=== PATIENT | male | born 1940 | race Caucasian/White ===

== ENCOUNTER 2017-01-27 02:04 | Emergency (ER) | payer MEDICARE, BC ==
[~2017-01-27] VITALS: Ht 177.8 cm; Wt 106.6 kg
[~2017-01-27 02:04] MED LIST: AMLO10TA4 PO; ASCO10002 PO; CLON0.2T PO; DOXA4TAB3 PO; GEMF600T3 PO; GLIM4TAB2 PO; METF10002 PO; METO50TA2 PO; OMEG1CAP6 PO; TRIA1TAB5 PO; VITA150T PO
[2017-01-27 02:18] VITALS: BP 162/97
[2017-01-27] MEDS ORDERED: ACETAMINOPHEN/CODEINE 300/30MG TABLET. PO ONE (02:30)
[2017-01-27] MEDS ORDERED: ACET-704 PO (02:36)
--- NOTE | 2017-01-27 02:39 | PHYS DOC ---
Past Medical History Past Medical History: Diabetes-Type II, Hypertension Additional Past Medical Histor: TACHYCARDIA Past Surgical History: Cholecystectomy, Other Additional Past Surgical Histo: RIGHT EYE, BACK Alcohol Use: None Drug Use: None Adult General Chief Complaint Chief Complaint: [facility] HPI Patient is a 76 year old male who presents with for bilateral anterior chest wall pain after trip and fall at home. He landed with his chest on the side of the tub. His pain is constant, worse with breathing, achy and intermittently sharp. He denies dyspnea, possible consciousness, back pain, neck pain, extremity pain, numbness, tingling, weakness. He denies cough, abdominal pain, nausea or vomiting. Review of Systems Review of Systems Constitutional: Denies fever or chills [] Eyes: Denies change in visual acuity, redness, or eye pain [] HENT: Denies nasal congestion or sore throat [] Respiratory: Denies cough or shortness of breath [] Cardiovascular: No additional information not addressed in HPI [] GI: Denies abdominal pain, nausea, vomiting, bloody stools or diarrhea [] : Denies dysuria or hematuria [] Musculoskeletal: Denies back pain or joint pain [] Integument: Denies rash or skin lesions [] Neurologic: Denies headache, focal weakness or sensory changes [] Endocrine: Denies polyuria or polydipsia [] Current Medications Current Medications Current Medications Medications (Trade) Dose Ordered Sig/Shantanu Start Time Stop Time Status Last Admin Dose Admin Acetaminophen/ Codeine Phosphate (Tylenol #3) 1 tab 1X ONCE 01/27/17 02:30 01/27/17 02:31 DC Allergies Allergies Allergies Coded Allergies Type Severity Reaction Last Updated Verified lisinopril Allergy Severe SWELLING OF TONGUE AND THROAT 05/08/16 Yes Physical Exam Physical Exam Constitutional: Well developed, well nourished, no acute distress, non-toxic appearance. [] HENT: Normocephalic, atraumatic, bilateral external ears normal, oropharynx moist, nose normal. No harrison sign, hemotympanum, or raccoon eyes [] Eyes: PERRLA, EOMI. [] Neck: Normal range of motion, no tenderness, supple. [] Cardiovascular:Heart rate regular rhythm [] Lungs & Thorax: Bilateral breath sounds clear to auscultation. Has chest wall tenderness bilaterally along the line, no visual or palpable abnormality [] Abdomen: Bowel sounds normal, soft, no tenderness. [] Skin: Warm, dry, no erythema, no rash. [] Back: No tenderness, no CVA tenderness. [] Extremities: No tenderness, ROM intact, no edema. [] Neurologic: Alert and oriented X 3, normal motor function, normal sensory function, no focal deficits noted. [] Psychologic: Affect normal, judgement normal, mood normal. [] Current Patient Data Vital Signs Vital Signs Date Time Temp Pulse Resp B/P Pulse Ox O2 Delivery O2 Flow Rate FiO2 01/27/17 02:18 97.7 68 20 165/104 99 Room Air 97.7 EKG EKG EKG as interpreted by me as sinus rhythm with first-degree AV block, rate 78, no ST-T changes, P-R 252, QTC 451, no ectopy Radiology/Procedures Radiology/Procedures Chest xray as interpreted by me with no acute cardiopulmonary disease process Course & Med Decision Making Course & Med Decision Making Pertinent Labs and Imaging studies reviewed. (See chart for details) He is ambulatory with steady gait with normal respiratory effort. Imaging and EKG is unremarkable. Discussed symptomatic care. Encouraged close follow-up with primary care. Return precautions given. He and understand and agree with plan. Dragon Disclaimer Dragon Disclaimer This electronic medical record was generated, in whole or in part, using a voice recognition dictation system. Departure Departure Impression: Primary Impression: Chest wall contusion Disposition: 01 HOME, SELF-CARE Condition: STABLE Referrals: SOTO CLIFFORD MD (PCP) Patient Instructions: Chest Contusion, [id number] Additional Instructions: Take Tylenol or ibuprofen as needed for moderate pain. Take Tylenol 3 as needed for severe pain. Do not drink, drive or operate heavy machinery after taking Tylenol 3 as it may make you sleepy. Follow-up with your primary care doctor within one week. Return for any concerns. Scripts Acetaminophen With Codeine (Tylenol With Codeine #3 Tablet)1 Each Tablet1 Tab PO PRN Q4HRS PRN PAIN #14 TAB Prov:Hipolito CURRY MD 01/27/17 Problem Qualifiers Primary Impression: Chest wall contusion Encounter type: initial encounter Laterality: unspecified laterality Qualified Code: S20.219A - Contusion of unspecified front wall of thorax, initial encounter Hipolito CURRY MD Jan 27, 2017 02:38
--- NOTE | 2017-01-27 07:13 | EKG ---
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
--- NOTE | 2017-01-27 07:14 | RAD ---
Chest, 2 views, 01/27/2017: History: Chest pain after trauma The left ventricle is mildly enlarged. There is calcific plaquing and tortuosity of the thoracic aorta. The pulmonary vascularity is normal. No pulmonary infiltrate is seen. There is mild pleural thickening laterally in the right mid chest. No underlying rib fracture is seen. This appearance is likely due to scarring. There is no evidence of pneumothorax or free pleural fluid. Moderate spurring is present in the spine. IMPRESSION: 1. Left ventricular enlargement and aortic atherosclerosis. 2. Mild pleural thickening laterally on the right, likely due to scarring.
== END 2017-01-27 03:04 | disposition home or self-care (01) ==
LOC: ER 02:04
DX: S20.219A Contusion of unspecified front wall of thorax, initial encounter (principal); E11.9 Type 2 diabetes mellitus without complications; I10 Essential (primary) hypertension; Z90.49 Acquired absence of other specified parts of digestive tract; Z98.890 Other specified postprocedural states; Z88.8 Allergy status to other drugs, medicaments and biological substances; W01.198A Fall on same level from slipping, tripping and stumbling with subsequent striking against other object, initial encounter; Y93.89 Activity, other specified; Y99.8 Other external cause status; Y92.89 Other specified places as the place of occurrence of the external cause
CPT/HCPCS: 71020; 93005; 99284-25

== ENCOUNTER 2020-10-19 02:16 | Inpatient (IN) | payer MEDICARE, BC ==
[~2020-10-19] VITALS: Ht 177.8 cm; Wt 102.6 kg
[~2020-10-19 02:16] MED LIST changes: +ACET-704 PO; +ASCO100019 PO; -ASCO10002 PO; +GEMF600T20 PO; -GEMF600T3 PO; -GLIM4TAB2 PO; +GLIM4TAB8 PO; -METF10002 PO; +METF10007 PO; -METO50TA2 PO; +METO50TA6 PO
--- NOTE | 2020-10-19 02:35 | PHYS DOC ---
Past Medical History Past Medical History: Diabetes-Type II, Hypertension Additional Past Medical Histor: TACHYCARDIA Past Surgical History: Cholecystectomy, Other Additional Past Surgical Histo: RIGHT EYE, BACK Smoking Status: Never Smoker Alcohol Use: None Drug Use: None General Adult EDM: Chief Complaint: SHORTNESS OF BREATH HPI: HPI: Patient is a 79-year-old male presenting via EMS for lightheadedness. Reports patient woke from sleep and was ambulating to bathroom when he started feeling lightheaded and having palpitations. Patient's lightheadedness got so severe that he felt like he was going to fall but was able to lower himself down to the ground, did not hit his head, no loss of consciousness and was able to call out for his who subsequently called EMS. On arrival to the patient's residence, patient was evaluated and found to be tachycardic and irregular rhythm with hypertensive reading and 88% on room air. Patient was subsequently placed on supplemental oxygen via nasal cannula and transferred to our facility for further evaluation. On arrival, patient reports ongoing palpitations without any feelings of lightheadedness or dizziness. Denies any chest pain, pressure or shortness of breath. Denies any changes in his baseline health. No recent COVID-19 contact, fever, falls, chest pain, ripping or tearing sensations in his chest, abdominal pain, changes in bladder or bowel function, no known blood loss. Has history of tachycardia in his EMR but unknown what came of this, is not sure if he is ever seen a cashier receptionist, denies any prior history of atrial fibrillation. accompanied patient in ER and provided additional history, states that, "his blood pressure is always high and he always has a fast heart rate". is unsure if patient has ever been diagnosed with atrial fibrillation Review of Systems: Review of Systems: Fourteen body systems of review of systems have been reviewed. See HPI for pertinent positives and negative responses, other castillo all other systems are negative, non-pertinent or non-contributory Heart Score: HEART Score for Chest Pain: HEART Score for Chest Pain Response (Comments) Value History Slighlty/Non-Suspicious 0 ECG Normal 0 Age > 65 2 Risk Factors >3 Risk Factors or Hx CAD 2 Troponin >3 x Normal Limit 2 Total 6 Risk Factors: Risk Factors: DM, Current or recent (<one month) smoker, HTN, HLP, family history of CAD, obesity. Risk Scores: Score 0 - 3: 2.5% MACE over next 6 weeks - Discharge Home Score 4 - 6: 20.3% MACE over next 6 weeks - Admit for Clinical Observation Score 7 - 10: 72.7% MACE over next 6 weeks - Early Invasive Strategies Allergies: Allergies: Allergies Coded Allergies Type Severity Reaction Last Updated Verified lisinopril Allergy Severe SWELLING OF TONGUE AND THROAT 05/08/16 Yes Physical Exam: PE: General: Appears well, non toxic, and comfortable Skin: Warm, dry. Normal for ethnicity. HEENT: Atraumatic. PERRLA. Moist mucous membranes. Neck: Trachea midline. Normal ROM. Respiratory: Normal WOB. CTAB w/o w/r/r. No tachypnea. Cardiovascular: Regular rate and rhythm. Normal peripheral perfusion. No edema. Abdomen: Soft. Non tender. No distension. Back: Normal ROM. Musculoskeletal: No swelling or deformity. Neuro: Alert and oriented x 4. MAEE. GCS 15. Normal FNF. Negative pronator drift. Normal heel to negro. Normal Medardo. CN II-XII intact. Normal strength and sensation. Normal speech. Psych: Normal affect and mood. Current Patient Data: Labs: Laboratory Tests Test 10/19/20 02:30 10/19/20 02:38 White Blood Count 11.4 x10^3/uL Red Blood Count 4.00 x10^6/uL Hemoglobin 12.1 g/dL Hematocrit 36.5 % Mean Corpuscular Volume 91 fL Mean Corpuscular Hemoglobin 30 pg Mean Corpuscular Hemoglobin Concent 33 g/dL Red Cell Distribution Width 14.0 % Platelet Count 276 x10^3/uL Neutrophils (%) (Auto) 69 % Lymphocytes (%) (Auto) 20 % Monocytes (%) (Auto) 9 % Eosinophils (%) (Auto) 2 % Basophils (%) (Auto) 0 % Neutrophils # (Auto) 7.9 x10^3/uL Lymphocytes # (Auto) 2.3 x10^3/uL Monocytes # (Auto) 1.0 x10^3/uL Eosinophils # (Auto) 0.2 x10^3/uL Basophils # (Auto) 0.0 x10^3/uL Prothrombin Time 13.5 SEC Prothromb Time International Ratio 1.1 Activated Partial Thromboplast Time 29 SEC Sodium Level 140 mmol/L Potassium Level 3.7 mmol/L Chloride Level 107 mmol/L Carbon Dioxide Level 22 mmol/L Anion Gap 11 Blood Urea Nitrogen 18 mg/dL Creatinine 2.2 mg/dL Estimated GFR (Cockcroft-Gault) 29.1 Glucose Level 118 mg/dL Calcium Level 8.8 mg/dL Troponin I Quantitative 0.154 ng/mL Glucose (Fingerstick) 111 mg/dL Current Medications Medications (Trade) Dose Ordered Sig/Shantanu Route PRN Reason Start Time Stop Time Status Last Admin Dose Admin Aspirin (Aspirin Chewable) 324 mg 1X ONCE PO 10/19/20 03:30 10/19/20 03:31 DC 10/19/20 03:56 Heparin Sodium (Porcine) (Heparin Sodium) 4,000 unit 1X ONCE IV 10/19/20 03:30 10/19/20 03:31 DC 10/19/20 03:58 Heparin Sodium/ Dextrose 250 ml @ 0 mls/hr CONT PRN IV PER PROTOCOL 10/19/20 03:15 10/19/20 04:00 Heparin Sodium (Porcine) (Heparin Sodium) 2,650 unit PRN Q6HRS PRN IV FOR UFH LEVEL LESS THAN 0.2 10/19/20 03:15 Metoprolol Tartrate (Lopressor Vial) 5 mg 1X ONCE IVP 10/19/20 03:30 10/19/20 03:31 DC 10/19/20 03:56 Info (Anti-Coagulation Monitoring By Pharmacy) 1 each PRN DAILY PRN MC SEE COMMENTS 10/19/20 03:30 Acetaminophen (Tylenol) 650 mg PRN Q4HRS PRN PO FEVER > 100.3'F 10/19/20 03:30 10/20/20 03:29 Nitroglycerin (Nitrostat) 0.4 mg PRN Q5MIN PRN SL CHEST PAIN 10/19/20 03:30 10/20/20 03:29 Vital Signs: Vital Signs Date Time Temp Pulse Resp B/P (MAP) Pulse Ox O2 Delivery O2 Flow Rate FiO2 10/19/20 03:56 112 159/102 10/19/20 02:16 98.0 112 28 158/97 (117) 96 Room Air 98.0 EKG: EKG: EKG ordered and interpreted by myself at 0230 hrs. as atrial fibrillation with ventricular rate of 115 otherwise unremarkable intervals, left axis deviation, no acute ischemic findings, no STEMI Prior EKG reviewed obtained 01/27/2017 showing sinus rhythm at 78 bpm, prolonged FL interval at 252 otherwise unremarkable intervals, left axis deviation, no acute ischemic findings, no STEMI Radiology/Procedures: Radiology/Procedures: EXAM: AP View of the chest DATE: 10/19/2020 2:35 AM INDICATION: Reason: presyncope / Spl. Instructions: / History: COMPARISON: 01/27/2017 FINDINGS: Cardiomegaly. Small right pleural effusion. Bilateral perihilar airspace opacities and right greater than left lung base airspace opacities. No pneumothorax. IMPRESSION: Cardiomegaly with bilateral parenchymal opacities and small right pleural effusion may be seen with pulmonary edema or multifocal consolidative process such as pneumonia. Imaging follow-up to resolution is recommended. Electronically signed by: Chente Boyce MD (10/19/2020 2:57 AM) STEPHANIA Course & Med Decision Making: Course & Med Decision Making Pertinent Labs and Imaging studies reviewed. (See chart for details) Patient found to be in new onset atrial fibrillation, given fact that patient and are poor historians about his health it is unknown if this is new onset or not. Patient rate controlled with 5 mg IV Lopressor Patient's troponin elevated without active chest pain but reported palpitations that resolved after IV Lopressor. Decision made to anticoagulate with heparin drip due to high CHADS-VASC score 4 Patient's chest x-ray interpreted by radiologist as infiltrate versus fluid overload, patient clinically looks fluid overloaded likely from cardiac insult versus chronic hypertension which could be because of patient's new onset atrial fibrillation and elevated troponin. IV 40 mg Lasix administered On-call hospitalist contacted and case discussed, they agreed need for hospitalization for continued inpatient medical management and cardiac consultation Updated patient and on proposed plan of care to admit to telemetry floor for continued management and cardiac consultation, they were amenable. All questions and concerns addressed prior to transport to [facility] for admission Critical Care Time This patient required critical care. Due to the fact that the patient required a significant amount of one on one physician - patient contact time, ordering and review of studies, arranging urgent treatment with development of a management plan, evaluation of patients response to treatment with frequent reassessments, and discussions with other providers this patient required 45 minutes of critical care time. Critical care time was indicated due to the inherent instability and/or potential for instability in this patient. The critical care time that is allocated to this patient is above and beyond any time spent on any other billable procedures performed on this patient. Sharon Disclaimer: Sharon Disclaimer: This electronic medical record was generated, in whole or in part, using a voice recognition dictation system. Departure Departure Impression: Primary Impression: New onset a-fib Additional Impressions: Elevated troponin Elevated creatine kinase HTN (hypertension) Anemia Disposition: 09 ADMITTED INPT THIS HOSP Admitting [facility] Condition: STABLE Referrals: SOTO CLIFFORD MD (PCP) RAMILA POWER DO Oct 19, 2020 02:35
[2020-10-19 02:48] LABS: BASO % 0 % (0-3); EOS # 0.2 x10^3/uL (0.0-0.7); EOS % 2 % (0-3); HEMATOCRIT 36.5 % (39.0-53.0); HEMOGLOBIN 12.1 g/dL (13.0-17.5); LYMPH # 2.3 x10^3/uL (1.0-4.8); LYMPH % 20 % (24-48); MEAN CORPUSCULAR HEMOGLOBIN 30 pg (25-35); MEAN CORPUSCULAR HGB CONC 33 g/dL (31-37); MEAN CORPUSCULAR VOLUME 91 fL (79-100); MONO % 9 % (0-9); NEUT # 7.9 x10^3/uL (1.8-7.7); NEUT % 69 % (31-73); PLATELET COUNT 276 x10^3/uL (140-400); WHITE BLOOD COUNT 11.4 x10^3/uL (4.0-11.0)
[2020-10-19 02:56] LABS: PROTHROMBIN TIME PATIENT 13.5 SEC (11.7-14.0)
--- NOTE | 2020-10-19 02:59 | RAD ---
EXAM: AP View of the chest DATE: 10/19/2020 2:35 AM INDICATION: Reason: presyncope / Spl. Instructions: / History: COMPARISON: 01/27/2017 FINDINGS: Cardiomegaly. Small right pleural effusion. Bilateral perihilar airspace opacities and right greater than left lung base airspace opacities. No pneumothorax. IMPRESSION: Cardiomegaly with bilateral parenchymal opacities and small right pleural effusion may be seen with p ulmonary edema or multifocal consolidative process such as pneumonia. Imaging follow-up to resolution is recommended. Electronically signed by: Chente Boyce MD (10/19/2020 2:57 AM) STEPHANIA
[2020-10-19 03:02] LABS: CALCIUM 8.8 mg/dL (8.5-10.1); CREATININE 2.2 mg/dL (0.7-1.3); GFR 29.1; POTASSIUM 3.7 mmol/L (3.5-5.1)
[2020-10-19] MEDS ORDERED: METOPROLOL IV PUSH 5 MG/5 ML VIAL. IVP ONE ×2 (03:30→16:00)
[2020-10-19] MEDS ORDERED: HEPARIN for IV BOLUS 10,000 UNIT/10 ML VIAL. IV ONE (03:30)
[2020-10-19] MEDS ORDERED: ASPIRIN CHEWABLE 81 MG TABLET. PO ONE (03:30)
[2020-10-19] MEDS ORDERED: NITROGLYCERIN SUBLINGUAL 0.4 MG BOTTLE OF 25. SL PRN ×2 (03:30→04:45)
[2020-10-19] MEDS ORDERED: ACETAMINOPHEN 325 MG TABLET. PO PRN (03:30)
[2020-10-19] MEDS: HEPARIN 25,000UTS/250ML PREMIX 250 ML IV PRN ×2 (04:00→22:24)
[2020-10-19] MEDS: ANTI-COAG MONITOR BY PHARMACY. MC PRN (04:58)
[2020-10-19] MEDS ORDERED: FUROSEMIDE 40 MG/4 ML VIAL. IVP ONE (05:00)
[2020-10-19] MEDS ORDERED: DEXTROSE 50% 25 GM / 50ML DISP.SYRIN. IV PRN (06:45)
[2020-10-19 08:35] VITALS: BP 141/97
--- NOTE | 2020-10-19 09:59 | NUR ---
Wound Care Wound Type/Assessment: Consult to eval and treat for wounds present to bilateral legs. Wounds to L calf and R posterior knee pictured and measured, intact scabs to toes noted. at bedside states that pt experiences falls fairly often, and usually ends up with a few abrasions. Pt is diabetic, but feet are overall healthy, soft skin, and superficial, stable scabs of different ages noted to toes. L calf wound bed pink and moist with 50% thick, loose slough, some of which came away during cleansing. R posterior knee wound red and crusty at edges, and slight redness and induration noted to mat wound. No other wounds noted on head to toe assessment. Treatment Recommendations/Plan: R posterior knee/L calf: Cleanse and pat dry. Apply medihoney gel, xeroform, and foam dressing. Change every 2 days Education provided: Educated to turn periodically to prevent new areas of skin breakdown. Offloading surface/device: pillows for positioning and comfort, able to self-turn Recommended Referrals/Tests: NA Discharge Recommendations for dressings: As above
--- NOTE | 2020-10-19 10:36 | HP ---
ADMIT DATE: 10/19/2020 CHIEF COMPLAINT: Shortness of breath. HISTORY OF PRESENT ILLNESS: The patient is a pleasant 79-year-old male, who presented to the ER with shortness of breath. He has had some associated lightheadedness. It has been going on for a couple of days. He also started having some palpitations yesterday when he went to the bathroom. When he got to the ER, we noticed that he is in AFib. He also has some heart failure. Apparently, his had COVID-19 within the recent past, so we were also concerned he could have been exposed to COVID. The patient has been admitted with consultation to Cardiology. PAST MEDICAL HISTORY: Diabetes, hypertension, tachycardia, cholecystectomy, right eye surgery, back surgery. ALLERGIES: LISINOPRIL. FAMILY HISTORY: Coronary artery disease. SOCIAL HISTORY: He does not drink, smoke or take drugs. He is retired. He is . His is here. MEDICATIONS: Reviewed, please refer to the MRAD. REVIEW OF SYSTEMS: GENERAL: No history of weight change, weakness or fevers. SKIN: No bruising, hair changes or rashes. EYES: No blurred, double or loss of vision. NOSE AND THROAT: No history of nosebleeds, hoarseness or sore throat. HEART: No history of palpitations, chest pain or shortness of breath on exertion. LUNGS: Denies cough, hemoptysis, wheezing or shortness of breath. GASTROINTESTINAL: Denies changes in appetite, nausea, vomiting, diarrhea or constipation. GENITOURINARY: No history of frequency, urgency, hesitancy or nocturia. NEUROLOGIC: Denies history of numbness, tingling, tremor or weakness. PSYCHIATRIC: No history of panic, anxiety or depression. ENDOCRINE: No history of heat or cold intolerance, polyuria or polydipsia. EXTREMITIES: Denies muscle weakness, joint pain, pain on walking or stiffness. PHYSICAL EXAMINATION: VITALS: Within normal limits and are stable. GENERAL: No apparent distress. Alert and oriented. HEENT: Normocephalic atraumatic, external auditory canals are patent. EYES: Extraocular muscles are intact, pupils are equally round and reactive to light and accommodation. MUSCULOSKELETAL: Well developed, well nourished, good range of motion. ENDOCRINE: No thyromegaly was palpated. LYMPHATICS: No cervical chain or axillary nodes were noted. HEMATOPOIETIC: No bruising. NECK: Supple, no JVD, no thyromegaly was noted. LUNGS: Clear to auscultation in all lung jeff without rhonchi or wheezing. HEART: He has a distant S1, S2 with irregular rate and rhythm at 80 beats per minute. ABDOMEN: Soft, nontender. Positive bowel sounds no organomegaly, normal bowel sounds. EXTREMITIES: Without any cyanosis, clubbing, or edema. Pedal pulses intact, Homans sign is negative. NEUROLOGIC: Normal speech, normal tone. A & O x 3, moves all extremities, no obvious focal deficits. PSYCHIATRIC: Normal affect, normal mood. Stable. SKIN: No ulcerations or rashes, good skin turgor, no jaundice. VASCULAR: Good capillary refill, neurovascular bundle appears to be intact. LABORATORY DATA: White count is 11.4, hemoglobin 12.1, platelets 276. Electrolytes are normal except for creatinine of 2.2. Troponin is slightly high at 0.15. BNP level is pending. COVID testing is actually negative. INR is 1. Chest x-ray shows cardiomegaly with some bilateral parenchymal opacities and a small right pleural effusion, which may be seen with pulmonary edema or a multifocal consolidative process, such as pneumonia. ASSESSMENT AND PLAN: Atrial fibrillation with resolving rapid ventricular response. Abnormal chest x-ray suspicious for pneumonia or heart failure, hypertension, elevated troponin. PLAN: The patient has been admitted. We will consult Cardiology, cardiac monitoring, serial enzymes, serial EKGs, echocardiogram, home meds, DVT prophylaxis. Full code. We will use p.r.n. negative chronotropic agents as needed, but currently he is under 100 beats per minute. ZAIN JENSEN DO DR: RUBEN/shahla JOB#: [id number] / [id number]
--- NOTE | 2020-10-19 10:56 | NUR ---
pt transferred to room 260 at approx 0950. pt was not on this floor when the pt had a ufh draw at 0800. this nurse did not make any adjustments to the heparin gtt as the pt was not on this unit at that time. Order put in to redraw stat ufh at approx 1100. Will continue to monitor.
[2020-10-19 11:00] VITALS: BP 136/94
--- NOTE | 2020-10-19 11:14 | NUR ---
SS following for discharge planning. SS reviewed pt chart and discussed with pt RN. Pt is from home with spouse and is currently on room air. COVID19 test pending. Heparin drip. Cardiology consulted. SS will continue to follow for discharge planning.
--- NOTE | 2020-10-19 12:07 | NUR ---
UFH ordered for wrong time this morning, should have been timed for 1000, but was not & was drawn at 0800. HALLE Nieto ordered a new UHF closer to actual time it should have been drawn.
[2020-10-19] MEDS: HEPARIN for IV BOLUS 10,000 UNIT/10 ML VIAL. IV PRN ×2 (13:40→19:53)
[2020-10-19 15:00] VITALS: BP 142/96
[2020-10-19] MEDS ORDERED: METOPROLOL IV PUSH 5 MG/5 ML VIAL. IVP PRN (15:45)
--- NOTE | 2020-10-19 16:09 | PDOC2 ---
GUZMAN FAIRCHILD [employer] 10/19/20 1609: CARDIAC CONSULT DATE OF CONSULT Date of Consult DATE: 10/19/20 TIME: 15:39 REASON FOR CONSULT Reason for Consult: Possible CHF/AFIB REFERRING PHYSICIAN Referring Physician: Cherrie SOURCE Source: Chart review, Patient HISTORY OF PRESENT ILLNESS HISTORY OF PRESENT ILLNESS This is a pleasant 79 yo male admitted for complains of shortness of breath and lightheadedness. Reports no chest pain. His SOA started about 3-4 days ago. Positive for incresing leg edema, PND and orthopnea. Also at times with palpitations and actually lightheaded yesterday, He did fall about 2 days ago but no because he was lightheaded but due to lost of balance. No prior hx of CAD, arrhythmia, no prior recent stress test and no hx of CVA, PUD or bleeding issues. He was also noted to be slightly hypoxic when EMS got to his home. No recent fever, productive cough or recent exposure to covid-19. No n/v/d. PAST MEDICAL HISTORY Cardiovascular: CHF, HTN, Hyperlipidemia Pulmonary: No pertinent hx CENTRAL NERVOUS SYSTEM: Other (No pertinent history) GI: No pertinent hx Heme/Onc: No pertinent hx Hepatobiliary: Cholelithiasis Psych: No pertinent hx Musculoskeletal: Osteoarthritis Rheumatologic: No pertinent hx Infectious disease: No pertinent hx ENT: No pertinent hx Renal/: No pertinent hx Endocrine: Diabetes (2) PAST SURGICAL HISTORY Past Surgical History: Cholecystectomy, Other (right eye surgery) FAMILY HISTORY Family History noncontributory SOCIAL HISTORY Smoke: No ALCOHOL: none Drugs: None Lives: with Family CURRENT MEDICATIONS CURRENT MEDICATIONS Current Medications Medications (Trade) Dose Ordered Sig/Shantanu Route PRN Reason Start Time Stop Time Status Last Admin Dose Admin Aspirin (Aspirin Chewable) 324 mg 1X ONCE PO 10/19/20 03:30 10/19/20 03:31 DC 10/19/20 03:56 Heparin Sodium (Porcine) (Heparin Sodium) 4,000 unit 1X ONCE IV 10/19/20 03:30 10/19/20 03:31 DC 10/19/20 03:58 Heparin Sodium/ Dextrose 250 ml @ 0 mls/hr CONT PRN IV PER PROTOCOL 10/19/20 03:15 10/19/20 04:00 Heparin Sodium (Porcine) (Heparin Sodium) 2,650 unit PRN Q6HRS PRN IV FOR UFH LEVEL LESS THAN 0.2 10/19/20 03:15 10/19/20 13:40 Metoprolol Tartrate (Lopressor Vial) 5 mg 1X ONCE IVP 10/19/20 03:30 10/19/20 03:31 DC 10/19/20 03:56 Info (Anti-Coagulation Monitoring By Pharmacy) 1 each PRN DAILY PRN MC SEE COMMENTS 10/19/20 03:30 10/19/20 04:58 Furosemide (Lasix) 40 mg 1X ONCE IVP 10/19/20 05:00 10/19/20 05:01 DC 10/19/20 06:18 ALLERGIES ALLERGIES: Coded Allergies: lisinopril (Verified Allergy, Severe, SWELLING OF TONGUE AND THROAT, 05/08/16) ROS Review of System 14 point ROS evaluated with pertinent positives noted per HPI PHYSICAL EXAM PHYSICAL EXAM Discussed with RN General: Alert, Oriented X3, Cooperative, No acute distress HEENT: Atraumatic, Mucous membr. moist/pink Lungs: Other (dimnished, CXR reviewed) Heart: Other (AFIB rate controlled) Abdomen: Soft, No tenderness Extremities: No cyanosis, Other (2+ bilateral LE pitting edema) Skin: No breakdown, No significant lesion Neuro: Normal speech, Sensation intact Psych/Mental Status: Mental status NL, Mood NL MUSCULOSKELETAL: Osteoarthritic changes both hands VITALS/I&O VITALS/I&O: Vital Signs Date Time Temp Pulse Resp B/P (MAP) Pulse Ox O2 Delivery O2 Flow Rate FiO2 10/19/20 15:00 97.3 117 20 142/96 (111) 96 Nasal Cannula 2.0 97.3 LABS Lab: Laboratory Tests Test 10/19/20 02:30 10/19/20 02:38 10/19/20 08:05 10/19/20 08:31 White Blood Count 11.4 x10^3/uL (4.0-11.0) H Red Blood Count 4.00 x10^6/uL (4.30-5.70) L Hemoglobin 12.1 g/dL (13.0-17.5) L Hematocrit 36.5 % (39.0-53.0) L Mean Corpuscular Volume 91 fL (79-100) Mean Corpuscular Hemoglobin 30 pg (25-35) Mean Corpuscular Hemoglobin Concent 33 g/dL (31-37) Red Cell Distribution Width 14.0 % (11.5-14.5) Platelet Count 276 x10^3/uL (140-400) Neutrophils (%) (Auto) 69 % (31-73) Lymphocytes (%) (Auto) 20 % (24-48) L Monocytes (%) (Auto) 9 % (0-9) Eosinophils (%) (Auto) 2 % (0-3) Basophils (%) (Auto) 0 % (0-3) Neutrophils # (Auto) 7.9 x10^3/uL (1.8-7.7) H Lymphocytes # (Auto) 2.3 x10^3/uL (1.0-4.8) Monocytes # (Auto) 1.0 x10^3/uL (0.0-1.1) Eosinophils # (Auto) 0.2 x10^3/uL (0.0-0.7) Basophils # (Auto) 0.0 x10^3/uL (0.0-0.2) Prothrombin Time 13.5 SEC (11.7-14.0) Prothrombin Time INR 1.1 (0.8-1.1) Activated Partial Thromboplast Time 29 SEC (24-38) Sodium Level 140 mmol/L (136-145) Potassium Level 3.7 mmol/L (3.5-5.1) Chloride Level 107 mmol/L (98-107) Carbon Dioxide Level 22 mmol/L (21-32) Anion Gap 11 (6-14) Blood Urea Nitrogen 18 mg/dL (8-26) Creatinine 2.2 mg/dL (0.7-1.3) H Estimated GFR (Cockcroft-Gault) 29.1 Glucose Level 118 mg/dL (70-99) H Calcium Level 8.8 mg/dL (8.5-10.1) Troponin I Quantitative 0.154 ng/mL (0.000-0.055) 0.135 ng/mL (0.000-0.055) Glucose (Fingerstick) 111 mg/dL (70-99) H 120 mg/dL (70-99) H Heparin Anti-Xa Act, Unfractionated 0.10 IU/mL (0.30-0.70) L SARS-CoV-2 Antigen (Rapid) Negative (NEGATIVE) Test 10/19/20 11:20 10/19/20 11:53 Heparin Anti-Xa Act, Unfractionated < 0.10 IU/mL (0.30-0.70) L Troponin I Quantitative 0.131 ng/mL (0.000-0.055) Glucose (Fingerstick) 161 mg/dL (70-99) H Laboratory Tests 10/19/20 02:30 Laboratory Tests 10/19/20 02:30 ASSESSMENT/PLAN ASSESSMENT/PLAN 1. PAFIB/flutter with RVR: new finding 2. Acute CHF with possible systolic/diastolic dysfunction 3. ELIZABETH vs CKD 4. Mild troponin elevation: 0.13, possibly demand mediated. no CP 5. HTN: labile episodes. multiple BP meds at home 6. HLP 7. DM2 8. Nontraumatic fall: due to lost of balance 9. PUI Recommendations 1. Restart metoprolol.PO. IV prn 2. IV lasix therapy. K replacement 3. ASA. Heparin drip for now. Will reeval tomorrow and will consider eliquis to start for stroke prevention 4. Continue home statin, will check lipids. Check TSH 5. Hold metformin and any ACEi for now. DC maxide. May restart norvasc if BP starts trending up otherwise optimize BB and diuretic treatment 6. If Covid PCR is neg then will obtain TTE CHELO NICHOLSON MD 10/19/20 1701: CARDIAC CONSULT ASSESSMENT/PLAN ASSESSMENT/PLAN Patient seen and examined. Agree with SCALEMAN's assessment and plan. AF with RVR, newly diagnosed, agree with BB for rate control Slight trop elevation prob demand ischemia We will obtain 2D echo if covid negative and consider ischemic evaluation as outpatient Continue heparin infusion per protocol Continue diuresis for acute on chr possibly diastolic HF Thank you for your consultation GUZMAN FAIRCHILD APRN Oct 19, 2020 16:09 CHELO NICHOLSON MD Oct 19, 2020 17:01
[2020-10-19 16:29] LABS: CHOLESTEROL/HDL RATIO 3.7
[2020-10-19] MEDS: FUROSEMIDE 40 MG/4 ML VIAL. IVP SCH (17:06)
[2020-10-19] MEDS: POTASSIUM CHLORIDE 20 MEQ TABLET.ER. PO SCH (17:07)
[2020-10-19 19:55] VITALS: BP 145/97
[2020-10-19] MEDS: METOPROLOL TART IMMED RELEASE 50 MG TABLET. PO SCH (20:44)
[2020-10-19 22:08] VITALS: BP 147/93
[2020-10-20 02:42] LABS: HEMATOCRIT 33.6 % (39.0-53.0); HEMOGLOBIN 11.2 g/dL (13.0-17.5); RED BLOOD COUNT 3.63 x10^6/uL (4.30-5.70); RED CELL DISTRIBUTION WIDTH 14.7 % (11.5-14.5); WHITE BLOOD COUNT 9.8 x10^3/uL (4.0-11.0)
[2020-10-20 02:51] VITALS: BP 146/98
[2020-10-20 02:58] LABS: CALCIUM 8.8 mg/dL (8.5-10.1); CREATININE 2.3 mg/dL (0.7-1.3); GFR 27.6; MAGNESIUM 2.1 mg/dL (1.8-2.4); POTASSIUM 3.7 mmol/L (3.5-5.1)
[2020-10-20 07:00] VITALS: BP 142/91
[2020-10-20] MEDS: POTASSIUM CHLORIDE 20 MEQ TABLET.ER. PO SCH (08:44)
[2020-10-20] MEDS: METOPROLOL TART IMMED RELEASE 50 MG TABLET. PO SCH ×2 (08:44→21:15)
[2020-10-20] MEDS: FUROSEMIDE 40 MG/4 ML VIAL. IVP SCH (08:45)
[2020-10-20 11:00] VITALS: BP 138/73
--- NOTE | 2020-10-20 11:59 | PDOC ---
[facility] PROGRESS NOTE Date of Service DOS: DATE: 10/20/20 TIME: 11:50 Chief Complaint Chief Complaint New onset acute A. fib RVR Acute combined diastolic systolic CHF PAFIB/flutter with RVR: new finding Acute on chronic kidney injury Mild troponinemia likely demand ischemia Hypertension Dyslipidemia Diabetes mellitus type 2 Continue current medical management Appreciate cardiology recommendations 1. Restart metoprolol.PO. IV prn 2. IV lasix therapy. K replacement Pending TSH 5. Hold metformin and any ACEi for now. DC maxide. May restart norvasc if BP starts trending up otherwise optimize BB and diuretic treatment Pending echocardiogram Continue heparin drip for DVT prophylaxis Cardiac diet Full code Discussed with RN and SW Disposition inpatient management as above Surrogate decision maker is Flakita Palomares History of Present Illness History of Present Illness 10/20/2020 No acute events overnight. Patient is saturating 97% on 2 L nasal cannula. Patient improves in his respiratory status and not dyspneic anymore. 2 L was diuresed total. Patient's chart, labs, images were reviewed and discussed with RN 79-year-old male, who presented to the ER with shortness of breath. He has had some associated lightheadedness. It has been going on for a couple of days. He also started having some palpitations yesterday when he went to the bathroom. When he got to the ER, we noticed that he is in AFib. He also has some heart failure. Apparently, his had COVID-19 within the recent past, so we were also concerned he could have been exposed to COVID. The patient has been admitted with consultation to Cardiology. Vitals/I&O Vitals/I&O: Vital Signs Date Time Temp Pulse Resp B/P (MAP) Pulse Ox O2 Delivery O2 Flow Rate FiO2 10/20/20 08:44 110 142/91 10/20/20 07:00 98.1 20 97 Nasal Cannula 2.0 98.1 I & O 10/19/20 10/19/20 10/20/20 15:00 23:00 07:00 Intake Total 600 ml 800 ml Output Total 400 ml 900 ml 800 ml Balance -400 ml -300 ml 0 ml Physical Exam General: Alert, Oriented X3, Cooperative, No acute distress Heart: Other (AFIB rate controlled) Lungs: Clear, Other Abdomen: Soft, No tenderness Extremities: No cyanosis, Other (2+ bilateral LE pitting edema) Skin: No breakdown, No significant lesion Labs Labs: Laboratory Tests Test 10/19/20 11:53 10/19/20 16:47 10/19/20 19:00 10/20/20 02:00 Glucose (Fingerstick) 161 mg/dL (70-99) 215 mg/dL (70-99) Heparin Anti-Xa Act, Unfractionated 0.19 IU/mL (0.30-0.70) 0.48 IU/mL (0.30-0.70) White Blood Count 9.8 x10^3/uL (4.0-11.0) Red Blood Count 3.63 x10^6/uL (4.30-5.70) Hemoglobin 11.2 g/dL (13.0-17.5) Hematocrit 33.6 % (39.0-53.0) Mean Corpuscular Volume 93 fL (79-100) Mean Corpuscular Hemoglobin 31 pg (25-35) Mean Corpuscular Hemoglobin Concent 33 g/dL (31-37) Red Cell Distribution Width 14.7 % (11.5-14.5) Platelet Count 241 x10^3/uL (140-400) Sodium Level 142 mmol/L (136-145) Potassium Level 3.7 mmol/L (3.5-5.1) Chloride Level 108 mmol/L (98-107) Carbon Dioxide Level 24 mmol/L (21-32) Anion Gap 10 (6-14) Blood Urea Nitrogen 20 mg/dL (8-26) Creatinine 2.3 mg/dL (0.7-1.3) Estimated GFR (Cockcroft-Gault) 27.6 Glucose Level 113 mg/dL (70-99) Calcium Level 8.8 mg/dL (8.5-10.1) Magnesium Level 2.1 mg/dL (1.8-2.4) Test 10/20/20 07:44 10/20/20 08:53 Glucose (Fingerstick) 108 mg/dL (70-99) Heparin Anti-Xa Act, Unfractionated 0.51 IU/mL (0.30-0.70) Assessment and Plan Assessmemt and Plan Problems Medical Problems: (1) Anemia Status: Acute (2) HTN (hypertension) Status: Acute Comment Review of Relevant I have reviewed the following items cortes (where applicable) has been applied. Medications: Current Medications Medications (Trade) Dose Ordered Sig/Shantanu Route PRN Reason Start Time Stop Time Status Last Admin Dose Admin Furosemide (Lasix) 40 mg DAILY IVP 10/19/20 15:45 10/20/20 08:45 Potassium Chloride (Klor-Con) 20 meq [id number] PO 10/19/20 15:45 10/20/20 08:44 Metoprolol Tartrate (Lopressor) 50 mg BID PO 10/19/20 21:00 10/20/20 08:44 Metoprolol Tartrate (Lopressor Vial) 5 mg 1X ONCE IVP 10/19/20 16:00 10/19/20 16:01 DC 10/19/20 17:07 Justifications for Admission Other Justification PATI SAUNDERS MD Oct 20, 2020 11:58
[2020-10-20] MEDS: INSULIN LISPRO 300 UNITS/3 ML VIAL. SQ SCH ×2 (12:00→16:30)
[2020-10-20] MEDS ORDERED: DEXTROSE 50% 25 GM / 50ML DISP.SYRIN. IV PRN (12:00)
[2020-10-20 15:01] VITALS: BP 137/98
--- NOTE | 2020-10-20 16:13 | PDOC ---
PROGRESS NOTES Date of Service: DATE: 10/20/20 TIME: 16:13 Subjective Subjective Dyspnea improving. Denied any CP Objective Objective Vital Signs Date Time Temp Pulse Resp B/P (MAP) Pulse Ox O2 Delivery O2 Flow Rate FiO2 10/20/20 15:01 97.4 85 20 137/98 (111) 94 Nasal Cannula 2.0 97.4 Intake and Output 10/20/20 07:00 Intake Total 1400 ml Output Total 2100 ml Balance -700 ml Intake Oral 1400 ml Output Urine Total 2100 ml # Voids 1 Physical Exam Abdomen: Soft, No tenderness Heart: Other (AFIB rate controlled) Extremities: No cyanosis, Other (2+ bilateral LE pitting edema) General: Alert, Oriented X3, Cooperative, No acute distress HEENT: Atraumatic, Mucous membr. moist/pink Lungs: Other (dimnished, CXR reviewed) Neuro: Normal speech, Sensation intact Psych/Mental Status: Mental status NL, Mood NL Skin: No breakdown, No significant lesion Assessment Assessment 1. PAFIB/flutter with RVR: newly diagnosed. Presently in SR but tele showed paroxysms of AF. Continue heparin gtt - we will change to eliquis tomorrow 2. Acute CHF with possible systolic/diastolic dysfunction, improving with diur esis. Plan 2D echo if covid negative 3. ELIZABETH vs CKD 4. Mild troponin elevation: 0.13, possibly demand mediated. no CP. We will consider ischemic evaluation as outpatient 5. HTN: labile episodes. 6. HLP 7. DM2: Per IM 8. Nontraumatic fall: due to lost of balance 9. PUI Plan Plan of Care Problems Medical Problems: (1) Anemia Status: Acute (2) HTN (hypertension) Status: Acute Comment Review of Relevant I have reviewed the following items cortes (where applicable) has been applied. Labs Laboratory Tests Test 10/19/20 16:47 10/19/20 19:00 10/20/20 02:00 10/20/20 07:44 Glucose (Fingerstick) 215 mg/dL (70-99) 108 mg/dL (70-99) Heparin Anti-Xa Act, Unfractionated 0.19 IU/mL (0.30-0.70) 0.48 IU/mL (0.30-0.70) White Blood Count 9.8 x10^3/uL (4.0-11.0) Red Blood Count 3.63 x10^6/uL (4.30-5.70) Hemoglobin 11.2 g/dL (13.0-17.5) Hematocrit 33.6 % (39.0-53.0) Mean Corpuscular Volume 93 fL (79-100) Mean Corpuscular Hemoglobin 31 pg (25-35) Mean Corpuscular Hemoglobin Concent 33 g/dL (31-37) Red Cell Distribution Width 14.7 % (11.5-14.5) Platelet Count 241 x10^3/uL (140-400) Sodium Level 142 mmol/L (136-145) Potassium Level 3.7 mmol/L (3.5-5.1) Chloride Level 108 mmol/L (98-107) Carbon Dioxide Level 24 mmol/L (21-32) Anion Gap 10 (6-14) Blood Urea Nitrogen 20 mg/dL (8-26) Creatinine 2.3 mg/dL (0.7-1.3) Estimated GFR (Cockcroft-Gault) 27.6 Glucose Level 113 mg/dL (70-99) Calcium Level 8.8 mg/dL (8.5-10.1) Magnesium Level 2.1 mg/dL (1.8-2.4) Test 10/20/20 08:53 10/20/20 11:50 Heparin Anti-Xa Act, Unfractionated 0.51 IU/mL (0.30-0.70) Glucose (Fingerstick) 198 mg/dL (70-99) Medications Current Medications Dextrose (Dextrose 50%-Water Syringe) 12.5 gm PRN Q15MIN PRN IV SEE COMMENTS; Start 10/20/20 at 12:00 Insulin Human Lispro (HumaLOG) 0-7 UNITS TIDWMEALS SQ ; Start 10/20/20 at 12:00 Metoprolol Tartrate (Lopressor) 50 mg BID PO Last administered on 10/20/20at 08:44; Start 10/19/20 at 21:00 Vitals/I & O Vital Sign - Last 24 Hours 10/19/20 10/19/20 10/19/20 10/19/20 17:07 19:23 19:55 20:44 Temp 99.4 99.4 Pulse 117 108 108 Resp 20 B/P (MAP) 142/96 145/97 (113) 145/97 Pulse Ox 98 O2 Delivery Nasal Cannula Nasal Cannula O2 Flow Rate 2.0 10/19/20 10/20/20 10/20/20 10/20/20 22:08 02:51 07:00 08:00 Temp 99.7 99.4 98.1 99.7 99.4 98.1 Pulse 91 110 110 Resp 22 22 20 B/P (MAP) 147/93 (111) 146/98 (114) 142/91 (108) Pulse Ox 96 97 97 O2 Delivery Nasal Cannula Nasal Cannula Nasal Cannula Nasal Cannula O2 Flow Rate 2.0 2.0 2.0 3.0 10/20/20 10/20/20 10/20/20 08:44 11:00 15:01 Temp 97.6 97.4 97.6 97.4 Pulse 110 91 85 Resp 20 20 B/P (MAP) 142/91 138/73 (94) 137/98 (111) Pulse Ox 97 94 O2 Delivery Nasal Cannula Nasal Cannula O2 Flow Rate 2.0 2.0 Intake and Output 10/19/20 10/19/20 10/20/20 15:00 23:00 07:00 Intake Total 600 ml 800 ml Output Total 400 ml 900 ml 800 ml Balance -400 ml -300 ml 0 ml CHELO NICHOLSON MD Oct 20, 2020 16:13
--- NOTE | 2020-10-20 18:33 | EKG ---
[facility] [address] [place] [address] Test Date: 2020-10-19 Test Time: 02:24:34 Pat Name: ALVARO CONSTANTINO Department: Room: Gender: M [employer]: : 1940 Requested By: RAMILA POWER Order Number: [id number] Reading MD: Measurements Intervals [place] Rate: 115 P: CA: QRS: -26 QRSD: 112 T: 84 QT: 324 QTc: 450 Interpretive Statements IRREGULAR RHYTHM, NO P-WAVE FOUND LEFTWARD AXIS NO SPECIFIC ECG ABNORMALITIES RI6.01 No previous ECG available for comparison
[2020-10-20 19:16] VITALS: BP 163/108
[2020-10-20 22:10] VITALS: BP 138/99
[2020-10-21 02:21] VITALS: BP 162/98
[2020-10-21] MEDS: HEPARIN 25,000UTS/250ML PREMIX 250 ML IV PRN (05:36)
[2020-10-21 07:00] VITALS: BP 144/100
[2020-10-21] MEDS: INSULIN LISPRO 300 UNITS/3 ML VIAL. SQ SCH ×3 (08:00→12:44)
[2020-10-21] MEDS: POTASSIUM CHLORIDE 20 MEQ TABLET.ER. PO SCH (08:00)
[2020-10-21] MEDS: METOPROLOL TART IMMED RELEASE 50 MG TABLET. PO SCH ×2 (08:52→21:43)
[2020-10-21] MEDS: FUROSEMIDE 40 MG/4 ML VIAL. IVP SCH (08:53)
[2020-10-21 08:56] LABS: CALCIUM 8.6 mg/dL (8.5-10.1); CREATININE 2.2 mg/dL (0.7-1.3); GFR 29.1; MAGNESIUM 2.1 mg/dL (1.8-2.4); POTASSIUM 3.8 mmol/L (3.5-5.1)
--- NOTE | 2020-10-21 09:16 | PDOC ---
[employer] PROGRESS NOTE Date of Service DOS: DATE: 10/21/20 TIME: 09:14 Chief Complaint Chief Complaint New onset acute A. fib RVR Acute combined diastolic systolic CHF PAFIB/flutter with RVR: new finding Acute on chronic kidney injury Mild troponinemia likely demand ischemia Hypertension Dyslipidemia Diabetes mellitus type 2 Continue current medical management Appreciate cardiology recommendations -Restart metoprolol.PO. IV prn -IV lasix therapy. K replacement -Hold metformin and any ACEi for now. DC maxide. May restart norvasc if BP starts trending up otherwise optimize BB and diuretic treatment Pending echocardiogram Continue heparin drip for DVT prophylaxis Cardiac diet Full code Discussed with RN and SW Disposition inpatient management as above Surrogate decision maker is Flakita Palomares History of Present Illness History of Present Illness 10/21/2020 No acute events overnight. Patient saturating 94% on 2 L nasal cannula. Heart rate is well controlled. Covid is negative. Pending echocardiogram at this time. Will restart Eliquis tomorrow. Patient's chart, labs, images were reviewed and discussed with RN 10/20/2020 No acute events overnight. Patient is saturating 97% on 2 L nasal cannula. Patient improves in his respiratory status and not dyspneic anymore. 2 L was diuresed total. Patient's chart, labs, images were reviewed and discussed with RN 79-year-old male, who presented to the ER with shortness of breath. He has had some associated lightheadedness. It has been going on for a couple of days. He also started having some palpitations yesterday when he went to the bathroom. When he got to the ER, we noticed that he is in AFib. He also has some heart failure. Apparently, his had COVID-19 within the recent past, so we were also concerned he could have been exposed to COVID. The patient has been admitted with consultation to Cardiology. Vitals/I&O Vitals/I&O: Vital Signs Date Time Temp Pulse Resp B/P (MAP) Pulse Ox O2 Delivery O2 Flow Rate FiO2 10/21/20 08:52 84 144/100 10/21/20 07:00 98.3 20 94 Nasal Cannula 2.5 98.3 I & O 10/20/20 10/20/20 10/21/20 14:59 22:59 06:59 Intake Total 50 ml Output Total 150 ml 250 ml 250 ml Balance -150 ml -250 ml -200 ml Physical Exam General: Alert, Oriented X3, Cooperative, No acute distress Heart: Other (AFIB rate controlled) Lungs: Clear, Other Abdomen: Soft, No tenderness Extremities: No cyanosis, Other (2+ bilateral LE pitting edema) Skin: No breakdown, No significant lesion Labs Labs: Laboratory Tests Test 10/20/20 11:50 10/20/20 16:29 10/20/20 19:57 10/21/20 05:00 Glucose (Fingerstick) 198 mg/dL (70-99) 210 mg/dL (70-99) 183 mg/dL (70-99) Heparin Anti-Xa Act, Unfractionated 0.41 IU/mL (0.30-0.70) Sodium Level 140 mmol/L (136-145) Potassium Level 3.8 mmol/L (3.5-5.1) Chloride Level 106 mmol/L (98-107) Carbon Dioxide Level 24 mmol/L (21-32) Anion Gap 10 (6-14) Blood Urea Nitrogen 23 mg/dL (8-26) Creatinine 2.2 mg/dL (0.7-1.3) Estimated GFR (Cockcroft-Gault) 29.1 Glucose Level 125 mg/dL (70-99) Calcium Level 8.6 mg/dL (8.5-10.1) Magnesium Level 2.1 mg/dL (1.8-2.4) Test 10/21/20 07:25 Glucose (Fingerstick) 134 mg/dL (70-99) Assessment and Plan Assessmemt and Plan Problems Medical Problems: (1) Anemia Status: Acute (2) HTN (hypertension) Status: Acute Comment Review of Relevant I have reviewed the following items cortes (where applicable) has been applied. Justifications for Admission Other Justification PATI SAUNDERS MD Oct 21, 2020 09:15
[2020-10-21 10:53] VITALS: BP 124/72
[2020-10-21] MEDS: ANTI-COAG MONITOR BY PHARMACY. MC PRN (13:10)
--- NOTE | 2020-10-21 14:20 | NUR ---
Dr. Mortensen paged through the call service at 13:[address] Mortensen was paged again at 14:15. Called back at 14:18. No new orders at this time. Stated monitor patient for increased somulance, compliants of pain, or any neuro changes. If any changes in neuro status patient can go for a stat head ct. Pt resting comfortable at this time. Denies pain. Bed alarm on. Call light in reach. at bedside. Will continue to monitor and follow plan of care.
--- NOTE | 2020-10-21 15:02 | PDOC ---
PROGRESS NOTES Date of Service: DATE: 10/21/20 TIME: 15:01 Subjective Subjective Feeling better. Dyspnea improved. Denied any chest pain or palpitations. Objective Objective Vital Signs Date Time Temp Pulse Resp B/P (MAP) Pulse Ox O2 Delivery O2 Flow Rate FiO2 10/21/20 10:53 97.6 80 20 124/72 (89) 96 Nasal Cannula 2.0 97.6 Intake and Output 10/21/20 07:00 Intake Total 50 ml Output Total 650 ml Balance -600 ml Intake Oral 50 ml Output Urine Total 650 ml # Voids 5 Physical Exam Abdomen: Soft, No tenderness Heart: Other (AFIB rate controlled) Extremities: No cyanosis, Other (2+ bilateral LE pitting edema) General: Alert, Oriented X3, Cooperative, No acute distress HEENT: Atraumatic, Mucous membr. moist/pink Lungs: Other (dimnished, CXR reviewed) Neuro: Normal speech, Sensation intact Psych/Mental Status: Mental status NL, Mood NL Skin: No breakdown, No significant lesion Assessment Assessment 1. PAFIB/flutter with RVR: newly diagnosed. Presently in SR but tele showed paroxysms of AF. Change heparin to Eliquis for stroke prophylaxis. 2. Acute CHF with possible systolic/diastolic dysfunction, improving with diuresis. Covid negative. Check 2D echo to assess LV systolic function. 3. ELIZABETH vs CKD 4. Mild troponin elevation: 0.13, possibly demand mediated. no CP. We will consider ischemic evaluation as outpatient 5. HTN: labile episodes. 6. HLP 7. DM2: Per IM 8. Nontraumatic fall: due to lost of balance 9. PUI Plan Plan of Care Problems Medical Problems: (1) Anemia Status: Acute (2) HTN (hypertension) Status: Acute Comment Review of Relevant I have reviewed the following items cortes (where applicable) has been applied. Labs Laboratory Tests Test 10/20/20 16:29 10/20/20 19:57 10/21/20 05:00 10/21/20 07:25 Glucose (Fingerstick) 210 mg/dL (70-99) 183 mg/dL (70-99) 134 mg/dL (70-99) Heparin Anti-Xa Act, Unfractionated 0.41 IU/mL (0.30-0.70) Sodium Level 140 mmol/L (136-145) Potassium Level 3.8 mmol/L (3.5-5.1) Chloride Level 106 mmol/L (98-107) Carbon Dioxide Level 24 mmol/L (21-32) Anion Gap 10 (6-14) Blood Urea Nitrogen 23 mg/dL (8-26) Creatinine 2.2 mg/dL (0.7-1.3) Estimated GFR (Cockcroft-Gault) 29.1 Glucose Level 125 mg/dL (70-99) Calcium Level 8.6 mg/dL (8.5-10.1) Magnesium Level 2.1 mg/dL (1.8-2.4) Test 10/21/20 11:24 Glucose (Fingerstick) 310 mg/dL (70-99) Vitals/I & O Vital Sign - Last 24 Hours 10/20/20 10/20/20 10/20/20 10/20/20 19:16 20:00 21:15 22:10 Temp 98.5 98.4 98.5 98.4 Pulse 92 100 106 Resp 22 B/P (MAP) 163/108 (126) 163/108 138/99 (112) Pulse Ox 95 93 O2 Delivery Nasal Cannula Nasal Cannula Nasal Cannula O2 Flow Rate 2.0 2.0 2.0 10/21/20 10/21/20 10/21/20 10/21/20 02:21 07:00 08:00 08:52 Temp 98.3 98.3 98.3 98.3 Pulse 95 84 84 Resp 22 20 B/P (MAP) 162/98 (119) 144/100 (115) 144/100 Pulse Ox 94 94 O2 Delivery Nasal Cannula Nasal Cannula Nasal Cannula O2 Flow Rate 2.0 2.5 3.0 10/21/20 10:53 Temp 97.6 97.6 Pulse 80 Resp 20 B/P (MAP) 124/72 (89) Pulse Ox 96 O2 Delivery Nasal Cannula O2 Flow Rate 2.0 Intake and Output 10/20/20 10/20/20 10/21/20 15:00 23:00 07:00 Intake Total 50 ml Output Total 150 ml 250 ml 250 ml Balance -150 ml -250 ml -200 ml CHELO NICHOLSON MD Oct 21, 2020 15:02
[2020-10-21 15:23] VITALS: BP 144/92
[2020-10-21 19:45] VITALS: BP 140/97
[2020-10-21] MEDS: APIXABAN 5 MG TABLET. PO SCH (21:43)
[2020-10-21 22:18] VITALS: BP 176/101
[2020-10-22 02:16] VITALS: BP 171/102
[2020-10-22 07:23] VITALS: BP 167/98
[2020-10-22] MEDS: INSULIN LISPRO 300 UNITS/3 ML VIAL. SQ SCH ×3 (08:00→16:38)
--- NOTE | 2020-10-22 08:07 | PDOC ---
[facility] PROGRESS NOTE Date of Service DOS: DATE: 10/22/20 TIME: 07:58 Chief Complaint Chief Complaint A/P: New onset acute A. fib RVR - Presently in SR but tele showed paroxysms of AF. Change heparin to Eliquis for stroke prophylaxis. Acute combined diastolic systolic CHF - improving with diuresis. Covid negative. Check 2D echo to assess LV systolic function. PAFIB/flutter with RVR: new finding Acute on chronic kidney injury Hypertension Dyslipidemia Diabetes mellitus type 2 ELIZABETH on CKD Mild troponin elevation: 0.13, possibly demand mediated. no CP. We will consider ischemic evaluation as outpatient Nontraumatic fall: due to lost of balance PUI Continue current medical management Appreciate cardiology recommendations -Restart metoprolol.PO. IV prn -IV lasix therapy. K replacement -Hold metformin and any ACEi for now. DC maxide. May restart norvasc if BP starts trending up otherwise optimize BB and diuretic treatment Pending echocardiogram Continue heparin drip for DVT prophylaxis Cardiac diet Full code Discussed with RN and SW Disposition inpatient management as above Surrogate decision maker is Flakita Palomares History of Present Illness History of Present Illness Mr Palomares is a 79 yo M w/ PMHx DM2, HTN, cardiomyopathy who presented to the ER with shortness of breath and lightheadedness. Notably in AFib in ED as well as acute heart failure. Apparently, his had COVID-19 within the recent past, was admitted for further treatment and r/o COVID. 10/20: No acute events overnight. Patient is saturating 97% on 2 L nasal cannula. Patient improves in his respiratory status and not dyspneic anymore. 2 L was diuresed total. Patient's chart, labs, images were reviewed and discussed with RN 10/21: No acute events overnight. Patient saturating 94% on 2 L nasal cannula. Heart rate is well controlled. Covid is negative. Pending echocardiogram at this time. Restarted Eliquis. Overnight with Nontraumatic fall: due to lost of balance. Did not strike his head, actually was hanging on his IV pole. He is feeling improved today. Rate controlled afib on telemetry. Vitals/I&O Vitals/I&O: Vital Signs Date Time Temp Pulse Resp B/P (MAP) Pulse Ox O2 Delivery O2 Flow Rate FiO2 10/22/20 07:23 98.7 86 20 167/98 (121) 97 Room Air 98.7 10/21/20 20:17 2.0 I & O 10/21/20 10/21/20 10/22/20 14:55 22:55 06:55 Intake Total 600 ml 300 ml Output Total 850 ml 225 ml 420 ml Balance -250 ml -225 ml -120 ml Physical Exam General: Alert, Oriented X3, Cooperative, No acute distress Heart: Other (AFIB rate controlled) Lungs: Clear, Other Abdomen: Soft, No tenderness Extremities: No cyanosis, Other (2+ bilateral LE pitting edema) Skin: No breakdown, No significant lesion Labs Labs: Laboratory Tests Test 10/21/20 11:24 10/21/20 16:32 10/21/20 20:57 10/22/20 06:55 Glucose (Fingerstick) 310 mg/dL (70-99) 237 mg/dL (70-99) 179 mg/dL (70-99) Heparin Anti-Xa Act, Unfractionated > 1.10 IU/mL (0.30-0.70) Test 10/22/20 07:29 Glucose (Fingerstick) 162 mg/dL (70-99) Assessment and Plan Assessmemt and Plan Problems Medical Problems: (1) Anemia Status: Acute (2) HTN (hypertension) Status: Acute Comment Review of Relevant I have reviewed the following items cortes (where applicable) has been applied. Medications: Current Medications Medications (Trade) Dose Ordered Sig/Shantanu Route PRN Reason Start Time Stop Time Status Last Admin Dose Admin Apixaban (Eliquis) 5 mg BID PO 10/21/20 21:00 10/21/20 21:43 Justifications for Admission Other Justification CASSIDY HANSON MD Oct 22, 2020 08:07
[2020-10-22] MEDS: APIXABAN 5 MG TABLET. PO SCH (08:22)
[2020-10-22] MEDS: METOPROLOL TART IMMED RELEASE 50 MG TABLET. PO SCH ×2 (08:22→21:43)
[2020-10-22] MEDS: POTASSIUM CHLORIDE 20 MEQ TABLET.ER. PO SCH (08:22)
[2020-10-22] MEDS: GLIMEPIRIDE 2 MG TABLET. PO SCH (08:22)
[2020-10-22] MEDS ORDERED: APIX5TAB PO ×2 (08:40→13:19)
[2020-10-22 10:37] VITALS: BP 146/95
--- NOTE | 2020-10-22 13:17 | SNU/HH DC ---
DISCHARGE WITH HOME HEALTH DISCHARGE INFORMATION: Discharge Date: Oct 23, 2020 Final Diagnosis: Problems Medical Problems: (1) Anemia Status: Acute (2) HTN (hypertension) Status: Acute Condition on Discharge: Stable CODE STATUS: Code Status: Full HOME HEALTH: Face to Face: I certify this patient is under my care and that I, or a nurse practitioner or physician's family services assistant working with me, had a face to face encounter that meets the physician face to face encounter requirements with this patient on 10/22/20. Medical Complications: CHF Usp For: Medication Management RN For Eval/Treatment: Yes Physical Therapy For: Evalulation/Treatment Occupational Therapy For: Evaluation/Treatment Pt Meets Homebound Status: Extreme weakness w/ amb. POST DISCHARGE ORDERS: Activity Instructions for Disc: No restrictions, Activity as tolerated Weight Bearing Status after Di: No restrictions DIET AFTER DISCHARGE: Cardiac Wound/Incision Care: No wound care needed CHECKS AFTER DISCHARGE: Checks after discharge: Check blood press - daily, Check blood sugar, ac/hs FOLLOW-UP: PCP to follow Home Health: Dr. Francheska Hensley [address] [place] [address] F: [phone] Follow up with: Dr. Jeremiah Tapia - Cardiology Warfarin Follow UP: INR weekly for 3 weeks starting 10/24/20, goal INR 2-3. Dr. Hensley to follow CERTIFICATION STATEMENT: Certification Statement: Certification Statement: Based on the above finding, I certify that this patient is confined to the home and needs intermittent nursing home care, physical therapy and/or speech therapy, or continues to need occupational therapy.~ This patient is under my care, and I have initiated the establishment of the plan of care.~ This patient will be followed by myself or a community physician who will periodically review the plan of care. Home Meds Active Scripts Warfarin Sodium (WARFARIN SODIUM) 6 Mg Tablet, 6 MG PO DAILY for Atrial fibrillation for 30 Days, #30 TAB 2 Refills Prov:CASSIDY HANSON MD 10/23/20 Acetaminophen With Codeine (TYLENOL WITH CODEINE #3 TABLET) 1 Each Tablet, 1 TAB PO PRN Q4HRS PRN for PAIN, #14 TAB Prov:Hipolito CURRY MD 01/27/17 Reported Medications Amlodipine Besylate (NORVASC) 10 Mg Tablet, 10 MG PO DAILY, TAB 05/09/16 Clonidine Hcl (CLONIDINE HCL) 0.2 Mg Tablet, 1 TAB PO BID, #60 TAB 5 Refills 05/08/16 Doxazosin Mesylate (DOXAZOSIN MESYLATE) 4 Mg Tablet, 1 TAB PO DAILY, #30 TAB 5 Refills 05/08/16 Glimepiride (GLIMEPIRIDE) 4 Mg Tablet, 1 TAB PO DAILY, #30 TAB 5 Refills 05/08/16 Metoprolol Tartrate (METOPROLOL TARTRATE) 50 Mg Tablet, 1 TAB PO BID, #60 TAB 5 Refills 05/08/16 Vitamin B Complex & Vit C No.4 (SUPER B COMPLEX) 150 Mg Tablet, 150 MG PO 05/08/16 Gemfibrozil (GEMFIBROZIL) 600 Mg Tablet, 1 TAB PO BID, #60 TAB 5 Refills 05/08/16 [place]-3 Fatty Acids/Fish Oil (FISH OIL 1,000 MG CAPSULE) 1 Each Capsule, 1 EACH PO 05/08/16 Ascorbic Acid (VITAMIN C) 1,000 Mg Tablet, 1000 MG PO DAILY 05/08/16 Discontinued Reported Medications Metformin Hcl (METFORMIN HCL) 1,000 Mg Tablet, 1 TAB PO BID, #60 TAB 5 Refills 05/08/16 Triamterene/Hydrochlorothiazid (TRIAMTERENE-HCTZ 75-50 MG TAB) 1 Each Tablet, 1 TAB PO DAILY, #30 TAB 5 Refills 05/08/16 Discontinued Scripts Apixaban (ELIQUIS) 5 Mg Tablet, 5 MG PO BID for Atrial fibrillation for 30 Days, #60 TAB 5 Refills Prov:CASSIDY HANSON MD 10/22/20 CASSIDY HANSON MD Oct 22, 2020 13:17
--- NOTE | 2020-10-22 13:57 | NUR ---
SS following up with discharge planning. SS reviewed pt chart and discussed with pt RN. Pt is currently on room air. COVID19 negative. ECHO today. Discharge orders received for home with home healthcare. SS discussed home healthcare with pt's spouse and pt's spouse reported that pt had [facility], ; fax [phone], at home. Pt's spouse requesting referral to [facility]. SS phoned and faxed discharge orders and referral as requested. Pt prescribed Eliquis. Pt's pharmacy reporting that pt has $440 out of pocket for Eliquis. Pt's spouse notified. Pt's spouse reported that they would not be able to afford the Eliquis. Dr. Khan notified and to discuss with Cardiology. SS will continue to follow for discharge planning.
[2020-10-22 14:47] VITALS: BP 131/79
[2020-10-22] MEDS: ANTI-COAG MONITOR BY PHARMACY. MC PRN (15:53)
--- NOTE | 2020-10-22 16:10 | PDOC ---
PROGRESS NOTES Date of Service: DATE: 10/22/20 TIME: 16:08 Subjective Subjective Feeling better. Dyspnea improved. Denied any chest pain. Objective Objective Vital Signs Date Time Temp Pulse Resp B/P (MAP) Pulse Ox O2 Delivery O2 Flow Rate FiO2 10/22/20 14:47 98.5 79 22 131/79 (96) 96 Room Air 98.5 10/21/20 20:17 2.0 Intake and Output 10/22/20 07:00 Intake Total 900 ml Output Total 1495 ml Balance -595 ml Intake Oral 900 ml Output Urine Total 1495 ml # Bowel Movements 1 Physical Exam Abdomen: Soft, No tenderness Heart: Other (AFIB rate controlled) Extremities: No cyanosis, Other (2+ bilateral LE pitting edema) General: Alert, Oriented X3, Cooperative, No acute distress HEENT: Atraumatic, Mucous membr. moist/pink Lungs: Other (dimnished, CXR reviewed) Neuro: Normal speech, Sensation intact Psych/Mental Status: Mental status NL, Mood NL Skin: No breakdown, No significant lesion Assessment Assessment 1. PAFIB/flutter with RVR: newly diagnosed. Presently in SR. Telemetry did not show any further episodes of atrial fibrillation. Continue Eliquis for stroke prophylaxis. 2. Acute CHF with possible systolic/diastolic dysfunction, improving with diuresis. Covid negative. Check 2D echo to assess LV systolic function. 3. ELIZABETH vs CKD 4. Mild troponin elevation: 0.13, possibly demand mediated. no CP. We will consider ischemic evaluation as outpatient 5. HTN: Better controlled 6. HLP 7. DM2: Per IM 8. Nontraumatic fall: due to lost of balance Plan Plan of Care Problems Medical Problems: (1) Anemia Status: Acute (2) HTN (hypertension) Status: Acute Comment Review of Relevant I have reviewed the following items cortes (where applicable) has been applied. Labs Laboratory Tests Test 10/21/20 16:32 10/21/20 20:57 10/22/20 06:55 10/22/20 07:29 Glucose (Fingerstick) 237 mg/dL (70-99) 179 mg/dL (70-99) 162 mg/dL (70-99) Heparin Anti-Xa Act, Unfractionated > 1.10 IU/mL (0.30-0.70) Test 10/22/20 11:36 Glucose (Fingerstick) 151 mg/dL (70-99) Medications Current Medications Amlodipine Besylate (Norvasc) 10 mg DAILY PO Last administered on 10/22/20at 08:57; Start 10/22/20 at 09:00 Apixaban (Eliquis) 5 mg BID PO Last administered on 10/22/20at 08:22; Start 10/21/20 at 21:00 Glimepiride (Amaryl) 4 mg DAILY PO Last administered on 10/22/20at 08:22; Start 10/22/20 at 09:00 Vitals/I & O Vital Sign - Last 24 Hours 10/21/20 10/21/20 10/21/20 10/21/20 19:45 20:17 21:43 22:18 Temp 98.1 98.1 98.1 98.1 Pulse 90 90 95 Resp B/P (MAP) 140/97 (111) 140/97 176/101 (126) Pulse Ox 98 98 O2 Delivery Room Air Nasal Cannula Room Air O2 Flow Rate 2.0 10/22/20 10/22/20 10/22/20 10/22/20 02:16 07:23 08:00 08:22 Temp 98.1 98.7 98.1 98.7 Pulse 83 86 86 Resp B/P (MAP) 171/102 (125) 167/98 (121) 167/98 Pulse Ox 99 97 O2 Delivery Room Air Room Air Room Air 10/22/20 10/22/20 10/22/20 08:57 10:37 14:47 Temp 98.2 98.5 98.2 98.5 Pulse 86 76 79 Resp B/P (MAP) 167/98 146/95 (112) 131/79 (96) Pulse Ox 97 96 O2 Delivery Room Air Room Air Intake and Output 10/21/20 10/21/20 10/22/20 15:00 23:00 07:00 Intake Total 600 ml 300 ml Output Total 850 ml 225 ml 420 ml Balance -250 ml -225 ml -120 ml CHELO NICHOLSON MD Oct 22, 2020 16:10
[2020-10-22 17:28] LABS: PROTHROMBIN TIME PATIENT 14.2 SEC (11.7-14.0)
[2020-10-22 18:43] VITALS: BP 148/92
[2020-10-22 23:43] VITALS: BP 145/92
[2020-10-23 03:51] VITALS: BP 149/95
[2020-10-23 07:00] VITALS: BP 167/97
--- NOTE | 2020-10-23 07:17 | PDOC ---
[facility] [facility] PROGRESS NOTE Date of Service DOS: DATE: 10/23/20 TIME: 07:15 Chief Complaint Chief Complaint A/P: New onset acute A. fib RVR - Presently in SR but tele showed paroxysms of AF. Change heparin to Eliquis for stroke prophylaxis. Acute combined diastolic systolic CHF - improving with diuresis. Covid negative. Check 2D echo to assess LV systolic function. PAFIB/flutter with RVR: new finding Acute on chronic kidney injury Hypertension Dyslipidemia Diabetes mellitus type 2 ELIZABETH on CKD Mild troponin elevation: 0.13, possibly demand mediated. no CP. We will consider ischemic evaluation as outpatient Nontraumatic fall: due to lost of balance PUI Continue current medical management Appreciate cardiology recommendations -Restart metoprolol.PO. IV prn -IV lasix therapy. K replacement -Hold metformin and any ACEi for now. DC maxide. May restart norvasc if BP starts trending up otherwise optimize BB and diuretic treatment Pending echocardiogram Continue heparin drip for DVT prophylaxis Cardiac diet Full code Discussed with RN and SW Disposition inpatient management as above Surrogate decision maker is Flakita Palomares History of Present Illness History of Present Illness Mr Palomares is a 79 yo M w/ PMHx DM2, HTN, cardiomyopathy who presented to the ER with shortness of breath and lightheadedness. Notably in AFib in ED as well as acute heart failure. Apparently, his had COVID-19 within the recent past, was admitted for further treatment and r/o COVID. 10/20: No acute events overnight. Patient is saturating 97% on 2 L nasal cannula. Patient improves in his respiratory status and not dyspneic anymore. 2 L was diuresed total. 10/21: No acute events. Patient saturating 94% on 2 L nasal cannula. Heart rate is well controlled. Covid is negative. Pending echocardiogram at this time. Restarted Eliquis. 10/22: Overnight with Nontraumatic fall: due to lost of balance. Did not strike his head. Eliquis not affordable, changed to warfarin. No overnight events. No further falls. INR 1, BMP within normal limits. No SOB or CP. Awaiting gait evaluation. D/w he has very poor memory Vitals/I&O Vitals/I&O: Vital Signs Date Time Temp Pulse Resp B/P (MAP) Pulse Ox O2 Delivery O2 Flow Rate FiO2 10/23/20 03:51 98.5 80 16 149/95 (113) 93 Room Air 98.5 10/22/20 20:00 2.0 I & O 10/22/20 10/22/20 10/23/20 15:00 23:00 07:00 Intake Total 720 ml 250 ml 500 ml Output Total 200 ml 150 ml 925 ml Balance 520 ml 100 ml -425 ml Physical Exam General: Alert, Oriented X3, Cooperative, No acute distress Heart: Other (AFIB rate controlled) Lungs: Clear, Other Abdomen: Soft, No tenderness Extremities: No cyanosis, Other (2+ bilateral LE pitting edema) Skin: No breakdown, No significant lesion Labs Labs: Laboratory Tests Test 10/22/20 07:29 10/22/20 11:36 10/22/20 16:32 10/22/20 17:10 Glucose (Fingerstick) 162 mg/dL (70-99) 151 mg/dL (70-99) 204 mg/dL (70-99) Prothrombin Time 14.2 SEC (11.7-14.0) Prothromb Time International Ratio 1.1 (0.8-1.1) Test 10/22/20 20:28 Glucose (Fingerstick) 248 mg/dL (70-99) Assessment and Plan Assessmemt and Plan Problems Medical Problems: (1) Anemia Status: Acute (2) HTN (hypertension) Status: Acute Comment Review of Relevant I have reviewed the following items cortes (where applicable) has been applied. Medications: Current Medications Medications (Trade) Dose Ordered Sig/Shantanu Route PRN Reason Start Time Stop Time Status Last Admin Dose Admin Glimepiride (Amaryl) 4 mg DAILY PO 10/22/20 09:00 10/22/20 08:22 Amlodipine Besylate (Norvasc) 10 mg DAILY PO 10/22/20 09:00 10/22/20 08:57 Justifications for Admission Other Justification CASSIDY HANSON MD Oct 23, 2020 07:17
[2020-10-23 07:44] LABS: CALCIUM 8.9 mg/dL (8.5-10.1); CREATININE 2.1 mg/dL (0.7-1.3); GFR 30.7; MAGNESIUM 2.3 mg/dL (1.8-2.4)
[2020-10-23 07:49] LABS: PROTHROMBIN TIME PATIENT 13.5 SEC (11.7-14.0)
[2020-10-23] MEDS: INSULIN LISPRO 300 UNITS/3 ML VIAL. SQ SCH ×2 (08:00→12:00)
[2020-10-23] MEDS: GLIMEPIRIDE 2 MG TABLET. PO SCH (08:55)
[2020-10-23] MEDS: METOPROLOL TART IMMED RELEASE 50 MG TABLET. PO SCH (08:56)
--- NOTE | 2020-10-23 08:56 | NUR ---
Pharmacy Warfarin Dosing Note S:Pharmacy consulted to assist with anticoagulation therapy started with target INR: 2 -3 O:ALVARO CONSTANTINO is a 79 year old M with Atrial Fibrillation LABS: Last INR: 1.1 Last HGB: 11.2 Last HCT: 33.6 Last PLT: 241 Drug Interaction Changes: None A:INR of 1.1 is below desired range. Target range for this patient is: 2 -3 P: Warfarin dose: 6 mg Today at 1600 Bridge Therapy: None Next INR due 10/24/20 Pharmacy anticoagulation service will continue to follow. VIANEY SERRATO RPH, 10/23/20 0857
[2020-10-23] MEDS: POTASSIUM CHLORIDE 20 MEQ TABLET.ER. PO SCH (08:57)
--- NOTE | 2020-10-23 10:48 | PDOC ---
CAROLINE YBARRA [employer] 10/23/20 1048: CARDIO Progress Notes Date and Time Date of Service 10/23/20 Time of Evaluation 1045 Subjective Subjective: No Chest Pain, No Palpitations, Other (SOA improved ) Vitals Vitals Vital Signs Date Time Temp Pulse Resp B/P (MAP) Pulse Ox O2 Delivery O2 Flow Rate FiO2 10/23/20 08:57 97 167/97 10/23/20 08:00 Room Air 10/23/20 07:00 98.0 16 92 98.0 10/22/20 20:00 2.0 Weight Weight [ ] Input and Output Intake and Output Intake and Output 10/23/20 07:00 Intake Total 1470 ml Output Total 1275 ml Balance 195 ml Intake Oral 1470 ml Output Urine Total 1275 ml # Voids 2 # Bowel Movements 2 Laboratory Labs Laboratory Tests Test 10/22/20 11:36 10/22/20 16:32 10/22/20 17:10 10/22/20 20:28 Glucose (Fingerstick) 151 mg/dL (70-99) 204 mg/dL (70-99) 248 mg/dL (70-99) Prothrombin Time 14.2 SEC (11.7-14.0) Prothromb Time International Ratio 1.1 (0.8-1.1) Test 10/23/20 07:00 10/23/20 07:41 Prothrombin Time 13.5 SEC (11.7-14.0) Prothromb Time International Ratio 1.1 (0.8-1.1) Sodium Level 136 mmol/L (136-145) Potassium Level 4.0 mmol/L (3.5-5.1) Chloride Level 103 mmol/L (98-107) Carbon Dioxide Level 24 mmol/L (21-32) Anion Gap 9 (6-14) Blood Urea Nitrogen 21 mg/dL (8-26) Creatinine 2.1 mg/dL (0.7-1.3) Estimated GFR (Cockcroft-Gault) 30.7 Glucose Level 141 mg/dL (70-99) Calcium Level 8.9 mg/dL (8.5-10.1) Magnesium Level 2.3 mg/dL (1.8-2.4) Glucose (Fingerstick) 127 mg/dL (70-99) Physical Exam Chest: Symmetric LUNGS: Other (diminished bases) Heart: RRR Abdomen: Soft N/T Extremities: Other (trace bilateral LE edema ) Neurology: alert, oriented, follow commands Assessment Assessment 1. PAFIB/flutter with RVR: newly diagnosed. Presently in SR. Telemetry did not show any further episodes of atrial fibrillation. Was on Eliquis for stroke prophylaxis, but converted to warfarin due to cost. 2. Acute CHF with systolic/diastolic dysfunction, improving with diuresis. Covid negative. Echo with LVEF 45%. Continue metoprolol. Allergy to ACEi 3. ELIZABETH vs CKD 4. Mild troponin elevation: 0.13, possibly demand mediated. no CP. We will consider ischemic evaluation as outpatient. Follow up with Dr. Tapia as scheduled. 5. HTN: Better controlled 6. HLP 7. DM2: Per IM 8. Nontraumatic fall: due to lost of balance Justicifation of Admission Dx: Justifications for Admission: Justification of Admission Dx: Yes Comments: AFIB with RVR Acute on chronic systolic, diastolic CHF CHELO TAPIA MD 10/23/202025: CARDIO Progress Notes Assessment Assessment Patient seen and examined. Agree with SERVER's assessment and plan. PAF maintaining SR Continue warfarin for stroke prophylaxis Ac on chr combined systolic and diastolic HF better compensated 2D echo showed EF 45% Slight trop elevation prob demand ischemia Plan outpatient ischemic evaluation CAROLINE YBARRA APRN Oct 23, 2020 10:48 CHELO TAPIA MD Oct 23, 2020 20:26
[2020-10-23 11:00] VITALS: BP 150/91
--- NOTE | 2020-10-23 12:01 | CARD ---
MR#: [id number] Date of Study: 10/22/2020 Ordering Physician: CASSIDY HANSON, Referring Physician: CASSIDY HANSON, Tech: Alejandra Jasso APPROVED REPORT EXAM: Two-dimensional and M-mode echocardiogram with Doppler and color Doppler. Other Information Quality : AverageHR: 88bpm INDICATION Atrial Fibrillation Congestive Heart Failure 2D DIMENSIONS RVDd3.7 (2.9-3.5cm)Left Atrium(2D)4.0 (1.6-4.0cm) IVSd1.0 (0.7-1.1cm)Aortic Root(2D)3.7 (2.0-3.7cm) LVDd5.6 (3.9-5.9cm)LVOT Diameter2.2 (1.8-2.4cm) PWd1.2 (0.7-1.1cm)LVDs4.4 (2.5-4.0cm) FS (%) 20.9 %SV63.7 ml LVEF(%)42.0 (>50%) Aortic Valve AoV Peak Brian.92.1cm/sAoV VTI17.4cm AO Peak GR.3.4mmHgLVOT Peak Brian.91.8cm/s LVOT VTI 19.11cmAO Mean GR.2mmHg JOSEPH (VMAX)2.04qs8EJA (VTI)4.20cm2 Mitral Valve MV E Zjvsoxns27.8cm/sMV DECEL LFOP127wr MV A Wrrtwbzm14.2cm/sMV E Mean Gr.1mmHg MV NVL05ddP/A Ratio1.1 MVA (PHT)3.45cm2 TDI E/Lateral E'12.2E/Medial E'10.0 Pulmonary Valve PV Peak Hxlxzcnh37.7cm/sPV Peak Grad.2mmHg Tricuspid Valve TR P. Zjtrjxsc882zu/sTR Peak Gr.27mmHg Pulmonary Vein S1 Amytgowv12.9cm/sD2 Nxolatok05.6cm/s PVa [id number] LEFT VENTRICLE The left ventricle is normal size. There is borderline to mild concentric left ventricular hypertroph y. The left ventricular systolic function is mildly impaired. The Ejection Fraction is 45%. There is slight global hypokinesis of the left ventricle. RIGHT VENTRICLE The right ventricle is normal size. There is normal right ventricular wall thickness. The right ventr icular systolic function is normal. ATRIA The left atrium size is normal. The right atrium is borderline dilated. The interatrial septum is int act with no evidence for an atrial septal defect or patent foramen ovale as noted on 2-D or Doppler i maging. AORTIC VALVE The aortic valve is normal in structure and function. Doppler and Color Flow revealed trace aortic re gurgitation. There is no significant aortic valvular stenosis. Calculated aortic valve area is 3.42 c m2 with maximum pressure gradient of 5 mmHg and mean pressure gradient of 3 mmHg. MITRAL VALVE The mitral valve is normal in structure and function. There is no evidence of mitral valve prolapse. There is no mitral valve stenosis. Doppler and Color-flow revealed trace to mild mitral regurgitation . TRICUSPID VALVE The tricuspid valve is normal in structure and function. Doppler and Color Flow revealed trace tricus pid regurgitation with an estimated PAP of 47 mmHg. There is no tricuspid valve stenosis. PULMONIC VALVE The pulmonic valve is not well visualized. Doppler and Color Flow revealed no pulmonic valvular regur gitation. GREAT VESSELS The aortic root is borderline dilated The ascending aorta is Mildly dilated. The IVC is dilated and c ollapses <50% with inspiration. PERICARDIAL EFFUSION There is no evidence of significant pericardial effusion. Critical Notification Critical Value: No <Conclusion> The left ventricular systolic function is mildly impaired. The Ejection Fraction is 45%. Trace to mild mitral regurgitation. Trace tricuspid regurgitation with an estimated PAP of 47 mmHg. There is no evidence of significant pericardial effusion. Signed by : Jeremiah Tapia, Electronically Approved : 10/23/2020 12:01:11
--- NOTE | 2020-10-23 12:46 | PDOC3 ---
Discharge Summary Visit Information Date of Admission: Oct 19, 2020 Date of Discharge: Oct 23, 2020 Admitting Diagnosis: Afib with RVR Final Diagnosis Problems Medical Problems: (1) Anemia Status: Acute (2) HTN (hypertension) Status: Acute Brief Hospital Course Allergies Allergies Coded Allergies Type Severity Reaction Last Updated Verified lisinopril Allergy Severe SWELLING OF TONGUE AND THROAT 05/08/16 Yes Vital Signs Vital Signs Date Time Temp Pulse Resp B/P (MAP) Pulse Ox O2 Delivery O2 Flow Rate FiO2 10/23/20 11:00 97.8 77 18 150/91 (110) 96 Room Air 97.8 10/22/20 20:00 2.0 Lab Results Laboratory Tests Test 10/21/20 16:32 10/21/20 20:57 10/22/20 06:55 10/22/20 07:29 Glucose (Fingerstick) 237 mg/dL (70-99) 179 mg/dL (70-99) 162 mg/dL (70-99) Heparin Anti-Xa Act, Unfractionated > 1.10 IU/mL (0.30-0.70) Test 10/22/20 11:36 10/22/20 16:32 10/22/20 17:10 10/22/20 20:28 Glucose (Fingerstick) 151 mg/dL (70-99) 204 mg/dL (70-99) 248 mg/dL (70-99) Prothrombin Time 14.2 SEC (11.7-14.0) Prothromb Time International Ratio 1.1 (0.8-1.1) Test 10/23/20 07:00 10/23/20 07:41 10/23/20 11:52 Prothrombin Time 13.5 SEC (11.7-14.0) Prothromb Time International Ratio 1.1 (0.8-1.1) Sodium Level 136 mmol/L (136-145) Potassium Level 4.0 mmol/L (3.5-5.1) Chloride Level 103 mmol/L (98-107) Carbon Dioxide Level 24 mmol/L (21-32) Anion Gap 9 (6-14) Blood Urea Nitrogen 21 mg/dL (8-26) Creatinine 2.1 mg/dL (0.7-1.3) Estimated GFR (Cockcroft-Gault) 30.7 Glucose Level 141 mg/dL (70-99) Calcium Level 8.9 mg/dL (8.5-10.1) Magnesium Level 2.3 mg/dL (1.8-2.4) Glucose (Fingerstick) 127 mg/dL (70-99) 173 mg/dL (70-99) Laboratory Tests Test 10/22/20 16:32 10/22/20 17:10 10/22/20 20:28 10/23/20 07:00 Glucose (Fingerstick) 204 mg/dL (70-99) 248 mg/dL (70-99) Prothrombin Time 14.2 SEC (11.7-14.0) 13.5 SEC (11.7-14.0) Prothromb Time International Ratio 1.1 (0.8-1.1) 1.1 (0.8-1.1) Sodium Level 136 mmol/L (136-145) Potassium Level 4.0 mmol/L (3.5-5.1) Chloride Level 103 mmol/L (98-107) Carbon Dioxide Level 24 mmol/L (21-32) Anion Gap 9 (6-14) Blood Urea Nitrogen 21 mg/dL (8-26) Creatinine 2.1 mg/dL (0.7-1.3) Estimated GFR (Cockcroft-Gault) 30.7 Glucose Level 141 mg/dL (70-99) Calcium Level 8.9 mg/dL (8.5-10.1) Magnesium Level 2.3 mg/dL (1.8-2.4) Test 10/23/20 07:41 10/23/20 11:52 Glucose (Fingerstick) 127 mg/dL (70-99) 173 mg/dL (70-99) Brief Hospital Course Mr Palomares is a 79 yo M w/ PMHx DM2, HTN, cardiomyopathy who presented to the ER with shortness of breath and lightheadedness. Notably in AFib in ED as well as acute heart failure. Apparently, his had COVID-19 within the recent past, was admitted for further treatment and r/o COVID. 10/20: No acute events overnight. Patient is saturating 97% on 2 L nasal cannula. Patient improves in his respiratory status and not dyspneic anymore. 2 L was diuresed total. 10/21: No acute events. Patient saturating 94% on 2 L nasal cannula. Heart rate is well controlled. Covid is negative. Pending echocardiogram at this time. Restarted Eliquis. 10/22: Overnight with Nontraumatic fall: due to lost of balance. Did not strike his head. Eliquis not affordable, changed to warfarin. No overnight events. No further falls. INR 1, BMP within normal limits. No SOB or CP. Awaiting gait evaluation. D/w he has very poor memory. PT and OT recommended SNF, however he is often not amenable to this and would prefer to return to home health through [facility] and have INR monitoring there. He is in there fall protection program. Counseled on increased risk of bleeding if he were to fall he and his voiced understanding. Consults: Cardiology ECHO: The left ventricular systolic function is mildly impaired. The Ejection Fraction is 45%. Trace to mild mitral regurgitation. Trace tricuspid regurgitation with an estimated PAP of 47 mmHg. There is no evidence of significant pericardial effusion. Problem list: New onset acute A. fib RVR - Presently in SR but tele showed paroxysms of AF. Changed heparin to Eliquis for stroke prophylaxis, but now on warfarin for cost. Acute combined diastolic systolic CHF - improving with diuresis. Covid negative. Check 2D echo to assess LV systolic function. PAFIB/flutter with RVR: new finding Acute on chronic kidney injury Hypertension Dyslipidemia Diabetes mellitus type 2 ELIZABETH on CKD Mild troponin elevation: 0.13, possibly demand mediated. no CP. We will consider ischemic evaluation as outpatient Nontraumatic fall: due to lost of balance Disposition inpatient management as above Surrogate decision maker is Flakita Palomares Greater than 30 minutes spent on d/c home with home health. Discharge Information Condition at Discharge: Improved Follow Up: Weeks (1) Disposition/Orders: D/C to Home w/ HH Scheduled Amlodipine Besylate (Norvasc) 10 Mg Tablet, 10 MG PO DAILY, (Reported) Entered as Reported by: Anjali Valle on 05/09/16 1210 Last Action: Continued on 10/22/20 0840 by CASSIDY HANSON MD Ascorbic Acid (Vitamin C) 1,000 Mg Tablet, 1,000 MG PO DAILY, (Reported) Entered as Reported by: COURTNEY HOSKINS on 05/08/16 1231 Clonidine Hcl (Clonidine Hcl) 0.2 Mg Tablet, 1 TAB PO BID, #60 Ref 5 (Reported) Entered as Reported by: COURTNEY HOSKINS on 05/08/16 1231 Doxazosin Mesylate (Doxazosin Mesylate) 4 Mg Tablet, 1 TAB PO DAILY, #30 Ref 5 (Reported) Entered as Reported by: COURTNEY HOSKINS on 05/08/16 1231 Gemfibrozil (Gemfibrozil) 600 Mg Tablet, 1 TAB PO BID, #60 Ref 5 (Reported) Entered as Reported by: COURTNEY HOSKINS on 05/08/16 1231 Glimepiride (Glimepiride) 4 Mg Tablet, 1 TAB PO DAILY, #30 Ref 5 (Reported) Entered as Reported by: COURTNEY HOSKINS on 05/08/16 1231 Last Action: Converted on 10/22/20 0808 by CASSIDY HANSON MD Metoprolol Tartrate (Metoprolol Tartrate) 50 Mg Tablet, 1 TAB PO BID, #60 Ref 5 (Reported) Entered as Reported by: COURTNEY HOSKINS on 05/08/16 1231 Warfarin Sodium (Warfarin Sodium) 6 Mg Tablet, 6 MG PO DAILY for Atrial f ibrillation for 30 Days, #30 Ref 2 Prescribed by: CASSIDY HANSON MD on 10/23/20 1303 Scheduled PRN Acetaminophen With Codeine (Tylenol With Codeine #3 Tablet) 1 Each Tablet, 1 TAB PO PRN Q4HRS PRN for PAIN, #14 Prescribed by: LONNIE CURRY MD on 01/27/17 0236 Miscellaneous Medications [place]-3 Fatty Acids/Fish Oil (Fish Oil 1,000 Mg Capsule) 1 Each Capsule, 1 EACH PO, (Reported) Entered as Reported by: COURTNEY HOSKINS on 05/08/16 1231 Vitamin B Complex & Vit C No.4 (Super B Complex) 150 Mg Tablet, 150 MG PO, (Reported) Entered as Reported by: COURTNEY HOSKINS on 05/08/16 1231 Discontinued Medications Apixaban (Eliquis) 5 Mg Tablet, 5 MG PO BID for Atrial fibrillation for 30 Days, #60 Ref 5 Discontinued Reason: Prescription changed Prescribed by: CASSIDY HANSON MD on 10/22/20 0840 Metformin Hcl (Metformin Hcl) 1,000 Mg Tablet, 1 TAB PO BID, #60 Ref 5 (Reported) Entered as Reported by: COURTNEY HOSKINS on 05/08/16 1231 Triamterene/Hydrochlorothiazid (Triamterene-Hctz 75-50 Mg Tab) 1 Each Tablet, 1 TAB PO DAILY, #30 Ref 5 (Reported) Entered as Reported by: COURTNEY HOSKINS on 05/08/16 1231 Last Action: Discontinued on 10/19/20 1555 by GUZMAN FAIRCHILD Justicifation of Admission Dx: Justifications for Admission: Justification of Admission Dx: Yes CASSIDY HANSON MD Oct 23, 2020 12:46
[2020-10-23] MEDS ORDERED: WARF6TAB47 PO (13:03)
--- NOTE | 2020-10-23 15:22 | SNU/HH DC ---
DISCHARGE ORDERS DISCHARGE INFORMATION: DISCHARGE DATE: Oct 23, 2020 FINAL DIAGNOSIS Problems Medical Problems: (1) Anemia Status: Acute (2) HTN (hypertension) Status: Acute CONDITION ON DISCHARGE: Stable CODE STATUS: Code Status: Full ALF: SNF STAY <30 DAYS: Yes POST DISCHARGE ORDERS: ACTIVITY ORDERS: No restrictions, Activity as tolerated WEIGHT BEARING STATUS: No restrictions DIET AFTER DISCHARGE: Cardiac WOUND/INCISION CARE: No wound care needed CHECKS AFTER DISCHARGE: CHECKS AFTER DISCHARGE: Check blood press - daily, Check blood sugar, ac/hs FOLLOW-UP: PHYSICIAN FOLLOW-UP: Dr. Jeremiah Tapia - Cardiology ANTICOAGULATION F/U NEEDED: INR weekly for 3 weeks starting 10/24/20, goal INR 2-3. Dr. Hensley to follow TREATMENT/EQUIPMENT ORDERS: Physical Therapy For: Evalulation/Treatment Occupational Therapy For: Evaluation/Treatment DISCHARGE MEDICATIONS: Home Meds Active Scripts Warfarin Sodium (WARFARIN SODIUM) 6 Mg Tablet, 6 MG PO DAILY for Atrial fibrillation for 30 Days, #30 TAB 2 Refills Prov:CASSIDY HANSON MD 10/23/20 Acetaminophen With Codeine (TYLENOL WITH CODEINE #3 TABLET) 1 Each Tablet, 1 TAB PO PRN Q4HRS PRN for PAIN, #14 TAB Prov:Hipolito CURRY MD 01/27/17 Reported Medications Amlodipine Besylate (NORVASC) 10 Mg Tablet, 10 MG PO DAILY, TAB 05/09/16 Clonidine Hcl (CLONIDINE HCL) 0.2 Mg Tablet, 1 TAB PO BID, #60 TAB 5 Refills 05/08/16 Doxazosin Mesylate (DOXAZOSIN MESYLATE) 4 Mg Tablet, 1 TAB PO DAILY, #30 TAB 5 Refills 05/08/16 Glimepiride (GLIMEPIRIDE) 4 Mg Tablet, 1 TAB PO DAILY, #30 TAB 5 Refills 05/08/16 Metoprolol Tartrate (METOPROLOL TARTRATE) 50 Mg Tablet, 1 TAB PO BID, #60 TAB 5 Refills 05/08/16 Vitamin B Complex & Vit C No.4 (SUPER B COMPLEX) 150 Mg Tablet, 150 MG PO 05/08/16 Gemfibrozil (GEMFIBROZIL) 600 Mg Tablet, 1 TAB PO BID, #60 TAB 5 Refills 05/08/16 [place]-3 Fatty Acids/Fish Oil (FISH OIL 1,000 MG CAPSULE) 1 Each Capsule, 1 EACH PO 05/08/16 Ascorbic Acid (VITAMIN C) 1,000 Mg Tablet, 1000 MG PO DAILY 05/08/16 Discontinued Reported Medications Metformin Hcl (METFORMIN HCL) 1,000 Mg Tablet, 1 TAB PO BID, #60 TAB 5 Refills 05/08/16 Triamterene/Hydrochlorothiazid (TRIAMTERENE-HCTZ 75-50 MG TAB) 1 Each Tablet, 1 TAB PO DAILY, #30 TAB 5 Refills 05/08/16 Discontinued Scripts Apixaban (ELIQUIS) 5 Mg Tablet, 5 MG PO BID for Atrial fibrillation for 30 Days, #60 TAB 5 Refills Prov:CASSIDY HANSON MD 10/22/20 CASSIDY HANSON MD Oct 23, 2020 15:22
[2020-10-23 15:57] VITALS: BP 148/88
[2020-10-23] MEDS: WARFARIN 3 MG TABLET. PO ONE ×2 (16:00→16:42)
[2020-10-23] MEDS ORDERED: ACET1TAB33 PO (16:50)
--- NOTE | 2020-10-23 17:30 | NUR ---
Discharge Note: ALVARO CONSTANTINO 2 [facility] Discharge instructions and discharge home medications reviewed with Other facility and a copy given. All questions have been answered and understanding verbalized. The following instructions and handouts were given: discharge instructions, follow up, RX, coumadin info, afib info. last & next dosages of meds typed/written on discharge paperwork. Discontinued lines and drains: Peripheral IV intact. Patient discharged to Rehab Facility with transportation via Wheelchair at 1730.
[2020-10-23] MEDS ORDERED: ATORVASTATIN CALCIUM 10 MG TABLET. PO SCH (21:00)
[2020-11-19] MEDS ORDERED: TRIA1CAP3 PO (17:20)
[2020-11-19] MEDS ORDERED: FURO40TA4 PO (17:20)
[2020-11-19] MEDS ORDERED: MIRT7.5T8 PO (17:20)
[2020-11-19] MEDS ORDERED: WARF4TAB64 PO (17:20)
[2020-12-17] MEDS ORDERED: AMIO200T6 PO (10:52)
[2020-12-17] MEDS ORDERED: AMOX1TAB24 PO (10:52)
== END 2020-10-23 17:30 | DRG 291 ==
LOC: ER 02:16 → 2 NORTH 03:25 → 2 SOUTH 09:50
PROVIDERS: ADMIT Family Medicine; ATTEND Family Medicine
DX: I13.0 Hypertensive heart and chronic kidney disease with heart failure and stage 1 through stage 4 chronic kidney disease, or unspecified chronic kidney disease (principal); I50.43 Acute on chronic combined systolic (congestive) and diastolic (congestive) heart failure; N17.9 Acute kidney failure, unspecified; I24.8 Other forms of acute ischemic heart disease; I48.92 Unspecified atrial flutter; I48.0 Paroxysmal atrial fibrillation; I42.9 Cardiomyopathy, unspecified; E11.22 Type 2 diabetes mellitus with diabetic chronic kidney disease; M19.90 Unspecified osteoarthritis, unspecified site; K80.20 Calculus of gallbladder without cholecystitis without obstruction; E78.5 Hyperlipidemia, unspecified; D64.9 Anemia, unspecified; R77.8 Other specified abnormalities of plasma proteins; R91.8 Other nonspecific abnormal finding of lung field; N18.9 Chronic kidney disease, unspecified; Z20.822 Contact with and (suspected) exposure to COVID-19; Z82.49 Family history of ischemic heart disease and other diseases of the circulatory system; Z90.49 Acquired absence of other specified parts of digestive tract; Z88.8 Allergy status to other drugs, medicaments and biological substances
CPT/HCPCS: 36415; 71045; 80048; 80061; 82962; 83735; 84443; 84484; 85025; 85027; 85520; 85610; 85730; 87426; 93005; 93306; 96375; J1644; J1815; J1940; J3490; U0003; 99291-25; G0378

== ENCOUNTER 2021-01-13 05:29 | Emergency (ER) | payer MEDICARE, BC ==
[~2021-01-13] VITALS: Ht 180.3 cm; Wt 92.0 kg
[~2021-01-13 05:29] MED LIST changes: +ACET1TAB33 PO; +AMIO200T6 PO; +AMOX1TAB24 PO; +APIX5TAB PO; +FURO40TA4 PO; +MIRT7.5T8 PO; +TRIA1CAP3 PO; +WARF4TAB64 PO; +WARF6TAB47 PO
--- NOTE | 2021-01-13 05:53 | RAD ---
XR CHEST 1V Clinical History: Reason: dyspnea / Spl. Instructions: / History: Technique: AP view of the chest was obtained at 01/13/2021 5:36 AM. Comparison: December 14, 2020. Findings: The heart is moderately enlarged. The pulmonary vessels are slightly cephalized. There is mild perihi lar patchy opacities. The pleural margins are clear. Impression: Cardiomegaly and bilateral infiltrates likely secondary to mild CHF. Electronically signed by: Misael Toscano III, MD (01/13/2021 5:51 AM) [facility]
[2021-01-13 06:13] LABS: BASO # 0.1 x10^3/uL (0.0-0.2); BASO % 1 % (0-3); EOS # 0.2 x10^3/uL (0.0-0.7); EOS % 2 % (0-3); HEMATOCRIT 29.4 % (39.0-53.0); LYMPH % 25 % (24-48); MEAN CORPUSCULAR HEMOGLOBIN 29 pg (25-35); MEAN CORPUSCULAR HGB CONC 34 g/dL (31-37); MEAN CORPUSCULAR VOLUME 85 fL (79-100); MONO # 0.9 x10^3/uL (0.0-1.1); MONO % 12 % (0-9); NEUT # 4.8 x10^3/uL (1.8-7.7); NEUT % 60 % (31-73); PLATELET COUNT 265 x10^3/uL (140-400); RED BLOOD COUNT 3.44 x10^6/uL (4.30-5.70); RED CELL DISTRIBUTION WIDTH 14.9 % (11.5-14.5)
[2021-01-13 06:23] LABS: CALCIUM 8.5 mg/dL (8.5-10.1); CREATININE 3.8 mg/dL (0.7-1.3); GFR 15.4; POTASSIUM 3.1 mmol/L (3.5-5.1)
[2021-01-13 06:29] LABS: ALBUMIN/GLOBULIN RATIO 0.8 (1.0-1.7); MAGNESIUM 2.5 mg/dL (1.8-2.4); TOTAL BILIRUBIN 0.2 mg/dL (0.2-1.0); TOTAL PROTEIN 6.7 g/dL (6.4-8.2)
[2021-01-13] MEDS ORDERED: FUROSEMIDE 40 MG/4 ML VIAL. IVP ONE (07:15)
--- NOTE | 2021-01-13 07:22 | ED.ADGEN ---
Past Medical History Past Medical History: A-Fib, Diabetes-Type II, Hypertension Additional Past Medical Histor: TACHYCARDIA, ENLARGED HEART Past Surgical History: Cholecystectomy, Other Additional Past Surgical Histo: RIGHT EYE, BACK Smoking Status: Never Smoker Alcohol Use: None Drug Use: None General Adult EDM: Chief Complaint: SHORTNESS OF BREATH HPI: HPI: Patient is a 80 year old male coming in for shortness of breath and inability to sleep last night. Patient states he felt he could breathe. Was sleeping in his recliner. Patient history of CHF and difficulty lying flat to sleep. Was hospitalized last month for CHF. Denies any other symptoms. Denies any chest pain or pressure. 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 Has had baseline renal insufficiency and lower extremity edema. Denies any cough or sick contacts. Review of Systems: Review of Systems: All other systems within normal limits except for as noted in the HPI Current Medications: Current Medications Medications (Trade) Dose Ordered Sig/Shantanu Start Time Stop Time Status Last Admin Dose Admin Furosemide (Lasix) 40 mg 1X ONCE 01/13/21 07:15 01/13/21 07:17 DC Allergies: Allergies: Allergies Coded Allergies Type Severity Reaction Last Updated Verified lisinopril Allergy Severe SWELLING OF TONGUE AND THROAT 05/08/16 Yes Physical Exam: PE: Constitutional: Well developed, well nourished, no acute distress, non-toxic appearance. [] HENT: Normocephalic, atraumatic, bilateral external ears normal, nose normal. [] Eyes: PERRLA, conjunctiva normal, no discharge. [] Neck: No rigidity, supple, no stridor. [] Cardiovascular: Regular rate and rhythm, brisk cap refill [] Lungs & Thorax: Non labored symmetric respirations, no tachypnea or respiratory distress [] Abdomen: Soft, nondistended. Skin: Warm, dry, no erythema, no rash. [] Back: Unremarkable Extremities: No deformities, range of motion grossly intact, 1+ pitting lower extremity edema [] Neurologic: Alert and oriented X 3, no focal deficits noted. [] Psychologic: Affect normal, judgement normal, mood normal. [] Current Patient Data: Labs: Laboratory Tests Test 01/13/21 06:00 White Blood Count 8.0 x10^3/uL (4.0-11.0) Red Blood Count 3.44 x10^6/uL (4.30-5.70) L Hemoglobin 10.0 g/dL (13.0-17.5) L Hematocrit 29.4 % (39.0-53.0) L Mean Corpuscular Volume 85 fL (79-100) Mean Corpuscular Hemoglobin 29 pg (25-35) Mean Corpuscular Hemoglobin Concent 34 g/dL (31-37) Red Cell Distribution Width 14.9 % (11.5-14.5) H Platelet Count 265 x10^3/uL (140-400) Neutrophils (%) (Auto) 60 % (31-73) Lymphocytes (%) (Auto) 25 % (24-48) Monocytes (%) (Auto) 12 % (0-9) H Eosinophils (%) (Auto) 2 % (0-3) Basophils (%) (Auto) 1 % (0-3) Neutrophils # (Auto) 4.8 x10^3/uL (1.8-7.7) Lymphocytes # (Auto) 2.0 x10^3/uL (1.0-4.8) Monocytes # (Auto) 0.9 x10^3/uL (0.0-1.1) Eosinophils # (Auto) 0.2 x10^3/uL (0.0-0.7) Basophils # (Auto) 0.1 x10^3/uL (0.0-0.2) D-Dimer ([place]) 0.89 ug/mlFEU (0.00-0.50) H Sodium Level 141 mmol/L (136-145) Potassium Level 3.1 mmol/L (3.5-5.1) L Chloride Level 104 mmol/L (98-107) Carbon Dioxide Level 29 mmol/L (21-32) Anion Gap 8 (6-14) Blood Urea Nitrogen 61 mg/dL (8-26) H Creatinine 3.8 mg/dL (0.7-1.3) H Estimated GFR (Cockcroft-Gault) 15.4 BUN/Creatinine Ratio 16 (6-20) Glucose Level 54 mg/dL (70-99) L Lactic Acid Level 0.6 mmol/L (0.4-2.0) Calcium Level 8.5 mg/dL (8.5-10.1) Magnesium Level 2.5 mg/dL (1.8-2.4) H Total Bilirubin 0.2 mg/dL (0.2-1.0) Aspartate Amino Transferase (AST) 16 U/L (15-37) Alanine Aminotransferase (ALT) 18 U/L (16-63) Alkaline Phosphatase 91 U/L (46-116) Creatine Kinase 98 U/L (39-308) Creatine Kinase MB (Mass) 1.2 ng/mL (0.0-3.6) Creatine Kinase MB Relative Index 1.2 % (0-4) Troponin I Quantitative 0.098 ng/mL (0.000-0.055) AL-Jxg-Y-Type Natriuretic Peptide 3444 pg/mL (0-449) H Total Protein 6.7 g/dL (6.4-8.2) Albumin 3.0 g/dL (3.4-5.0) L Albumin/Globulin Ratio 0.8 (1.0-1.7) L Laboratory Tests 01/13/21 06:00 Laboratory Tests 01/13/21 06:00 Vital Signs: Vital Signs Date Time Temp Pulse Resp B/P (MAP) Pulse Ox O2 Delivery O2 Flow Rate FiO2 01/13/21 05:40 98.7 80 28 138/71 (93) 96 Nasal Cannula 98.7 EKG: EKG: Sinus rhythm, heart rate 80 bpm, left axis deviation, left bundle branch block, no ST elevation or depression. [] Heart Score: C/O Chest Pain: No Risk Factors: Risk Factors: DM, Current or recent (<one month) smoker, HTN, HLP, family histo ry of CAD, obesity. Risk Scores: Score 0 - 3: 2.5% MACE over next 6 weeks - Discharge Home Score 4 - 6: 20.3% MACE over next 6 weeks - Admit for Clinical Observation Score 7 - 10: 72.7% MACE over next 6 weeks - Early Invasive Strategies Radiology/Procedures: Radiology/Procedures: XR CHEST 1V Clinical History: Reason: dyspnea / Spl. Instructions: / History: Technique: AP view of the chest was obtained at 01/13/2021 5:36 AM. Comparison: December 14, 2020. Findings: The heart is moderately enlarged. The pulmonary vessels are slightly cephalized. There is mild perihilar patchy opacities. The pleural margins are clear. Impression: Cardiomegaly and bilateral infiltrates likely secondary to mild CHF. [] Course & Med Decision Making: Course & Med Decision Making Pertinent Labs and Imaging studies reviewed. (See chart for details) Labs at baseline work-up consistent with mild CHF. Patient requesting to go home states he feels fine now. Patient maintaining oxygen saturation upper 90s on room air. [] Dragon Disclaimer: Dragon Disclaimer: This electronic medical record was generated, in whole or in part, using a voice recognition dictation system. Departure Departure Impression: Primary Impression: Dyspnea Disposition: 01 DC HOME SELF CARE/HOMELESS Condition: STABLE Referrals: SOTO CLIFFORD MD (PCP) Patient Instructions: Heart Failure Additional Instructions: Call your prestressed concrete laborer your primary care provider make sure your medications are being refilled. Return to emergency room if symptoms worsen. RUTHIE WALL MD Jan 13, 2021 07:22
[2021-01-13 07:59] VITALS: BP 133/69
--- NOTE | 2021-01-14 07:27 | EKG ---
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
== END 2021-01-13 08:13 | disposition home or self-care (01) ==
LOC: ER 05:29
DX: R06.00 Dyspnea, unspecified (principal); R06.02 Shortness of breath; R60.0 Localized edema; I48.20 Chronic atrial fibrillation, unspecified; E11.9 Type 2 diabetes mellitus without complications; I11.0 Hypertensive heart disease with heart failure; I50.9 Heart failure, unspecified; Z90.49 Acquired absence of other specified parts of digestive tract; Z98.890 Other specified postprocedural states; Z88.6 Allergy status to analgesic agent
CPT/HCPCS: 36415; 71045; 80053; 82553; 83605; 83735; 83880; 84484; 85025; 85379; 93005; 96374; 99285; J1940

== ENCOUNTER 2021-01-16 01:16 | Inpatient (IN) | payer MEDICARE, BC ==
[~2021-01-16] VITALS: Ht 177.8 cm; Wt 104.5 kg
--- NOTE | 2021-01-16 01:46 | EKG ---
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
--- NOTE | 2021-01-16 01:56 | PHYS DOC ---
Past Medical History Past Medical History: A-Fib, Diabetes-Type II, Hypertension, Other Additional Past Medical Histor: TACHYCARDIA, ENLARGED HEART Past Surgical History: Cholecystectomy, Other Additional Past Surgical Histo: RIGHT EYE, BACK Smoking Status: Never Smoker Alcohol Use: None Drug Use: None General Adult EDM: Chief Complaint: CHEST PAIN HPI: HPI: Patient is a 80-year-old male who presents with chest pain that has now radiated to his back. He reports his symptoms began approximately 3 hours ago with chest pain. Chest pain is substernal and often radiates to his back. Reports the pain is excruciating, unable to comment if it feels like ripping or tearing. On interview patient is a poor historian, and reports that he is unsure if he had any instances of diaphoresis, syncope, what he was doing when his symptoms began, shortness of breath, or increased lower extremity edema. Only admits he has been more short of breath with physical exertion and had more difficulty than usual laying flat. Patient does report that his symptoms feel similar to the last time he was admitted. Chart review displays that he was recently admitted for respiratory failure to secondary role secondary to acute on chronic heart failure with right pleural effusion. Chart review shows that he has quite an extensive problem list on top of congestive heart failure including acute hypertension hyperlipidemia type 2 diabetes ELIZABETH cardiomyopathy with reduced ejection fraction at 45% is on anticoagulants cardiorenal syndrome. Of note, patient was seen at our facility 72 hours ago for complaints of shortness of breath and dyspnea on exertion. Was subsequently discharged home with recommendations to take his scheduled diuretic medications which he reportedly had not filled up until that visit. He has not been checking his weight daily but states he thinks he has "gained a few pounds" Review of Systems: Review of Systems: Fourteen body systems of review of systems have been reviewed. See HPI for pertinent positives and negative responses, other castillo all other systems are negative, non-pertinent or non-contributory Heart Score: C/O Chest Pain: Yes HEART Score for Chest Pain: HEART Score for Chest Pain Response (Comments) Value History Highly Suspicious 2 ECG Nonspecific Repolarizatio 1 Age > 65 2 Risk Factors >3 Risk Factors or Hx CAD 2 Troponin >3 x Normal Limit 2 Total 9 Risk Factors: Risk Factors: DM, Current or recent (<one month) smoker, HTN, HLP, family history of CAD, obesity. Risk Scores: Score 0 - 3: 2.5% MACE over next 6 weeks - Discharge Home Score 4 - 6: 20.3% MACE over next 6 weeks - Admit for Clinical Observation Score 7 - 10: 72.7% MACE over next 6 weeks - Early Invasive Strategies Current Medications: Current Medications Medications (Trade) Dose Ordered Sig/Shantanu Start Time Stop Time Status Last Admin Dose Admin Aspirin (Aspirin Chewable) 162 mg 1X ONCE 01/16/21 02:00 01/16/21 02:01 Allergies: Allergies: Allergies Coded Allergies Type Severity Reaction Last Updated Verified lisinopril Allergy Severe SWELLING OF TONGUE AND THROAT 05/08/16 Yes Physical Exam: PE: Constitutional: Well developed, well nourished, obese, appears uncomfortable HENT: Normocephalic, atraumatic, bilateral external ears normal, oropharynx dry, no oral exudates, nose normal. Eyes: PERRLA, EOMI, conjunctiva normal, no discharge. Neck: Normal range of motion, no tenderness, supple, no stridor. Cardiovascular: Heart rate regular, sinus rhythm, radial pulses are equal at 2 out of 4 bilaterally. 2+ pitting edema bilaterally. Has worsened dyspnea when put in supine position Lungs & Thorax: Increased work of breathing without any overt respiratory distress, accessory muscle usage noted in intercostal rib muscles. Bibasilar rales present right worse than left Abdomen: Bowel sounds normal, soft, no tenderness, no masses, no pulsatile masses. Nonsurgical abdomen, no peritoneal signs Skin: Warm, dry, no erythema, no rash. Flat affect, depressed mood Back: No tenderness, no CVA tenderness. Extremities: No tenderness, no cyanosis, no clubbing, ROM intact Neurologic: Alert and oriented X 3, grossly normal motor & sensory function, no focal deficits noted. Psychologic: Flat affect, depressed mood Current Patient Data: Labs: Laboratory Tests Test 01/16/21 03:32 White Blood Count 11.7 x10^3/uL Red Blood Count 3.65 x10^6/uL Hemoglobin 10.2 g/dL Hematocrit 31.4 % Mean Corpuscular Volume 86 fL Mean Corpuscular Hemoglobin 28 pg Mean Corpuscular Hemoglobin Concent 32 g/dL Red Cell Distribution Width 14.8 % Platelet Count 266 x10^3/uL Neutrophils (%) (Auto) 78 % Lymphocytes (%) (Auto) 9 % Monocytes (%) (Auto) 12 % Eosinophils (%) (Auto) 1 % Basophils (%) (Auto) 0 % Neutrophils # (Auto) 9.1 x10^3/uL Lymphocytes # (Auto) 1.0 x10^3/uL Monocytes # (Auto) 1.4 x10^3/uL Eosinophils # (Auto) 0.1 x10^3/uL Basophils # (Auto) 0.0 x10^3/uL Sodium Level 142 mmol/L Potassium Level 3.2 mmol/L Chloride Level 101 mmol/L Carbon Dioxide Level 30 mmol/L Anion Gap 11 Blood Urea Nitrogen 61 mg/dL Creatinine 3.7 mg/dL Estimated GFR (Cockcroft-Gault) 15.9 BUN/Creatinine Ratio 16 Glucose Level 91 mg/dL Calcium Level 8.9 mg/dL Total Bilirubin 0.3 mg/dL Aspartate Amino Transf (AST/SGOT) 15 U/L Alanine Aminotransferase (ALT/SGPT) 15 U/L Alkaline Phosphatase 94 U/L Troponin I Quantitative 0.108 ng/mL FZ-Suj-P-Type Natriuretic Peptide 3603 pg/mL Total Protein 7.5 g/dL Albumin 3.0 g/dL Albumin/Globulin Ratio 0.7 Lipase 143 U/L Current Medications Medications (Trade) Dose Ordered Sig/Shantanu Route PRN Reason Start Time Stop Time Status Last Admin Dose Admin Aspirin (Aspirin Chewable) 162 mg 1X ONCE PO 01/16/21 02:00 01/16/21 02:01 DC Fentanyl Citrate (Fentanyl 2ml Vial) 50 mcg 1X ONCE IVP 01/16/21 02:30 01/16/21 02:31 DC 01/16/21 02:30 Furosemide (Lasix) 80 mg 1X ONCE IVP 01/16/21 03:45 01/16/21 04:03 DC 01/16/21 03:45 Furosemide (Lasix) 100 mg STK-MED ONCE .ROUTE 01/16/21 03:53 01/16/21 03:53 DC Vital Signs: Vital Signs Date Time Temp Pulse Resp B/P (MAP) Pulse Ox O2 Delivery O2 Flow Rate FiO2 01/16/21 01:25 98.1 89 24 125/79 (94) 95 Room Air 98.1 EKG: EKG: EKG ordered and interpreted by myself 01 3 hours as sinus rhythm at 78 bpm, prolonged AZ at 290, prolonged QRS at 130, prolonged QTC at 4, left axis deviation, left bundle branch block present, neg Sgarbossa, no STEMI EKG ordered and interpreted by myself at 0554 hrs. as sinus rhythm at 69 bpm, along AZ at 252 and prolonged QTC at 484 otherwise unremarkable intervals, left axis deviation, left bundle branch block present, neg Sgarbossa, no STEMI Radiology/Procedures: Radiology/Procedures: XR CHEST 1V Clinical History: Reason: CHEST PAIN / Spl. Instructions: / History: Technique: AP view of the chest was obtained at 01/16/2021 1:36 AM. Comparison: January 13, 2021. Findings: The heart is borderline enlarged. The pulmonary vessels appear slightly cephalized and there is patchy opacity in the lung bases and blunting of varicose phrenic angle. Impression: 1. Borderline cardiac megaly. 2. Mild right pleural effusion and bilateral infiltrates likely secondary to CHF. Electronically signed by: Misael Toscano III, MD (01/16/2021 2:15 AM) [facility] ////////////////// CT of the chest without contrast: Clinical History: Reason: chest pain that radiates to mid back;ER DR ONLY WANTS CHEST/ABD / Spl. Instructions: / History: . Axial helical images of the chest were obtained without contrast. COMPARISON: November 1620 FINDINGS: There is a large right effusion and mild left effusion with adjacent infiltrates. The ascending aorta is mildly dilated measuring 4.2 cm in diameter however this was seen previously. There is no mediastinal or hilar lymphadenopathy. There is multiple renal cysts bilaterally. Impression: Bilateral pleural effusions large on the right and mild on the left with adjacent infiltrates. No change. End impression PQRS Compliance Statement: One or more of the following individualized dose reduction techniques were uti lized for this examination: 1. Automated exposure control 2. Adjustment of the mA and/or kV according to patient size 3. Use of iterative reconstruction technique Electronically signed by: Misael Toscano III, MD (01/16/2021 2:46 AM) [facility] Course & Med Decision Making: Course & Med Decision Making Hemodynamically stable patient with HPI and physical examination concerning for acute exacerbation of CHF. He is overtly fluid overloaded. There is concern of medication noncompliance. He lives at home with and son but they do not provide care, he does not feel safe going back home given condition Comprehensive diagnostic ER work-up obtained and concerning for likely acute exacerbation of CHF. 80 mg IV Lasix administered. X1 nitro given in route and subsequent x2 nitro was administered while in ER with improvement in symptoms. Nonetheless, patient not fit for discharge I contacted hospitalist and case was discussed, patient accepted for admission to [facility]. I have updated patient on proposed plan of care that included hospital admission for continued medical management and patient was amenable. All questions and concerns addressed prior to your departure Critical Care Time This patient required critical care. Due to the fact that the patient required a significant amount of one on one physician - patient contact time, ordering and review of studies, arranging urgent treatment with development of a management plan, evaluation of patients response to treatment with frequent reassessments, and discussions with other providers this patient required 40 minutes of critical care time. Critical care time was indicated due to the inherent instability and/or potential for instability in this patient. The critical care time that is allocated to this patient is above and beyond any time spent on any other billable procedures performed on this patient. Sharon Disclaimer: Sharon Disclaimer: This electronic medical record was generated, in whole or in part, using a voice recognition dictation system. Departure Departure Impression: Primary Impression: Acute exacerbation of CHF (congestive heart failure) Additional Impression: CHF (congestive heart failure) Disposition: ADMITTED INPATIENT Admitting Physician: ERIKA (DR GONZALEZ) Condition: STABLE Referrals: SOTO CLIFFORD MD (PCP) RAMILA POWER DO Jan 16, 2021 01:56
[2021-01-16] MEDS ORDERED: ASPIRIN CHEWABLE 81 MG TABLET. PO ONE (02:00)
--- NOTE | 2021-01-16 02:17 | RAD ---
XR CHEST 1V Clinical History: Reason: CHEST PAIN / Spl. Instructions: / History: Technique: AP view of the chest was obtained at 01/16/2021 1:36 AM. Comparison: January 13, 2021. Findings: The heart is borderline enlarged. The pulmonary vessels appear slightly cephalized and there is patch y opacity in the lung bases and blunting of varicose phrenic angle. Impression: 1. Borderline cardiac megaly. 2. Mild right pleural effusion and bilateral infiltrates likely secondary to CHF. Electronically signed by: Misael Toscano III, MD (01/16/2021 2:15 AM) [facility]
[2021-01-16] MEDS ORDERED: fentaNYL PF VIAL 100 MCG/2 ML VIAL IVP ONE ×2 (02:30→05:45)
--- NOTE | 2021-01-16 02:49 | RAD ---
CT of the chest without contrast: Clinical History: Reason: chest pain that radiates to mid back;ER DR ONLY WANTS CHEST/ABD / Spl. Ins tructions: / History: . Axial helical images of the chest were obtained without contrast. COMPARISON: November 1620 FINDINGS: There is a large right effusion and mild left effusion with adjacent infiltrates. The ascending aorta is mildly dilated measuring 4.2 cm in diameter however this was seen previously. There is no mediastinal or hilar lymphadenopathy. There is multiple renal cysts bilaterally. Impression: Bilateral pleural effusions large on the right and mild on the left with adjacent infiltrates. No loreto nge. End impression PQRS Compliance Statement: One or more of the following individualized dose reduction techniques were utilized for this examinat ion: 1. Automated exposure control 2. Adjustment of the mA and/or kV according to patient size 3. Use of iterative reconstruction technique Electronically signed by: Misael Toscano III, MD (01/16/2021 2:46 AM) [facility]
[2021-01-16 03:44] LABS: BASO % 0 % (0-3); EOS # 0.1 x10^3/uL (0.0-0.7); EOS % 1 % (0-3); HEMATOCRIT 31.4 % (39.0-53.0); HEMOGLOBIN 10.2 g/dL (13.0-17.5); LYMPH % 9 % (24-48); MEAN CORPUSCULAR HEMOGLOBIN 28 pg (25-35); MEAN CORPUSCULAR HGB CONC 32 g/dL (31-37); MEAN CORPUSCULAR VOLUME 86 fL (79-100); MONO # 1.4 x10^3/uL (0.0-1.1); MONO % 12 % (0-9); NEUT # 9.1 x10^3/uL (1.8-7.7); NEUT % 78 % (31-73); PLATELET COUNT 266 x10^3/uL (140-400); RED BLOOD COUNT 3.65 x10^6/uL (4.30-5.70); RED CELL DISTRIBUTION WIDTH 14.8 % (11.5-14.5); WHITE BLOOD COUNT 11.7 x10^3/uL (4.0-11.0)
[2021-01-16] MEDS ORDERED: FUROSEMIDE 40 MG/4 ML VIAL. IVP ONE (03:45)
[2021-01-16 03:53] LABS: CALCIUM 8.9 mg/dL (8.5-10.1); CREATININE 3.7 mg/dL (0.7-1.3); GFR 15.9; POTASSIUM 3.2 mmol/L (3.5-5.1)
[2021-01-16] MEDS ORDERED: FUROSEMIDE 100 MG/10 ML VIAL. ONE (03:53)
[2021-01-16 03:59] LABS: ALBUMIN/GLOBULIN RATIO 0.7 (1.0-1.7); TOTAL BILIRUBIN 0.3 mg/dL (0.2-1.0); TOTAL PROTEIN 7.5 g/dL (6.4-8.2)
[2021-01-16] MEDS ORDERED: NITROGLYCERIN SUBLINGUAL 0.4 MG BOTTLE OF 25. SL PRN (04:45)
[2021-01-16] MEDS ORDERED: POTASSIUM CHLORIDE 20 MEQ TABLET.ER. PO ONE (05:00)
--- NOTE | 2021-01-16 06:02 | EKG ---
[facility] [address] [place] [address] Test Date: 2021-01-16 Test Time: 05:51:04 Pat Name: ALVARO CONSTANTINO Department: Room: Gender: M [employer]illed [employer]: : 1940 Requested By: RAMILA POWER Order Number: [id number] Reading MD: Measurements Intervals [place] Rate: 69 P: 90 SC: 252 QRS: -34 QRSD: 126 T: 2 QT: 450 QTc: 484 Interpretive Statements SINUS RHYTHM PROLONGED SC INTERVAL ABNORMAL LEFT AXIS DEVIATION LEFT BUNDLE BRANCH BLOCK ABNORMAL ECG RI6.02 No previous ECG available for comparison
[2021-01-16] MEDS: fentaNYL PF VIAL 100 MCG/2 ML VIAL IV PRN ×2 (07:49→08:15)
[2021-01-16 08:45] VITALS: BP 113/73
--- NOTE | 2021-01-16 09:33 | PDOC1 ---
History and Physical Date of Admission Date of Admission DATE: 01/16/21 TIME: 09:10 Identification/Chief Complaint Chief Complaint Shortness of breath Source Source: Chart review, Patient History of Present Illness History of Present Illness Patient 80-year-old male with past medical history CHF, CKD, who presents to the ER with complaints of chest pain. Symptoms began approximately 3 hours prior to arrival to ED. Reports substernal chest pain, 7/10, with associated shortness of breath. Shortness of breath is aggravated by physical exertion and laying flat. Last admission showed BNP 3603, troponins elevated but stable 0.106, with repeat 0.093. CT chest on admission showed bilateral pleural effusions, right greater than left with adjacent infiltrates. Will admit patient for further medical management. Past Medical History Cardiovascular: CHF, HTN, Hyperlipidemia Pulmonary: No pertinent hx, Bronchitis CENTRAL NERVOUS SYSTEM: Other GI: No pertinent hx Heme/Onc: No pertinent hx Hepatobiliary: Cholelithiasis Psych: No pertinent hx Rheumatologic: No pertinent hx Infectious disease: No pertinent hx Renal/: Chronic renal failure Endocrine: Diabetes Past Surgical History Past Surgical History: Cholecystectomy, Other Family History Family History: No Significant, High Cholestrol, Hypertension Social History Smoke: No ALCOHOL: none Drugs: None Current Problem List Problem List Problems Medical Problems: (1) Acute exacerbation of CHF (congestive heart failure) Status: Acute Current Medications Current Medications Current Medications Aspirin (Aspirin Chewable) 162 mg 1X ONCE PO ; Start 01/16/21 at 02:00; Stop 01/16/21 at 02:01; Status DC Fentanyl Citrate (Fentanyl 2ml Vial) 50 mcg 1X ONCE IVP Last administered on 01/16/21at 02:30; Start 01/16/21 at 02:30; Stop 01/16/21 at 02:31; Status DC Furosemide (Lasix) 80 mg 1X ONCE IVP Last administered on 01/16/21at 03:45; Start 01/16/21 at 03:45; Stop 01/16/21 at 04:03; Status DC Furosemide (Lasix) 100 mg STK-MED ONCE .ROUTE ; Start 01/16/21 at 03:53; Stop 01/16/21 at 03:53; Status DC Nitroglycerin (Nitrostat) 0.4 mg PRN Q5MIN PRN SL CHEST PAIN; Start 01/16/21 at 04:45; Stop 01/17/21 at 04:44 Potassium Chloride (Klor-Con) 40 meq 1X ONCE PO Last administered on 01/16/21at 05:00; Start 01/16/21 at 05:00; Stop 01/16/21 at 05:01; Status DC Fentanyl Citrate (Fentanyl 2ml Vial) 50 mcg 1X ONCE IVP Last administered on 01/16/21at 05:45; Start 01/16/21 at 05:45; Stop 01/16/21 at 05:47; Status DC Fentanyl Citrate (Fentanyl 2ml Vial) 25 mcg PRN Q15MIN PRN IV PAIN GREATER THAN 3/10 Last administered on 01/16/21at 08:15; Start 01/16/21 at 07:45; Stop 01/17/21 at 07:44 Active Scripts Active Amox Tr-K Clv 250-125 Mg Tab (Amoxicillin/Potassium Clav) 1 Each Tablet 1 Tab PO BID 5 Days Amiodarone Hcl 200 Mg Tablet 200 Mg PO DAILY 30 Days Acetaminophen-Cod #3 Tablet (Acetaminophen/Codeine Phosphate) 1 Each Tablet 1 Tab PO PRN Q6HRS PRN 6 Days Reported Warfarin Sodium 4 Mg Tablet 4 Mg PO DAILY Mirtazapine 7.5 Mg Tablet 1 Tab PO QHS 30 Days Furosemide 40 Mg Tablet 1 Tab PO DAILY Norvasc (Amlodipine Besylate) 10 Mg Tablet 10 Mg PO DAILY last dose given: date 10/23/20 time 0857 next dose due: 10/24/20 time 0900 Doxazosin Mesylate 4 Mg Tablet 1 Tab PO DAILY not given while patient was here next dose due: 10/24/20 time 0900 Metoprolol Tartrate 50 Mg Tablet 1 Tab PO BID last dose given: 10/23/20 time 0856 next dose due: 10/24/20 timr 0900 Super B Complex (Vitamin B Complex & Vit C No.4) 150 Mg Tablet 150 Mg PO DAILY not given while patient was here next dose due: 10/24/20 time 0900 Gemfibrozil 600 Mg Tablet 1 Tab PO BID not given while patient was here next dose due: 10/23/20 time 2100 Vitamin C (Ascorbic Acid) 1,000 Mg Tablet 1,000 Mg PO DAILY not given while here next dose due: 10/24/20 time 0900 Allergies Allergies: Coded Allergies: lisinopril (Verified Allergy, Severe, SWELLING OF TONGUE AND THROAT, 05/08/16) ROS Review of System GENERAL: No history of weight change, weakness or fevers. SKIN: No bruising, hair changes or rashes. EYES: No blurred, double or loss of vision. NOSE AND THROAT: No history of nosebleeds, hoarseness or sore throat. HEART: Chest pain. Denies palpitations LUNGS: Shortness of breath. Denies cough, hemoptysis, wheezing. GASTROINTESTINAL: Denies nausea, vomiting, abdominal pain. GENITOURINARY: Denies dysuria, frequency, urgency, hematuria. NEUROLOGIC: Denies history of numbness, tingling, tremor or weakness. PSYCHIATRIC: Denies anxiety, denies depression. ENDOCRINE: No history of heat or cold intolerance, polyuria or polydipsia. EXTREMITIES: Denies muscle weakness, joint pain, pain on walking or stiffness. Physical Exam Physical Exam General: Alert, Oriented X3, Cooperative, No acute distress HEENT: PERRLA, EOMI Lungs: Faint crackles, distant breath sounds. Normal air movement Heart: RRR, no murmurs Cardiovascular: S1, S2 Abdomen: Normal bowel sounds, Soft, No tenderness Extremities: 2+ pitting edema bilaterally. No clubbing, No cyanosis Skin: No rashes, No significant lesion Neuro: Normal speech, Normal tone, Sensation intact Psych/Mental Status: Mental status NL, Mood NL Vitals Vitals Vital Signs Date Time Temp Pulse Resp B/P (MAP) Pulse Ox O2 Delivery O2 Flow Rate FiO2 01/16/21 08:15 20 96 Nasal Cannula 2.0 01/16/21 07:52 97.8 66 114/72 (86) 97.8 Labs Labs Laboratory Tests Test 01/16/21 03:32 01/16/21 08:15 White Blood Count 11.7 x10^3/uL (4.0-11.0) Red Blood Count 3.65 x10^6/uL (4.30-5.70) Hemoglobin 10.2 g/dL (13.0-17.5) Hematocrit 31.4 % (39.0-53.0) Mean Corpuscular Volume 86 fL (79-100) Mean Corpuscular Hemoglobin 28 pg (25-35) Mean Corpuscular Hemoglobin Concent 32 g/dL (31-37) Red Cell Distribution Width 14.8 % (11.5-14.5) Platelet Count 266 x10^3/uL (140-400) Neutrophils (%) (Auto) 78 % (31-73) Lymphocytes (%) (Auto) 9 % (24-48) Monocytes (%) (Auto) 12 % (0-9) Eosinophils (%) (Auto) 1 % (0-3) Basophils (%) (Auto) 0 % (0-3) Neutrophils # (Auto) 9.1 x10^3/uL (1.8-7.7) Lymphocytes # (Auto) 1.0 x10^3/uL (1.0-4.8) Monocytes # (Auto) 1.4 x10^3/uL (0.0-1.1) Eosinophils # (Auto) 0.1 x10^3/uL (0.0-0.7) Basophils # (Auto) 0.0 x10^3/uL (0.0-0.2) Sodium Level 142 mmol/L (136-145) Potassium Level 3.2 mmol/L (3.5-5.1) Chloride Level 101 mmol/L (98-107) Carbon Dioxide Level 30 mmol/L (21-32) Anion Gap 11 (6-14) Blood Urea Nitrogen 61 mg/dL (8-26) Creatinine 3.7 mg/dL (0.7-1.3) Estimated GFR (Cockcroft-Gault) 15.9 BUN/Creatinine Ratio 16 (6-20) Glucose Level 91 mg/dL (70-99) Calcium Level 8.9 mg/dL (8.5-10.1) Total Bilirubin 0.3 mg/dL (0.2-1.0) Aspartate Amino Transf (AST/SGOT) 15 U/L (15-37) Alanine Aminotransferase (ALT/SGPT) 15 U/L (16-63) Alkaline Phosphatase 94 U/L (46-116) Troponin I Quantitative 0.108 ng/mL (0.000-0.055) 0.093 ng/mL (0.000-0.055) GD-Qbj-L-Type Natriuretic Peptide 3603 pg/mL (0-449) Total Protein 7.5 g/dL (6.4-8.2) Albumin 3.0 g/dL (3.4-5.0) Albumin/Globulin Ratio 0.7 (1.0-1.7) Lipase 143 U/L (73-393) Laboratory Tests Test 01/16/21 03:32 01/16/21 08:15 White Blood Count 11.7 x10^3/uL (4.0-11.0) Red Blood Count 3.65 x10^6/uL (4.30-5.70) Hemoglobin 10.2 g/dL (13.0-17.5) Hematocrit 31.4 % (39.0-53.0) Mean Corpuscular Volume 86 fL (79-100) Mean Corpuscular Hemoglobin 28 pg (25-35) Mean Corpuscular Hemoglobin Concent 32 g/dL (31-37) Red Cell Distribution Width 14.8 % (11.5-14.5) Platelet Count 266 x10^3/uL (140-400) Neutrophils (%) (Auto) 78 % (31-73) Lymphocytes (%) (Auto) 9 % (24-48) Monocytes (%) (Auto) 12 % (0-9) Eosinophils (%) (Auto) 1 % (0-3) Basophils (%) (Auto) 0 % (0-3) Neutrophils # (Auto) 9.1 x10^3/uL (1.8-7.7) Lymphocytes # (Auto) 1.0 x10^3/uL (1.0-4.8) Monocytes # (Auto) 1.4 x10^3/uL (0.0-1.1) Eosinophils # (Auto) 0.1 x10^3/uL (0.0-0.7) Basophils # (Auto) 0.0 x10^3/uL (0.0-0.2) Sodium Level 142 mmol/L (136-145) Potassium Level 3.2 mmol/L (3.5-5.1) Chloride Level 101 mmol/L (98-107) Carbon Dioxide Level 30 mmol/L (21-32) Anion Gap 11 (6-14) Blood Urea Nitrogen 61 mg/dL (8-26) Creatinine 3.7 mg/dL (0.7-1.3) Estimated GFR (Cockcroft-Gault) 15.9 BUN/Creatinine Ratio 16 (6-20) Glucose Level 91 mg/dL (70-99) Calcium Level 8.9 mg/dL (8.5-10.1) Total Bilirubin 0.3 mg/dL (0.2-1.0) Aspartate Amino Transf (AST/SGOT) 15 U/L (15-37) Alanine Aminotransferase (ALT/SGPT) 15 U/L (16-63) Alkaline Phosphatase 94 U/L (46-116) Troponin I Quantitative 0.108 ng/mL (0.000-0.055) 0.093 ng/mL (0.000-0.055) ZO-Yvu-P-Type Natriuretic Peptide 3603 pg/mL (0-449) Total Protein 7.5 g/dL (6.4-8.2) Albumin 3.0 g/dL (3.4-5.0) Albumin/Globulin Ratio 0.7 (1.0-1.7) Lipase 143 U/L (73-393) Images Images CT CHEST ABDOMEN WO CONTRAST CT of the chest without contrast: Clinical History: Reason: chest pain that radiates to mid back;ER DR ONLY WANTS CHEST/ABD / Spl. Instructions: / History: . Axial helical images of the chest were obtained without contrast. COMPARISON: November 1620 FINDINGS: There is a large right effusion and mild left effusion with adjacent infiltrates. The ascending aorta is mildly dilated measuring 4.2 cm in diameter however this was seen previously. There is no mediastinal or hilar lymphadenopathy. There is multiple renal cysts bilaterally. Impression: Bilateral pleural effusions large on the right and mild on the left with a djacent infiltrates. No change. VTE Prophylaxis Ordered VTE Prophylaxis Devices: No VTE Pharmacological Prophylaxi: Yes Assessment/Plan Assessment/Plan Acute respiratory failure with hypoxia Acute CHF exacerbation Elevated troponins Hypokalemia ELIZABETH due to cardiorenal syndrome Subtherapeutic INR Moderate malnutrition Physical deconditioning Plan: Consult placed to cardiology; will continue diuresis with monitoring of kidney function Will consult nephrology for recommendations regarding acute on chronic kidney failure Reportedly on warfarin for A. fib due to cost; will continue warfarin per pharmacy. Significant questions about his medication compliance Resume home medications; Avoid nephrotoxins PT/OT FEN - Cardiac diet PPX - Warfarin FULL CODE Dispo - inpatient for above; patient names his as surrogate decision-maker. Justifications for Admission Other Justification LORI LERMA MD Jan 16, 2021 09:33
[2021-01-16 09:43] LABS: PROTHROMBIN TIME PATIENT 26.1 SEC (11.7-14.0)
[2021-01-16] MEDS ORDERED: ACETAMINOPHEN 325 MG TABLET. PO PRN (09:45)
[2021-01-16] MEDS ORDERED: CALCIUM CARBONATE 500 MG TAB.CHEW PO PRN (09:45)
[2021-01-16] MEDS ORDERED: MAG HYDROX/ALUMINUM HYD/SIMETH 30 ML ORAL.SUSP PO PRN (09:45)
[2021-01-16] MEDS ORDERED: MORPHINE SULFATE 2 MG/ML VIAL. IV PRN (09:45)
[2021-01-16] MEDS ORDERED: ONDANSETRON PF 4 MG/2 ML VIAL. IVP PRN (09:45)
[2021-01-16] MEDS ORDERED: BISACODYL 10 MG SUPP.RECT. PR PRN (09:45)
[2021-01-16] MEDS ORDERED: MAGNESIUM HYDROXIDE 2,400 MG/30 ML ORAL.SUSP. PO PRN (09:45)
[2021-01-16] MEDS ORDERED: METO-239 PO (10:25)
[2021-01-16 11:00] VITALS: BP 111/72
[2021-01-16] MEDS: DOXAZOSIN MESYLATE 4 MG TABLET. PO SCH (11:00)
[2021-01-16] MEDS: GLIMEPIRIDE 2 MG TABLET. PO SCH (11:00)
[2021-01-16] MEDS: metOLazone 2.5 MG TABLET PO SCH (11:00)
[2021-01-16] MEDS: amLODIPine BESYLATE 10 MG TABLET PO SCH (11:00)
[2021-01-16] MEDS: AMIODARONE HCL 200 MG TABLET. PO SCH (11:00)
[2021-01-16] MEDS: METOPROLOL TART IMMED RELEASE 50 MG TABLET. PO SCH ×2 (11:00→20:51)
[2021-01-16] MEDS: MULTIVITAMIN with MINERAL TABLET. PO SCH (11:00)
--- NOTE | 2021-01-16 11:14 | PDOC2 ---
CONSULT Date of Consult Date of Consult DATE: 01/16/21 TIME: 11:04 Reason for Consult Reason for Consult: [facility]IZ[facility]ETH AND CHF Referring Physician Referring Physician: MARIA GUADALUPE Identification/Chief Complaint Chief Complaint SOB Source Source: Chart review History of Present Illness Reason for Visit: THIS IS A 79 YR OLD I HAVE SEEN IN THE PAST FOR CKD.HAS HAD CKD STAGE 4 FOR A NUMBER OF YEARS. ADMITTED WITH SOB, PND AND ORTHOPNEA. HAS HAD OP EVALUATION BY OUR UTILITY LOCATOR KAYLIE DOYLE LAST WEEK. DUE TO SOB HIS DIURETICS WERE INCREASED BUT HE DID NOT HAVE ANY IMPROVEMENTS AND NOW ADMITTED WITH CHF. 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 HAS ALSO COMPLAINS OF BACK AND CHEST PAIN THIS AM. ALSO ANTICOAGULATED FOR P AFIB. RECENT IMAGING OF HIS KIDNEYS SHOWED CMRD, BPH AND BILATERAL BENIGN RENAL CYST. HE ALSO COMPLAINS OF LE EDEMA. CR OF 3.7 WITH GFR OF 15. THIS IS HIS 4TH ADMISSION THIS YEAR FOR SIMILAR PROBLEMS. NO OTHER HX. Past Medical History Cardiovascular: CHF, HTN, Hyperlipidemia Pulmonary: No pertinent hx, Bronchitis CENTRAL NERVOUS SYSTEM: Other GI: No pertinent hx Heme/Onc: No pertinent hx Hepatobiliary: Cholelithiasis Psych: No pertinent hx Rheumatologic: No pertinent hx Infectious disease: No pertinent hx Renal/: Chronic renal insuff Endocrine: Diabetes Past Surgical History Past Surgical History: Cholecystectomy, Other Family History Family History: No Significant, High Cholestrol, Hypertension Social History No ALCOHOL: none Drugs: None Lives: with Family Current Problem List Problem List Problems Medical Problems: (1) Acute exacerbation of CHF (congestive heart failure) Status: Acute Current Medications Current Medications Current Medications Aspirin (Aspirin Chewable) 162 mg 1X ONCE PO ; Start 01/16/21 at 02:00; Stop 01/16/21 at 02:01; Status DC Fentanyl Citrate (Fentanyl 2ml Vial) 50 mcg 1X ONCE IVP Last administered on 01/16/21at 02:30; Start 01/16/21 at 02:30; Stop 01/16/21 at 02:31; Status DC Furosemide (Lasix) 80 mg 1X ONCE IVP Last administered on 01/16/21at 03:45; Start 01/16/21 at 03:45; Stop 01/16/21 at 04:03; Status DC Furosemide (Lasix) 100 mg STK-MED ONCE .ROUTE ; Start 01/16/21 at 03:53; Stop 01/16/21 at 03:53; Status DC Nitroglycerin (Nitrostat) 0.4 mg PRN Q5MIN PRN SL CHEST PAIN; Start 01/16/21 at 04:45; Stop 01/17/21 at 04:44 Potassium Chloride (Klor-Con) 40 meq 1X ONCE PO Last administered on 01/16/21at 05:00; Start 01/16/21 at 05:00; Stop 01/16/21 at 05:01; Status DC Fentanyl Citrate (Fentanyl 2ml Vial) 50 mcg 1X ONCE IVP Last administered on 01/16/21at 05:45; Start 01/16/21 at 05:45; Stop 01/16/21 at 05:47; Status DC Fentanyl Citrate (Fentanyl 2ml Vial) 25 mcg PRN Q15MIN PRN IV PAIN GREATER THAN 3/10 Last administered on 01/16/21at 08:15; Start 01/16/21 at 07:45; Stop 01/17/21 at 07:44 Warfarin Sodium (Coumadin Per Pharmacy) 1 each PRN DAILY PRN MC SEE COMMENTS; Start 01/16/21 at 09:30 Acetaminophen/ Codeine Phosphate (Tylenol #3) 1 tab PRN Q6HRS PRN PO PAIN; Start 01/16/21 at 09:30 Amiodarone HCl (Cordarone) 200 mg DAILY PO ; Start 01/16/21 at 11:00 Amlodipine Besylate (Norvasc) 10 mg DAILY PO ; Start 01/16/21 at 11:00 Doxazosin Mesylate (Cardura) 4 mg DAILY PO ; Start 01/16/21 at 11:00 Metoprolol Tartrate (Lopressor) 50 mg BID PO ; Start 01/16/21 at 11:00 Warfarin Sodium (Coumadin) 4 mg DAILY16 PO ; Start 01/16/21 at 16:00 Ondansetron HCl (Zofran) 4 mg PRN Q6HRS PRN IVP NAUSEA/VOMITING; Start 01/16/21 at 09:45 Al Hydroxide/Mg Hydroxide (Mylanta Plus Xs) 30 ml PRN Q3HRS PRN PO HEARTBURN / GAS; Start 01/16/21 at 09:45 Calcium Carbonate/ Glycine (Tums) 500 mg PRN Q3HRS PRN PO UPSET STOMACH; Start 01/16/21 at 09:45 Morphine Sulfate (Morphine Sulfate) 2 mg PRN Q1HR PRN IV PAIN; Start 01/16/21 at 09:45 Acetaminophen (Tylenol) 650 mg PRN Q6HRS PRN PO Headaches, Temp > 101.5F; Start 01/16/21 at 09:45 Magnesium Hydroxide (Milk Of Magnesia) 2,400 mg PRN Q12HR PRN PO CONSTIPATION; Start 01/16/21 at 09:45 Bisacodyl (Dulcolax Supp) 10 mg PRN DAILY PRN CO CONSTIPATION; Start 01/16/21 at 09:45 Metolazone (Zaroxolyn) 5 mg DAILY PO ; Start 01/16/21 at 11:00 Bumetanide (Bumex) 2.5 mg DAILY05 IV ; Start 01/17/21 at 05:00 Glimepiride (Amaryl) 4 mg DAILY PO ; Start 01/16/21 at 11:00 Multivitamins (Thera M Plus) 1 tab DAILY PO ; Start 01/16/21 at 11:00 Active Scripts Active Amiodarone Hcl 200 Mg Tablet 200 Mg PO DAILY 30 Days Acetaminophen-Cod #3 Tablet (Acetaminophen/Codeine Phosphate) 1 Each Tablet 1 Tab PO PRN Q6HRS PRN 6 Days Reported Metoprolol Succinate ( Xl ) (Metoprolol Succinate) 25 Mg Tab.er.24h 25 Mg PO DAILY Warfarin Sodium 4 Mg Tablet 6 Mg PO DAILY Mirtazapine 7.5 Mg Tablet 1 Tab PO QHS 30 Days Norvasc (Amlodipine Besylate) 10 Mg Tablet 10 Mg PO DAILY last dose given: date 10/23/20 time 0857 next dose due: 10/24/20 time 0900 Doxazosin Mesylate 4 Mg Tablet 1 Tab PO DAILY not given while patient was here next dose due: date 10/24/20 time 0900 Super B Complex (Vitamin B Complex & Vit C No.4) 150 Mg Tablet 150 Mg PO DAILY not given while patient was here next dose due: 10/24/20 time 0900 Vitamin C (Ascorbic Acid) 1,000 Mg Tablet 1,000 Mg PO DAILY not given while here next dose due: date 10/24/20 time 0900 Allergies Allergies: Coded Allergies: lisinopril (Verified Allergy, Severe, SWELLING OF TONGUE AND THROAT, 05/08/16) ROS General: YES: Fatigue, Malaise, Appetite PSYCHOLOGICAL ROS: YES: Anxiety, Depression Eyes: Yes Decreased vision HEENT: YES: Fely ALLERGY AND IMMUNOLOGY: YES: Seasonal Allergies Respiratory: YES: Cough, Orthopnea, Shortness of breath, SOB with excertion Cardiovascular: yes Chest Pain, yes Orthopnea Gastrointestinal: Yes Constipation Genitourinary: YES Other (NOCTURIA) Musculoskeletal: Yes Muscular Weakness Neurological: Yes Weakness Skin: Yes Dry Skin Physical Exam General: Alert, Oriented X3, Cooperative, No acute distress HEENT: Atraumatic Lungs: Other (BASILAR RALES) Heart: Regular rate, Other (IRREGULAR) Abdomen: Normal bowel sounds Extremities: No clubbing, Other (2+ EDEMA) Neuro: Other Psych/Mental Status: Mental status NL, Mood NL MUSCULOSKELETAL: No joint tenderness, No deformity Vitals VITALS Vital Signs Date Time Temp Pulse Resp B/P (MAP) Pulse Ox O2 Delivery O2 Flow Rate FiO2 01/16/21 08:45 97.0 71 24 113/73 (86) 96 Nasal Cannula 2.0 97.0 Labs Labs Laboratory Tests Test 01/16/21 03:32 01/16/21 08:15 White Blood Count 11.7 x10^3/uL (4.0-11.0) Red Blood Count 3.65 x10^6/uL (4.30-5.70) Hemoglobin 10.2 g/dL (13.0-17.5) Hematocrit 31.4 % (39.0-53.0) Mean Corpuscular Volume 86 fL (79-100) Mean Corpuscular Hemoglobin 28 pg (25-35) Mean Corpuscular Hemoglobin Concent 32 g/dL (31-37) Red Cell Distribution Width 14.8 % (11.5-14.5) Platelet Count 266 x10^3/uL (140-400) Neutrophils (%) (Auto) 78 % (31-73) Lymphocytes (%) (Auto) 9 % (24-48) Monocytes (%) (Auto) 12 % (0-9) Eosinophils (%) (Auto) 1 % (0-3) Basophils (%) (Auto) 0 % (0-3) Neutrophils # (Auto) 9.1 x10^3/uL (1.8-7.7) Lymphocytes # (Auto) 1.0 x10^3/uL (1.0-4.8) Monocytes # (Auto) 1.4 x10^3/uL (0.0-1.1) Eosinophils # (Auto) 0.1 x10^3/uL (0.0-0.7) Basophils # (Auto) 0.0 x10^3/uL (0.0-0.2) Prothrombin Time 26.1 SEC (11.7-14.0) Prothromb Time International Ratio 2.4 (0.8-1.1) Sodium Level 142 mmol/L (136-145) Potassium Level 3.2 mmol/L (3.5-5.1) Chloride Level 101 mmol/L (98-107) Carbon Dioxide Level 30 mmol/L (21-32) Anion Gap 11 (6-14) Blood Urea Nitrogen 61 mg/dL (8-26) Creatinine 3.7 mg/dL (0.7-1.3) Estimated GFR (Cockcroft-Gault) 15.9 BUN/Creatinine Ratio 16 (6-20) Glucose Level 91 mg/dL (70-99) Calcium Level 8.9 mg/dL (8.5-10.1) Total Bilirubin 0.3 mg/dL (0.2-1.0) Aspartate Amino Transf (AST/SGOT) 15 U/L (15-37) Alanine Aminotransferase (ALT/SGPT) 15 U/L (16-63) Alkaline Phosphatase 94 U/L (46-116) Troponin I Quantitative 0.108 ng/mL (0.000-0.055) 0.093 ng/mL (0.000-0.055) JB-Lxd-O-Type Natriuretic Peptide 3603 pg/mL (0-449) Total Protein 7.5 g/dL (6.4-8.2) Albumin 3.0 g/dL (3.4-5.0) Albumin/Globulin Ratio 0.7 (1.0-1.7) Lipase 143 U/L (73-393) C-Reactive Protein, Quantitative 25.1 mg/L (0-3.3) Procalcitonin < 0.10 ng/mL (0.00-0.10) Laboratory Tests Test 01/16/21 03:32 01/16/21 08:15 White Blood Count 11.7 x10^3/uL (4.0-11.0) Red Blood Count 3.65 x10^6/uL (4.30-5.70) Hemoglobin 10.2 g/dL (13.0-17.5) Hematocrit 31.4 % (39.0-53.0) Mean Corpuscular Volume 86 fL (79-100) Mean Corpuscular Hemoglobin 28 pg (25-35) Mean Corpuscular Hemoglobin Concent 32 g/dL (31-37) Red Cell Distribution Width 14.8 % (11.5-14.5) Platelet Count 266 x10^3/uL (140-400) Neutrophils (%) (Auto) 78 % (31-73) Lymphocytes (%) (Auto) 9 % (24-48) Monocytes (%) (Auto) 12 % (0-9) Eosinophils (%) (Auto) 1 % (0-3) Basophils (%) (Auto) 0 % (0-3) Neutrophils # (Auto) 9.1 x10^3/uL (1.8-7.7) Lymphocytes # (Auto) 1.0 x10^3/uL (1.0-4.8) Monocytes # (Auto) 1.4 x10^3/uL (0.0-1.1) Eosinophils # (Auto) 0.1 x10^3/uL (0.0-0.7) Basophils # (Auto) 0.0 x10^3/uL (0.0-0.2) Prothrombin Time 26.1 SEC (11.7-14.0) Prothromb Time International Ratio 2.4 (0.8-1.1) Sodium Level 142 mmol/L (136-145) Potassium Level 3.2 mmol/L (3.5-5.1) Chloride Level 101 mmol/L (98-107) Carbon Dioxide Level 30 mmol/L (21-32) Anion Gap 11 (6-14) Blood Urea Nitrogen 61 mg/dL (8-26) Creatinine 3.7 mg/dL (0.7-1.3) Estimated GFR (Cockcroft-Gault) 15.9 BUN/Creatinine Ratio 16 (6-20) Glucose Level 91 mg/dL (70-99) Calcium Level 8.9 mg/dL (8.5-10.1) Total Bilirubin 0.3 mg/dL (0.2-1.0) Aspartate Amino Transf (AST/SGOT) 15 U/L (15-37) Alanine Aminotransferase (ALT/SGPT) 15 U/L (16-63) Alkaline Phosphatase 94 U/L (46-116) Troponin I Quantitative 0.108 ng/mL (0.000-0.055) 0.093 ng/mL (0.000-0.055) QQ-Tqu-W-Type Natriuretic Peptide 3603 pg/mL (0-449) Total Protein 7.5 g/dL (6.4-8.2) Albumin 3.0 g/dL (3.4-5.0) Albumin/Globulin Ratio 0.7 (1.0-1.7) Lipase 143 U/L (73-393) C-Reactive Protein, Quantitative 25.1 mg/L (0-3.3) Procalcitonin < 0.10 ng/mL (0.00-0.10) Images Images CT of the chest without contrast: Clinical History: Reason: chest pain that radiates to mid back;ER DR ONLY WANTS CHEST/ABD / Spl. Instructions: / History: . Axial helical images of the chest were obtained without contrast. COMPARISON: November 1620 FINDINGS: There is a large right effusion and mild left effusion with adjacent infiltrates. The ascending aorta is mildly dilated measuring 4.2 cm in diameter however this was seen previously. There is no mediastinal or hilar lymphadenopathy. There is multiple renal cysts bilaterally. Impression: Bilateral pleural effusions large on the right and mild on the left with adjacent infiltrates. No change. End impression PQRS Compliance Statement: One or more of the following individualized dose reduction techniques were utilized for this examination: 1. Automated exposure control 2. Adjustment of the mA and/or kV according to patient size 3. Use of iterative reconstruction technique Electronically signed by: Misael Toscano III, MD (01/16/2021 2:46 AM) [facility] Assessment/Plan Assessment/Plan IMP NEW ONSET ESRD ANEMIA ACUTE ON CHRONIC DIASTOLIC AND SYSTOLIC CHF CM WITH EF OF 45% P AFIB - ANTICOAGULATED HYPOKALEMIA DECONDITIONING PLAN REPLACE K WILL PLAN TO START DIALYSIS UNABLE TO MAINTAIN FLUID BALANCE-4TH ADMIT THIS YEAR WILL HAVE IR PLACE TEMP LINE WILL NEED TO HAVE INR DOWN PRIOR TO TUNNELED LINE STOP COUMADIN WHEN OK TO CARDIOLOGY CARDIOLOGY EVAL AND TX HAVE ASKED SW TO SET UP OP HD AT [facility] HEP STUDIES WILL BE ORDERED START RENAL MVI ENC FLUID RESTRICTIONS CHECK PO4, IRON STORES KADI NEEDED D/W AND PT THEY ARE AGREEABLE TO PLAN MEGAN SCHMIDT MD Jan 16, 2021 11:13
--- NOTE | 2021-01-16 11:46 | NUR ---
PT'S HR ON EXHIBIT BUILDER READ LOW 33. PT COMPLAINING OF TROUBLE CATCHING HIS BREATH. RAPID RESPONSE CALLED. CAROLINE, CHARGE NURSE, SOCORRO DOSHI, STUDENT NURSE, AND THIS RN AT BEDSIDE. PT A&O X 4. PT COMPLAINING OF LT SHOULDER AND BACK PAIN 05/14.
--- NOTE | 2021-01-16 11:59 | PDOC2 ---
CAROLINE YBARRA TOPOGRAPHICAL SURVEYOR 01/16/21 1158: CARDIAC CONSULT DATE OF CONSULT Date of Consult DATE: 01/16/21 TIME: 11:49 REASON FOR CONSULT Reason for Consult: CHF REFERRING PHYSICIAN Referring Physician: Dr. Harry SOURCE Source: Chart review, Patient HISTORY OF PRESENT ILLNESS HISTORY OF PRESENT ILLNESS This is a 80 yo male who presented secondary to chest pain and shortness of breath. Patient reports pain began a couple hours prior to arrival. Located in his left chest and into his left arms. Is worse with deep breathing and left chest is tender upon palpation. No dizziness, diaphoresis, palpitations, or na usea/vomiting. Recently admitted for acute respiratory failure secondary to combination of CHF, CKD, and pleural effusion. HD has been discussed in past for fluid management. PAST MEDICAL HISTORY Past Medical History Cardiovascular: CHF, HTN, Hyperlipidemia, PAFIB, presumed NICM Pulmonary: pneumonia CENTRAL NERVOUS SYSTEM: No pertinent history GI: No pertinent hx Heme/Onc: No pertinent hx Hepatobiliary: Cholelithiasis Psych: No pertinent hx Musculoskeletal: Osteoarthritis Rheumatologic: No pertinent hx Infectious disease: No pertinent hx Renal/: No pertinent hx Endocrine: Diabetes PAST SURGICAL HISTORY Past Surgical History Cholecystectomy, Other (recent thoracentesis) FAMILY HISTORY Family History: Hypertension SOCIAL HISTORY Social History Smoke: No ALCOHOL: none Drugs: None CURRENT MEDICATIONS CURRENT MEDICATIONS Current Medications Medications (Trade) Dose Ordered Sig/Shantanu Route PRN Reason Start Time Stop Time Status Last Admin Dose Admin Fentanyl Citrate (Fentanyl 2ml Vial) 50 mcg 1X ONCE IVP 01/16/21 02:30 01/16/21 02:31 DC 01/16/21 02:30 Furosemide (Lasix) 80 mg 1X ONCE IVP 01/16/21 03:45 01/16/21 04:03 DC 01/16/21 03:45 Potassium Chloride (Klor-Con) 40 meq 1X ONCE PO 01/16/21 05:00 01/16/21 05:01 DC 01/16/21 05:00 Fentanyl Citrate (Fentanyl 2ml Vial) 50 mcg 1X ONCE IVP 01/16/21 05:45 01/16/21 05:47 DC 01/16/21 05:45 Fentanyl Citrate (Fentanyl 2ml Vial) 25 mcg PRN Q15MIN PRN IV PAIN GREATER THAN 3/10 01/16/21 07:45 01/17/21 07:44 01/16/21 08:15 ALLERGIES ALLERGIES: Coded Allergies: lisinopril (Verified Allergy, Severe, SWELLING OF TONGUE AND THROAT, 05/08/16) ROS Review of System 14 point ROS conducted with pertinent positives noted above in hPI PHYSICAL EXAM PHYSICAL EXAM General: Alert, Oriented X3, Cooperative, No acute distress HEENT: Atraumatic, Mucous membr. moist/pink, Other (JVD) Lungs: Other (diminished, upper rhonchi) Heart: Regular rate (SR with first degree AV block), Normal S1, Normal S2, Other (distant heart sounds) Abdomen: Soft, No tenderness Extremities: No cyanosis, Other (2+ bilateral LE pitting edema) Skin: No breakdown, No significant lesion Neuro: Normal speech, Sensation intact Psych/Mental Status: Mental status NL, Mood NL MUSCULOSKELETAL: Osteoarthritic changes both hands VITALS/I&O VITALS/I&O: Vital Signs Date Time Temp Pulse Resp B/P (MAP) Pulse Ox O2 Delivery O2 Flow Rate FiO2 01/16/21 08:45 97.0 71 24 113/73 (86) 96 Nasal Cannula 2.0 97.0 LABS Lab: Laboratory Tests Test 01/16/21 03:32 01/16/21 08:15 White Blood Count 11.7 x10^3/uL (4.0-11.0) H Red Blood Count 3.65 x10^6/uL (4.30-5.70) L Hemoglobin 10.2 g/dL (13.0-17.5) L Hematocrit 31.4 % (39.0-53.0) L Mean Corpuscular Volume 86 fL (79-100) Mean Corpuscular Hemoglobin 28 pg (25-35) Mean Corpuscular Hemoglobin Concent 32 g/dL (31-37) Red Cell Distribution Width 14.8 % (11.5-14.5) H Platelet Count 266 x10^3/uL (140-400) Neutrophils (%) (Auto) 78 % (31-73) H Lymphocytes (%) (Auto) 9 % (24-48) L Monocytes (%) (Auto) 12 % (0-9) H Eosinophils (%) (Auto) 1 % (0-3) Basophils (%) (Auto) 0 % (0-3) Neutrophils # (Auto) 9.1 x10^3/uL (1.8-7.7) H Lymphocytes # (Auto) 1.0 x10^3/uL (1.0-4.8) Monocytes # (Auto) 1.4 x10^3/uL (0.0-1.1) H Eosinophils # (Auto) 0.1 x10^3/uL (0.0-0.7) Basophils # (Auto) 0.0 x10^3/uL (0.0-0.2) Prothrombin Time 26.1 SEC (11.7-14.0) H Prothrombin Time INR 2.4 (0.8-1.1) H Sodium Level 142 mmol/L (136-145) Potassium Level 3.2 mmol/L (3.5-5.1) L Chloride Level 101 mmol/L (98-107) Carbon Dioxide Level 30 mmol/L (21-32) Anion Gap 11 (6-14) Blood Urea Nitrogen 61 mg/dL (8-26) H Creatinine 3.7 mg/dL (0.7-1.3) H Estimated GFR (Cockcroft-Gault) 15.9 BUN/Creatinine Ratio 16 (6-20) Glucose Level 91 mg/dL (70-99) Calcium Level 8.9 mg/dL (8.5-10.1) Total Bilirubin 0.3 mg/dL (0.2-1.0) Aspartate Amino Transferase (AST) 15 U/L (15-37) Alanine Aminotransferase (ALT) 15 U/L (16-63) L Alkaline Phosphatase 94 U/L (46-116) Troponin I Quantitative 0.108 ng/mL (0.000-0.055) 0.093 ng/mL (0.000-0.055) SB-Ocf-D-Type Natriuretic Peptide 3603 pg/mL (0-449) H Total Protein 7.5 g/dL (6.4-8.2) Albumin 3.0 g/dL (3.4-5.0) L Albumin/Globulin Ratio 0.7 (1.0-1.7) L Lipase 143 U/L (73-393) C-Reactive Protein, Quantitative 25.1 mg/L (0-3.3) H Procalcitonin < 0.10 ng/mL (0.00-0.10) Laboratory Tests 01/16/21 03:32 Laboratory Tests 01/16/21 03:32 ECHOCARDIOGRAM ECHOCARDIOGRAM <Conclusion> The left ventricular systolic function is mildly impaired. The Ejection Fraction is 45%. Trace to mild mitral regurgitation. Trace tricuspid regurgitation with an estimated PAP of 47 mmHg. There is no evidence of significant pericardial effusion. DATE: 10/22/20 [id number] HEART CATH HEART CATH R[facility] Conclusion 1. Normal biventricular filling pressures 2. No evidence of pulmonary pretension 3. Normal cardiac output Recommendations 1. Fluid challenge to determine if renal function will improve. Supportive care otherwise. No further diuresis. DATE: 12/14/20 [id number] ASSESSMENT/PLAN ASSESSMENT/PLAN 1. Chest pain, atypical. AMI ruled out 2. Acute on chronic diastolic/systolic CHF 3. Mild troponin elevation; peak 0.1. Most probably type II, demand ischemia 4. PAFIB; presently SR/SB with first degree AV block. Coumadin therapy: INR at 2.4. On Amiodarone for rhythm maintenance 5. Hypertension; controlled 6. Hyperlipidemia; LDL 79 7. Diabetes, II 8. CKD, now ESRD. to start HD 9. Cardiomyopathy: recent EF at 45% 10. Hypokalemia; replaced 11. Chronic LBBB Recommendations Continue metoprolol, Amiodarone for rhythm/rate control Will decrease metoprolol to 25mg and monitor for bradycardia IV diuresis as able Additional Fluid offloading via HD once initiated Probable outpatient ischemic evaluation Supportive care CHELO NICHOLSON MD 01/17/21 0835: CARDIAC CONSULT ASSESSMENT/PLAN ASSESSMENT/PLAN Patient seen and examined 01/16/2021. Agree with CLINICAL RESEARCH ADMINISTRATOR's assessment and plan. Continue fluid removal with hemodialysis once initiated, for acute on chronic combined systolic and diastolic heart failure. Nephrology following. Chest pain with atypical features. Slight troponin elevation probably demand ischemia. Recent 2D echo showed LVEF 45%. Plan outpatient ischemic evaluation. PAF maintaining sinus rhythm. Continue amiodarone for rhythm maintenance and warfarin for stroke prophylaxis. Thank you for your consultation CAROLINE YBARRA APRN Jan 16, 2021 11:58 CHELO NICHOLSON MD Jan 17, 2021 08:35
--- NOTE | 2021-01-16 13:30 | NUR ---
SS following for discharge planning. SS reviewed pt chart and discussed with pt RN. Pt is from home with spouse and is currently requiring oxygen at two liters nasal canula. COVID[address] Botello, pt will need outpatient dialysis set up at [facility]. Pt having temporary tunneled cath placed today and will then have first dialysis. Serology labs ordered. Chest x-ray completed. SS will continue to follow for discharge planning.
[2021-01-16] MEDS ORDERED: LIDOCAINE WITH 8.4% SOD BICARB 3 ML DISP.SYRIN. ONE (13:58)
[2021-01-16] MEDS ORDERED: LIDOCAINE WITH 8.4% SOD BICARB 3 ML DISP.SYRIN. INJ ONE (14:15)
[2021-01-16 14:45] VITALS: BP 128/70
[2021-01-16] MEDS ORDERED: diphenhydrAMINE 50 MG/ML VIAL IV PRN ×2 (15:45)
[2021-01-16] MEDS ORDERED: IV NORMAL SALINE 1000ML BAG 1,000 ML IV PRN ×2 (15:45)
[2021-01-16] MEDS ORDERED: DIALYSIS PATIENT. MC PRN (15:45)
--- NOTE | 2021-01-16 16:54 | RAD ---
Procedure: Temporary hemodialysis catheter placement under fluoroscopy Clinical Indication: Renal failure Fluoro Time: 2 minutes Dose area product: 1Gycm2 Contrast: None Sterility: All elements of maximal sterile barrier technique including the use of a cap, mask, sterile gown, sterile gloves, large sterile sheet, appropriate hand hygiene, and 2% chlorhexidine for cutaneous antisepsis (or acceptable alternative antiseptic per current guidelines) were followed for this procedure. Consent: The procedure was explained in its entirety to the patient or the patients designated financial representative by a member of the treatment team, including a discussion of the risks, benefits and commonly accepted alternatives to the procedure, as well as the expected consequences of no therapy whatsoever. Discussion of the risks included, but was not limited to, those that are most frequent and those that are rare but possibly severe or life-threatening, as well as the possibility of unforeseen complications. Technique and Findings: Following informed consent, the patient was prepped and draped in the usual sterile fashion. Ultrasound interrogation of the right neck revealed patency and compressibility of the right internal jugular vein. A 21-gauge micropuncture needle was used to gain access to this vein after 1% Lidocaine was used to achieve local anesthesia. A hardcopy ultrasound image was recorded. The needle was exchanged over a wire for serial dilators followed by a 20 cm temporary hemodialysis catheter which was deployed under fluoroscopic guidance such that the distal tip resided in the mid right atrium. The catheter flow rates were assessed manually and found to be excellent. The catheter was then flushed, packed with Heparin, capped, and sutured to the skin. Complications: No immediate Impression: 1. Ultrasound and fluoroscopic guided placement of a right internal jugular temporary hemodialysis catheter
[2021-01-16 19:16] VITALS: BP 144/69
--- NOTE | 2021-01-16 20:50 | NUR ---
1100 medications not administered as patient was in dialysis today at that time.
[2021-01-16] MEDS: WARFARIN 4 MG TABLET. PO SCH (20:51)
[2021-01-16 23:24] VITALS: BP 100/67
[2021-01-17 01:24] VITALS: BP 94/58
[2021-01-17] MEDS: ACETAMINOPHEN/CODEINE 300/30MG TABLET. PO PRN (01:46)
[2021-01-17 02:31] VITALS: BP 100/58
[2021-01-17 05:30] LABS: BASO % 0 % (0-3); EOS % 0 % (0-3); HEMATOCRIT 29.2 % (39.0-53.0); HEMOGLOBIN 9.6 g/dL (13.0-17.5); LYMPH # 1.4 x10^3/uL (1.0-4.8); LYMPH % 12 % (24-48); MEAN CORPUSCULAR HEMOGLOBIN 29 pg (25-35); MEAN CORPUSCULAR HGB CONC 33 g/dL (31-37); MEAN CORPUSCULAR VOLUME 87 fL (79-100); MONO # 1.7 x10^3/uL (0.0-1.1); MONO % 14 % (0-9); NEUT % 74 % (31-73); PLATELET COUNT 226 x10^3/uL (140-400); RED BLOOD COUNT 3.35 x10^6/uL (4.30-5.70); RED CELL DISTRIBUTION WIDTH 15.1 % (11.5-14.5); WHITE BLOOD COUNT 12.2 x10^3/uL (4.0-11.0)
[2021-01-17] MEDS: BUMETANIDE 2.5 MG/10 ML VIAL. IV SCH (05:37)
[2021-01-17 06:25] LABS: MAGNESIUM 2.3 mg/dL (1.8-2.4); PHOSPHORUS 4.3 mg/dL (2.6-4.7)
[2021-01-17 06:50] LABS: CALCIUM 8.4 mg/dL (8.5-10.1); CREATININE 3.1 mg/dL (0.7-1.3); GFR 19.5; POTASSIUM 4.2 mmol/L (3.5-5.1)
[2021-01-17] MEDS ORDERED: ALBUMIN HUMAN 25% 200 ML IV PRN (07:45)
[2021-01-17] MEDS ORDERED: DIALYSIS PATIENT. MC PRN ×2 (07:45)
[2021-01-17] MEDS ORDERED: IV NORMAL SALINE 1000ML BAG 1,000 ML IV PRN ×2 (07:45)
[2021-01-17] MEDS ORDERED: 0.9 % SODIUM CHLORIDE 10 ML DISP.SYRIN. IV PRN ×2 (07:45)
[2021-01-17] MEDS: METOPROLOL SUCC 24HR ER 25 MG TAB.ER.24H. PO SCH ×3 (09:00→20:44)
[2021-01-17] MEDS: DOXAZOSIN MESYLATE 4 MG TABLET. PO SCH ×2 (09:00→12:56)
[2021-01-17] MEDS: metOLazone 2.5 MG TABLET PO SCH ×2 (09:00→12:56)
[2021-01-17] MEDS: GLIMEPIRIDE 2 MG TABLET. PO SCH (09:00)
[2021-01-17] MEDS: amLODIPine BESYLATE 10 MG TABLET PO SCH ×2 (09:00→12:57)
--- NOTE | 2021-01-17 09:49 | PDOC ---
PROGRESS NOTES Date of Service: DATE: 01/17/21 TIME: 09:49 Chief Complaint Chief Complaint There is a large right effusion and mild left effusion with adjacent infiltrates. The ascending aorta is mildly dilated measuring 4.2 cm in diameter however this was seen previously. There is no mediastinal or hilar lymphadenopathy. There is multiple renal cysts bilaterally. Impression: Bilateral pleural effusions large on the right and mild on the left with adjacent infiltrates. No change. VTE Prophylaxis Ordered VTE Prophylaxis Devices: No VTE Pharmacological Prophylaxi: Yes Assessment/Plan Assessment/Plan Acute respiratory failure with hypoxia Acute CHF exacerbation Elevated troponins, MILD , TRENDING Hypokalemia ELIZABETH due to cardiorenal syndrome Subtherapeutic INR Moderate malnutrition RECENT Ejection Fraction is 45%. Physical deconditioning Bilateral pleural effusions large on the right and mild on the left with adjacent infiltrates. No change. Right sided ultrasound-guided thoracentesis 12-14-20 Plan:======== cvc bed Consult placed to cardiology; will continue diuresis with monitoring of kidney function Will consult nephrology for recommendations regarding acute on chronic kidney failure, DIALYSIS 4-14 X 1 Reportedly on warfarin for A. fib due to cost; will continue warfarin per pharmacy. Significant questions about his medication compliance Resume home medications; Avoid nephrotoxins PT/OT FEN - Cardiac diet PPX - Warfarin FULL CODE Dispo - inpatient for above; patient names his as surrogate decision-maker. PULM CONSULT Ultrasound and fluoroscopic guided placement of a right internal jugular temporary hemodialysis catheter HD AGAIN TODAY 4-15 cr 3.1 -15 Justifications for Admission Justifications for Admission Other Justification History of Present Illness History of Present Illness Identification/Chief Complaint Chief Complaint Shortness of breath Source Source: Chart review, Patient History of Present Illness History of Present Illness Patient 80-year-old male with past medical history CHF, CKD, who presents to the ER with complaints of chest pain. Symptoms began approximately 3 hours prior to arrival to ED. Reports substernal chest pain, 7/10, with associated shortness of breath. Shortness of breath is aggravated by physical exertion and laying flat. Last admission showed BNP 3603, troponins elevated but stable 0.106, with repeat 0.093. CT chest on admission showed bilateral pleural effusions, right greater than left with adjacent infiltrates. Will admit patient for further medical management. Past Medical History Cardiovascular: CHF, HTN, Hyperlipidemia Pulmonary: No pertinent hx, Bronchitis CENTRAL NERVOUS SYSTEM: Other GI: No pertinent hx Heme/Onc: No pertinent hx Hepatobiliary: Cholelithiasis Psych: No pertinent hx Rheumatologic: No pertinent hx Infectious disease: No pertinent hx Renal/: Chronic renal failure Endocrine: Diabetes Past Surgical History Past Surgical History: Cholecystectomy, Other Family History Family History: No Significant, High Cholestrol, Hypertension Social History Smoke: No ALCOHOL: none Drugs: None Current Problem List Problem List Problems Medical Problems: (1) Acute exacerbation of CHF (congestive heart failure) Status: Acute Current Medications Current Medications Current Medications Aspirin (Aspirin Chewable) 162 mg 1X ONCE PO ; Start 01/16/21 at 02:00; Stop 01/16/21 at 02:01; Status DC Fentanyl Citrate (Fentanyl 2ml Vial) 50 mcg 1X ONCE IVP Last administered on 01/16/21at 02:30; Start 01/16/21 at 02:30; Stop 01/16/21 at 02:31; Status DC Furosemide (Lasix) 80 mg 1X ONCE IVP Last administered on 01/16/21at 03:45; Start 01/16/21 at 03:45; Stop 01/16/21 at 04:03; Status DC Furosemide (Lasix) 100 mg STK-MED ONCE .ROUTE ; Start 01/16/21 at 03:53; Stop 01/16/21 at 03:53; Status DC Nitroglycerin (Nitrostat) 0.4 mg PRN Q5MIN PRN SL CHEST PAIN; Start 01/16/21 at 04:45; Stop 01/17/21 at 04:44 Potassium Chloride (Klor-Con) 40 meq 1X ONCE PO Last administered on 01/16/21at 05:00; Start 01/16/21 at 05:00; Stop 01/16/21 at 05:01; Status DC Fentanyl Citrate (Fentanyl 2ml Vial) 50 mcg 1X ONCE IVP Last administered on 01/16/21at 05:45; Start 01/16/21 at 05:45; Stop 01/16/21 at 05:47; Status DC Fentanyl Citrate (Fentanyl 2ml Vial) 25 mcg PRN Q15MIN PRN IV PAIN GREATER THAN 3/10 Last administered on 01/16/21at 08:15; Start 01/16/21 at 07:45; Stop 01/17/21 at 07:44 Active Scripts Active Amox Tr-K Clv 250-125 Mg Tab (Amoxicillin/Potassium Clav) 1 Each Tablet 1 Tab PO BID 5 Days Amiodarone Hcl 200 Mg Tablet 200 Mg PO DAILY 30 Days Acetaminophen-Cod #3 Tablet (Acetaminophen/Codeine Phosphate) 1 Each Tablet 1 Tab PO PRN Q6HRS PRN 6 Days Reported Warfarin Sodium 4 Mg Tablet 4 Mg PO DAILY Mirtazapine 7.5 Mg Tablet 1 Tab PO QHS 30 Days Furosemide 40 Mg Tablet 1 Tab PO DAILY Norvasc (Amlodipine Besylate) 10 Mg Tablet 10 Mg PO DAILY last dose given: date 10/23/20 time 0857 next dose due: 10/24/20 time 0900 Doxazosin Mesylate 4 Mg Tablet 1 Tab PO DAILY not given while patient was here next dose due: 10/24/20 time 0900 Metoprolol Tartrate 50 Mg Tablet 1 Tab PO BID last dose given: 10/23/20 time 0856 next dose due: 10/24/20 timr 0900 Super B Complex (Vitamin B Complex & Vit C No.4) 150 Mg Tablet 150 Mg PO DAILY not given while patient was here next dose due: date 10/24/20 time 0900 Gemfibrozil 600 Mg Tablet 1 Tab PO BID not given while patient was here next dose due: date 10/23/20 time 2100 Vitamin C (Ascorbic Acid) 1,000 Mg Tablet 1,000 Mg PO DAILY not given while here next dose due: date 10/24/20 time 0900 Allergies Allergies: Coded Allergies: lisinopril (Verified Allergy, Severe, SWELLING OF TONGUE AND THROAT, 05/08/16) ROS Review of System GENERAL: No history of weight change, weakness or fevers. SKIN: No bruising, hair changes or rashes. EYES: No blurred, double or loss of vision. NOSE AND THROAT: No history of nosebleeds, hoarseness or sore throat. HEART: Chest pain. Denies palpitations LUNGS: Shortness of breath. Denies cough, hemoptysis, wheezing. GASTROINTESTINAL: Denies nausea, vomiting, abdominal pain. GENITOURINARY: Denies dysuria, frequency, urgency, hematuria. NEUROLOGIC: Denies history of numbness, tingling, tremor or weakness. PSYCHIATRIC: Denies anxiety, denies depression. ENDOCRINE: No history of heat or cold intolerance, polyuria or polydipsia. EXTREMITIES: Denies muscle weakness, joint pain, pain on walking or stiffness. 4-15 dialysis again today cr 3.1 D/W RN troponins elevated but stable 0.106, with repeat 0.093. CT chest on admission showed bilateral pleural effusions, right greater than left with adjacent infiltrates The Ejection Fraction is 45%. RECENT ECHO Vitals Vitals Vital Signs Date Time Temp Pulse Resp B/P (MAP) Pulse Ox O2 Delivery O2 Flow Rate FiO2 01/17/21 02:46 20 97 Nasal Cannula 2.5 01/17/21 02:31 98.6 62 100/58 (72) 98.6 Physical Exam Physical Exam Physical Exam Physical Exam General: Alert, Oriented X3, Cooperative, No acute distress HEENT: PERRLA, EOMI Lungs: Faint crackles, distant breath sounds. Normal air movement Heart: RRR, no murmurs Cardiovascular: S1, S2 Abdomen: Normal bowel sounds, Soft, No tenderness Extremities: 2+ pitting edema bilaterally. No clubbing, No cyanosis Skin: No rashes, No significant lesion Neuro: Normal speech, Normal tone, Sensation intact Psych/Mental Status: Mental status NL, Mood NL General: Alert, Oriented X3, Cooperative, No acute distress Heart: Regular rate, Other Lungs: Clear Abdomen: Normal bowel sounds Extremities: No clubbing, No cyanosis, Other Labs LABS APPROVED REPORT EXAM: Two-dimensional and M-mode echocardiogram with Doppler and color Doppler. Other Information Quality : Average HR: 88bpm INDICATION Atrial Fibrillation Congestive Heart Failure 2D DIMENSIONS RVDd 3.7 (2.9-3.5cm) Left Atrium(2D) 4.0 (1.6-4.0cm) IVSd 1.0 (0.7-1.1cm) Aortic Root(2D) 3.7 (2.0-3.7cm) LVDd 5.6 (3.9-5.9cm) LVOT Diameter 2.2 (1.8-2.4cm) PWd 1.2 (0.7-1.1cm) LVDs 4.4 (2.5-4.0cm) FS (%) 20.9 % SV 63.7 ml LVEF(%) 42.0 (>50%) Aortic Valve AoV Peak Brian. 92.1cm/s AoV VTI 17.4cm AO Peak GR. 3.4mmHg LVOT Peak Brian. 91.8cm/s LVOT VTI 19.11cm AO Mean GR. 2mmHg JOSEPH (VMAX) 2.75cm2 JOSEPH (VTI) 4.20cm2 Mitral Valve MV E Velocity 65.8cm/s MV DECEL TIME 220ms MV A Velocity 59.2cm/s MV E Mean Gr. 1mmHg MV PHT 64ms E/A Ratio 1.1 MVA (PHT) 3.45cm2 TDI E/Lateral E' 12.2 E/Medial E' 10.0 Pulmonary Valve PV Peak Velocity 71.7cm/s PV Peak Grad. 2mmHg Tricuspid Valve TR P. Velocity 259cm/s TR Peak Gr. 27mmHg Pulmonary Vein S1 Velocity 48.9cm/s D2 Velocity 51.6cm/s PVa duration 120msec LEFT VENTRICLE The left ventricle is normal size. There is borderline to mild concentric left ventricular hypertrophy. The left ventricular systolic function is mildly impaired. The Ejection Fraction is 45%. There is slight global hypokinesis of the left ventricle. RIGHT VENTRICLE The right ventricle is normal size. There is normal right ventricular wall thickness. The right ventricular systolic function is normal. ATRIA The left atrium size is normal. The right atrium is borderline dilated. The interatrial septum is intact with no evidence for an atrial septal defect or patent foramen ovale as noted on 2-D or Doppler imaging. AORTIC VALVE The aortic valve is normal in structure and function. Doppler and Color Flow revealed trace aortic regurgitation. There is no significant aortic valvular stenosis. Calculated aortic valve area is 3.42 cm2 with maximum pressure gradient of 5 mmHg and mean pressure gradient of 3 mmHg. MITRAL VALVE The mitral valve is normal in structure and function. There is no evidence of mitral valve prolapse. There is no mitral valve stenosis. Doppler and Color-flow revealed trace to mild mitral regurgitation. TRICUSPID VALVE The tricuspid valve is normal in structure and function. Doppler and Color Flow revealed trace tricuspid regurgitation with an estimated PAP of 47 mmHg. There is no tricuspid valve stenosis. PULMONIC VALVE The pulmonic valve is not well visualized. Doppler and Color Flow revealed no pulmonic valvular regurgitation. GREAT VESSELS The aortic root is borderline dilated The ascending aorta is Mildly dilated. The IVC is dilated and collapses <50% with inspiration. PERICARDIAL EFFUSION There is no evidence of significant pericardial effusion. Critical Notification Critical Value: No <Conclusion> The left ventricular systolic function is mildly impaired. The Ejection Fraction is 45%. Trace to mild mitral regurgitation. Trace tricuspid regurgitation with an estimated PAP of 47 mmHg. There is no evidence of significant pericardial effusion. Signed by : Chelo Tapia, Electronically Approved : 10/23/2020 12:01:11 DICTATED and SIGNED BY: CHELO TAPIA MD DATE: 10/22/20 [id number] Procedure: Temporary hemodialysis catheter placement under fluoroscopy Clinical Indication: Renal failure Fluoro Time: 2 minutes Dose area product: 1Gycm2 Contrast: None Sterility: All elements of maximal sterile barrier technique including the use of a cap, mask, sterile gown, sterile gloves, large sterile sheet, appropriate hand hygiene, and 2% chlorhexidine for cutaneous antisepsis (or acceptable alternative antiseptic per current guidelines) were followed for this procedure. Consent: The procedure was explained in its entirety to the patient or the patients designated policy services representative by a member of the treatment team, including a discussion of the risks, benefits and commonly accepted alternatives to the procedure, as well as the expected consequences of no therapy whatsoever. Discussion of the risks included, but was not limited to, those that are most frequent and those that are rare but possibly severe or life-threatening, as well as the possibility of unforeseen complications. Technique and Findings: Following informed consent, the patient was prepped and draped in the usual sterile fashion. Ultrasound interrogation of the right neck revealed patency and compressibility of the right internal jugular vein. A 21-gauge micropuncture needle was used to gain access to this vein after 1% Lidocaine was used to achieve local anesthesia. A hardcopy ultrasound image was recorded. The needle was exchanged over a wire for serial dilators followed by a 20 cm temporary hemodialysis catheter which was deployed under fluoroscopic guidance such that the distal tip resided in the mid right atrium. The catheter flow rates were assessed manually and found to be excellent. The catheter was then flushed, packed with Heparin, capped, and sutured to the skin. Complications: No immediate Impression: 1. Ultrasound and fluoroscopic guided placement of a right internal jugular temporary hemodialysis catheter DICTATED and SIGNED BY: LORENZO JOHN MD DATE: 01/16/21 [id number] PATIENT: ALVARO CONSTANTINO DACCOUNT: [id number] : 1940 LOCATION: [facility] AGE: 79 SEX: M EXAM STATUS: ADM IN ORD. PHYSICIAN: ADAM NINA MD REASON: EFFUSION RIGHT SIDE PROCEDURE: [id number] THORACENT/ASPIR W/ IMG Ultrasound-guided right-sided thoracentesis 12/14/2020 3:06 PM Indication: EFFUSION RIGHT SIDE Procedure: Informed consent was obtained. A timeout procedure was performed. Sonographic evaluation of the right chest was performed demonstrating moderate pleural effusion. The right posterior chest was prepped and draped in sterile fashion. 1% lidocaine without epinephrine was administered for local anesthesia. Real-time ultrasonographic guidance was used in passing a 5 Chinese TimeCasteh catheter into the right pleural space. 1.2 L of serosanguineous pleural fluid was removed. Samples of fluid were sent to the lab for further evaluation per ordering physician request. The catheter was removed and pressure held to achieve hemostasis. A sterile dressing was applied. No immediate complications were identified. The patient tolerated the procedure well. Impression: Right sided ultrasound-guided thoracentesis DICTATED and SIGNED BY: LORENZO JOHN MD DATE: 12/14/20 [id number] XR CHEST 1V Clinical History: Reason: CHEST PAIN / Spl. Instructions: / History: Technique: AP view of the chest was obtained at 01/16/2021 1:36 AM. Comparison: January 13, 2021. Findings: The heart is borderline enlarged. The pulmonary vessels appear slightly cephalized and there is patchy opacity in the lung bases and blunting of varicose phrenic angle. Impression: 1. Borderline cardiac megaly. 2. Mild right pleural effusion and bilateral infiltrates likely secondary to CHF. Electronically signed by: Artur Benedict III, MD (01/16/2021 2:15 AM) [facility] DICTATED and SIGNED BY: ARTUR BENEDICT III, MD DATE: 01/16/[id number] of the chest without contrast: Clinical History: Reason: chest pain that radiates to mid back;ER DR ONLY WANTS CHEST/ABD / Spl. Instructions: / History: . Axial helical images of the chest were obtained without contrast. COMPARISON: November 1620 FINDINGS: There is a large right effusion and mild left effusion with adjacent infiltrates. The ascending aorta is mildly dilated measuring 4.2 cm in diameter however this was seen previously. There is no mediastinal or hilar lymphadenopathy. There is multiple renal cysts bilaterally. Impression: Bilateral pleural effusions large on the right and mild on the left with adjacent infiltrates. No change. End impression PQRS Compliance Statement: One or more of the following individualized dose reduction techniques were utilized for this examination: 1. Automated exposure control 2. Adjustment of the mA and/or kV according to patient size 3. Use of iterative reconstruction technique Electronically signed by: Artur Benedict III, MD (01/16/2021 2:46 AM) [facility] DICTATED and SIGNED BY: ARTUR BENEDICT III, MD DATE: 01/16/21 [id number] Laboratory Tests Test 01/16/21 11:35 01/16/21 12:00 01/16/21 19:00 01/17/21 04:30 SARS-CoV-2 RNA (RONNIE) Negative (Negative) SARS-CoV-2 Antigen (Rapid) Negative (NEGATIVE) Troponin I Quantitative 0.084 ng/mL (0.000-0.055) 0.081 ng/mL (0.000-0.055) White Blood Count 12.2 x10^3/uL (4.0-11.0) Red Blood Count 3.35 x10^6/uL (4.30-5.70) Hemoglobin 9.6 g/dL (13.0-17.5) Hematocrit 29.2 % (39.0-53.0) Mean Corpuscular Volume 87 fL (79-100) Mean Corpuscular Hemoglobin 29 pg (25-35) Mean Corpuscular Hemoglobin Concent 33 g/dL (31-37) Red Cell Distribution Width 15.1 % (11.5-14.5) Platelet Count 226 x10^3/uL (140-400) Neutrophils (%) (Auto) 74 % (31-73) Lymphocytes (%) (Auto) 12 % (24-48) Monocytes (%) (Auto) 14 % (0-9) Eosinophils (%) (Auto) 0 % (0-3) Basophils (%) (Auto) 0 % (0-3) Neutrophils # (Auto) 9.0 x10^3/uL (1.8-7.7) Lymphocytes # (Auto) 1.4 x10^3/uL (1.0-4.8) Monocytes # (Auto) 1.7 x10^3/uL (0.0-1.1) Eosinophils # (Auto) 0.0 x10^3/uL (0.0-0.7) Basophils # (Auto) 0.0 x10^3/uL (0.0-0.2) Sodium Level 140 mmol/L (136-145) Potassium Level 4.2 mmol/L (3.5-5.1) Chloride Level 102 mmol/L (98-107) Carbon Dioxide Level 30 mmol/L (21-32) Anion Gap 8 (6-14) Blood Urea Nitrogen 40 mg/dL (8-26) Creatinine 3.1 mg/dL (0.7-1.3) Estimated GFR (Cockcroft-Gault) 19.5 Glucose Level 97 mg/dL (70-99) Calcium Level 8.4 mg/dL (8.5-10.1) Phosphorus Level 4.3 mg/dL (2.6-4.7) Magnesium Level 2.3 mg/dL (1.8-2.4) Iron Level 11 ug/dL (65-175) Total Iron Binding Capacity 252 ug/dL (250-450) Iron Saturation 4 % (15-34) Assessment and Plan Assessmemt and Plan Problems Medical Problems: (1) Acute exacerbation of CHF (congestive heart failure) Status: Acute Comment Review of Relevant I have reviewed the following items cortes (where applicable) has been applied. Labs Laboratory Tests Test 01/16/21 03:32 01/16/21 08:15 01/16/21 11:35 01/16/21 12:00 White Blood Count 11.7 x10^3/uL (4.0-11.0) Red Blood Count 3.65 x10^6/uL (4.30-5.70) Hemoglobin 10.2 g/dL (13.0-17.5) Hematocrit 31.4 % (39.0-53.0) Mean Corpuscular Volume 86 fL (79-100) Mean Corpuscular Hemoglobin 28 pg (25-35) Mean Corpuscular Hemoglobin Concent 32 g/dL (31-37) Red Cell Distribution Width 14.8 % (11.5-14.5) Platelet Count 266 x10^3/uL (140-400) Neutrophils (%) (Auto) 78 % (31-73) Lymphocytes (%) (Auto) 9 % (24-48) Monocytes (%) (Auto) 12 % (0-9) Eosinophils (%) (Auto) 1 % (0-3) Basophils (%) (Auto) 0 % (0-3) Neutrophils # (Auto) 9.1 x10^3/uL (1.8-7.7) Lymphocytes # (Auto) 1.0 x10^3/uL (1.0-4.8) Monocytes # (Auto) 1.4 x10^3/uL (0.0-1.1) Eosinophils # (Auto) 0.1 x10^3/uL (0.0-0.7) Basophils # (Auto) 0.0 x10^3/uL (0.0-0.2) Prothrombin Time 26.1 SEC (11.7-14.0) Prothromb Time International Ratio 2.4 (0.8-1.1) Sodium Level 142 mmol/L (136-145) Potassium Level 3.2 mmol/L (3.5-5.1) Chloride Level 101 mmol/L (98-107) Carbon Dioxide Level 30 mmol/L (21-32) Anion Gap 11 (6-14) Blood Urea Nitrogen 61 mg/dL (8-26) Creatinine 3.7 mg/dL (0.7-1.3) Estimated GFR (Cockcroft-Gault) 15.9 BUN/Creatinine Ratio 16 (6-20) Glucose Level 91 mg/dL (70-99) Calcium Level 8.9 mg/dL (8.5-10.1) Total Bilirubin 0.3 mg/dL (0.2-1.0) Aspartate Amino Transf (AST/SGOT) 15 U/L (15-37) Alanine Aminotransferase (ALT/SGPT) 15 U/L (16-63) Alkaline Phosphatase 94 U/L (46-116) Troponin I Quantitative 0.108 ng/mL (0.000-0.055) 0.093 ng/mL (0.000-0.055) 0.084 ng/mL (0.000-0.055) HO-Lpt-E-Type Natriuretic Peptide 3603 pg/mL (0-449) Total Protein 7.5 g/dL (6.4-8.2) Albumin 3.0 g/dL (3.4-5.0) Albumin/Globulin Ratio 0.7 (1.0-1.7) Lipase 143 U/L (73-393) Hepatitis B Surface Antigen Nonreactive (Nonreactive) Hepatitis B Core Total Antibody Nonreactive (Nonreactive) C-Reactive Protein, Quantitative 25.1 mg/L (0-3.3) Procalcitonin < 0.10 ng/mL (0.00-0.10) SARS-CoV-2 RNA (RONNIE) Negative (Negative) SARS-CoV-2 Antigen (Rapid) Negative (NEGATIVE) Test 01/16/21 19:00 01/17/21 04:30 Troponin I Quantitative 0.081 ng/mL (0.000-0.055) White Blood Count 12.2 x10^3/uL (4.0-11.0) Red Blood Count 3.35 x10^6/uL (4.30-5.70) Hemoglobin 9.6 g/dL (13.0-17.5) Hematocrit 29.2 % (39.0-53.0) Mean Corpuscular Volume 87 fL (79-100) Mean Corpuscular Hemoglobin 29 pg (25-35) Mean Corpuscular Hemoglobin Concent 33 g/dL (31-37) Red Cell Distribution Width 15.1 % (11.5-14.5) Platelet Count 226 x10^3/uL (140-400) Neutrophils (%) (Auto) 74 % (31-73) Lymphocytes (%) (Auto) 12 % (24-48) Monocytes (%) (Auto) 14 % (0-9) Eosinophils (%) (Auto) 0 % (0-3) Basophils (%) (Auto) 0 % (0-3) Neutrophils # (Auto) 9.0 x10^3/uL (1.8-7.7) Lymphocytes # (Auto) 1.4 x10^3/uL (1.0-4.8) Monocytes # (Auto) 1.7 x10^3/uL (0.0-1.1) Eosinophils # (Auto) 0.0 x10^3/uL (0.0-0.7) Basophils # (Auto) 0.0 x10^3/uL (0.0-0.2) Sodium Level 140 mmol/L (136-145) Potassium Level 4.2 mmol/L (3.5-5.1) Chloride Level 102 mmol/L (98-107) Carbon Dioxide Level 30 mmol/L (21-32) Anion Gap 8 (6-14) Blood Urea Nitrogen 40 mg/dL (8-26) Creatinine 3.1 mg/dL (0.7-1.3) Estimated GFR (Cockcroft-Gault) 19.5 Glucose Level 97 mg/dL (70-99) Calcium Level 8.4 mg/dL (8.5-10.1) Phosphorus Level 4.3 mg/dL (2.6-4.7) Magnesium Level 2.3 mg/dL (1.8-2.4) Iron Level 11 ug/dL (65-175) Total Iron Binding Capacity 252 ug/dL (250-450) Iron Saturation 4 % (15-34) Laboratory Tests Test 01/16/21 11:35 01/16/21 12:00 01/16/21 19:00 01/17/21 04:30 SARS-CoV-2 RNA (RONNIE) Negative (Negative) SARS-CoV-2 Antigen (Rapid) Negative (NEGATIVE) Troponin I Quantitative 0.084 ng/mL (0.000-0.055) 0.081 ng/mL (0.000-0.055) White Blood Count 12.2 x10^3/uL (4.0-11.0) Red Blood Count 3.35 x10^6/uL (4.30-5.70) Hemoglobin 9.6 g/dL (13.0-17.5) Hematocrit 29.2 % (39.0-53.0) Mean Corpuscular Volume 87 fL (79-100) Mean Corpuscular Hemoglobin 29 pg (25-35) Mean Corpuscular Hemoglobin Concent 33 g/dL (31-37) Red Cell Distribution Width 15.1 % (11.5-14.5) Platelet Count 226 x10^3/uL (140-400) Neutrophils (%) (Auto) 74 % (31-73) Lymphocytes (%) (Auto) 12 % (24-48) Monocytes (%) (Auto) 14 % (0-9) Eosinophils (%) (Auto) 0 % (0-3) Basophils (%) (Auto) 0 % (0-3) Neutrophils # (Auto) 9.0 x10^3/uL (1.8-7.7) Lymphocytes # (Auto) 1.4 x10^3/uL (1.0-4.8) Monocytes # (Auto) 1.7 x10^3/uL (0.0-1.1) Eosinophils # (Auto) 0.0 x10^3/uL (0.0-0.7) Basophils # (Auto) 0.0 x10^3/uL (0.0-0.2) Sodium Level 140 mmol/L (136-145) Potassium Level 4.2 mmol/L (3.5-5.1) Chloride Level 102 mmol/L (98-107) Carbon Dioxide Level 30 mmol/L (21-32) Anion Gap 8 (6-14) Blood Urea Nitrogen 40 mg/dL (8-26) Creatinine 3.1 mg/dL (0.7-1.3) Estimated GFR (Cockcroft-Gault) 19.5 Glucose Level 97 mg/dL (70-99) Calcium Level 8.4 mg/dL (8.5-10.1) Phosphorus Level 4.3 mg/dL (2.6-4.7) Magnesium Level 2.3 mg/dL (1.8-2.4) Iron Level 11 ug/dL (65-175) Total Iron Binding Capacity 252 ug/dL (250-450) Iron Saturation 4 % (15-34) Medications Current Medications Aspirin (Aspirin Chewable) 162 mg 1X ONCE PO ; Start 01/16/21 at 02:00; Stop 01/16/21 at 02:01; Status DC Fentanyl Citrate (Fentanyl 2ml Vial) 50 mcg 1X ONCE IVP Last administered on 01/16/21at 02:30; Start 01/16/21 at 02:30; Stop 01/16/21 at 02:31; Status DC Furosemide (Lasix) 80 mg 1X ONCE IVP Last administered on 01/16/21at 03:45; Start 01/16/21 at 03:45; Stop 01/16/21 at 04:03; Status DC Furosemide (Lasix) 100 mg STK-MED ONCE .ROUTE ; Start 01/16/21 at 03:53; Stop 01/16/21 at 03:53; Status DC Nitroglycerin (Nitrostat) 0.4 mg PRN Q5MIN PRN SL CHEST PAIN; Start 01/16/21 at 04:45; Stop 01/17/21 at 04:44; Status DC Potassium Chloride (Klor-Con) 40 meq 1X ONCE PO Last administered on 01/16/21at 05:00; Start 01/16/21 at 05:00; Stop 01/16/21 at 05:01; Status DC Fentanyl Citrate (Fentanyl 2ml Vial) 50 mcg 1X ONCE IVP Last administered on 01/16/21at 05:45; Start 01/16/21 at 05:45; Stop 01/16/21 at 05:47; Status DC Fentanyl Citrate (Fentanyl 2ml Vial) 25 mcg PRN Q15MIN PRN IV PAIN GREATER THAN 3/10 Last administered on 01/16/21at 08:15; Start 01/16/21 at 07:45; Stop 01/17/21 at 07:44; Status DC Warfarin Sodium (Coumadin Per Pharmacy) 1 each PRN DAILY PRN MC SEE COMMENTS; Start 01/16/21 at 09:30 Acetaminophen/ Codeine Phosphate (Tylenol #3) 1 tab PRN Q6HRS PRN PO PAIN Last administered on 01/17/21at 01:46; Start 01/16/21 at 09:30 Amiodarone HCl (Cordarone) 200 mg DAILY PO ; Start 01/16/21 at 11:00 Amlodipine Besylate (Norvasc) 10 mg DAILY PO ; Start 01/16/21 at 11:00 Doxazosin Mesylate (Cardura) 4 mg DAILY PO ; Start 01/16/21 at 11:00 Metoprolol Tartrate (Lopressor) 50 mg BID PO Last administered on 01/16/21at 20:51; Start 01/16/21 at 11:00; Stop 01/16/21 at 22:15; Status DC Warfarin Sodium (Coumadin) 4 mg DAILY16 PO Last administered on 01/16/21at 20:51; Start 01/16/21 at 16:00 Ondansetron HCl (Zofran) 4 mg PRN Q6HRS PRN IVP NAUSEA/VOMITING Last administered on 01/17/21at 01:46; Start 01/16/21 at 09:45 Al Hydroxide/Mg Hydroxide (Mylanta Plus Xs) 30 ml PRN Q3HRS PRN PO HEARTBURN / GAS; Start 01/16/21 at 09:45 Calcium Carbonate/ Glycine (Tums) 500 mg PRN Q3HRS PRN PO UPSET STOMACH; Start 01/16/21 at 09:45 Morphine Sulfate (Morphine Sulfate) 2 mg PRN Q1HR PRN IV PAIN; Start 01/16/21 at 09:45 Acetaminophen (Tylenol) 650 mg PRN Q6HRS PRN PO Headaches, Temp > 101.5F Last administered on 01/17/21at 00:00; Start 01/16/21 at 09:45 Magnesium Hydroxide (Milk Of Magnesia) 2,400 mg PRN Q12HR PRN PO CONSTIPATION; Start 01/16/21 at 09:45 Bisacodyl (Dulcolax Supp) 10 mg PRN DAILY PRN MI CONSTIPATION; Start 01/16/21 at 09:45 Metolazone (Zaroxolyn) 5 mg DAILY PO ; Start 01/16/21 at 11:00 Bumetanide (Bumex) 2.5 mg DAILY05 IV Last administered on 01/17/21at 05:37; Start 01/17/21 at 05:00 Glimepiride (Amaryl) 4 mg DAILY PO ; Start 01/16/21 at 11:00 Multivitamins (Thera M Plus) 1 tab DAILY PO ; Start 01/16/21 at 11:00 Vitamin B Complex/ Vitamin C (Charla-Jose R) 1 tab DAILY PO ; Start 01/17/21 at 09:00 Lidocaine HCl (Buffered Lidocaine 1%) 3 ml STK-MED ONCE .ROUTE ; Start 01/16/21 at 13:58; Stop 01/16/21 at 13:59; Status DC Lidocaine HCl (Buffered Lidocaine 1%) 4 ml 1X ONCE INJ Last administered on 01/16/21at 14:23; Start 01/16/21 at 14:15; Stop 01/16/21 at 14:16; Status DC Sodium Chloride 1,000 ml @ 1,000 mls/hr Q1H PRN IV hypotension; Start 01/16/21 at 15:45; Stop 01/16/21 at 21:44; Status DC Diphenhydramine HCl (Benadryl) 25 mg 1X PRN PRN IV ITCHING; Start 01/16/21 at 15:45; Stop 01/17/21 at 15:44 Diphenhydramine HCl (Benadryl) 25 mg 1X PRN PRN IV ITCHING; Start 01/16/21 at 15:45; Stop 01/17/21 at 15:44 Sodium Chloride 1,000 ml @ 400 mls/hr Q2H30M PRN IV PATENCY; Start 01/16/21 at 15:45; Stop 01/17/21 at 03:44; Status DC Info (PHARMACY MONITORING -- do not chart) 1 each PRN DAILY PRN MC SEE COMMENTS; Start 01/16/21 at 15:45 Metoprolol Succinate (Toprol Xl) 25 mg BID PO ; Start 01/17/21 at 09:00 Sodium Chloride 1,000 ml @ 1,000 mls/hr Q1H PRN IV hypotension; Start 01/17/21 at 07:45; Stop 01/17/21 at 13:44 Albumin Human 200 ml @ 200 mls/hr 1X PRN PRN IV Hypotension; Start 01/17/21 at 07:45; Stop 01/17/21 at 13:44 Sodium Chloride (Normal Saline Flush) 10 ml 1X PRN PRN IV AP catheter pack; Start 01/17/21 at 07:45; Stop 01/18/21 at 07:44 Sodium Chloride (Normal Saline Flush) 10 ml 1X PRN PRN IV BACTERIOLOGIST SOIL catheter pack; Start 01/17/21 at 07:45; Stop 01/18/21 at 07:44 Sodium Chloride 1,000 ml @ 400 mls/hr Q2H30M PRN IV PATENCY; Start 01/17/21 at 07:45; Stop 01/17/21 at 19:44 Info (PHARMACY MONITORING -- do not chart) 1 each PRN DAILY PRN MC SEE COMMENTS; Start 01/17/21 at 07:45; Status UNV Info (PHARMACY MONITORING -- do not chart) 1 each PRN DAILY PRN MC SEE COMMENTS; Start 01/17/21 at 07:45 Active Scripts Active Amiodarone Hcl 200 Mg Tablet 200 Mg PO DAILY 30 Days Acetaminophen-Cod #3 Tablet (Acetaminophen/Codeine Phosphate) 1 Each Tablet 1 Tab PO PRN Q6HRS PRN 6 Days Reported Metoprolol Succinate ( Xl ) (Metoprolol Succinate) 25 Mg Tab.er.24h 25 Mg PO DAILY Warfarin Sodium 4 Mg Tablet 6 Mg PO DAILY Mirtazapine 7.5 Mg Tablet 1 Tab PO QHS 30 Days Norvasc (Amlodipine Besylate) 10 Mg Tablet 10 Mg PO DAILY last dose given: 10/23/20 time 0857 next dose due: 10/24/20 time 0900 Doxazosin Mesylate 4 Mg Tablet 1 Tab PO DAILY not given while patient was here next dose due: date 10/24/20 time 0900 Super B Complex (Vitamin B Complex & Vit C No.4) 150 Mg Tablet 150 Mg PO DAILY not given while patient was here next dose due: 10/24/20 time 0900 Vitamin C (Ascorbic Acid) 1,000 Mg Tablet 1,000 Mg PO DAILY not given while here next dose due: 10/24/20 time 0900 Vitals/I & O Vital Sign - Last 24 Hours 01/16/21 01/16/21 01/16/21 01/16/21 11:00 11:00 11:00 11:00 Pulse 86 86 86 86 B/P (MAP) 144/69 144/69 144/69 144/69 01/16/21 01/16/21 01/16/21 01/16/21 11:00 14:45 19:16 20:00 Temp 98.4 99.7 98.4 99.7 Pulse 71 73 86 Resp 24 18 B/P (MAP) 111/72 (85) 128/70 (89) 144/69 (94) Pulse Ox 95 95 96 O2 Delivery Nasal Cannula Room Air Nasal Cannula Nasal Cannula O2 Flow Rate 2.0 2.5 2.5 01/16/21 01/16/21 01/17/21 01/17/21 20:51 23:24 01:24 01:46 Temp 100.3 98.6 100.3 98.6 Pulse 86 70 57 Resp 18 24 24 B/P (MAP) 144/69 100/67 (78) 94/58 (70) Pulse Ox 94 97 97 O2 Delivery Nasal Cannula Nasal Cannula Nasal Cannula O2 Flow Rate 2.5 2.5 2.5 01/17/21 01/17/21 02:31 02:46 Temp 98.6 98.6 Pulse 62 Resp 20 20 B/P (MAP) 100/58 (72) Pulse Ox 97 97 O2 Delivery Nasal Cannula Nasal Cannula O2 Flow Rate 2.5 2.5 Intake and Output 01/16/21 01/16/21 01/17/21 14:59 22:59 06:59 Intake Total 0 ml 0 ml 330 ml Output Total 150 ml 0 ml Balance -150 ml 0 ml 330 ml Justicifation of Admission Dx: Justifications for Admission: Justification of Admission Dx: Yes ALLISON DAVISON MD Jan 17, 2021 09:49
[2021-01-17 11:00] VITALS: BP 121/59
--- NOTE | 2021-01-17 11:29 | PDOC ---
Renal-Progress Notes Subjective Notes Notes FEELING VERY TIRED History of Present Illness Hx of present illness STABLE Vitals Vitals Vital Signs Date Time Temp Pulse Resp B/P (MAP) Pulse Ox O2 Delivery O2 Flow Rate FiO2 01/17/21 08:00 Nasal Cannula 2.5 01/17/21 02:46 20 97 01/17/21 02:31 98.6 62 100/58 (72) 98.6 Weight Weight [ ] I.O. Intake and Output Intake and Output 01/17/21 07:00 Intake Total 330 ml Output Total 150 ml Balance 180 ml Intake Oral 330 ml Output Urine Total 150 ml # Bowel Movements 1 Labs Labs Laboratory Tests Test 01/16/21 11:35 01/16/21 12:00 01/16/21 19:00 01/17/21 04:30 SARS-CoV-2 RNA (RONNIE) Negative (Negative) SARS-CoV-2 Antigen (Rapid) Negative (NEGATIVE) Troponin I Quantitative 0.084 ng/mL (0.000-0.055) 0.081 ng/mL (0.000-0.055) White Blood Count 12.2 x10^3/uL (4.0-11.0) Red Blood Count 3.35 x10^6/uL (4.30-5.70) Hemoglobin 9.6 g/dL (13.0-17.5) Hematocrit 29.2 % (39.0-53.0) Mean Corpuscular Volume 87 fL (79-100) Mean Corpuscular Hemoglobin 29 pg (25-35) Mean Corpuscular Hemoglobin Concent 33 g/dL (31-37) Red Cell Distribution Width 15.1 % (11.5-14.5) Platelet Count 226 x10^3/uL (140-400) Neutrophils (%) (Auto) 74 % (31-73) Lymphocytes (%) (Auto) 12 % (24-48) Monocytes (%) (Auto) 14 % (0-9) Eosinophils (%) (Auto) 0 % (0-3) Basophils (%) (Auto) 0 % (0-3) Neutrophils # (Auto) 9.0 x10^3/uL (1.8-7.7) Lymphocytes # (Auto) 1.4 x10^3/uL (1.0-4.8) Monocytes # (Auto) 1.7 x10^3/uL (0.0-1.1) Eosinophils # (Auto) 0.0 x10^3/uL (0.0-0.7) Basophils # (Auto) 0.0 x10^3/uL (0.0-0.2) Sodium Level 140 mmol/L (136-145) Potassium Level 4.2 mmol/L (3.5-5.1) Chloride Level 102 mmol/L (98-107) Carbon Dioxide Level 30 mmol/L (21-32) Anion Gap 8 (6-14) Blood Urea Nitrogen 40 mg/dL (8-26) Creatinine 3.1 mg/dL (0.7-1.3) Estimated GFR (Cockcroft-Gault) 19.5 Glucose Level 97 mg/dL (70-99) Calcium Level 8.4 mg/dL (8.5-10.1) Phosphorus Level 4.3 mg/dL (2.6-4.7) Magnesium Level 2.3 mg/dL (1.8-2.4) Iron Level 11 ug/dL (65-175) Total Iron Binding Capacity 252 ug/dL (250-450) Iron Saturation 4 % (15-34) Review of Systems Constitutional: yes: weakness, alert, oriented Ears/Nose/Throat: Yes: no symptom reported Eyes: Yes: no symptom reported Pulmonary: Yes dyspnea Cardiovascular: Yes no symptom reported Gastrointestional: Yes: no symptom reported Genitourinary: Yes: no symptom reported Musculoskeletal: Yes: no symptom reported Skin: Yes no symptom reported Psychiatric/Neurological: Yes: no symptom reported Endocrine: Yes: no symptom reported Physical Exam General Appearance: no apparent distress Skin: warm Respiratory: decreased breath sounds Heart: S1S2 Abdomen: soft, bowel sounds present Genitourinary: bladder flat Extremities: pulses present Neurology: alert, oriented Assessment Assessment IMP NEW ONSET ESRD ANEMIA IRON DEFICIENCY ACUTE ON CHRONIC DIASTOLIC AND SYSTOLIC CHF CM WITH EF OF 45% P AFIB - ANTICOAGULATED HYPOKALEMIA-CORRECTED DECONDITIONING S/P TEMPORARY HD CATHETER PLAN TUNNELED HD CATHETER ONCE INR OK NURSE STAFF TO NOTIFY CARDIOLOGY AND IR HD AGAIN TODAY UF ABOUT 2.0 LITERS TOLERATED IV VENOFER SW TO SET UP OP HD MEGAN SCHMIDT MD Jan 17, 2021 11:29
[2021-01-17] MEDS ORDERED: IRON SUCROSE COMPLEX 500 MG in IV NORMAL SALINE 250ML 250 ML IV ONE ×2 (11:30→14:00)
[2021-01-17] MEDS ORDERED: DEXTROSE 50% 25 GM / 50ML DISP.SYRIN. IV PRN ×2 (12:45)
[2021-01-17] MEDS: MULTIVITAMIN with MINERAL TABLET. PO SCH (12:55)
[2021-01-17] MEDS: FOLIC/VIT B COMP W-C (RENAL) TABLET. PO SCH (12:56)
[2021-01-17] MEDS: AMIODARONE HCL 200 MG TABLET. PO SCH (12:57)
[2021-01-17] MEDS: WARFARIN 4 MG TABLET. PO SCH (13:53)
--- NOTE | 2021-01-17 13:59 | PDOC ---
CAROLINE YBARRA [employer] PATTERNMAKER 01/17/21 1359: CARDIO Progress Notes Date and Time Date of Service 01/17/21 Time of Evaluation 1400 Subjective Subjective: No Chest Pain, No shortness of breath Vitals Vitals Vital Signs Date Time Temp Pulse Resp B/P (MAP) Pulse Ox O2 Delivery O2 Flow Rate FiO2 01/17/21 12:57 90 121/59 01/17/21 11:00 98.5 20 96 Nasal Cannula 2.5 98.5 Weight Weight [ ] Input and Output Intake and Output Intake and Output 01/17/21 07:00 Intake Total 330 ml Output Total 150 ml Balance 180 ml Intake Oral 330 ml Output Urine Total 150 ml # Bowel Movements 1 Laboratory Labs Laboratory Tests Test 01/16/21 19:00 01/17/21 04:30 01/17/21 12:11 01/17/21 12:30 Troponin I Quantitative 0.081 ng/mL (0.000-0.055) White Blood Count 12.2 x10^3/uL (4.0-11.0) Red Blood Count 3.35 x10^6/uL (4.30-5.70) Hemoglobin 9.6 g/dL (13.0-17.5) Hematocrit 29.2 % (39.0-53.0) Mean Corpuscular Volume 87 fL (79-100) Mean Corpuscular Hemoglobin 29 pg (25-35) Mean Corpuscular Hemoglobin Concent 33 g/dL (31-37) Red Cell Distribution Width 15.1 % (11.5-14.5) Platelet Count 226 x10^3/uL (140-400) Neutrophils (%) (Auto) 74 % (31-73) Lymphocytes (%) (Auto) 12 % (24-48) Monocytes (%) (Auto) 14 % (0-9) Eosinophils (%) (Auto) 0 % (0-3) Basophils (%) (Auto) 0 % (0-3) Neutrophils # (Auto) 9.0 x10^3/uL (1.8-7.7) Lymphocytes # (Auto) 1.4 x10^3/uL (1.0-4.8) Monocytes # (Auto) 1.7 x10^3/uL (0.0-1.1) Eosinophils # (Auto) 0.0 x10^3/uL (0.0-0.7) Basophils # (Auto) 0.0 x10^3/uL (0.0-0.2) Sodium Level 140 mmol/L (136-145) Potassium Level 4.2 mmol/L (3.5-5.1) Chloride Level 102 mmol/L (98-107) Carbon Dioxide Level 30 mmol/L (21-32) Anion Gap 8 (6-14) Blood Urea Nitrogen 40 mg/dL (8-26) Creatinine 3.1 mg/dL (0.7-1.3) Estimated GFR (Cockcroft-Gault) 19.5 Glucose Level 97 mg/dL (70-99) Calcium Level 8.4 mg/dL (8.5-10.1) Phosphorus Level 4.3 mg/dL (2.6-4.7) Magnesium Level 2.3 mg/dL (1.8-2.4) Iron Level 11 ug/dL (65-175) Total Iron Binding Capacity 252 ug/dL (250-450) Iron Saturation 4 % (15-34) Glucose (Fingerstick) 53 mg/dL (70-99) 72 mg/dL (70-99) Review of Systems Constitutional: yes: weakness, alert, oriented Ears/Nose/Throat: Yes: no symptom reported Eyes: Yes: no symptom reported Pulmonary: Yes dyspnea Cardiovascular: Yes no symptom reported Gastrointestional: Yes: no symptom reported Genitourinary: Yes: no symptom reported Musculoskeletal: Yes: no symptom reported Skin: Yes no symptom reported Psychiatric/Neurological: Yes: no symptom reported Endocrine: Yes: no symptom reported Physical Exam HEENT: Neck Supple W Full Motion Chest: Symmetric LUNGS: Other (diminished bases ) Heart: RRR Abdomen: Soft N/T Extremities: Other (trace bilateral LE edema ) Neurology: alert, oriented, follow commands Assessment Assessment 1. Chest pain, atypical features 2. Acute on chronic diastolic/systolic CHF 3. Mild troponin elevation; peak 0.1. Most probably type II, demand ischemia 4. PAFIB; presently SR/SB. Coumadin therapy for stroke prevention. On Amiodarone for rhythm maintenance 5. Hypertension; controlled 6. Hyperlipidemia; LDL 79 7. Diabetes, II 8. CKD, now ESRD. HD initiated 9. Cardiomyopathy: recent EF at 45% 10. Hypokalemia; replaced 11. Chronic LBBB Recommendations Continue Amiodarone for rhythm/rate control Hold metoprolol with bradycardia Fluid offloading via HD Okay to hold warfarin for tunneled HD catheter placement Plan outpatient ischemic evaluation Supportive care Justicifation of Admission Dx: Justifications for Admission: Justification of Admission Dx: Yes CHELO NICHOLSON MD 01/17/21 1950: CARDIO Progress Notes Assessment Assessment Patient seen and examined. Agree with TOWER HELPER's assessment and plan. Continue fluid removal with hemodialysis for acute on chronic combined systolic and diastolic heart failure. Nephrology following. Chest pain with atypical features. Slight troponin elevation probably demand ischemia. Recent 2D echo showed LVEF 45%. Plan outpatient ischemic evaluation. PAF maintaining sinus rhythm. Continue amiodarone for rhythm maintenance and warfarin for stroke prophylaxis. CAROLINE YBARRA APRN Jan 17, 2021 13:59 CHELO NICHOLSON MD Jan 17, 2021 19:50
--- NOTE | 2021-01-17 14:18 | NUR ---
SS following up with discharge planning. SS reviewed pt chart and discussed with pt RN. Pt is currently requiring oxygen at 2.5 liters nasal canula. COVID19 negative. Nephrology and Cardiology following. PT/OT ordered. Pt had [facility], ; fax [phone], at home. SS phoned and faxed referral for outpatient dialysis set up at [facility] to [facility], ; fax [phone]. SS will continue to follow for discharge planning.
--- NOTE | 2021-01-17 14:23 | PDOC ---
PULMONARY PROGRESS NOTES DATE: 01/17/21 TIME: 14:22 Vitals Vital Signs Date Time Temp Pulse Resp B/P (MAP) Pulse Ox O2 Delivery O2 Flow Rate FiO2 01/17/21 12:57 90 121/59 01/17/21 11:00 98.5 20 96 Nasal Cannula 2.5 98.5 General: Alert, No acute distress Lungs: Clear Cardiovascular: S1 Abdomen: Soft Extremities: Other Labs Laboratory Tests Test 01/16/21 03:32 01/16/21 08:15 01/16/21 11:35 01/16/21 12:00 White Blood Count 11.7 x10^3/uL (4.0-11.0) Red Blood Count 3.65 x10^6/uL (4.30-5.70) Hemoglobin 10.2 g/dL (13.0-17.5) Hematocrit 31.4 % (39.0-53.0) Mean Corpuscular Volume 86 fL (79-100) Mean Corpuscular Hemoglobin 28 pg (25-35) Mean Corpuscular Hemoglobin Concent 32 g/dL (31-37) Red Cell Distribution Width 14.8 % (11.5-14.5) Platelet Count 266 x10^3/uL (140-400) Neutrophils (%) (Auto) 78 % (31-73) Lymphocytes (%) (Auto) 9 % (24-48) Monocytes (%) (Auto) 12 % (0-9) Eosinophils (%) (Auto) 1 % (0-3) Basophils (%) (Auto) 0 % (0-3) Neutrophils # (Auto) 9.1 x10^3/uL (1.8-7.7) Lymphocytes # (Auto) 1.0 x10^3/uL (1.0-4.8) Monocytes # (Auto) 1.4 x10^3/uL (0.0-1.1) Eosinophils # (Auto) 0.1 x10^3/uL (0.0-0.7) Basophils # (Auto) 0.0 x10^3/uL (0.0-0.2) Prothrombin Time 26.1 SEC (11.7-14.0) Prothromb Time International Ratio 2.4 (0.8-1.1) Sodium Level 142 mmol/L (136-145) Potassium Level 3.2 mmol/L (3.5-5.1) Chloride Level 101 mmol/L (98-107) Carbon Dioxide Level 30 mmol/L (21-32) Anion Gap 11 (6-14) Blood Urea Nitrogen 61 mg/dL (8-26) Creatinine 3.7 mg/dL (0.7-1.3) Estimated GFR (Cockcroft-Gault) 15.9 BUN/Creatinine Ratio 16 (6-20) Glucose Level 91 mg/dL (70-99) Calcium Level 8.9 mg/dL (8.5-10.1) Total Bilirubin 0.3 mg/dL (0.2-1.0) Aspartate Amino Transf (AST/SGOT) 15 U/L (15-37) Alanine Aminotransferase (ALT/SGPT) 15 U/L (16-63) Alkaline Phosphatase 94 U/L (46-116) Troponin I Quantitative 0.108 ng/mL (0.000-0.055) 0.093 ng/mL (0.000-0.055) 0.084 ng/mL (0.000-0.055) CG-Vdp-G-Type Natriuretic Peptide 3603 pg/mL (0-449) Total Protein 7.5 g/dL (6.4-8.2) Albumin 3.0 g/dL (3.4-5.0) Albumin/Globulin Ratio 0.7 (1.0-1.7) Lipase 143 U/L (73-393) Hepatitis B Surface Antigen Nonreactive (Nonreactive) Hepatitis B Core Total Antibody Nonreactive (Nonreactive) C-Reactive Protein, Quantitative 25.1 mg/L (0-3.3) Procalcitonin < 0.10 ng/mL (0.00-0.10) SARS-CoV-2 RNA (RONNIE) Negative (Negative) SARS-CoV-2 Antigen (Rapid) Negative (NEGATIVE) Test 01/16/21 19:00 01/17/21 04:30 01/17/21 12:11 01/17/21 12:30 Troponin I Quantitative 0.081 ng/mL (0.000-0.055) White Blood Count 12.2 x10^3/uL (4.0-11.0) Red Blood Count 3.35 x10^6/uL (4.30-5.70) Hemoglobin 9.6 g/dL (13.0-17.5) Hematocrit 29.2 % (39.0-53.0) Mean Corpuscular Volume 87 fL (79-100) Mean Corpuscular Hemoglobin 29 pg (25-35) Mean Corpuscular Hemoglobin Concent 33 g/dL (31-37) Red Cell Distribution Width 15.1 % (11.5-14.5) Platelet Count 226 x10^3/uL (140-400) Neutrophils (%) (Auto) 74 % (31-73) Lymphocytes (%) (Auto) 12 % (24-48) Monocytes (%) (Auto) 14 % (0-9) Eosinophils (%) (Auto) 0 % (0-3) Basophils (%) (Auto) 0 % (0-3) Neutrophils # (Auto) 9.0 x10^3/uL (1.8-7.7) Lymphocytes # (Auto) 1.4 x10^3/uL (1.0-4.8) Monocytes # (Auto) 1.7 x10^3/uL (0.0-1.1) Eosinophils # (Auto) 0.0 x10^3/uL (0.0-0.7) Basophils # (Auto) 0.0 x10^3/uL (0.0-0.2) Sodium Level 140 mmol/L (136-145) Potassium Level 4.2 mmol/L (3.5-5.1) Chloride Level 102 mmol/L (98-107) Carbon Dioxide Level 30 mmol/L (21-32) Anion Gap 8 (6-14) Blood Urea Nitrogen 40 mg/dL (8-26) Creatinine 3.1 mg/dL (0.7-1.3) Estimated GFR (Cockcroft-Gault) 19.5 Glucose Level 97 mg/dL (70-99) Calcium Level 8.4 mg/dL (8.5-10.1) Phosphorus Level 4.3 mg/dL (2.6-4.7) Magnesium Level 2.3 mg/dL (1.8-2.4) Iron Level 11 ug/dL (65-175) Total Iron Binding Capacity 252 ug/dL (250-450) Iron Saturation 4 % (15-34) Glucose (Fingerstick) 53 mg/dL (70-99) 72 mg/dL (70-99) Laboratory Tests Test 01/16/21 19:00 01/17/21 04:30 01/17/21 12:11 01/17/21 12:30 Troponin I Quantitative 0.081 ng/mL (0.000-0.055) White Blood Count 12.2 x10^3/uL (4.0-11.0) Red Blood Count 3.35 x10^6/uL (4.30-5.70) Hemoglobin 9.6 g/dL (13.0-17.5) Hematocrit 29.2 % (39.0-53.0) Mean Corpuscular Volume 87 fL (79-100) Mean Corpuscular Hemoglobin 29 pg (25-35) Mean Corpuscular Hemoglobin Concent 33 g/dL (31-37) Red Cell Distribution Width 15.1 % (11.5-14.5) Platelet Count 226 x10^3/uL (140-400) Neutrophils (%) (Auto) 74 % (31-73) Lymphocytes (%) (Auto) 12 % (24-48) Monocytes (%) (Auto) 14 % (0-9) Eosinophils (%) (Auto) 0 % (0-3) Basophils (%) (Auto) 0 % (0-3) Neutrophils # (Auto) 9.0 x10^3/uL (1.8-7.7) Lymphocytes # (Auto) 1.4 x10^3/uL (1.0-4.8) Monocytes # (Auto) 1.7 x10^3/uL (0.0-1.1) Eosinophils # (Auto) 0.0 x10^3/uL (0.0-0.7) Basophils # (Auto) 0.0 x10^3/uL (0.0-0.2) Sodium Level 140 mmol/L (136-145) Potassium Level 4.2 mmol/L (3.5-5.1) Chloride Level 102 mmol/L (98-107) Carbon Dioxide Level 30 mmol/L (21-32) Anion Gap 8 (6-14) Blood Urea Nitrogen 40 mg/dL (8-26) Creatinine 3.1 mg/dL (0.7-1.3) Estimated GFR (Cockcroft-Gault) 19.5 Glucose Level 97 mg/dL (70-99) Calcium Level 8.4 mg/dL (8.5-10.1) Phosphorus Level 4.3 mg/dL (2.6-4.7) Magnesium Level 2.3 mg/dL (1.8-2.4) Iron Level 11 ug/dL (65-175) Total Iron Binding Capacity 252 ug/dL (250-450) Iron Saturation 4 % (15-34) Glucose (Fingerstick) 53 mg/dL (70-99) 72 mg/dL (70-99) Medications Active Scripts Medications Dose Route/Sig Max Daily Dose Days Date Category Dose Instructions Metoprolol Succinate ( Xl ) (Metoprolol Succinate) 25 Mg Tab.er.24h 25 Mg PO DAILY 01/16/21 Reported Amiodarone Hcl 200 Mg Tablet 200 Mg PO DAILY 30 12/17/20 Rx Warfarin Sodium 4 Mg Tablet 6 Mg PO DAILY 11/19/20 Reported Mirtazapine 7.5 Mg Tablet 1 Tab PO QHS 30 11/19/20 Reported Acetaminophen-Cod #3 Tablet (Acetaminophen/Codeine Phosphate) 1 Each Tablet 1 Tab PO PRN Q6HRS PRN 6 10/23/20 Rx Norvasc (Amlodipine Besylate) 10 Mg Tablet 10 Mg PO DAILY 05/09/16 Reported last dose given: date 10/23/20 time 0857 next dose due: date 10/24/20 time 0900 Doxazosin Mesylate 4 Mg Tablet 1 Tab PO DAILY 05/08/16 Reported not given while patient was here next dose due: date 10/24/20 time 0900 Super B Complex (Vitamin B Complex & Vit C No.4) 150 Mg Tablet 150 Mg PO DAILY 05/08/16 Reported not given while patient was here next dose due: date 10/24/20 time 0900 Vitamin C (Ascorbic Acid) 1,000 Mg Tablet 1,000 Mg PO DAILY 05/08/16 Reported not given while here next dose due: date 10/24/20 time 0900 Impression . Full consult dictated Recurrent pleural effusion secondary to end-stage renal disease and CHF No need for thoracentesis at this time Patient to start hemodialysis ADAM NINA MD Jan 17, 2021 14:23
[2021-01-17 15:00] VITALS: BP 109/58
[2021-01-17] MEDS: INSULIN LISPRO 300 UNITS/3 ML VIAL. SQ SCH (17:00)
[2021-01-17 19:59] VITALS: BP 125/71
[2021-01-17] MEDS ORDERED: DARBEPOETIN ALFA 60 MCG/0.3 ML DISP.SYRIN. SQ SCH (21:00)
--- NOTE | 2021-01-17 21:35 | CONS ---
DATE OF CONSULTATION: 01/17/2021 ATTENDING PHYSICIAN: Dr. Harry. REASON FOR CONSULTATION: The patient is seen in pulmonary consultation at the request of Dr. Jackson for bilateral pleural effusions, right greater than left with adjacent compressive atelectasis, possible infiltrate. HISTORY OF PRESENT ILLNESS: The patient is well known to us from previous hospitalization. He is a 80-year-old with multiple medical problems including chronic kidney disease. I was asked to see him in consultation as a consequence of his abnormal CT chest. The patient presented to the Emergency Room with some chest pain radiating to his back. He was also slightly more short of breath. He underwent above diagnostic studies. I was asked to see him in consultation as consequence of the pleural effusion. He was last here back in 12/17. At that time, he underwent thoracentesis. Pleural fluid analysis was compatible with a transudative process. The patient was discharge home and he now presents with the above complaints. He is scheduled to undergo dialysis. He now has a dialysis catheter in place. Dr. Botello has seen the patient and Ludwig catheter was placed. He is to start dialysis today. The patient is currently not on oxygen. He denies fever, chills or night sweats. PAST MEDICAL HISTORY: Remarkable for chronic kidney disease, recurrent pleural effusion, hypertension, hyperlipidemia, bronchitis, congestive heart failure and cholelithiasis. PAST SURGICAL HISTORY: Status post cholecystectomy. FAMILY HISTORY: Significant for hyperlipidemia, hypertension. 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 No history of tobacco use. REVIEW OF SYSTEMS: As indicated above, otherwise 10-point system was reviewed and negative. ALLERGIES: LISINOPRIL. PHYSICAL EXAMINATION: GENERAL: The patient was in no significant respiratory distress. He is on room air. He had previously been on 2.5 liters of oxygen supplementation. HEENT: Eyes, the sclerae were nonicteric. NECK: Jugular venous distention was not elevated. No lymphadenopathy. CHEST: Full expansion. LUNGS: Diminished breath sounds in the bases, otherwise no wheezes. CARDIOVASCULAR: Respiratory rate and rhythm with S1 S2. No S3. ABDOMEN: Obese. EXTREMITIES: No clubbing, cyanosis or edema. LABORATORY DATA: SARS-CoV-2 was negative. Hepatitis B surface antigen is negative. Electrolytes were noted. BUN was 40, creatinine 3.1. INR was 2.4. White count was normal. Chest x-ray and CT reviewed as indicated above. IMPRESSION: 1. Abnormal CT revealing bilateral effusions related to his underlying renal failure, suspect effusions are transudative in nature. 2. Progressive dyspnea, multifactorial secondary to [id number] systolic heart failure, increase in effusion. 3. Chronic kidney disease, currently on hemodialysis. 4. Cardiomyopathy, ejection fraction 45%. 5. Pleural fluid cytology analysis was negative for malignant cells dated 12/18/2020. PLAN: 1. The patient is currently not in any significant respiratory distress. Recommend continue hemodialysis, at which time I think that the pleural effusions will dissipate. 2. Continue home medications. 3. No need for antibiotics. 4. Deep venous thrombosis prophylaxis. 5. A 6-minute walk prior to discharge. I do appreciate the privilege in sharing in the patient's care. ADAM NINA MD DR: ALANNA/shahla JOB#: [id number] / [id number]
[2021-01-17 23:13] VITALS: BP 106/74
[2021-01-18 03:02] VITALS: BP 132/69
[2021-01-18] MEDS: BUMETANIDE 2.5 MG/10 ML VIAL. IV SCH (05:34)
[2021-01-18 07:00] VITALS: BP 149/75
[2021-01-18 07:52] LABS: BASO # 0.1 x10^3/uL (0.0-0.2); BASO % 1 % (0-3); EOS # 0.1 x10^3/uL (0.0-0.7); EOS % 1 % (0-3); HEMATOCRIT 30.1 % (39.0-53.0); HEMOGLOBIN 9.6 g/dL (13.0-17.5); LYMPH # 1.9 x10^3/uL (1.0-4.8); LYMPH % 16 % (24-48); MEAN CORPUSCULAR HEMOGLOBIN 28 pg (25-35); MEAN CORPUSCULAR HGB CONC 32 g/dL (31-37); MEAN CORPUSCULAR VOLUME 88 fL (79-100); MONO # 1.6 x10^3/uL (0.0-1.1); MONO % 14 % (0-9); NEUT # 7.9 x10^3/uL (1.8-7.7); NEUT % 68 % (31-73); PLATELET COUNT 237 x10^3/uL (140-400); RED BLOOD COUNT 3.43 x10^6/uL (4.30-5.70); WHITE BLOOD COUNT 11.6 x10^3/uL (4.0-11.0)
[2021-01-18] MEDS: INSULIN LISPRO 300 UNITS/3 ML VIAL. SQ SCH ×3 (08:00→17:00)
--- NOTE | 2021-01-18 08:00 | NUR ---
PT'S GLUCOSE 66. PT A&OX4. PT WAS GIVEN JUICE P.O. 240ML X 4.
[2021-01-18 08:22] LABS: CALCIUM 8.5 mg/dL (8.5-10.1); CREATININE 3.1 mg/dL (0.7-1.3); GFR 19.5
[2021-01-18] MEDS: DOXAZOSIN MESYLATE 4 MG TABLET. PO SCH (08:33)
[2021-01-18] MEDS: FOLIC/VIT B COMP W-C (RENAL) TABLET. PO SCH (08:33)
[2021-01-18] MEDS: metOLazone 2.5 MG TABLET PO SCH (08:33)
[2021-01-18] MEDS: MULTIVITAMIN with MINERAL TABLET. PO SCH (08:33)
[2021-01-18] MEDS: METOPROLOL SUCC 24HR ER 25 MG TAB.ER.24H. PO SCH ×2 (08:34→21:07)
[2021-01-18] MEDS: GLIMEPIRIDE 2 MG TABLET. PO SCH (08:34)
[2021-01-18] MEDS: AMIODARONE HCL 200 MG TABLET. PO SCH (08:34)
[2021-01-18] MEDS: amLODIPine BESYLATE 10 MG TABLET PO SCH (08:35)
--- NOTE | 2021-01-18 10:01 | NUR ---
RECHECKED PT'S GLUCOSE = 149.
--- NOTE | 2021-01-18 10:06 | PDOC ---
PROGRESS NOTES Date of Service: DATE: 01/18/21 TIME: 10:05 Chief Complaint Chief Complaint There is a large right effusion and mild left effusion with adjacent infiltrates. The ascending aorta is mildly dilated measuring 4.2 cm in diameter however this was seen previously. There is no mediastinal or hilar lymphadenopathy. There is multiple renal cysts bilaterally. Impression: Bilateral pleural effusions large on the right and mild on the left with adjacent infiltrates. No change. VTE Prophylaxis Ordered VTE Prophylaxis Devices: No VTE Pharmacological Prophylaxi: Yes Assessment/Plan Assessment/Plan Acute respiratory failure with hypoxia Acute CHF exacerbation Elevated troponins, MILD , TRENDING Hypokalemia ELIZABETH due to cardiorenal syndrome Subtherapeutic INR Moderate malnutrition RECENT Ejection Fraction is 45%. Physical deconditioning Bilateral pleural effusions large on the right and mild on the left with adjacent infiltrates. No change. Right sided ultrasound-guided thoracentesis 12-14-20 / suspect effusions are transudative in nature. Plan:======== cvc bed Consult placed to cardiology; will continue diuresis with monitoring of kidney function Will consult nephrology for recommendations regarding acute on chronic kidney failure, DIALYSIS - X 1 Reportedly on warfarin for A. fib due to cost; will continue warfarin per pharmacy. Significant questions about his medication compliance Resume home medications; Avoid nephrotoxins PT/OT FEN - Cardiac diet PPX - Warfarin FULL CODE Dispo - inpatient for above; patient names his as surrogate decision-maker. PULM CONSULT Ultrasound and fluoroscopic guided placement of a right internal jugular temporary hemodialysis catheter HD AGAIN TODAY 15 cr 3.1 [id number] await chair time CR 3.1 d/w RN Justifications for Admission Justifications for Admission Other Justification History of Present Illness History of Present Illness Identification/Chief Complaint Chief Complaint Shortness of breath Source Source: Chart review, Patient History of Present Illness History of Present Illness Patient 80-year-old male with past medical history CHF, CKD, who presents to the ER with complaints of chest pain. Symptoms began approximately 3 hours prior to arrival to ED. Reports substernal chest pain, 7/10, with associated shortness of breath. Shortness of breath is aggravated by physical exertion and laying flat. Last admission showed BNP 3603, troponins elevated but stable 0.106, with repeat 0.093. CT chest on admission showed bilateral pleural effusions, right greater than left with adjacent infiltrates. Will admit patient for further medical management. Past Medical History Cardiovascular: CHF, HTN, Hyperlipidemia Pulmonary: No pertinent hx, Bronchitis CENTRAL NERVOUS SYSTEM: Other GI: No pertinent hx Heme/Onc: No pertinent hx Hepatobiliary: Cholelithiasis Psych: No pertinent hx Rheumatologic: No pertinent hx Infectious disease: No pertinent hx Renal/: Chronic renal failure Endocrine: Diabetes Past Surgical History Past Surgical History: Cholecystectomy, Other Family History Family History: No Significant, High Cholestrol, Hypertension Social History Smoke: No ALCOHOL: none Drugs: None Current Problem List Problem List Problems Medical Problems: (1) Acute exacerbation of CHF (congestive heart failure) Status: Acute Current Medications Current Medications Current Medications Aspirin (Aspirin Chewable) 162 mg 1X ONCE PO ; Start 01/16/21 at 02:00; Stop 01/16/21 at 02:01; Status DC Fentanyl Citrate (Fentanyl 2ml Vial) 50 mcg 1X ONCE IVP Last administered on 01/16/21at 02:30; Start 01/16/21 at 02:30; Stop 01/16/21 at 02:31; Status DC Furosemide (Lasix) 80 mg 1X ONCE IVP Last administered on 01/16/21at 03:45; Start 01/16/21 at 03:45; Stop 01/16/21 at 04:03; Status DC Furosemide (Lasix) 100 mg STK-MED ONCE .ROUTE ; Start 01/16/21 at 03:53; Stop 01/16/21 at 03:53; Status DC Nitroglycerin (Nitrostat) 0.4 mg PRN Q5MIN PRN SL CHEST PAIN; Start 01/16/21 at 04:45; Stop 01/17/21 at 04:44 Potassium Chloride (Klor-Con) 40 meq 1X ONCE PO Last administered on 01/16/21at 05:00; Start 01/16/21 at 05:00; Stop 01/16/21 at 05:01; Status DC Fentanyl Citrate (Fentanyl 2ml Vial) 50 mcg 1X ONCE IVP Last administered on 01/16/21at 05:45; Start 01/16/21 at 05:45; Stop 01/16/21 at 05:47; Status DC Fentanyl Citrate (Fentanyl 2ml Vial) 25 mcg PRN Q15MIN PRN IV PAIN GREATER THAN 3/10 Last administered on 01/16/21at 08:15; Start 01/16/21 at 07:45; Stop 01/17/21 at 07:44 Active Scripts Active Amox Tr-K Clv 250-125 Mg Tab (Amoxicillin/Potassium Clav) 1 Each Tablet 1 Tab PO BID 5 Days Amiodarone Hcl 200 Mg Tablet 200 Mg PO DAILY 30 Days Acetaminophen-Cod #3 Tablet (Acetaminophen/Codeine Phosphate) 1 Each Tablet 1 Tab PO PRN Q6HRS PRN 6 Days Reported Warfarin Sodium 4 Mg Tablet 4 Mg PO DAILY Mirtazapine 7.5 Mg Tablet 1 Tab PO QHS 30 Days Furosemide 40 Mg Tablet 1 Tab PO DAILY Norvasc (Amlodipine Besylate) 10 Mg Tablet 10 Mg PO DAILY last dose given: date 10/23/20 time 0857 next dose due: 10/24/20 time 0900 Doxazosin Mesylate 4 Mg Tablet 1 Tab PO DAILY not given while patient was here next dose due: date 10/24/20 time 0900 Metoprolol Tartrate 50 Mg Tablet 1 Tab PO BID last dose given: 10/23/20 time 0856 next dose due: date 10/24/20 timr 0900 Super B Complex (Vitamin B Complex & Vit C No.4) 150 Mg Tablet 150 Mg PO DAILY not given while patient was here next dose due: date 10/24/20 time 0900 Gemfibrozil 600 Mg Tablet 1 Tab PO BID not given while patient was here next dose due: date 10/23/20 time 2100 Vitamin C (Ascorbic Acid) 1,000 Mg Tablet 1,000 Mg PO DAILY not given while here next dose due: 10/24/20 time 0900 Allergies Allergies: Coded Allergies: lisinopril (Verified Allergy, Severe, SWELLING OF TONGUE AND THROAT, 05/08/16) ROS Review of System GENERAL: No history of weight change, weakness or fevers. SKIN: No bruising, hair changes or rashes. EYES: No blurred, double or loss of vision. NOSE AND THROAT: No history of nosebleeds, hoarseness or sore throat. HEART: Chest pain. Denies palpitations LUNGS: Shortness of breath. Denies cough, hemoptysis, wheezing. GASTROINTESTINAL: Denies nausea, vomiting, abdominal pain. GENITOURINARY: Denies dysuria, frequency, urgency, hematuria. NEUROLOGIC: Denies history of numbness, tingling, tremor or weakness. PSYCHIATRIC: Denies anxiety, denies depression. ENDOCRINE: No history of heat or cold intolerance, polyuria or polydipsia. EXTREMITIES: Denies muscle weakness, joint pain, pain on walking or stiffness. 4-15 dialysis again today cr 3.1 D/W RN troponins elevated but stable 0.106, with repeat 0.093. CT chest on admission showed bilateral pleural effusions, right greater than left with adjacent infiltrates The Ejection Fraction is 45%. RECENT ECHO Vitals Vitals Vital Signs Date Time Temp Pulse Resp B/P (MAP) Pulse Ox O2 Delivery O2 Flow Rate FiO2 01/18/21 08:35 87 149/75 01/18/21 08:00 Nasal Cannula 3.0 01/18/21 07:00 99.7 18 93 99.7 Physical Exam Physical Exam Physical Exam Physical Exam General: Alert, Oriented X3, Cooperative, No acute distress HEENT: PERRLA, EOMI Lungs: Faint crackles, distant breath sounds. Normal air movement Heart: RRR, no murmurs Cardiovascular: S1, S2 Abdomen: Normal bowel sounds, Soft, No tenderness Extremities: 2+ pitting edema bilaterally. No clubbing, No cyanosis Skin: No rashes, No significant lesion Neuro: Normal speech, Normal tone, Sensation intact Psych/Mental Status: Mental status NL, Mood NL General: Alert, Oriented X3, Cooperative, No acute distress Heart: Regular rate, Other Lungs: Clear Abdomen: Normal bowel sounds Extremities: No clubbing, No cyanosis, Other Skin: No significant lesion Labs LABS CT of the chest without contrast: Clinical History: Reason: chest pain that radiates to mid back;ER DR ONLY WANTS CHEST/ABD / Spl. Instructions: / History: . Axial helical images of the chest were obtained without contrast. COMPARISON: November 1620 FINDINGS: There is a large right effusion and mild left effusion with adjacent infiltrates. The ascending aorta is mildly dilated measuring 4.2 cm in diameter however this was seen previously. There is no mediastinal or hilar lymphadenopathy. There is multiple renal cysts bilaterally. Impression: Bilateral pleural effusions large on the right and mild on the left with adjacent infiltrates. No change. End impression PQRS Compliance Statement: One or more of the following individualized dose reduction techniques were utilized for this examination: 1. Automated exposure control 2. Adjustment of the mA and/or kV according to patient size 3. Use of iterative reconstruction technique Electronically signed by: Artur Toscano III, MD (01/16/2021 2:46 AM) [facility] DICTATED and SIGNED BY: ARTUR TOSCANO III, MD DATE: 01/16/21 [id number] Laboratory Tests Test 01/17/21 12:11 01/17/21 12:30 01/17/21 17:27 01/18/21 06:10 Glucose (Fingerstick) 53 mg/dL (70-99) 72 mg/dL (70-99) 152 mg/dL (70-99) White Blood Count 11.6 x10^3/uL (4.0-11.0) Red Blood Count 3.43 x10^6/uL (4.30-5.70) Hemoglobin 9.6 g/dL (13.0-17.5) Hematocrit 30.1 % (39.0-53.0) Mean Corpuscular Volume 88 fL (79-100) Mean Corpuscular Hemoglobin 28 pg (25-35) Mean Corpuscular Hemoglobin Concent 32 g/dL (31-37) Red Cell Distribution Width 15.0 % (11.5-14.5) Platelet Count 237 x10^3/uL (140-400) Neutrophils (%) (Auto) 68 % (31-73) Lymphocytes (%) (Auto) 16 % (24-48) Monocytes (%) (Auto) 14 % (0-9) Eosinophils (%) (Auto) 1 % (0-3) Basophils (%) (Auto) 1 % (0-3) Neutrophils # (Auto) 7.9 x10^3/uL (1.8-7.7) Lymphocytes # (Auto) 1.9 x10^3/uL (1.0-4.8) Monocytes # (Auto) 1.6 x10^3/uL (0.0-1.1) Eosinophils # (Auto) 0.1 x10^3/uL (0.0-0.7) Basophils # (Auto) 0.1 x10^3/uL (0.0-0.2) Prothrombin Time 24.0 SEC (11.7-14.0) Prothromb Time International Ratio 2.2 (0.8-1.1) Sodium Level 139 mmol/L (136-145) Potassium Level 4.0 mmol/L (3.5-5.1) Chloride Level 100 mmol/L (98-107) Carbon Dioxide Level 30 mmol/L (21-32) Anion Gap 9 (6-14) Blood Urea Nitrogen 39 mg/dL (8-26) Creatinine 3.1 mg/dL (0.7-1.3) Estimated GFR (Cockcroft-Gault) 19.5 Glucose Level 70 mg/dL (70-99) Calcium Level 8.5 mg/dL (8.5-10.1) Test 01/18/21 07:27 01/18/21 09:57 Glucose (Fingerstick) 66 mg/dL (70-99) 148 mg/dL (70-99) Assessment and Plan Assessmemt and Plan Problems Medical Problems: (1) Acute exacerbation of CHF (congestive heart failure) Status: Acute Comment Review of Relevant I have reviewed the following items cortes (where applicable) has been applied. Labs Laboratory Tests Test 01/16/21 11:35 01/16/21 12:00 01/16/21 19:00 01/17/21 04:30 SARS-CoV-2 RNA (RONNIE) Negative (Negative) SARS-CoV-2 Antigen (Rapid) Negative (NEGATIVE) Troponin I Quantitative 0.084 ng/mL (0.000-0.055) 0.081 ng/mL (0.000-0.055) White Blood Count 12.2 x10^3/uL (4.0-11.0) Red Blood Count 3.35 x10^6/uL (4.30-5.70) Hemoglobin 9.6 g/dL (13.0-17.5) Hematocrit 29.2 % (39.0-53.0) Mean Corpuscular Volume 87 fL (79-100) Mean Corpuscular Hemoglobin 29 pg (25-35) Mean Corpuscular Hemoglobin Concent 33 g/dL (31-37) Red Cell Distribution Width 15.1 % (11.5-14.5) Platelet Count 226 x10^3/uL (140-400) Neutrophils (%) (Auto) 74 % (31-73) Lymphocytes (%) (Auto) 12 % (24-48) Monocytes (%) (Auto) 14 % (0-9) Eosinophils (%) (Auto) 0 % (0-3) Basophils (%) (Auto) 0 % (0-3) Neutrophils # (Auto) 9.0 x10^3/uL (1.8-7.7) Lymphocytes # (Auto) 1.4 x10^3/uL (1.0-4.8) Monocytes # (Auto) 1.7 x10^3/uL (0.0-1.1) Eosinophils # (Auto) 0.0 x10^3/uL (0.0-0.7) Basophils # (Auto) 0.0 x10^3/uL (0.0-0.2) Sodium Level 140 mmol/L (136-145) Potassium Level 4.2 mmol/L (3.5-5.1) Chloride Level 102 mmol/L (98-107) Carbon Dioxide Level 30 mmol/L (21-32) Anion Gap 8 (6-14) Blood Urea Nitrogen 40 mg/dL (8-26) Creatinine 3.1 mg/dL (0.7-1.3) Estimated GFR (Cockcroft-Gault) 19.5 Glucose Level 97 mg/dL (70-99) Calcium Level 8.4 mg/dL (8.5-10.1) Phosphorus Level 4.3 mg/dL (2.6-4.7) Magnesium Level 2.3 mg/dL (1.8-2.4) Iron Level 11 ug/dL (65-175) Total Iron Binding Capacity 252 ug/dL (250-450) Iron Saturation 4 % (15-34) Test 01/17/21 12:11 01/17/21 12:30 01/17/21 17:27 01/18/21 06:10 Glucose (Fingerstick) 53 mg/dL (70-99) 72 mg/dL (70-99) 152 mg/dL (70-99) White Blood Count 11.6 x10^3/uL (4.0-11.0) Red Blood Count 3.43 x10^6/uL (4.30-5.70) Hemoglobin 9.6 g/dL (13.0-17.5) Hematocrit 30.1 % (39.0-53.0) Mean Corpuscular Volume 88 fL (79-100) Mean Corpuscular Hemoglobin 28 pg (25-35) Mean Corpuscular Hemoglobin Concent 32 g/dL (31-37) Red Cell Distribution Width 15.0 % (11.5-14.5) Platelet Count 237 x10^3/uL (140-400) Neutrophils (%) (Auto) 68 % (31-73) Lymphocytes (%) (Auto) 16 % (24-48) Monocytes (%) (Auto) 14 % (0-9) Eosinophils (%) (Auto) 1 % (0-3) Basophils (%) (Auto) 1 % (0-3) Neutrophils # (Auto) 7.9 x10^3/uL (1.8-7.7) Lymphocytes # (Auto) 1.9 x10^3/uL (1.0-4.8) Monocytes # (Auto) 1.6 x10^3/uL (0.0-1.1) Eosinophils # (Auto) 0.1 x10^3/uL (0.0-0.7) Basophils # (Auto) 0.1 x10^3/uL (0.0-0.2) Prothrombin Time 24.0 SEC (11.7-14.0) Prothromb Time International Ratio 2.2 (0.8-1.1) Sodium Level 139 mmol/L (136-145) Potassium Level 4.0 mmol/L (3.5-5.1) Chloride Level 100 mmol/L (98-107) Carbon Dioxide Level 30 mmol/L (21-32) Anion Gap 9 (6-14) Blood Urea Nitrogen 39 mg/dL (8-26) Creatinine 3.1 mg/dL (0.7-1.3) Estimated GFR (Cockcroft-Gault) 19.5 Glucose Level 70 mg/dL (70-99) Calcium Level 8.5 mg/dL (8.5-10.1) Test 01/18/21 07:27 01/18/21 09:57 Glucose (Fingerstick) 66 mg/dL (70-99) 148 mg/dL (70-99) Laboratory Tests Test 01/17/21 12:11 01/17/21 12:30 01/17/21 17:27 01/18/21 06:10 Glucose (Fingerstick) 53 mg/dL (70-99) 72 mg/dL (70-99) 152 mg/dL (70-99) White Blood Count 11.6 x10^3/uL (4.0-11.0) Red Blood Count 3.43 x10^6/uL (4.30-5.70) Hemoglobin 9.6 g/dL (13.0-17.5) Hematocrit 30.1 % (39.0-53.0) Mean Corpuscular Volume 88 fL (79-100) Mean Corpuscular Hemoglobin 28 pg (25-35) Mean Corpuscular Hemoglobin Concent 32 g/dL (31-37) Red Cell Distribution Width 15.0 % (11.5-14.5) Platelet Count 237 x10^3/uL (140-400) Neutrophils (%) (Auto) 68 % (31-73) Lymphocytes (%) (Auto) 16 % (24-48) Monocytes (%) (Auto) 14 % (0-9) Eosinophils (%) (Auto) 1 % (0-3) Basophils (%) (Auto) 1 % (0-3) Neutrophils # (Auto) 7.9 x10^3/uL (1.8-7.7) Lymphocytes # (Auto) 1.9 x10^3/uL (1.0-4.8) Monocytes # (Auto) 1.6 x10^3/uL (0.0-1.1) Eosinophils # (Auto) 0.1 x10^3/uL (0.0-0.7) Basophils # (Auto) 0.1 x10^3/uL (0.0-0.2) Prothrombin Time 24.0 SEC (11.7-14.0) Prothromb Time International Ratio 2.2 (0.8-1.1) Sodium Level 139 mmol/L (136-145) Potassium Level 4.0 mmol/L (3.5-5.1) Chloride Level 100 mmol/L (98-107) Carbon Dioxide Level 30 mmol/L (21-32) Anion Gap 9 (6-14) Blood Urea Nitrogen 39 mg/dL (8-26) Creatinine 3.1 mg/dL (0.7-1.3) Estimated GFR (Cockcroft-Gault) 19.5 Glucose Level 70 mg/dL (70-99) Calcium Level 8.5 mg/dL (8.5-10.1) Test 01/18/21 07:27 01/18/21 09:57 Glucose (Fingerstick) 66 mg/dL (70-99) 148 mg/dL (70-99) Medications Current Medications Aspirin (Aspirin Chewable) 162 mg 1X ONCE PO ; Start 01/16/21 at 02:00; Stop 01/16/21 at 02:01; Status DC Fentanyl Citrate (Fentanyl 2ml Vial) 50 mcg 1X ONCE IVP Last administered on 01/16/21at 02:30; Start 01/16/21 at 02:30; Stop 01/16/21 at 02:31; Status DC Furosemide (Lasix) 80 mg 1X ONCE IVP Last administered on 01/16/21at 03:45; Start 01/16/21 at 03:45; Stop 01/16/21 at 04:03; Status DC Furosemide (Lasix) 100 mg STK-MED ONCE .ROUTE ; Start 01/16/21 at 03:53; Stop 01/16/21 at 03:53; Status DC Nitroglycerin (Nitrostat) 0.4 mg PRN Q5MIN PRN SL CHEST PAIN; Start 01/16/21 at 04:45; Stop 01/17/21 at 04:44; Status DC Potassium Chloride (Klor-Con) 40 meq 1X ONCE PO Last administered on 01/16/21at 05:00; Start 01/16/21 at 05:00; Stop 01/16/21 at 05:01; Status DC Fentanyl Citrate (Fentanyl 2ml Vial) 50 mcg 1X ONCE IVP Last administered on 01/16/21at 05:45; Start 01/16/21 at 05:45; Stop 01/16/21 at 05:47; Status DC Fentanyl Citrate (Fentanyl 2ml Vial) 25 mcg PRN Q15MIN PRN IV PAIN GREATER THAN 3/10 Last administered on 01/16/21at 08:15; Start 01/16/21 at 07:45; Stop 01/17/21 at 07:44; Status DC Warfarin Sodium (Coumadin Per Pharmacy) 1 each PRN DAILY PRN MC SEE COMMENTS Last administered on 01/17/21at 15:27; Start 01/16/21 at 09:30 Acetaminophen/ Codeine Phosphate (Tylenol #3) 1 tab PRN Q6HRS PRN PO PAIN Last administered on 01/17/21at 01:46; Start 01/16/21 at 09:30 Amiodarone HCl (Cordarone) 200 mg DAILY PO Last administered on 01/18/21at 08:34; Start 01/16/21 at 11:00 Amlodipine Besylate (Norvasc) 10 mg DAILY PO Last administered on 01/18/21at 08:35; Start 01/16/21 at 11:00 Doxazosin Mesylate (Cardura) 4 mg DAILY PO Last administered on 01/18/21at 08:33; Start 01/16/21 at 11:00 Metoprolol Tartrate (Lopressor) 50 mg BID PO Last administered on 01/16/21at 20:51; Start 01/16/21 at 11:00; Stop 01/16/21 at 22:15; Status DC Warfarin Sodium (Coumadin) 4 mg DAILY16 PO Last administered on 01/16/21at 20:51; Start 01/16/21 at 16:00; Stop 01/17/21 at 15:30; Status DC Ondansetron HCl (Zofran) 4 mg PRN Q6HRS PRN IVP NAUSEA/VOMITING Last administered on 01/17/21at 01:46; Start 01/16/21 at 09:45 Al Hydroxide/Mg Hydroxide (Mylanta Plus Xs) 30 ml PRN Q3HRS PRN PO HEARTBURN / GAS; Start 01/16/21 at 09:45 Calcium Carbonate/ Glycine (Tums) 500 mg PRN Q3HRS PRN PO UPSET STOMACH; Start 01/16/21 at 09:45 Morphine Sulfate (Morphine Sulfate) 2 mg PRN Q1HR PRN IV PAIN; Start 01/16/21 at 09:45 Acetaminophen (Tylenol) 650 mg PRN Q6HRS PRN PO Headaches, Temp > 101.5F Last administered on 01/17/21at 00:00; Start 01/16/21 at 09:45 Magnesium Hydroxide (Milk Of Magnesia) 2,400 mg PRN Q12HR PRN PO CONSTIPATION; Start 01/16/21 at 09:45 Bisacodyl (Dulcolax Supp) 10 mg PRN DAILY PRN [place] CONSTIPATION; Start 01/16/21 at 09:45 Metolazone (Zaroxolyn) 5 mg DAILY PO Last administered on 01/18/21at 08:33; Start 01/16/21 at 11:00 Bumetanide (Bumex) 2.5 mg DAILY05 IV Last administered on 01/18/21at 05:34; S tart 01/17/21 at 05:00 Glimepiride (Amaryl) 4 mg DAILY PO Last administered on 01/18/21at 08:34; Start 01/16/21 at 11:00 Multivitamins (Thera M Plus) 1 tab DAILY PO Last administered on 01/18/21at 08:33; Start 01/16/21 at 11:00 Vitamin B Complex/ Vitamin C (Charla-Jose R) 1 tab DAILY PO Last administered on 01/18/21at 08:33; Start 01/17/21 at 09:00 Lidocaine HCl (Buffered Lidocaine 1%) 3 ml STK-MED ONCE .ROUTE ; Start 01/16/21 at 13:58; Stop 01/16/21 at 13:59; Status DC Lidocaine HCl (Buffered Lidocaine 1%) 4 ml 1X ONCE INJ Last administered on 01/16/21at 14:23; Start 01/16/21 at 14:15; Stop 01/16/21 at 14:16; Status DC Sodium Chloride 1,000 ml @ 1,000 mls/hr Q1H PRN IV hypotension; Start 01/16/21 at 15:45; Stop 01/16/21 at 21:44; Status DC Diphenhydramine HCl (Benadryl) 25 mg 1X PRN PRN IV ITCHING; Start 01/16/21 at 15:45; Stop 01/17/21 at 15:44; Status DC Diphenhydramine HCl (Benadryl) 25 mg 1X PRN PRN IV ITCHING; Start 01/16/21 at 15:45; Stop 01/17/21 at 15:44; Status DC Sodium Chloride 1,000 ml @ 400 mls/hr Q2H30M PRN IV PATENCY; Start 01/16/21 at 15:45; Stop 01/17/21 at 03:44; Status DC Info (PHARMACY MONITORING -- do not chart) 1 each PRN DAILY PRN MC SEE COMMENTS; Start 01/16/21 at 15:45; Status Cancel Metoprolol Succinate (Toprol Xl) 25 mg BID PO Last administered on 01/18/21at 08:34; Start 01/17/21 at 09:00 Sodium Chloride 1,000 ml @ 1,000 mls/hr Q1H PRN IV hypotension; Start 01/17/21 at 07:45; Stop 01/17/21 at 13:44; Status DC Albumin Human 200 ml @ 200 mls/hr 1X PRN PRN IV Hypotension; Start 01/17/21 at 07:45; Stop 01/17/21 at 13:44; Status DC Sodium Chloride (Normal Saline Flush) 10 ml 1X PRN PRN IV AP catheter pack; Start 01/17/21 at 07:45; Stop 01/18/21 at 07:44; Status DC Sodium Chloride (Normal Saline Flush) 10 ml 1X PRN PRN IV ENDOSCOPIC TECHNICIAN catheter pack; Start 01/17/21 at 07:45; Stop 01/18/21 at 07:44; Status DC Sodium Chloride 1,000 ml @ 400 mls/hr Q2H30M PRN IV PATENCY; Start 01/17/21 at 07:45; Stop 01/17/21 at 19:44; Status DC Info (PHARMACY MONITORING -- do not chart) 1 each PRN DAILY PRN MC SEE COMMENTS; Start 01/17/21 at 07:45; Status UNV Info (PHARMACY MONITORING -- do not chart) 1 each PRN DAILY PRN MC SEE COMMENTS; Start 01/17/21 at 07:45 Iron Sucrose 500 mg/Sodium Chloride 275 ml @ 78.571 mls/ hr 1X ONCE IV ; Start 01/17/21 at 11:30; Stop 01/17/21 at 14:59; Status Cancel Darbepoetin Ortega (ARANESP for DIALYSIS PTS) 60 mcg Th SQ Last administered on 01/17/21at 20:44; Start 01/17/21 at 21:00 Iron Sucrose 500 mg/Sodium Chloride 275 ml @ 78.571 mls/ hr 1X ONCE IV Last administered on 01/17/21at 13:53; Start 01/17/21 at 14:00; Stop 01/17/21 at 17:29; Status DC Insulin Human Lispro (HumaLOG) 0-5 UNITS TIDWMEALS SQ ; Start 01/17/21 at 17:00 Dextrose (Dextrose 50%-Water Syringe) 12.5 gm PRN Q15MIN PRN IV SEE COMMENTS; Start 01/17/21 at 12:45; Status UNV Dextrose (Dextrose 50%-Water Syringe) 12.5 gm PRN Q15MIN PRN IV SEE COMMENTS; Start 01/17/21 at 12:45 Active Scripts Active Amiodarone Hcl 200 Mg Tablet 200 Mg PO DAILY 30 Days Acetaminophen-Cod #3 Tablet (Acetaminophen/Codeine Phosphate) 1 Each Tablet 1 Tab PO PRN Q6HRS PRN 6 Days Reported Metoprolol Succinate ( Xl ) (Metoprolol Succinate) 25 Mg Tab.er.24h 25 Mg PO DAILY Warfarin Sodium 4 Mg Tablet 6 Mg PO DAILY Mirtazapine 7.5 Mg Tablet 1 Tab PO QHS 30 Days Norvasc (Amlodipine Besylate) 10 Mg Tablet 10 Mg PO DAILY last dose given: date 10/23/20 time 0857 next dose due: date 10/24/20 time 0900 Doxazosin Mesylate 4 Mg Tablet 1 Tab PO DAILY not given while patient was here next dose due: date 10/24/20 time 0900 Super B Complex (Vitamin B Complex & Vit C No.4) 150 Mg Tablet 150 Mg PO DAILY not given while patient was here next dose due: date 10/24/20 time 0900 Vitamin C (Ascorbic Acid) 1,000 Mg Tablet 1,000 Mg PO DAILY not given while here next dose due: date 10/24/20 time 0900 Vitals/I & O Vital Sign - Last 24 Hours 01/17/21 01/17/21 01/17/21 01/17/21 11:00 12:57 15:00 19:46 Temp 98.5 98.9 98.5 98.9 Pulse 84 90 71 Resp 20 24 B/P (MAP) 121/59 (79) 121/59 109/58 (75) Pulse Ox 96 98 O2 Delivery Nasal Cannula Nasal Cannula Nasal Cannula O2 Flow Rate 2.5 2.0 2.5 01/17/21 01/17/21 01/17/21 01/18/21 19:59 20:44 23:13 03:02 Temp 98.6 97.9 98.0 98.6 97.9 98.0 Pulse 85 85 82 86 Resp 21 18 18 B/P (MAP) 125/71 (89) 125/71 106/74 (85) 132/69 (90) Pulse Ox 95 93 93 O2 Delivery Nasal Cannula Nasal Cannula Nasal Cannula O2 Flow Rate 2.0 2.0 2.0 01/18/21 01/18/21 01/18/21 01/18/21 07:00 08:00 08:33 08:34 Temp 99.7 99.7 Pulse 87 87 87 Resp 18 B/P (MAP) 149/75 (99) 149/75 149/75 Pulse Ox 93 O2 Delivery Nasal Cannula Nasal Cannula O2 Flow Rate 2.0 3.0 01/18/21 01/18/21 08:34 08:35 Pulse 87 87 B/P (MAP) 149/75 149/75 Intake and Output 01/17/21 01/17/21 01/18/21 15:00 23:00 07:00 Intake Total 400 ml 100 ml 300 ml Output Total 100 ml 200 ml Balance 400 ml 0 ml 100 ml Justicifation of Admission Dx: Justifications for Admission: Justification of Admission Dx: Yes ALLISON DAVISON MD Jan 18, 2021 10:05
[2021-01-18 10:29] VITALS: BP 122/67
--- NOTE | 2021-01-18 10:35 | PDOC ---
PULMONARY PROGRESS NOTES DATE: 01/18/21 TIME: 10:31 Subjective Pt. is on 3 liters NC reports some SOA with ambulation Pt. is up to chair no other concerns Vitals Vital Signs Date Time Temp Pulse Resp B/P (MAP) Pulse Ox O2 Delivery O2 Flow Rate FiO2 01/18/21 10:29 98.2 82 16 122/67 (85) 94 Nasal Cannula 3.0 98.2 ROS: No Nausea, No Chest Pain, No Abdominal Pain, No Increase Cough General: Alert, Oriented X4, No acute distress Lungs: Clear Cardiovascular: S1 Abdomen: Soft Neuro Exam: Alert, Oriented Extremities: Other Skin: Warm, Dry Labs Laboratory Tests Test 01/16/21 11:35 01/16/21 12:00 01/16/21 19:00 01/17/21 04:30 SARS-CoV-2 RNA (RONNIE) Negative (Negative) SARS-CoV-2 Antigen (Rapid) Negative (NEGATIVE) Troponin I Quantitative 0.084 ng/mL (0.000-0.055) 0.081 ng/mL (0.000-0.055) White Blood Count 12.2 x10^3/uL (4.0-11.0) Red Blood Count 3.35 x10^6/uL (4.30-5.70) Hemoglobin 9.6 g/dL (13.0-17.5) Hematocrit 29.2 % (39.0-53.0) Mean Corpuscular Volume 87 fL (79-100) Mean Corpuscular Hemoglobin 29 pg (25-35) Mean Corpuscular Hemoglobin Concent 33 g/dL (31-37) Red Cell Distribution Width 15.1 % (11.5-14.5) Platelet Count 226 x10^3/uL (140-400) Neutrophils (%) (Auto) 74 % (31-73) Lymphocytes (%) (Auto) 12 % (24-48) Monocytes (%) (Auto) 14 % (0-9) Eosinophils (%) (Auto) 0 % (0-3) Basophils (%) (Auto) 0 % (0-3) Neutrophils # (Auto) 9.0 x10^3/uL (1.8-7.7) Lymphocytes # (Auto) 1.4 x10^3/uL (1.0-4.8) Monocytes # (Auto) 1.7 x10^3/uL (0.0-1.1) Eosinophils # (Auto) 0.0 x10^3/uL (0.0-0.7) Basophils # (Auto) 0.0 x10^3/uL (0.0-0.2) Sodium Level 140 mmol/L (136-145) Potassium Level 4.2 mmol/L (3.5-5.1) Chloride Level 102 mmol/L (98-107) Carbon Dioxide Level 30 mmol/L (21-32) Anion Gap 8 (6-14) Blood Urea Nitrogen 40 mg/dL (8-26) Creatinine 3.1 mg/dL (0.7-1.3) Estimated GFR (Cockcroft-Gault) 19.5 Glucose Level 97 mg/dL (70-99) Calcium Level 8.4 mg/dL (8.5-10.1) Phosphorus Level 4.3 mg/dL (2.6-4.7) Magnesium Level 2.3 mg/dL (1.8-2.4) Iron Level 11 ug/dL (65-175) Total Iron Binding Capacity 252 ug/dL (250-450) Iron Saturation 4 % (15-34) Test 01/17/21 12:11 01/17/21 12:30 01/17/21 17:27 01/18/21 06:10 Glucose (Fingerstick) 53 mg/dL (70-99) 72 mg/dL (70-99) 152 mg/dL (70-99) White Blood Count 11.6 x10^3/uL (4.0-11.0) Red Blood Count 3.43 x10^6/uL (4.30-5.70) Hemoglobin 9.6 g/dL (13.0-17.5) Hematocrit 30.1 % (39.0-53.0) Mean Corpuscular Volume 88 fL (79-100) Mean Corpuscular Hemoglobin 28 pg (25-35) Mean Corpuscular Hemoglobin Concent 32 g/dL (31-37) Red Cell Distribution Width 15.0 % (11.5-14.5) Platelet Count 237 x10^3/uL (140-400) Neutrophils (%) (Auto) 68 % (31-73) Lymphocytes (%) (Auto) 16 % (24-48) Monocytes (%) (Auto) 14 % (0-9) Eosinophils (%) (Auto) 1 % (0-3) Basophils (%) (Auto) 1 % (0-3) Neutrophils # (Auto) 7.9 x10^3/uL (1.8-7.7) Lymphocytes # (Auto) 1.9 x10^3/uL (1.0-4.8) Monocytes # (Auto) 1.6 x10^3/uL (0.0-1.1) Eosinophils # (Auto) 0.1 x10^3/uL (0.0-0.7) Basophils # (Auto) 0.1 x10^3/uL (0.0-0.2) Prothrombin Time 24.0 SEC (11.7-14.0) Prothromb Time International Ratio 2.2 (0.8-1.1) Sodium Level 139 mmol/L (136-145) Potassium Level 4.0 mmol/L (3.5-5.1) Chloride Level 100 mmol/L (98-107) Carbon Dioxide Level 30 mmol/L (21-32) Anion Gap 9 (6-14) Blood Urea Nitrogen 39 mg/dL (8-26) Creatinine 3.1 mg/dL (0.7-1.3) Estimated GFR (Cockcroft-Gault) 19.5 Glucose Level 70 mg/dL (70-99) Calcium Level 8.5 mg/dL (8.5-10.1) Test 01/18/21 07:27 01/18/21 09:57 Glucose (Fingerstick) 66 mg/dL (70-99) 148 mg/dL (70-99) Laboratory Tests Test 01/17/21 12:11 01/17/21 12:30 01/17/21 17:27 01/18/21 06:10 Glucose (Fingerstick) 53 mg/dL (70-99) 72 mg/dL (70-99) 152 mg/dL (70-99) White Blood Count 11.6 x10^3/uL (4.0-11.0) Red Blood Count 3.43 x10^6/uL (4.30-5.70) Hemoglobin 9.6 g/dL (13.0-17.5) Hematocrit 30.1 % (39.0-53.0) Mean Corpuscular Volume 88 fL (79-100) Mean Corpuscular Hemoglobin 28 pg (25-35) Mean Corpuscular Hemoglobin Concent 32 g/dL (31-37) Red Cell Distribution Width 15.0 % (11.5-14.5) Platelet Count 237 x10^3/uL (140-400) Neutrophils (%) (Auto) 68 % (31-73) Lymphocytes (%) (Auto) 16 % (24-48) Monocytes (%) (Auto) 14 % (0-9) Eosinophils (%) (Auto) 1 % (0-3) Basophils (%) (Auto) 1 % (0-3) Neutrophils # (Auto) 7.9 x10^3/uL (1.8-7.7) Lymphocytes # (Auto) 1.9 x10^3/uL (1.0-4.8) Monocytes # (Auto) 1.6 x10^3/uL (0.0-1.1) Eosinophils # (Auto) 0.1 x10^3/uL (0.0-0.7) Basophils # (Auto) 0.1 x10^3/uL (0.0-0.2) Prothrombin Time 24.0 SEC (11.7-14.0) Prothromb Time International Ratio 2.2 (0.8-1.1) Sodium Level 139 mmol/L (136-145) Potassium Level 4.0 mmol/L (3.5-5.1) Chloride Level 100 mmol/L (98-107) Carbon Dioxide Level 30 mmol/L (21-32) Anion Gap 9 (6-14) Blood Urea Nitrogen 39 mg/dL (8-26) Creatinine 3.1 mg/dL (0.7-1.3) Estimated GFR (Cockcroft-Gault) 19.5 Glucose Level 70 mg/dL (70-99) Calcium Level 8.5 mg/dL (8.5-10.1) Test 01/18/21 07:27 01/18/21 09:57 Glucose (Fingerstick) 66 mg/dL (70-99) 148 mg/dL (70-99) Medications Active Scripts Medications Dose Route/Sig Max Daily Dose Days Date Category Dose Instructions Metoprolol Succinate ( Xl ) (Metoprolol Succinate) 25 Mg Tab.er.24h 25 Mg PO DAILY 01/16/21 Reported Amiodarone Hcl 200 Mg Tablet 200 Mg PO DAILY 30 12/17/20 Rx Warfarin Sodium 4 Mg Tablet 6 Mg PO DAILY 11/19/20 Reported Mirtazapine 7.5 Mg Tablet 1 Tab PO QHS 30 11/19/20 Reported Acetaminophen-Cod #3 Tablet (Acetaminophen/Codeine Phosphate) 1 Each Tablet 1 Tab PO PRN Q6HRS PRN 6 10/23/20 Rx Norvasc (Amlodipine Besylate) 10 Mg Tablet 10 Mg PO DAILY 05/09/16 Reported last dose given: date 10/23/20 time 0857 next dose due: date 10/24/20 time 0900 Doxazosin Mesylate 4 Mg Tablet 1 Tab PO DAILY 05/08/16 Reported not given while patient was here next dose due: date 10/24/20 time 0900 Super B Complex (Vitamin B Complex & Vit C No.4) 150 Mg Tablet 150 Mg PO DAILY 05/08/16 Reported not given while patient was here next dose due: date 10/24/20 time 0900 Vitamin C (Ascorbic Acid) 1,000 Mg Tablet 1,000 Mg PO DAILY 05/08/16 Reported not given while here next dose due: date 10/24/20 time 0900 Impression . IMPRESSION: 1. Abnormal CT revealing bilateral effusions related to his underlying renal failure, suspect effusions are transudative in nature. 2. Progressive dyspnea, multifactorial secondary to [id number] systolic heart failure, increase in effusion. 3. Chronic kidney disease, currently on hemodialysis. 4. Cardiomyopathy, ejection fraction 45%. 5. Pleural fluid cytology analysis was negative for malignant cells dated 12/18/2020. CT CHEST Impression: Bilateral pleural effusions large on the right and mild on the left with adjacent infiltrates. No change. Plan . Updated 01/18 continue supplemental oxygen to keep sats above 92%, on 3 liters NC Pt is more symptomatic now. will benefit from thoracentesis on right side. Hold Coumadin for 48 hours for procedure IR consult for right side thoracentesis on thursday Follow Cardiology recs -- EF 45% 10/25 6 min walk prior to DC PT/OT DVT/GI PPX SHEBA BAR MD Jan 18, 2021 10:35
--- NOTE | 2021-01-18 11:43 | PDOC ---
Renal-Progress Notes Subjective Notes Notes NO NEW COMPLAINTS History of Present Illness Hx of present illness STABLE Vitals Vitals Vital Signs Date Time Temp Pulse Resp B/P (MAP) Pulse Ox O2 Delivery O2 Flow Rate FiO2 01/18/21 10:29 98.2 82 16 122/67 (85) 94 Nasal Cannula 3.0 98.2 Weight Weight [ ] I.O. Intake and Output Intake and Output 01/18/21 07:00 Intake Total 800 ml Output Total 300 ml Balance 500 ml Intake Oral 800 ml Output Urine Total 300 ml Labs Labs Laboratory Tests Test 01/17/21 12:11 01/17/21 12:30 01/17/21 17:27 01/18/21 06:10 Glucose (Fingerstick) 53 mg/dL (70-99) 72 mg/dL (70-99) 152 mg/dL (70-99) White Blood Count 11.6 x10^3/uL (4.0-11.0) Red Blood Count 3.43 x10^6/uL (4.30-5.70) Hemoglobin 9.6 g/dL (13.0-17.5) Hematocrit 30.1 % (39.0-53.0) Mean Corpuscular Volume 88 fL (79-100) Mean Corpuscular Hemoglobin 28 pg (25-35) Mean Corpuscular Hemoglobin Concent 32 g/dL (31-37) Red Cell Distribution Width 15.0 % (11.5-14.5) Platelet Count 237 x10^3/uL (140-400) Neutrophils (%) (Auto) 68 % (31-73) Lymphocytes (%) (Auto) 16 % (24-48) Monocytes (%) (Auto) 14 % (0-9) Eosinophils (%) (Auto) 1 % (0-3) Basophils (%) (Auto) 1 % (0-3) Neutrophils # (Auto) 7.9 x10^3/uL (1.8-7.7) Lymphocytes # (Auto) 1.9 x10^3/uL (1.0-4.8) Monocytes # (Auto) 1.6 x10^3/uL (0.0-1.1) Eosinophils # (Auto) 0.1 x10^3/uL (0.0-0.7) Basophils # (Auto) 0.1 x10^3/uL (0.0-0.2) Prothrombin Time 24.0 SEC (11.7-14.0) Prothromb Time International Ratio 2.2 (0.8-1.1) Sodium Level 139 mmol/L (136-145) Potassium Level 4.0 mmol/L (3.5-5.1) Chloride Level 100 mmol/L (98-107) Carbon Dioxide Level 30 mmol/L (21-32) Anion Gap 9 (6-14) Blood Urea Nitrogen 39 mg/dL (8-26) Creatinine 3.1 mg/dL (0.7-1.3) Estimated GFR (Cockcroft-Gault) 19.5 Glucose Level 70 mg/dL (70-99) Calcium Level 8.5 mg/dL (8.5-10.1) Test 01/18/21 07:27 01/18/21 09:57 01/18/21 11:12 Glucose (Fingerstick) 66 mg/dL (70-99) 148 mg/dL (70-99) 131 mg/dL (70-99) Review of Systems Constitutional: yes: weakness, alert, oriented Ears/Nose/Throat: Yes: no symptom reported Eyes: Yes: no symptom reported Pulmonary: Yes dyspnea Cardiovascular: Yes no symptom reported Gastrointestional: Yes: no symptom reported Genitourinary: Yes: no symptom reported Musculoskeletal: Yes: no symptom reported Skin: Yes no symptom reported Psychiatric/Neurological: Yes: no symptom reported Endocrine: Yes: no symptom reported Physical Exam General Appearance: no apparent distress Skin: warm Respiratory: decreased breath sounds Heart: S1S2 Abdomen: soft, bowel sounds present Genitourinary: bladder flat Extremities: pulses present Neurology: alert, oriented, follow commands Assessment Assessment IMP NEW ONSET ESRD ANEMIA IRON DEFICIENCY ACUTE ON CHRONIC DIASTOLIC AND SYSTOLIC CHF CM WITH EF OF 45% P AFIB - ANTICOAGULATED HYPOKALEMIA-CORRECTED DECONDITIONING S/P TEMPORARY HD CATHETER PLEURAL EFFUSION PLAN HD AGAIN TODAY UF ABOUT 3.0 LITERS TOLERATED SW TO SET UP OP HD TUNNELED HD CATHETER ONCE INR ACCEPTABLE THORACENTESIS PENDING MEGAN SCHMIDT MD Jan 18, 2021 11:43
[2021-01-18] MEDS ORDERED: DIALYSIS PATIENT. MC PRN ×2 (11:45)
[2021-01-18] MEDS ORDERED: ALBUMIN HUMAN 25% 200 ML IV PRN (11:45)
[2021-01-18] MEDS ORDERED: diphenhydrAMINE 50 MG/ML VIAL IV PRN (11:45)
[2021-01-18] MEDS ORDERED: IV NORMAL SALINE 1000ML BAG 1,000 ML IV PRN ×2 (11:45)
--- NOTE | 2021-01-18 11:47 | NUR ---
SS following up with discharge planning. SS reviewed pt chart and discussed with pt RN. Pt is currently requiring oxygen at three liters nasal canula. COVID19 negative. PT/OT ordered. Pt had [facility], ; fax [phone], at home. Referral for outpatient dialysis at [facility] was sent to [facility], ; fax [phone]. SS currently awaiting chair time. Dr. Botello requesting placement at [facility]. Pt having Thoracentesis on Thursday. Probable need for six minute walk prior to discharge. SS will continue to follow for discharge planning.
--- NOTE | 2021-01-18 14:18 | PDOC ---
CAROLINE YBARRA SENIOR WIND ENERGY CONSULTANT 01/18/21 1418: CARDIO Progress Notes Date and Time Date of Service 01/18/21 Time of Evaluation 1300 Subjective Subjective: No Chest Pain, No shortness of breath, No Palpitations Vitals Vitals Vital Signs Date Time Temp Pulse Resp B/P (MAP) Pulse Ox O2 Delivery O2 Flow Rate FiO2 01/18/21 10:29 98.2 82 16 122/67 (85) 94 Nasal Cannula 3.0 98.2 Weight Weight [ ] Input and Output Intake and Output Intake and Output 01/18/21 07:00 Intake Total 800 ml Output Total 300 ml Balance 500 ml Intake Oral 800 ml Output Urine Total 300 ml Laboratory Labs Laboratory Tests Test 01/17/21 17:27 01/18/21 06:10 01/18/21 07:27 01/18/21 09:57 Glucose (Fingerstick) 152 mg/dL (70-99) 66 mg/dL (70-99) 148 mg/dL (70-99) White Blood Count 11.6 x10^3/uL (4.0-11.0) Red Blood Count 3.43 x10^6/uL (4.30-5.70) Hemoglobin 9.6 g/dL (13.0-17.5) Hematocrit 30.1 % (39.0-53.0) Mean Corpuscular Volume 88 fL (79-100) Mean Corpuscular Hemoglobin 28 pg (25-35) Mean Corpuscular Hemoglobin Concent 32 g/dL (31-37) Red Cell Distribution Width 15.0 % (11.5-14.5) Platelet Count 237 x10^3/uL (140-400) Neutrophils (%) (Auto) 68 % (31-73) Lymphocytes (%) (Auto) 16 % (24-48) Monocytes (%) (Auto) 14 % (0-9) Eosinophils (%) (Auto) 1 % (0-3) Basophils (%) (Auto) 1 % (0-3) Neutrophils # (Auto) 7.9 x10^3/uL (1.8-7.7) Lymphocytes # (Auto) 1.9 x10^3/uL (1.0-4.8) Monocytes # (Auto) 1.6 x10^3/uL (0.0-1.1) Eosinophils # (Auto) 0.1 x10^3/uL (0.0-0.7) Basophils # (Auto) 0.1 x10^3/uL (0.0-0.2) Prothrombin Time 24.0 SEC (11.7-14.0) Prothromb Time International Ratio 2.2 (0.8-1.1) Sodium Level 139 mmol/L (136-145) Potassium Level 4.0 mmol/L (3.5-5.1) Chloride Level 100 mmol/L (98-107) Carbon Dioxide Level 30 mmol/L (21-32) Anion Gap 9 (6-14) Blood Urea Nitrogen 39 mg/dL (8-26) Creatinine 3.1 mg/dL (0.7-1.3) Estimated GFR (Cockcroft-Gault) 19.5 Glucose Level 70 mg/dL (70-99) Calcium Level 8.5 mg/dL (8.5-10.1) Test 01/18/21 11:12 Glucose (Fingerstick) 131 mg/dL (70-99) Review of Systems Constitutional: yes: weakness, alert, oriented Ears/Nose/Throat: Yes: no symptom reported Eyes: Yes: no symptom reported Pulmonary: Yes dyspnea Cardiovascular: Yes no symptom reported Gastrointestional: Yes: no symptom reported Genitourinary: Yes: no symptom reported Musculoskeletal: Yes: no symptom reported Skin: Yes no symptom reported Psychiatric/Neurological: Yes: no symptom reported Endocrine: Yes: no symptom reported Physical Exam HEENT: Neck Supple W Full Motion Chest: Symmetric LUNGS: Other (diminished bases ) Heart: RRR (SR) Abdomen: Soft N/T Extremities: Other (trace bilateral LE edema ) Neurology: alert, oriented, follow commands Assessment Assessment 1. Chest pain, atypical features 2. Acute on chronic diastolic/systolic CHF; appears compensated 3. Mild troponin elevation; peak 0.1. Most probably type II, demand ischemia 4. PAFIB; presently maintaining. On Amiodarone for rhythm maintenance. Recent Ziopatch; awaiting results (in transit should be available in next couple of days) 5. Hypertension; controlled 6. Hyperlipidemia; LDL 79 7. Diabetes, II 8. CKD, now ESRD. HD initiated 9. Cardiomyopathy: recent EF at 45% 10. Hypokalemia; replaced 11. Chronic LBBB Recommendations Continue Amiodarone for rhythm/rate control Metoprolol for rate control Fluid offloading via HD Resume warfarin following tunneled HD catheter placement Outpatient ischemic evaluation as arranged Follow up in our office with Dr. Tapia as scheduled. Supportive care Justicifation of Admission Dx: Justifications for Admission: Justification of Admission Dx: Yes CHELO TAPIA MD 01/18/21 1712: CARDIO Progress Notes Assessment Assessment Patient seen and examined. Agree with FLAME CUTTING MACHINE OPERATOR's assessment and plan. Chest pain with atypical features. Slight troponin elevation probably demand ischemia. Plan outpatient ischemic evaluation. Acute on chronic combined systolic and diastolic heart failure better compensated. PAF maintaining sinus rhythm. Continue fluid removal with hemodialysis per nephrology team. Follow-up as scheduled. CAROLINE YBARRA APRN Jan 18, 2021 14:18 CHLEO TAPIA MD Jan 18, 2021 17:12
[2021-01-18] MEDS: ACETAMINOPHEN/CODEINE 300/30MG TABLET. PO PRN ×2 (15:12→15:15)
[2021-01-18 17:53] VITALS: BP 139/70
--- NOTE | 2021-01-18 18:31 | NUR ---
Dialysis Chair Time: Thursday, Thursday, Thursday at [facility]. be there on Thursday at 1515
[2021-01-18 19:00] VITALS: BP 132/61
[2021-01-18 23:14] VITALS: BP 129/62
[2021-01-19 03:18] VITALS: BP 121/66
[2021-01-19] MEDS: BUMETANIDE 2.5 MG/10 ML VIAL. IV SCH (05:10)
[2021-01-19 07:00] VITALS: BP 117/66
--- NOTE | 2021-01-19 07:40 | PDOC ---
PULMONARY PROGRESS NOTES DATE: 01/19/21 TIME: 07:39 Subjective Pt. is on 02 sob better has occ cough not on home 02 Vitals Vital Signs Date Time Temp Pulse Resp B/P (MAP) Pulse Ox O2 Delivery O2 Flow Rate FiO2 01/19/21 03:18 97.8 69 23 121/66 (84) 97 Nasal Cannula 3.0 97.8 ROS: No Nausea, No Chest Pain, No Abdominal Pain, No Increase Cough General: Alert, Oriented X4, No acute distress Lungs: Clear Cardiovascular: S1 Abdomen: Soft Neuro Exam: Alert, Oriented Extremities: Other Skin: Warm, Dry Labs Laboratory Tests Test 01/17/21 12:11 01/17/21 12:30 01/17/21 17:27 01/18/21 06:10 Glucose (Fingerstick) 53 mg/dL (70-99) 72 mg/dL (70-99) 152 mg/dL (70-99) White Blood Count 11.6 x10^3/uL (4.0-11.0) Red Blood Count 3.43 x10^6/uL (4.30-5.70) Hemoglobin 9.6 g/dL (13.0-17.5) Hematocrit 30.1 % (39.0-53.0) Mean Corpuscular Volume 88 fL (79-100) Mean Corpuscular Hemoglobin 28 pg (25-35) Mean Corpuscular Hemoglobin Concent 32 g/dL (31-37) Red Cell Distribution Width 15.0 % (11.5-14.5) Platelet Count 237 x10^3/uL (140-400) Neutrophils (%) (Auto) 68 % (31-73) Lymphocytes (%) (Auto) 16 % (24-48) Monocytes (%) (Auto) 14 % (0-9) Eosinophils (%) (Auto) 1 % (0-3) Basophils (%) (Auto) 1 % (0-3) Neutrophils # (Auto) 7.9 x10^3/uL (1.8-7.7) Lymphocytes # (Auto) 1.9 x10^3/uL (1.0-4.8) Monocytes # (Auto) 1.6 x10^3/uL (0.0-1.1) Eosinophils # (Auto) 0.1 x10^3/uL (0.0-0.7) Basophils # (Auto) 0.1 x10^3/uL (0.0-0.2) Prothrombin Time 24.0 SEC (11.7-14.0) Prothromb Time International Ratio 2.2 (0.8-1.1) Sodium Level 139 mmol/L (136-145) Potassium Level 4.0 mmol/L (3.5-5.1) Chloride Level 100 mmol/L (98-107) Carbon Dioxide Level 30 mmol/L (21-32) Anion Gap 9 (6-14) Blood Urea Nitrogen 39 mg/dL (8-26) Creatinine 3.1 mg/dL (0.7-1.3) Estimated GFR (Cockcroft-Gault) 19.5 Glucose Level 70 mg/dL (70-99) Calcium Level 8.5 mg/dL (8.5-10.1) Test 01/18/21 07:27 01/18/21 09:57 01/18/21 11:12 01/18/21 17:27 Glucose (Fingerstick) 66 mg/dL (70-99) 148 mg/dL (70-99) 131 mg/dL (70-99) 81 mg/dL (70-99) Test 01/18/21 20:16 Glucose (Fingerstick) 140 mg/dL (70-99) Laboratory Tests Test 01/18/21 09:57 01/18/21 11:12 01/18/21 17:27 01/18/21 20:16 Glucose (Fingerstick) 148 mg/dL (70-99) 131 mg/dL (70-99) 81 mg/dL (70-99) 140 mg/dL (70-99) Medications Active Scripts Medications Dose Route/Sig Max Daily Dose Days Date Category Dose Instructions Metoprolol Succinate ( Xl ) (Metoprolol Succinate) 25 Mg Tab.er.24h 25 Mg PO DAILY 01/16/21 Reported Amiodarone Hcl 200 Mg Tablet 200 Mg PO DAILY 30 12/17/20 Rx Warfarin Sodium 4 Mg Tablet 6 Mg PO DAILY 11/19/20 Reported Mirtazapine 7.5 Mg Tablet 1 Tab PO QHS 30 11/19/20 Reported Acetaminophen-Cod #3 Tablet (Acetaminophen/Codeine Phosphate) 1 Each Tablet 1 Tab PO PRN Q6HRS PRN 6 10/23/20 Rx Norvasc (Amlodipine Besylate) 10 Mg Tablet 10 Mg PO DAILY 05/09/16 Reported last dose given: date 10/23/20 time 0857 next dose due: 10/24/20 time 09 Doxazosin Mesylate 4 Mg Tablet 1 Tab PO DAILY 05/08/16 Reported not given while patient was here next dose due: date 10/24/20 time 0900 Super B Complex (Vitamin B Complex & Vit C No.4) 150 Mg Tablet 150 Mg PO DAILY 05/08/16 Reported not given while patient was here next dose due: date 10/24/20 time 0900 Vitamin C (Ascorbic Acid) 1,000 Mg Tablet 1,000 Mg PO DAILY 05/08/16 Reported not given while here next dose due: date 10/24/20 time 0900 Impression . IMPRESSION: 1. Abnormal CT revealing bilateral effusions related to his underlying renal failure, suspect effusions are transudative in nature. 2. Progressive dyspnea, multifactorial secondary to [id number] systolic heart failure, increase in effusion. 3. Chronic kidney disease, currently on hemodialysis. 4. Cardiomyopathy, ejection fraction 45%. 5. Pleural fluid cytology analysis was negative for malignant cells dated 12/18/2020. CT CHEST Impression: Bilateral pleural effusions large on the right and mild on the left with adjacent infiltrates. No change. Plan . Updated 01/19 02 titration to keep sat 90% thoracentesis on right side on thursday by IR Coumadin on hold for procedure Follow Cardiology recs -- EF 45% 10/25 6 min walk prior to DC PT/OT DVT/GI PPX RANDAL LIZAMA MD Jan 19, 2021 07:40
[2021-01-19 07:56] LABS: BASO # 0.1 x10^3/uL (0.0-0.2); BASO % 1 % (0-3); EOS # 0.2 x10^3/uL (0.0-0.7); EOS % 2 % (0-3); HEMOGLOBIN 10.4 g/dL (13.0-17.5); LYMPH # 1.9 x10^3/uL (1.0-4.8); LYMPH % 18 % (24-48); MEAN CORPUSCULAR HEMOGLOBIN 29 pg (25-35); MEAN CORPUSCULAR HGB CONC 32 g/dL (31-37); MEAN CORPUSCULAR VOLUME 88 fL (79-100); MONO # 1.3 x10^3/uL (0.0-1.1); MONO % 12 % (0-9); NEUT # 7.4 x10^3/uL (1.8-7.7); NEUT % 68 % (31-73); PLATELET COUNT 262 x10^3/uL (140-400); RED BLOOD COUNT 3.63 x10^6/uL (4.30-5.70); RED CELL DISTRIBUTION WIDTH 15.6 % (11.5-14.5); WHITE BLOOD COUNT 10.9 x10^3/uL (4.0-11.0)
[2021-01-19] MEDS: INSULIN LISPRO 300 UNITS/3 ML VIAL. SQ SCH ×3 (08:00→17:00)
[2021-01-19] MEDS: GLIMEPIRIDE 2 MG TABLET. PO SCH (08:09)
[2021-01-19 08:12] LABS: PROTHROMBIN TIME PATIENT 18.4 SEC (11.7-14.0)
[2021-01-19 08:25] LABS: CALCIUM 8.9 mg/dL (8.5-10.1); CREATININE 3.1 mg/dL (0.7-1.3); GFR 19.5; POTASSIUM 4.2 mmol/L (3.5-5.1)
[2021-01-19] MEDS: METOPROLOL SUCC 24HR ER 25 MG TAB.ER.24H. PO SCH ×2 (09:00→21:52)
[2021-01-19] MEDS: MULTIVITAMIN with MINERAL TABLET. PO SCH (09:00)
[2021-01-19] MEDS: FOLIC/VIT B COMP W-C (RENAL) TABLET. PO SCH (09:00)
[2021-01-19] MEDS: DOXAZOSIN MESYLATE 4 MG TABLET. PO SCH (09:00)
[2021-01-19] MEDS: AMIODARONE HCL 200 MG TABLET. PO SCH (09:00)
[2021-01-19] MEDS: metOLazone 2.5 MG TABLET PO SCH (09:00)
[2021-01-19] MEDS: amLODIPine BESYLATE 10 MG TABLET PO SCH (09:00)
--- NOTE | 2021-01-19 09:08 | PDOC ---
PROGRESS NOTES Date of Service: DATE: 01/19/21 TIME: 09:08 Chief Complaint Chief Complaint There is a large right effusion and mild left effusion with adjacent infiltrates. The ascending aorta is mildly dilated measuring 4.2 cm in diameter however this was seen previously. There is no mediastinal or hilar lymphadenopathy. There is multiple renal cysts bilaterally. Impression: Bilateral pleural effusions large on the right and mild on the left with adjacent infiltrates. No change. VTE Prophylaxis Ordered VTE Prophylaxis Devices: No VTE Pharmacological Prophylaxi: Yes Assessment/Plan Assessment/Plan Acute respiratory failure with hypoxia Acute CHF exacerbation Cardiomyopathy, fluid overload, pleural effusions Elevated troponins, MILD , TRENDING Hypokalemia ELIZABETH due to cardiorenal syndrome Subtherapeutic INR Moderate malnutrition RECENT Ejection Fraction is 45%. Physical deconditioning Bilateral pleural effusions large on the right and mild on the left with adjacent infiltrates. No change. Right sided ultrasound-guided thoracentesis 12-14-20 / suspect effusions are transudative in nature. Plan:======== cvc bed Consult placed to cardiology; will continue diuresis with monitoring of kidney function Will consult nephrology for recommendations regarding acute on chronic kidney failure, DIALYSIS - X 1 Reportedly on warfarin for A. fib due to cost; will continue warfarin per pharmacy. Significant questions about his medication compliance Resume home medications; Avoid nephrotoxins PT/OT FEN - Cardiac diet PPX - Warfarin FULL CODE Dispo - inpatient for above; patient names his as surrogate decision-maker. PULM CONSULT Ultrasound and fluoroscopic guided placement of a right internal jugular temporary hemodialysis catheter HD AGAIN TODAY 01-17 cr 3.1 [id number] await chair time CR 3.1 d/w RN -16 await chair time CR 3.1 d/w RN Justifications for Admission Justifications for Admission Other Justification History of Present Illness History of Present Illness Identification/Chief Complaint Chief Complaint Shortness of breath Source Source: Chart review, Patient History of Present Illness History of Present Illness Patient 80-year-old male with past medical history CHF, CKD, who presents to the ER with complaints of chest pain. Symptoms began approximately 3 hours prior to arrival to ED. Reports substernal chest pain, 7/10, with associated shortness of breath. Shortness of breath is aggravated by physical exertion and laying flat. Last admission showed BNP 3603, troponins elevated but stable 0.106, with repeat 0.093. CT chest on admission showed bilateral pleural effusions, right greater than left with adjacent infiltrates. Will admit patient for further medical management. Past Medical History Cardiovascular: CHF, HTN, Hyperlipidemia Pulmonary: No pertinent hx, Bronchitis CENTRAL NERVOUS SYSTEM: Other GI: No pertinent hx Heme/Onc: No pertinent hx Hepatobiliary: Cholelithiasis Psych: No pertinent hx Rheumatologic: No pertinent hx Infectious disease: No pertinent hx Renal/: Chronic renal failure Endocrine: Diabetes Past Surgical History Past Surgical History: Cholecystectomy, Other Family History Family History: No Significant, High Cholestrol, Hypertension Social History Smoke: No ALCOHOL: none Drugs: None Current Problem List Problem List Problems Medical Problems: (1) Acute exacerbation of CHF (congestive heart failure) Status: Acute Current Medications Current Medications Current Medications Aspirin (Aspirin Chewable) 162 mg 1X ONCE PO ; Start 01/16/21 at 02:00; Stop 01/16/21 at 02:01; Status DC Fentanyl Citrate (Fentanyl 2ml Vial) 50 mcg 1X ONCE IVP Last administered on 01/16/21at 02:30; Start 01/16/21 at 02:30; Stop 01/16/21 at 02:31; Status DC Furosemide (Lasix) 80 mg 1X ONCE IVP Last administered on 01/16/21at 03:45; Start 01/16/21 at 03:45; Stop 01/16/21 at 04:03; Status DC Furosemide (Lasix) 100 mg STK-MED ONCE .ROUTE ; Start 01/16/21 at 03:53; Stop 01/16/21 at 03:53; Status DC Nitroglycerin (Nitrostat) 0.4 mg PRN Q5MIN PRN SL CHEST PAIN; Start 01/16/21 at 04:45; Stop 01/17/21 at 04:44 Potassium Chloride (Klor-Con) 40 meq 1X ONCE PO Last administered on 01/16/21at 05:00; Start 01/16/21 at 05:00; Stop 01/16/21 at 05:01; Status DC Fentanyl Citrate (Fentanyl 2ml Vial) 50 mcg 1X ONCE IVP Last administered on 01/16/21at 05:45; Start 01/16/21 at 05:45; Stop 01/16/21 at 05:47; Status DC Fentanyl Citrate (Fentanyl 2ml Vial) 25 mcg PRN Q15MIN PRN IV PAIN GREATER THAN 3/10 Last administered on 01/16/21at 08:15; Start 01/16/21 at 07:45; Stop 01/17/21 at 07:44 Active Scripts Active Amox Tr-K Clv 250-125 Mg Tab (Amoxicillin/Potassium Clav) 1 Each Tablet 1 Tab PO BID 5 Days Amiodarone Hcl 200 Mg Tablet 200 Mg PO DAILY 30 Days Acetaminophen-Cod #3 Tablet (Acetaminophen/Codeine Phosphate) 1 Each Tablet 1 Tab PO PRN Q6HRS PRN 6 Days Reported Warfarin Sodium 4 Mg Tablet 4 Mg PO DAILY Mirtazapine 7.5 Mg Tablet 1 Tab PO QHS 30 Days Furosemide 40 Mg Tablet 1 Tab PO DAILY Norvasc (Amlodipine Besylate) 10 Mg Tablet 10 Mg PO DAILY last dose given: date 10/23/20 time 0857 next dose due: date 10/24/20 time 0900 Doxazosin Mesylate 4 Mg Tablet 1 Tab PO DAILY not given while patient was here next dose due: date 10/24/20 time 0900 Metoprolol Tartrate 50 Mg Tablet 1 Tab PO BID last dose given: 10/23/20 time 0856 next dose due: date 10/24/20 timr 0900 Super B Complex (Vitamin B Complex & Vit C No.4) 150 Mg Tablet 150 Mg PO DAILY not given while patient was here next dose due: date 10/24/20 time 0900 Gemfibrozil 600 Mg Tablet 1 Tab PO BID not given while patient was here next dose due: date 10/23/20 time 2100 Vitamin C (Ascorbic Acid) 1,000 Mg Tablet 1,000 Mg PO DAILY not given while here next dose due: 10/24/20 time 0900 Allergies Allergies: Coded Allergies: lisinopril (Verified Allergy, Severe, SWELLING OF TONGUE AND THROAT, 05/08/16) ROS Review of System GENERAL: No history of weight change, weakness or fevers. SKIN: No bruising, hair changes or rashes. EYES: No blurred, double or loss of vision. NOSE AND THROAT: No history of nosebleeds, hoarseness or sore throat. HEART: Chest pain. Denies palpitations LUNGS: Shortness of breath. Denies cough, hemoptysis, wheezing. GASTROINTESTINAL: Denies nausea, vomiting, abdominal pain. GENITOURINARY: Denies dysuria, frequency, urgency, hematuria. NEUROLOGIC: Denies history of numbness, tingling, tremor or weakness. PSYCHIATRIC: Denies anxiety, denies depression. ENDOCRINE: No history of heat or cold intolerance, polyuria or polydipsia. EXTREMITIES: Denies muscle weakness, joint pain, pain on walking or stiffness. 4-15 dialysis again today cr 3.1 D/W RN troponins elevated but stable 0.106, with repeat 0.093. CT chest on admission showed bilateral pleural effusions, right greater than left with adjacent infiltrates The Ejection Fraction is 45%. RECENT ECHO Vitals Vitals Vital Signs Date Time Temp Pulse Resp B/P (MAP) Pulse Ox O2 Delivery O2 Flow Rate FiO2 01/19/21 08:00 Nasal Cannula 2.5 01/19/21 07:00 98.5 64 22 117/66 (83) 95 98.5 Physical Exam Physical Exam Physical Exam Physical Exam General: Alert, Oriented X3, Cooperative, No acute distress HEENT: PERRLA, EOMI Lungs: Faint crackles, distant breath sounds. Normal air movement Heart: RRR, no murmurs Cardiovascular: S1, S2 Abdomen: Normal bowel sounds, Soft, No tenderness Extremities: 2+ pitting edema bilaterally. No clubbing, No cyanosis Skin: No rashes, No significant lesion Neuro: Normal speech, Normal tone, Sensation intact Psych/Mental Status: Mental status NL, Mood NL General: Alert, Oriented X3, Cooperative, No acute distress Heart: Regular rate, Other Lungs: Clear Abdomen: Normal bowel sounds Extremities: No clubbing, No cyanosis, Other Skin: No significant lesion Labs LABS Laboratory Tests Test 01/18/21 09:57 01/18/21 11:12 01/18/21 17:27 01/18/21 20:16 Glucose (Fingerstick) 148 mg/dL (70-99) 131 mg/dL (70-99) 81 mg/dL (70-99) 140 mg/dL (70-99) Test 01/19/21 07:15 01/19/21 07:30 01/19/21 08:02 White Blood Count 10.9 x10^3/uL (4.0-11.0) Red Blood Count 3.63 x10^6/uL (4.30-5.70) Hemoglobin 10.4 g/dL (13.0-17.5) Hematocrit 32.0 % (39.0-53.0) Mean Corpuscular Volume 88 fL (79-100) Mean Corpuscular Hemoglobin 29 pg (25-35) Mean Corpuscular Hemoglobin Concent 32 g/dL (31-37) Red Cell Distribution Width 15.6 % (11.5-14.5) Platelet Count 262 x10^3/uL (140-400) Neutrophils (%) (Auto) 68 % (31-73) Lymphocytes (%) (Auto) 18 % (24-48) Monocytes (%) (Auto) 12 % (0-9) Eosinophils (%) (Auto) 2 % (0-3) Basophils (%) (Auto) 1 % (0-3) Neutrophils # (Auto) 7.4 x10^3/uL (1.8-7.7) Lymphocytes # (Auto) 1.9 x10^3/uL (1.0-4.8) Monocytes # (Auto) 1.3 x10^3/uL (0.0-1.1) Eosinophils # (Auto) 0.2 x10^3/uL (0.0-0.7) Basophils # (Auto) 0.1 x10^3/uL (0.0-0.2) Prothrombin Time 18.4 SEC (11.7-14.0) Prothromb Time International Ratio 1.6 (0.8-1.1) Sodium Level 139 mmol/L (136-145) Potassium Level 4.2 mmol/L (3.5-5.1) Chloride Level 100 mmol/L (98-107) Carbon Dioxide Level 29 mmol/L (21-32) Anion Gap 10 (6-14) Blood Urea Nitrogen 31 mg/dL (8-26) Creatinine 3.1 mg/dL (0.7-1.3) Estimated GFR (Cockcroft-Gault) 19.5 Glucose Level 50 mg/dL (70-99) Calcium Level 8.9 mg/dL (8.5-10.1) Glucose (Fingerstick) 68 mg/dL (70-99) Assessment and Plan Assessmemt and Plan Problems Medical Problems: (1) Acute exacerbation of CHF (congestive heart failure) Status: Acute Comment Review of Relevant I have reviewed the following items cortes (where applicable) has been applied. Labs Laboratory Tests Test 4/15/21 12:11 01/17/21 12:30 01/17/21 17:27 01/18/21 06:10 Glucose (Fingerstick) 53 mg/dL (70-99) 72 mg/dL (70-99) 152 mg/dL (70-99) White Blood Count 11.6 x10^3/uL (4.0-11.0) Red Blood Count 3.43 x10^6/uL (4.30-5.70) Hemoglobin 9.6 g/dL (13.0-17.5) Hematocrit 30.1 % (39.0-53.0) Mean Corpuscular Volume 88 fL (79-100) Mean Corpuscular Hemoglobin 28 pg (25-35) Mean Corpuscular Hemoglobin Concent 32 g/dL (31-37) Red Cell Distribution Width 15.0 % (11.5-14.5) Platelet Count 237 x10^3/uL (140-400) Neutrophils (%) (Auto) 68 % (31-73) Lymphocytes (%) (Auto) 16 % (24-48) Monocytes (%) (Auto) 14 % (0-9) Eosinophils (%) (Auto) 1 % (0-3) Basophils (%) (Auto) 1 % (0-3) Neutrophils # (Auto) 7.9 x10^3/uL (1.8-7.7) Lymphocytes # (Auto) 1.9 x10^3/uL (1.0-4.8) Monocytes # (Auto) 1.6 x10^3/uL (0.0-1.1) Eosinophils # (Auto) 0.1 x10^3/uL (0.0-0.7) Basophils # (Auto) 0.1 x10^3/uL (0.0-0.2) Prothrombin Time 24.0 SEC (11.7-14.0) Prothromb Time International Ratio 2.2 (0.8-1.1) Sodium Level 139 mmol/L (136-145) Potassium Level 4.0 mmol/L (3.5-5.1) Chloride Level 100 mmol/L (98-107) Carbon Dioxide Level 30 mmol/L (21-32) Anion Gap 9 (6-14) Blood Urea Nitrogen 39 mg/dL (8-26) Creatinine 3.1 mg/dL (0.7-1.3) Estimated GFR (Cockcroft-Gault) 19.5 Glucose Level 70 mg/dL (70-99) Calcium Level 8.5 mg/dL (8.5-10.1) Test 01/18/21 07:27 01/18/21 09:57 01/18/21 11:12 01/18/21 17:27 Glucose (Fingerstick) 66 mg/dL (70-99) 148 mg/dL (70-99) 131 mg/dL (70-99) 81 mg/dL (70-99) Test 01/18/21 20:16 01/19/21 07:15 01/19/21 07:30 01/19/21 08:02 Glucose (Fingerstick) 140 mg/dL (70-99) 68 mg/dL (70-99) White Blood Count 10.9 x10^3/uL (4.0-11.0) Red Blood Count 3.63 x10^6/uL (4.30-5.70) Hemoglobin 10.4 g/dL (13.0-17.5) Hematocrit 32.0 % (39.0-53.0) Mean Corpuscular Volume 88 fL (79-100) Mean Corpuscular Hemoglobin 29 pg (25-35) Mean Corpuscular Hemoglobin Concent 32 g/dL (31-37) Red Cell Distribution Width 15.6 % (11.5-14.5) Platelet Count 262 x10^3/uL (140-400) Neutrophils (%) (Auto) 68 % (31-73) Lymphocytes (%) (Auto) 18 % (24-48) Monocytes (%) (Auto) 12 % (0-9) Eosinophils (%) (Auto) 2 % (0-3) Basophils (%) (Auto) 1 % (0-3) Neutrophils # (Auto) 7.4 x10^3/uL (1.8-7.7) Lymphocytes # (Auto) 1.9 x10^3/uL (1.0-4.8) Monocytes # (Auto) 1.3 x10^3/uL (0.0-1.1) Eosinophils # (Auto) 0.2 x10^3/uL (0.0-0.7) Basophils # (Auto) 0.1 x10^3/uL (0.0-0.2) Prothrombin Time 18.4 SEC (11.7-14.0) Prothromb Time International Ratio 1.6 (0.8-1.1) Sodium Level 139 mmol/L (136-145) Potassium Level 4.2 mmol/L (3.5-5.1) Chloride Level 100 mmol/L (98-107) Carbon Dioxide Level 29 mmol/L (21-32) Anion Gap 10 (6-14) Blood Urea Nitrogen 31 mg/dL (8-26) Creatinine 3.1 mg/dL (0.7-1.3) Estimated GFR (Cockcroft-Gault) 19.5 Glucose Level 50 mg/dL (70-99) Calcium Level 8.9 mg/dL (8.5-10.1) Laboratory Tests Test 01/18/21 09:57 01/18/21 11:12 01/18/21 17:27 01/18/21 20:16 Glucose (Fingerstick) 148 mg/dL (70-99) 131 mg/dL (70-99) 81 mg/dL (70-99) 140 mg/dL (70-99) Test 01/19/21 07:15 01/19/21 07:30 01/19/21 08:02 White Blood Count 10.9 x10^3/uL (4.0-11.0) Red Blood Count 3.63 x10^6/uL (4.30-5.70) Hemoglobin 10.4 g/dL (13.0-17.5) Hematocrit 32.0 % (39.0-53.0) Mean Corpuscular Volume 88 fL (79-100) Mean Corpuscular Hemoglobin 29 pg (25-35) Mean Corpuscular Hemoglobin Concent 32 g/dL (31-37) Red Cell Distribution Width 15.6 % (11.5-14.5) Platelet Count 262 x10^3/uL (140-400) Neutrophils (%) (Auto) 68 % (31-73) Lymphocytes (%) (Auto) 18 % (24-48) Monocytes (%) (Auto) 12 % (0-9) Eosinophils (%) (Auto) 2 % (0-3) Basophils (%) (Auto) 1 % (0-3) Neutrophils # (Auto) 7.4 x10^3/uL (1.8-7.7) Lymphocytes # (Auto) 1.9 x10^3/uL (1.0-4.8) Monocytes # (Auto) 1.3 x10^3/uL (0.0-1.1) Eosinophils # (Auto) 0.2 x10^3/uL (0.0-0.7) Basophils # (Auto) 0.1 x10^3/uL (0.0-0.2) Prothrombin Time 18.4 SEC (11.7-14.0) Prothromb Time International Ratio 1.6 (0.8-1.1) Sodium Level 139 mmol/L (136-145) Potassium Level 4.2 mmol/L (3.5-5.1) Chloride Level 100 mmol/L (98-107) Carbon Dioxide Level 29 mmol/L (21-32) Anion Gap 10 (6-14) Blood Urea Nitrogen 31 mg/dL (8-26) Creatinine 3.1 mg/dL (0.7-1.3) Estimated GFR (Cockcroft-Gault) 19.5 Glucose Level 50 mg/dL (70-99) Calcium Level 8.9 mg/dL (8.5-10.1) Glucose (Fingerstick) 68 mg/dL (70-99) Medications Current Medications Aspirin (Aspirin Chewable) 162 mg 1X ONCE PO ; Start 01/16/21 at 02:00; Stop 01/16/21 at 02:01; Status DC Fentanyl Citrate (Fentanyl 2ml Vial) 50 mcg 1X ONCE IVP Last administered on 01/16/21at 02:30; Start 01/16/21 at 02:30; Stop 01/16/21 at 02:31; Status DC Furosemide (Lasix) 80 mg 1X ONCE IVP Last administered on 01/16/21at 03:45; Start 01/16/21 at 03:45; Stop 01/16/21 at 04:03; Status DC Furosemide (Lasix) 100 mg STK-MED ONCE .ROUTE ; Start 01/16/21 at 03:53; Stop 01/16/21 at 03:53; Status DC Nitroglycerin (Nitrostat) 0.4 mg PRN Q5MIN PRN SL CHEST PAIN; Start 01/16/21 at 04:45; Stop 01/17/21 at 04:44; Status DC Potassium Chloride (Klor-Con) 40 meq 1X ONCE PO Last administered on 01/16/21at 05:00; Start 01/16/21 at 05:00; Stop 01/16/21 at 05:01; Status DC Fentanyl Citrate (Fentanyl 2ml Vial) 50 mcg 1X ONCE IVP Last administered on 01/16/21at 05:45; Start 01/16/21 at 05:45; Stop 01/16/21 at 05:47; Status DC Fentanyl Citrate (Fentanyl 2ml Vial) 25 mcg PRN Q15MIN PRN IV PAIN GREATER THAN 3/10 Last administered on 01/16/21at 08:15; Start 01/16/21 at 07:45; Stop 01/17/21 at 07:44; Status DC Warfarin Sodium (Coumadin Per Pharmacy) 1 each PRN DAILY PRN MC SEE COMMENTS Last administered on 01/17/21at 15:27; Start 01/16/21 at 09:30; Stop 01/18/21 at 10:37; Status DC Acetaminophen/ Codeine Phosphate (Tylenol #3) 1 tab PRN Q6HRS PRN PO PAIN Last administered on 01/18/21at 15:15; Start 01/16/21 at 09:30 Amiodarone HCl (Cordarone) 200 mg DAILY PO Last administered on 01/18/21at 08:34; Start 01/16/21 at 11:00 Amlodipine Besylate (Norvasc) 10 mg DAILY PO Last administered on 01/18/21at 08:35; Start 01/16/21 at 11:00 Doxazosin Mesylate (Cardura) 4 mg DAILY PO Last administered on 01/18/21at 08:33; Start 01/16/21 at 11:00 Metoprolol Tartrate (Lopressor) 50 mg BID PO Last administered on 01/16/21at 20:51; Start 01/16/21 at 11:00; Stop 01/16/21 at 22:15; Status DC Warfarin Sodium (Coumadin) 4 mg DAILY16 PO Last administered on 01/16/21at 20:51; Start 01/16/21 at 16:00; Stop 01/17/21 at 15:30; Status DC Ondansetron HCl (Zofran) 4 mg PRN Q6HRS PRN IVP NAUSEA/VOMITING Last administered on 01/17/21at 01:46; Start 01/16/21 at 09:45 Al Hydroxide/Mg Hydroxide (Mylanta Plus Xs) 30 ml PRN Q3HRS PRN PO HEARTBURN / GAS; Start 01/16/21 at 09:45 Calcium Carbonate/ Glycine (Tums) 500 mg PRN Q3HRS PRN PO UPSET STOMACH; Start 01/16/21 at 09:45 Morphine Sulfate (Morphine Sulfate) 2 mg PRN Q1HR PRN IV PAIN; Start 01/16/21 at 09:45 Acetaminophen (Tylenol) 650 mg PRN Q6HRS PRN PO Headaches, Temp > 101.5F Last administered on 01/17/21at 00:00; Start 01/16/21 at 09:45 Magnesium Hydroxide (Milk Of Magnesia) 2,400 mg PRN Q12HR PRN PO CONSTIPATION; Start 01/16/21 at 09:45 Bisacodyl (Dulcolax Supp) 10 mg PRN DAILY PRN [place] CONSTIPATION; Start 01/16/21 at 09:45 Metolazone (Zaroxolyn) 5 mg DAILY PO Last administered on 01/18/21at 08:33; Start 01/16/21 at 11:00 Bumetanide (Bumex) 2.5 mg DAILY05 IV Last administered on 01/19/21at 05:10; Start 01/17/21 at 05:00 Glimepiride (Amaryl) 4 mg DAILY PO Last administered on 01/18/21at 08:34; Start 01/16/21 at 11:00 Multivitamins (Thera M Plus) 1 tab DAILY PO Last administered on 01/18/21at 08:33; Start 01/16/21 at 11:00 Vitamin B Complex/ Vitamin C (Charla-Jose R) 1 tab DAILY PO Last administered on 01/18/21at 08:33; Start 01/17/21 at 09:00 Lidocaine HCl (Buffered Lidocaine 1%) 3 ml STK-MED ONCE .ROUTE ; Start 01/16/21 at 13:58; Stop 01/16/21 at 13:59; Status DC Lidocaine HCl (Buffered Lidocaine 1%) 4 ml 1X ONCE INJ Last administered on 01/16/21at 14:23; Start 01/16/21 at 14:15; Stop 01/16/21 at 14:16; Status DC Sodium Chloride 1,000 ml @ 1,000 mls/hr Q1H PRN IV hypotension; Start 01/16/21 at 15:45; Stop 01/16/21 at 21:44; Status DC Diphenhydramine HCl (Benadryl) 25 mg 1X PRN PRN IV ITCHING; Start 01/16/21 at 15:45; Stop 01/17/21 at 15:44; Status DC Diphenhydramine HCl (Benadryl) 25 mg 1X PRN PRN IV ITCHING; Start 01/16/21 at 15:45; Stop 01/17/21 at 15:44; Status DC Sodium Chloride 1,000 ml @ 400 mls/hr Q2H30M PRN IV PATENCY; Start 01/16/21 at 15:45; Stop 01/17/21 at 03:44; Status DC Info (PHARMACY MONITORING -- do not chart) 1 each PRN DAILY PRN MC SEE COMMENTS; Start 01/16/21 at 15:45; Status Cancel Metoprolol Succinate (Toprol Xl) 25 mg BID PO Last administered on 01/18/21at 21:07; Start 01/17/21 at 09:00 Sodium Chloride 1,000 ml @ 1,000 mls/hr Q1H PRN IV hypotension; Start 01/17/21 at 07:45; Stop 01/17/21 at 13:44; Status DC Albumin Human 200 ml @ 200 mls/hr 1X PRN PRN IV Hypotension; Start 01/17/21 at 07:45; Stop 01/17/21 at 13:44; Status DC Sodium Chloride (Normal Saline Flush) 10 ml 1X PRN PRN IV AP catheter pack; Start 01/17/21 at 07:45; Stop 01/18/21 at 07:44; Status DC Sodium Chloride (Normal Saline Flush) 10 ml 1X PRN PRN IV POOLROOM TABLE ATTENDANT catheter pack; Start 01/17/21 at 07:45; Stop 01/18/21 at 07:44; Status DC Sodium Chloride 1,000 ml @ 400 mls/hr Q2H30M PRN IV PATENCY; Start 01/17/21 at 07:45; Stop 01/17/21 at 19:44; Status DC Info (PHARMACY MONITORING -- do not chart) 1 each PRN DAILY PRN MC SEE COMMENTS; Start 01/17/21 at 07:45; Status UNV Info (PHARMACY MONITORING -- do not chart) 1 each PRN DAILY PRN MC SEE COMMENTS; Start 01/17/21 at 07:45 Iron Sucrose 500 mg/Sodium Chloride 275 ml @ 78.571 mls/ hr 1X ONCE IV ; Start 01/17/21 at 11:30; Stop 01/17/21 at 14:59; Status Cancel Darbepoetin Ortega (ARANESP for DIALYSIS PTS) 60 mcg Th SQ Last administered on 01/17/21at 20:44; Start 01/17/21 at 21:00 Iron Sucrose 500 mg/Sodium Chloride 275 ml @ 78.571 mls/ hr 1X ONCE IV Last administered on 01/17/21at 13:53; Start 01/17/21 at 14:00; Stop 01/17/21 at 17:29; Status DC Insulin Human Lispro (HumaLOG) 0-5 UNITS TIDWMEALS SQ ; Start 01/17/21 at 17:00 Dextrose (Dextrose 50%-Water Syringe) 12.5 gm PRN Q15MIN PRN IV SEE COMMENTS; Start 01/17/21 at 12:45; Status UNV Dextrose (Dextrose 50%-Water Syringe) 12.5 gm PRN Q15MIN PRN IV SEE COMMENTS; Start 01/17/21 at 12:45 Sodium Chloride 1,000 ml @ 1,000 mls/hr Q1H PRN IV hypotension; Start 01/18/21 at 11:45; Stop 01/18/21 at 17:44; Status DC Albumin Human 200 ml @ 200 mls/hr 1X PRN PRN IV Hypotension; Start 01/18/21 at 11:45; Stop 01/18/21 at 17:44; Status DC Diphenhydramine HCl (Benadryl) 25 mg 1X PRN PRN IV ITCHING; Start 01/18/21 at 11:45; Stop 01/19/21 at 11:44 Sodium Chloride 1,000 ml @ 400 mls/hr Q2H30M PRN IV PATENCY; Start 01/18/21 at 11:45; Stop 01/18/21 at 23:44; Status DC Info (PHARMACY MONITORING -- do not chart) 1 each PRN DAILY PRN MC SEE COMMENTS; Start 01/18/21 at 11:45; Status UNV Info (PHARMACY MONITORING -- do not chart) 1 each PRN DAILY PRN MC SEE COMMENTS; Start 01/18/21 at 11:45 Active Scripts Active Amiodarone Hcl 200 Mg Tablet 200 Mg PO DAILY 30 Days Acetaminophen-Cod #3 Tablet (Acetaminophen/Codeine Phosphate) 1 Each Tablet 1 Tab PO PRN Q6HRS PRN 6 Days Reported Metoprolol Succinate ( Xl ) (Metoprolol Succinate) 25 Mg Tab.er.24h 25 Mg PO DAILY Warfarin Sodium 4 Mg Tablet 6 Mg PO DAILY Mirtazapine 7.5 Mg Tablet 1 Tab PO QHS 30 Days Norvasc (Amlodipine Besylate) 10 Mg Tablet 10 Mg PO DAILY last dose given: date 10/23/20 time 0857 next dose due: date 10/24/20 time 0900 Doxazosin Mesylate 4 Mg Tablet 1 Tab PO DAILY not given while patient was here next dose due: date 10/24/20 time 0900 Super B Complex (Vitamin B Complex & Vit C No.4) 150 Mg Tablet 150 Mg PO DAILY not given while patient was here next dose due: date 10/24/20 time 0900 Vitamin C (Ascorbic Acid) 1,000 Mg Tablet 1,000 Mg PO DAILY not given while here next dose due: date 10/24/20 time 0900 Vitals/I & O Vital Sign - Last 24 Hours 01/18/21 01/18/21 01/18/21 01/18/21 10:29 15:12 15:15 16:12 Temp 98.2 98.2 Pulse 82 Resp 16 22 18 B/P (MAP) 122/67 (85) Pulse Ox 94 93 96 96 O2 Delivery Nasal Cannula Room Air Nasal Cannula Nasal Cannula O2 Flow Rate 3.0 3.0 2.0 2.0 01/18/21 01/18/21 01/18/21 01/18/21 16:15 17:53 19:00 20:00 Temp 98.0 98.0 Pulse 88 75 Resp 16 22 B/P (MAP) 139/70 (93) 132/61 (84) Pulse Ox 96 95 O2 Delivery Nasal Cannula Nasal Cannula Nasal Cannula O2 Flow Rate 2.0 3.0 2.5 01/18/21 01/18/21 01/19/2121 21:07 23:14 03:18 07:00 Temp 98.1 97.8 98.5 98.1 97.8 98.5 Pulse 75 70 69 64 Resp 22 23 22 B/P (MAP) 132/61 129/62 (84) 121/66 (84) 117/66 (83) Pulse Ox 96 97 95 O2 Delivery Nasal Cannula Nasal Cannula Nasal Cannula O2 Flow Rate 3.0 3.0 3.0 01/19/21 08:00 O2 Delivery Nasal Cannula O2 Flow Rate 2.5 Intake and Output 01/18/21 01/18/21 01/19/21 14:59 22:59 06:59 Intake Total 1100 ml 500 ml 200 ml Output Total 250 ml Balance 1100 ml 500 ml -50 ml Justicifation of Admission Dx: Justifications for Admission: Justification of Admission Dx: Yes ALLISON DAVISON MD Jan 19, 2021 09:08
[2021-01-19] MEDS ORDERED: DIALYSIS PATIENT. MC PRN ×2 (10:00)
[2021-01-19] MEDS ORDERED: IV NORMAL SALINE 1000ML BAG 1,000 ML IV PRN ×2 (10:00)
[2021-01-19] MEDS ORDERED: ALBUMIN HUMAN 25% 200 ML IV PRN (10:00)
[2021-01-19 11:43] VITALS: BP 123/66
--- NOTE | 2021-01-19 14:10 | PDOC ---
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 Denies any new complaints at this time CVS: no Orthopnea, no CP RESP: No SOB, ? HARRISON not ambulated GI: no Nausea, no Vomiting : no Dysuria, no Urgency OBJECTIVE Vital Signs Vital Signs Date Time Temp Pulse Resp B/P (MAP) Pulse Ox O2 Delivery O2 Flow Rate FiO2 01/19/21 11:43 98.2 63 22 123/66 (85) 90 Nasal Cannula 3.0 98.2 I & 0 Intake and Output 01/19/21 07:00 Intake Total 1800 ml Output Total 250 ml Balance 1550 ml Intake Oral 1800 ml Output Urine Total 250 ml PHYSICAL EXAM Physical Exam GEN: Awake, Oriented x 1 at best , In no distress EYES: Vision Unchanged, Conjunctiva Normal EN: No EN Drainage, Mucous Membranes mosit NECK: no JVD, min JVP, Supple, no Thyromegaly CVS: S1S2, soft Murmur, No Gallop, No Rub,+2 Edema RESP: few basal Rales, no Rhonchi,no Acc. Muscle Use GI: BS + ve, NO Bruit, Non Tender, Non Distended : no CVA tenderness, no Suprapubic Tenderness DIAGNOSIS/ASSESSMENT Assessment & Plan ESRD: Dialysis as below F 180 NR 3.0 Hrs 3 K 2.5 Ca 140 Na 35 HC03 Qb 350 + Qd 500+ Heparin Units Uf 3-4 Kgs or to dry weight as tolerated May give 25-50 gms of 25% Albumin if needed to maintain Hemodynamic stability Treatment plan reviewed and discussed with putty remover ANEMIA in the setting of renal failure/CKD: Much better today with hemoconcentration HTN in the setting of ESRD: Much better controlled on current BP meds as reviewed. No new changes for now. May need to start backing off on blood pre ssure medications once fluid status is optimized BONE & MINERAL: Follow phosphorus levels and alter binder regimen as needed Cardiomyopathy, fluid overload, pleural effusions: Suspect this will improve with better fluid management on dialysis Coagulopathy: Appears to be improving currently. Permacath ordered for Thursday Discussed Plan of Care with pt at bedside COMMENT/RELEVANT DATA Meds Current Medications Medications (Trade) Dose Ordered Sig/Shantanu Start Time Stop Time Status Last Admin Dose Admin Acetaminophen (Tylenol) 650 mg PRN Q6HRS PRN 01/16/21 09:45 01/17/21 00:00 650 MG Acetaminophen/ Codeine Phosphate (Tylenol #3) 1 tab PRN Q6HRS PRN 01/16/21 09:30 01/18/21 15:15 1 TAB Al Hydroxide/Mg Hydroxide (Mylanta Plus Xs) 30 ml PRN Q3HRS PRN 01/16/21 09:45 Albumin Human 200 ml @ 200 mls/hr 1X PRN PRN 01/19/21 10:00 01/19/21 15:59 Amiodarone HCl (Cordarone) 200 mg DAILY 01/16/21 11:00 01/18/21 08:34 200 MG Amlodipine Besylate (Norvasc) 10 mg DAILY 01/16/21 11:00 01/18/21 08:35 10 MG Aspirin (Aspirin Chewable) 162 mg 1X ONCE 01/16/21 02:00 01/16/21 02:01 DC Bisacodyl (Dulcolax Supp) 10 mg PRN DAILY PRN 01/16/21 09:45 Bumetanide (Bumex) 2.5 mg DAILY05 01/17/21 05:00 01/19/21 05:10 2.5 MG Calcium Carbonate/ Glycine (Tums) 500 mg PRN Q3HRS PRN 01/16/21 09:45 Darbepoetin Ortega (ARANESP for DIALYSIS PTS) 60 mcg Th 01/17/21 21:00 01/17/21 20:44 60 MCG Dextrose (Dextrose 50%-Water Syringe) 12.5 gm PRN Q15MIN PRN 01/17/21 12:45 Diphenhydramine HCl (Benadryl) 25 mg 1X PRN PRN 01/18/21 11:45 01/19/21 11:44 DC Doxazosin Mesylate (Cardura) 4 mg DAILY 01/16/21 11:00 01/18/21 08:33 4 MG Fentanyl Citrate (Fentanyl 2ml Vial) 25 mcg PRN Q15MIN PRN 01/16/21 07:45 01/17/21 07:44 DC 01/16/21 08:15 25 MCG Furosemide (Lasix) 100 mg STK-MED ONCE 01/16/21 03:53 01/16/21 03:53 DC Glimepiride (Amaryl) 4 mg DAILY 01/16/21 11:00 01/18/21 08:34 4 MG Info (PHARMACY MONITORING -- do not chart) 1 each PRN DAILY PRN 01/19/21 10:00 UNV Insulin Human Lispro (HumaLOG) 0-5 UNITS TIDWMEALS 01/17/21 17:00 Iron Sucrose 500 mg/Sodium Chloride 275 ml @ 78.571 mls/ hr 1X ONCE 01/17/21 14:00 01/17/21 17:29 DC 01/17/21 13:53 78.571 MLS/HR Lidocaine HCl (Buffered Lidocaine 1%) 4 ml 1X ONCE 01/16/21 14:15 01/16/21 14:16 DC 01/16/21 14:23 6 ML Magnesium Hydroxide (Milk Of Magnesia) 2,400 mg PRN Q12HR PRN 01/16/21 09:45 Metolazone (Zaroxolyn) 5 mg DAILY 01/16/21 11:00 01/18/21 08:33 5 MG Metoprolol Succinate (Toprol Xl) 25 mg BID 01/17/21 09:00 01/18/21 21:07 25 MG Metoprolol Tartrate (Lopressor) 50 mg BID 01/16/21 11:00 01/16/21 22:15 DC 01/16/21 20:51 50 MG Morphine Sulfate (Morphine Sulfate) 2 mg PRN Q1HR PRN 01/16/21 09:45 Multivitamins (Thera M Plus) 1 tab DAILY 01/16/21 11:00 01/18/21 08:33 1 TAB Nitroglycerin (Nitrostat) 0.4 mg PRN Q5MIN PRN 01/16/21 04:45 01/17/21 04:44 DC Ondansetron HCl (Zofran) 4 mg PRN Q6HRS PRN 01/16/21 09:45 01/17/21 01:46 4 MG Potassium Chloride (Klor-Con) 40 meq 1X ONCE 01/16/21 05:00 01/16/21 05:01 DC 01/16/21 05:00 40 MEQ Sodium Chloride 1,000 ml @ 400 mls/hr Q2H30M PRN 01/19/21 10:00 01/19/21 21:59 Sodium Chloride (Normal Saline Flush) 10 ml 1X PRN PRN 01/17/21 07:45 01/18/21 07:44 DC Vitamin B Complex/ Vitamin C (Charla-Jose R) 1 tab DAILY 01/17/21 09:00 01/18/21 08:33 1 TAB Warfarin Sodium (Coumadin Per Pharmacy) 1 each PRN DAILY PRN 01/16/21 09:30 01/18/21 10:37 DC 01/17/21 15:27 1 EACH Warfarin Sodium (Coumadin) 4 mg DAILY16 01/16/21 16:00 01/17/21 15:30 DC 01/16/21 20:51 4 MG Lab Laboratory Tests Test 01/18/21 17:27 01/18/21 20:16 01/19/21 07:15 01/19/21 07:30 Glucose (Fingerstick) 81 mg/dL (70-99) 140 mg/dL (70-99) White Blood Count 10.9 x10^3/uL (4.0-11.0) Red Blood Count 3.63 x10^6/uL (4.30-5.70) Hemoglobin 10.4 g/dL (13.0-17.5) Hematocrit 32.0 % (39.0-53.0) Mean Corpuscular Volume 88 fL (79-100) Mean Corpuscular Hemoglobin 29 pg (25-35) Mean Corpuscular Hemoglobin Concent 32 g/dL (31-37) Red Cell Distribution Width 15.6 % (11.5-14.5) Platelet Count 262 x10^3/uL (140-400) Neutrophils (%) (Auto) 68 % (31-73) Lymphocytes (%) (Auto) 18 % (24-48) Monocytes (%) (Auto) 12 % (0-9) Eosinophils (%) (Auto) 2 % (0-3) Basophils (%) (Auto) 1 % (0-3) Neutrophils # (Auto) 7.4 x10^3/uL (1.8-7.7) Lymphocytes # (Auto) 1.9 x10^3/uL (1.0-4.8) Monocytes # (Auto) 1.3 x10^3/uL (0.0-1.1) Eosinophils # (Auto) 0.2 x10^3/uL (0.0-0.7) Basophils # (Auto) 0.1 x10^3/uL (0.0-0.2) Prothrombin Time 18.4 SEC (11.7-14.0) Prothromb Time International Ratio 1.6 (0.8-1.1) Sodium Level 139 mmol/L (136-145) Potassium Level 4.2 mmol/L (3.5-5.1) Chloride Level 100 mmol/L (98-107) Carbon Dioxide Level 29 mmol/L (21-32) Anion Gap 10 (6-14) Blood Urea Nitrogen 31 mg/dL (8-26) Creatinine 3.1 mg/dL (0.7-1.3) Estimated GFR (Cockcroft-Gault) 19.5 Glucose Level 50 mg/dL (70-99) Calcium Level 8.9 mg/dL (8.5-10.1) Test 01/19/21 08:02 Glucose (Fingerstick) 68 mg/dL (70-99) Results All relevant outside records, renal labs, imaging studies, telemetry/EKG's were reviewed. Justicifation of Admission Dx: Justifications for Admission: Justification of Admission Dx: Yes NICKI ALMONTE MD Jan 19, 2021 14:10
[2021-01-19 19:19] VITALS: BP 140/74
[2021-01-19 22:55] VITALS: BP 129/73
[2021-01-20 03:19] VITALS: BP 128/79
[2021-01-20] MEDS: BUMETANIDE 2.5 MG/10 ML VIAL. IV SCH (05:00)
[2021-01-20 07:00] VITALS: BP 138/74
[2021-01-20] MEDS: INSULIN LISPRO 300 UNITS/3 ML VIAL. SQ SCH ×3 (08:00→17:00)
--- NOTE | 2021-01-20 08:11 | PDOC ---
PULMONARY PROGRESS NOTES DATE: 01/20/21 TIME: 08:10 Subjective Pt. is on RA sob better has occ cough not on home 02 Vitals Vital Signs Date Time Temp Pulse Resp B/P (MAP) Pulse Ox O2 Delivery O2 Flow Rate FiO2 01/20/21 03:19 98.2 74 16 128/79 (95) 92 Nasal Cannula 3.0 98.2 ROS: No Nausea, No Chest Pain, No Abdominal Pain, No Increase Cough General: Alert, Oriented X4, No acute distress Lungs: Crackles, Other (dull at bases ) Cardiovascular: S1, S2 Abdomen: Soft Neuro Exam: Alert, Oriented Extremities: Other Skin: Warm, Dry Labs Laboratory Tests Test 01/18/21 09:57 01/18/21 11:12 01/18/21 17:27 01/18/21 20:16 Glucose (Fingerstick) 148 mg/dL (70-99) 131 mg/dL (70-99) 81 mg/dL (70-99) 140 mg/dL (70-99) Test 01/19/21 07:15 01/19/21 07:30 01/19/21 08:02 01/19/21 17:11 White Blood Count 10.9 x10^3/uL (4.0-11.0) Red Blood Count 3.63 x10^6/uL (4.30-5.70) Hemoglobin 10.4 g/dL (13.0-17.5) Hematocrit 32.0 % (39.0-53.0) Mean Corpuscular Volume 88 fL (79-100) Mean Corpuscular Hemoglobin 29 pg (25-35) Mean Corpuscular Hemoglobin Concent 32 g/dL (31-37) Red Cell Distribution Width 15.6 % (11.5-14.5) Platelet Count 262 x10^3/uL (140-400) Neutrophils (%) (Auto) 68 % (31-73) Lymphocytes (%) (Auto) 18 % (24-48) Monocytes (%) (Auto) 12 % (0-9) Eosinophils (%) (Auto) 2 % (0-3) Basophils (%) (Auto) 1 % (0-3) Neutrophils # (Auto) 7.4 x10^3/uL (1.8-7.7) Lymphocytes # (Auto) 1.9 x10^3/uL (1.0-4.8) Monocytes # (Auto) 1.3 x10^3/uL (0.0-1.1) Eosinophils # (Auto) 0.2 x10^3/uL (0.0-0.7) Basophils # (Auto) 0.1 x10^3/uL (0.0-0.2) Prothrombin Time 18.4 SEC (11.7-14.0) Prothromb Time International Ratio 1.6 (0.8-1.1) Sodium Level 139 mmol/L (136-145) Potassium Level 4.2 mmol/L (3.5-5.1) Chloride Level 100 mmol/L (98-107) Carbon Dioxide Level 29 mmol/L (21-32) Anion Gap 10 (6-14) Blood Urea Nitrogen 31 mg/dL (8-26) Creatinine 3.1 mg/dL (0.7-1.3) Estimated GFR (Cockcroft-Gault) 19.5 Glucose Level 50 mg/dL (70-99) Calcium Level 8.9 mg/dL (8.5-10.1) Glucose (Fingerstick) 68 mg/dL (70-99) 132 mg/dL (70-99) Test 01/19/21 20:21 01/20/21 07:48 Glucose (Fingerstick) 205 mg/dL (70-99) 150 mg/dL (70-99) Laboratory Tests Test 01/19/21 17:11 01/19/21 20:21 01/20/21 07:48 Glucose (Fingerstick) 132 mg/dL (70-99) 205 mg/dL (70-99) 150 mg/dL (70-99) Medications Active Scripts Medications Dose Route/Sig Max Daily Dose Days Date Category Dose Instructions Metoprolol Succinate ( Xl ) (Metoprolol Succinate) 25 Mg Tab.er.24h 25 Mg PO DAILY 01/16/21 Reported Amiodarone Hcl 200 Mg Tablet 200 Mg PO DAILY 30 12/17/20 Rx Warfarin Sodium 4 Mg Tablet 6 Mg PO DAILY 11/19/20 Reported Mirtazapine 7.5 Mg Tablet 1 Tab PO QHS 30 11/19/20 Reported Acetaminophen-Cod #3 Tablet (Acetaminophen/Codeine Phosphate) 1 Each Tablet 1 Tab PO PRN Q6HRS PRN 6 10/23/20 Rx Norvasc (Amlodipine Besylate) 10 Mg Tablet 10 Mg PO DAILY 05/09/16 Reported last dose given: date 10/23/20 time 0857 next dose due: date 10/24/20 time 09 Doxazosin Mesylate 4 Mg Tablet 1 Tab PO DAILY 05/08/16 Reported not given while patient was here next dose due: date 10/24/20 time 0900 Super B Complex (Vitamin B Complex & Vit C No.4) 150 Mg Tablet 150 Mg PO DAILY 05/08/16 Reported not given while patient was here next dose due: date 10/24/20 time 0900 Vitamin C (Ascorbic Acid) 1,000 Mg Tablet 1,000 Mg PO DAILY 05/08/16 Reported not given while here next dose due: date 10/24/20 time 0900 Impression . IMPRESSION: 1. Abnormal CT revealing bilateral effusions related to his underlying renal failure, suspect effusions are transudative in nature. 2. Progressive dyspnea, multifactorial secondary to [id number] systolic heart failure, increase in effusion. 3. Chronic kidney disease, currently on hemodialysis. 4. Cardiomyopathy, ejection fraction 45%. 5. Pleural fluid cytology analysis was negative for malignant cells dated 12/18/2020. 6. obesity ? [place] CT CHEST Impression: Bilateral pleural effusions large on the right and mild on the left with adjacent infiltrates. No change. Plan . Updated 01/19 02 titration to keep sat 90% thoracentesis on right side on thursday by IR Coumadin on hold for procedure inr coming down Follow Cardiology recs -- EF 45% 10/25 6 min walk prior to DC PT/OT DVT/GI PPX sleep study as out pt discussed w RANDAL Rojas MD Jan 20, 2021 08:11
[2021-01-20] MEDS: AMIODARONE HCL 200 MG TABLET. PO SCH (08:52)
[2021-01-20] MEDS: metOLazone 2.5 MG TABLET PO SCH (08:52)
[2021-01-20] MEDS: amLODIPine BESYLATE 10 MG TABLET PO SCH (08:52)
[2021-01-20] MEDS: MULTIVITAMIN with MINERAL TABLET. PO SCH (08:52)
[2021-01-20] MEDS: DOXAZOSIN MESYLATE 4 MG TABLET. PO SCH (08:53)
[2021-01-20] MEDS: METOPROLOL SUCC 24HR ER 25 MG TAB.ER.24H. PO SCH ×2 (08:53→20:49)
[2021-01-20] MEDS: FOLIC/VIT B COMP W-C (RENAL) TABLET. PO SCH (08:54)
[2021-01-20 11:00] VITALS: BP 117/67
--- NOTE | 2021-01-20 11:17 | PDOC ---
PROGRESS NOTES Date of Service: DATE: 01/20/21 TIME: 11:17 Chief Complaint Chief Complaint There is a large right effusion and mild left effusion with adjacent infiltrates. The ascending aorta is mildly dilated measuring 4.2 cm in diameter however this was seen previously. There is no mediastinal or hilar lymphadenopathy. There is multiple renal cysts bilaterally. Impression: Bilateral pleural effusions large on the right and mild on the left with adjacent infiltrates. No change. VTE Prophylaxis Ordered VTE Prophylaxis Devices: No VTE Pharmacological Prophylaxi: Yes Assessment/Plan Assessment/Plan Acute respiratory failure with hypoxia Acute CHF exacerbation Cardiomyopathy, fluid overload, pleural effusions Elevated troponins, MILD , TRENDING Hypokalemia ELIZABETH due to cardiorenal syndrome Subtherapeutic INR Moderate malnutrition RECENT Ejection Fraction is 45%. Physical deconditioning Bilateral pleural effusions large on the right and mild on the left with adjacent infiltrates. No change. Right sided ultrasound-guided thoracentesis 12-14-20 / suspect effusions are transudative in nature. Plan:======== cvc bed Consult placed to cardiology; will continue diuresis with monitoring of kidney function Will consult nephrology for recommendations regarding acute on chronic kidney failure, DIALYSIS 4- X 1 Reportedly on warfarin for A. fib due to cost; will continue warfarin per pharmacy. Significant questions about his medication compliance Resume home medications; Avoid nephrotoxins PT/OT FEN - Cardiac diet PPX - Warfarin FULL CODE Dispo - inpatient for above; patient names his as surrogate decision-maker. PULM CONSULT Ultrasound and fluoroscopic guided placement of a right internal jugular temporary hemodialysis catheter HD AGAIN TODAY 01-17 cr 3.1 01-17 Coumadin on hold for procedure inr coming down Follow Cardiology recs -- EF 45% 10/25 6 min walk prior to DC Permacath ordered for 01-20 await chair time CR 3.0 d/w RN Permacath ordered for 01-21 DVT/GI PPX sleep study as out pt BMP IN AM 01-19 await chair time CR 3.1 d/w RN 01-18 await chair time CR 3.1 d/w RN Justifications for Admission Justifications for Admission Other Justification History of Present Illness History of Present Illness Identification/Chief Complaint Chief Complaint Shortness of breath Source Source: Chart review, Patient History of Present Illness History of Present Illness Patient 80-year-old male with past medical history CHF, CKD, who presents to the ER with complaints of chest pain. Symptoms began approximately 3 hours prior to arrival to ED. Reports substernal chest pain, 7/10, with associated shortness of breath. Shortness of breath is aggravated by physical exertion and laying flat. Last admission showed BNP 3603, troponins elevated but stable 0.106, with repeat 0.093. CT chest on admission showed bilateral pleural effusions, right greater than left with adjacent infiltrates. Will admit patient for further medical management. Past Medical History Cardiovascular: CHF, HTN, Hyperlipidemia Pulmonary: No pertinent hx, Bronchitis CENTRAL NERVOUS SYSTEM: Other GI: No pertinent hx Heme/Onc: No pertinent hx Hepatobiliary: Cholelithiasis Psych: No pertinent hx Rheumatologic: No pertinent hx Infectious disease: No pertinent hx Renal/: Chronic renal failure Endocrine: Diabetes Past Surgical History Past Surgical History: Cholecystectomy, Other Family History Family History: No Significant, High Cholestrol, Hypertension Social History Smoke: No ALCOHOL: none Drugs: None Current Problem List Problem List Problems Medical Problems: (1) Acute exacerbation of CHF (congestive heart failure) Status: Acute Current Medications Current Medications Current Medications Aspirin (Aspirin Chewable) 162 mg 1X ONCE PO ; Start 01/16/21 at 02:00; Stop 01/16/21 at 02:01; Status DC Fentanyl Citrate (Fentanyl 2ml Vial) 50 mcg 1X ONCE IVP Last administered on 01/16/21at 02:30; Start 01/16/21 at 02:30; Stop 01/16/21 at 02:31; Status DC Furosemide (Lasix) 80 mg 1X ONCE IVP Last administered on 01/16/21at 03:45; Start 01/16/21 at 03:45; Stop 01/16/21 at 04:03; Status DC Furosemide (Lasix) 100 mg STK-MED ONCE .ROUTE ; Start 01/16/21 at 03:53; Stop 01/16/21 at 03:53; Status DC Nitroglycerin (Nitrostat) 0.4 mg PRN Q5MIN PRN SL CHEST PAIN; Start 01/16/21 at 04:45; Stop 01/17/21 at 04:44 Potassium Chloride (Klor-Con) 40 meq 1X ONCE PO Last administered on 01/16/21at 05:00; Start 01/16/21 at 05:00; Stop 01/16/21 at 05:01; Status DC Fentanyl Citrate (Fentanyl 2ml Vial) 50 mcg 1X ONCE IVP Last administered on 01/16/21at 05:45; Start 01/16/21 at 05:45; Stop 01/16/21 at 05:47; Status DC Fentanyl Citrate (Fentanyl 2ml Vial) 25 mcg PRN Q15MIN PRN IV PAIN GREATER THAN 3/10 Last administered on 01/16/21at 08:15; Start 01/16/21 at 07:45; Stop 01/17/21 at 07:44 Active Scripts Active Amox Tr-K Clv 250-125 Mg Tab (Amoxicillin/Potassium Clav) 1 Each Tablet 1 Tab PO BID 5 Days Amiodarone Hcl 200 Mg Tablet 200 Mg PO DAILY 30 Days Acetaminophen-Cod #3 Tablet (Acetaminophen/Codeine Phosphate) 1 Each Tablet 1 Tab PO PRN Q6HRS PRN 6 Days Reported Warfarin Sodium 4 Mg Tablet 4 Mg PO DAILY Mirtazapine 7.5 Mg Tablet 1 Tab PO QHS 30 Days Furosemide 40 Mg Tablet 1 Tab PO DAILY Norvasc (Amlodipine Besylate) 10 Mg Tablet 10 Mg PO DAILY last dose given: date 10/23/20 time 0857 next dose due: date 10/24/20 time 0900 Doxazosin Mesylate 4 Mg Tablet 1 Tab PO DAILY not given while patient was here next dose due: date 10/24/20 time 0900 Metoprolol Tartrate 50 Mg Tablet 1 Tab PO BID last dose given: date 10/23/20 time 0856 next dose due: 10/24/20 timr 0900 Super B Complex (Vitamin B Complex & Vit C No.4) 150 Mg Tablet 150 Mg PO DAILY not given while patient was here next dose due: date 10/24/20 time 0900 Gemfibrozil 600 Mg Tablet 1 Tab PO BID not given while patient was here next dose due: date 10/23/20 time 2100 Vitamin C (Ascorbic Acid) 1,000 Mg Tablet 1,000 Mg PO DAILY not given while here next dose due: date 10/24/20 time 0900 Allergies Allergies: Coded Allergies: lisinopril (Verified Allergy, Severe, SWELLING OF TONGUE AND THROAT, 05/08/16) ROS Review of System GENERAL: No history of weight change, weakness or fevers. SKIN: No bruising, hair changes or rashes. EYES: No blurred, double or loss of vision. NOSE AND THROAT: No history of nosebleeds, hoarseness or sore throat. HEART: Chest pain. Denies palpitations LUNGS: Shortness of breath. Denies cough, hemoptysis, wheezing. GASTROINTESTINAL: Denies nausea, vomiting, abdominal pain. GENITOURINARY: Denies dysuria, frequency, urgency, hematuria. NEUROLOGIC: Denies history of numbness, tingling, tremor or weakness. PSYCHIATRIC: Denies anxiety, denies depression. ENDOCRINE: No history of heat or cold intolerance, polyuria or polydipsia. EXTREMITIES: Denies muscle weakness, joint pain, pain on walking or stiffness. 4-15 dialysis again today cr 3.1 D/W RN troponins elevated but stable 0.106, with repeat 0.093. CT chest on admission showed bilateral pleural effusions, right greater than left with adjacent infiltrates The Ejection Fraction is 45%. RECENT ECHO DVT/GI PPX sleep study as out pt Vitals Vitals Vital Signs Date Time Temp Pulse Resp B/P (MAP) Pulse Ox O2 Delivery O2 Flow Rate FiO2 01/20/21 08:53 69 138/74 01/20/21 08:00 Room Air 01/20/21 07:00 98.4 16 94 3.0 98.4 Physical Exam Physical Exam Physical Exam Physical Exam General: Alert, Oriented X3, Cooperative, No acute distress HEENT: PERRLA, EOMI Lungs: Faint crackles, distant breath sounds. Normal air movement Heart: RRR, no murmurs Cardiovascular: S1, S2 Abdomen: Normal bowel sounds, Soft, No tenderness Extremities: 2+ pitting edema bilaterally. No clubbing, No cyanosis Skin: No rashes, No significant lesion Neuro: Normal speech, Normal tone, Sensation intact Psych/Mental Status: Mental status NL, Mood NL General: Alert, Oriented X3, Cooperative, No acute distress Heart: Regular rate, Normal S1, No murmurs, Other Lungs: Clear Abdomen: Normal bowel sounds, Soft, No tenderness Extremities: No clubbing, No cyanosis, Other Skin: No significant lesion Labs LABS PATIENT: ALVARO CONSTANTINO DACCOUNT: [id number] : 1940 LOCATION: ER AGE: 80 SEX: M EXAM STATUS: REG ER ORD. PHYSICIAN: RAMILA POWER DO REASON: chest pain that radiates to mid back;ER DR ONLY WANTS CHEST/ABD PROCEDURE: CT CHEST ABDOMEN WO CONTRAST CT of the chest without contrast: Clinical History: Reason: chest pain that radiates to mid back;ER DR ONLY WANTS CHEST/ABD / Spl. Instructions: / History: . Axial helical images of the chest were obtained without contrast. COMPARISON: November 1620 FINDINGS: There is a large right effusion and mild left effusion with adjacent infiltrates. The ascending aorta is mildly dilated measuring 4.2 cm in diameter however this was seen previously. There is no mediastinal or hilar lymphadenopathy. There is multiple renal cysts bilaterally. Impression: Bilateral pleural effusions large on the right and mild on the left with adjacent infiltrates. No change. End impression PQRS Compliance Statement: One or more of the following individualized dose reduction techniques were utilized for this examination: 1. Automated exposure control 2. Adjustment of the mA and/or kV according to patient size 3. Use of iterative reconstruction technique Electronically signed by: Artur Benedict III, MD (01/16/2021 2:46 AM) [facility] DICTATED and SIGNED BY: ARTUR BENEDICT III, MD DATE: 01/16/21 [id number] Laboratory Tests Test 01/19/21 17:11 01/19/21 20:21 01/20/21 07:48 Glucose (Fingerstick) 132 mg/dL (70-99) 205 mg/dL (70-99) 150 mg/dL (70-99) Assessment and Plan Assessmemt and Plan Problems Medical Problems: (1) Acute exacerbation of CHF (congestive heart failure) Status: Acute Comment Review of Relevant I have reviewed the following items cortes (where applicable) has been applied. Labs Laboratory Tests Test 01/18/21 17:27 01/18/21 20:16 01/19/21 07:15 01/19/21 07:30 Glucose (Fingerstick) 81 mg/dL (70-99) 140 mg/dL (70-99) White Blood Count 10.9 x10^3/uL (4.0-11.0) Red Blood Count 3.63 x10^6/uL (4.30-5.70) Hemoglobin 10.4 g/dL (13.0-17.5) Hematocrit 32.0 % (39.0-53.0) Mean Corpuscular Volume 88 fL (79-100) Mean Corpuscular Hemoglobin 29 pg (25-35) Mean Corpuscular Hemoglobin Concent 32 g/dL (31-37) Red Cell Distribution Width 15.6 % (11.5-14.5) Platelet Count 262 x10^3/uL (140-400) Neutrophils (%) (Auto) 68 % (31-73) Lymphocytes (%) (Auto) 18 % (24-48) Monocytes (%) (Auto) 12 % (0-9) Eosinophils (%) (Auto) 2 % (0-3) Basophils (%) (Auto) 1 % (0-3) Neutrophils # (Auto) 7.4 x10^3/uL (1.8-7.7) Lymphocytes # (Auto) 1.9 x10^3/uL (1.0-4.8) Monocytes # (Auto) 1.3 x10^3/uL (0.0-1.1) Eosinophils # (Auto) 0.2 x10^3/uL (0.0-0.7) Basophils # (Auto) 0.1 x10^3/uL (0.0-0.2) Prothrombin Time 18.4 SEC (11.7-14.0) Prothromb Time International Ratio 1.6 (0.8-1.1) Sodium Level 139 mmol/L (136-145) Potassium Level 4.2 mmol/L (3.5-5.1) Chloride Level 100 mmol/L (98-107) Carbon Dioxide Level 29 mmol/L (21-32) Anion Gap 10 (6-14) Blood Urea Nitrogen 31 mg/dL (8-26) Creatinine 3.1 mg/dL (0.7-1.3) Estimated GFR (Cockcroft-Gault) 19.5 Glucose Level 50 mg/dL (70-99) Calcium Level 8.9 mg/dL (8.5-10.1) Test 01/19/21 08:02 01/19/21 17:11 01/19/21 20:21 01/20/21 07:48 Glucose (Fingerstick) 68 mg/dL (70-99) 132 mg/dL (70-99) 205 mg/dL (70-99) 150 mg/dL (70-99) Laboratory Tests Test 01/19/21 17:11 01/19/21 20:21 01/20/21 07:48 Glucose (Fingerstick) 132 mg/dL (70-99) 205 mg/dL (70-99) 150 mg/dL (70-99) Medications Current Medications Aspirin (Aspirin Chewable) 162 mg 1X ONCE PO ; Start 01/16/21 at 02:00; Stop 01/16/21 at 02:01; Status DC Fentanyl Citrate (Fentanyl 2ml Vial) 50 mcg 1X ONCE IVP Last administered on 01/16/21at 02:30; Start 01/16/21 at 02:30; Stop 01/16/21 at 02:31; Status DC Furosemide (Lasix) 80 mg 1X ONCE IVP Last administered on 01/16/21at 03:45; Start 01/16/21 at 03:45; Stop 01/16/21 at 04:03; Status DC Furosemide (Lasix) 100 mg STK-MED ONCE .ROUTE ; Start 01/16/21 at 03:53; Stop 01/16/21 at 03:53; Status DC Nitroglycerin (Nitrostat) 0.4 mg PRN Q5MIN PRN SL CHEST PAIN; Start 01/16/21 at 04:45; Stop 01/17/21 at 04:44; Status DC Potassium Chloride (Klor-Con) 40 meq 1X ONCE PO Last administered on 01/16/21at 05:00; Start 01/16/21 at 05:00; Stop 01/16/21 at 05:01; Status DC Fentanyl Citrate (Fentanyl 2ml Vial) 50 mcg 1X ONCE IVP Last administered on 01/16/21at 05:45; Start 01/16/21 at 05:45; Stop 01/16/21 at 05:47; Status DC Fentanyl Citrate (Fentanyl 2ml Vial) 25 mcg PRN Q15MIN PRN IV PAIN GREATER THAN 3/10 Last administered on 01/16/21at 08:15; Start 01/16/21 at 07:45; Stop 01/17/21 at 07:44; Status DC Warfarin Sodium (Coumadin Per Pharmacy) 1 each PRN DAILY PRN MC SEE COMMENTS Last administered on 01/17/21at 15:27; Start 01/16/21 at 09:30; Stop 01/18/21 at 10:37; Status DC Acetaminophen/ Codeine Phosphate (Tylenol #3) 1 tab PRN Q6HRS PRN PO PAIN Last administered on 01/18/21at 15:15; Start 01/16/21 at 09:30 Amiodarone HCl (Cordarone) 200 mg DAILY PO Last administered on 01/20/21at 08:52; Start 01/16/21 at 11:00 Amlodipine Besylate (Norvasc) 10 mg DAILY PO Last administered on 01/20/21at 08:52; Start 01/16/21 at 11:00 Doxazosin Mesylate (Cardura) 4 mg DAILY PO Last administered on 01/20/21at 08:53; Start 01/16/21 at 11:00 Metoprolol Tartrate (Lopressor) 50 mg BID PO Last administered on 01/16/21at 20:51; Start 01/16/21 at 11:00; Stop 01/16/21 at 22:15; Status DC Warfarin Sodium (Coumadin) 4 mg DAILY16 PO Last administered on 01/16/21at 20:51; Start 01/16/21 at 16:00; Stop 01/17/21 at 15:30; Status DC Ondansetron HCl (Zofran) 4 mg PRN Q6HRS PRN IVP NAUSEA/VOMITING Last administered on 01/17/21at 01:46; Start 01/16/21 at 09:45 Al Hydroxide/Mg Hydroxide (Mylanta Plus Xs) 30 ml PRN Q3HRS PRN PO HEARTBURN / GAS; Start 01/16/21 at 09:45 Calcium Carbonate/ Glycine (Tums) 500 mg PRN Q3HRS PRN PO UPSET STOMACH; Start 01/16/21 at 09:45 Morphine Sulfate (Morphine Sulfate) 2 mg PRN Q1HR PRN IV PAIN; Start 01/16/21 at 09:45 Acetaminophen (Tylenol) 650 mg PRN Q6HRS PRN PO Headaches, Temp > 101.5F Last administered on 01/17/21at 00:00; Start 01/16/21 at 09:45 Magnesium Hydroxide (Milk Of Magnesia) 2,400 mg PRN Q12HR PRN PO CONSTIPATION; Start 01/16/21 at 09:45 Bisacodyl (Dulcolax Supp) 10 mg PRN DAILY PRN AL CONSTIPATION; Start 01/16/21 at 09:45 Metolazone (Zaroxolyn) 5 mg DAILY PO Last administered on 01/20/21at 08:52; Start 01/16/21 at 11:00 Bumetanide (Bumex) 2.5 mg DAILY05 IV Last administered on 01/20/21at 05:00; Start 01/17/21 at 05:00 Glimepiride (Amaryl) 4 mg DAILY PO Last administered on 01/18/21at 08:34; Start 01/16/21 at 11:00; Stop 01/19/21 at 15:20; Status DC Multivitamins (Thera M Plus) 1 tab DAILY PO Last administered on 01/20/21at 08:52; Start 01/16/21 at 11:00 Vitamin B Complex/ Vitamin C (Charla-Jose R) 1 tab DAILY PO Last administered on 01/20/21at 08:54; Start 01/17/21 at 09:00 Lidocaine HCl (Buffered Lidocaine 1%) 3 ml STK-MED ONCE .ROUTE ; Start 01/16/21 at 13:58; Stop 01/16/21 at 13:59; Status DC Lidocaine HCl (Buffered Lidocaine 1%) 4 ml 1X ONCE INJ Last administered on 01/16/21at 14:23; Start 01/16/21 at 14:15; Stop 01/16/21 at 14:16; Status DC Sodium Chloride 1,000 ml @ 1,000 mls/hr Q1H PRN IV hypotension; Start 01/16/21 at 15:45; Stop 01/16/21 at 21:44; Status DC Diphenhydramine HCl (Benadryl) 25 mg 1X PRN PRN IV ITCHING; Start 01/16/21 at 15:45; Stop 01/17/21 at 15:44; Status DC Diphenhydramine HCl (Benadryl) 25 mg 1X PRN PRN IV ITCHING; Start 01/16/21 at 15:45; Stop 01/17/21 at 15:44; Status DC Sodium Chloride 1,000 ml @ 400 mls/hr Q2H30M PRN IV PATENCY; Start 01/16/21 at 15:45; Stop 01/17/21 at 03:44; Status DC Info (PHARMACY MONITORING -- do not chart) 1 each PRN DAILY PRN MC SEE COMMENTS; Start 01/16/21 at 15:45; Status Cancel Metoprolol Succinate (Toprol Xl) 25 mg BID PO Last administered on 01/20/21at 08:53; Start 01/17/21 at 09:00 Sodium Chloride 1,000 ml @ 1,000 mls/hr Q1H PRN IV hypotension; Start 01/17/21 at 07:45; Stop 01/17/21 at 13:44; Status DC Albumin Human 200 ml @ 200 mls/hr 1X PRN PRN IV Hypotension; Start 01/17/21 at 07:45; Stop 01/17/21 at 13:44; Status DC Sodium Chloride (Normal Saline Flush) 10 ml 1X PRN PRN IV AP catheter pack; Start 01/17/21 at 07:45; Stop 01/18/21 at 07:44; Status DC Sodium Chloride (Normal Saline Flush) 10 ml 1X PRN PRN IV RESIDENT CARE PROVIDER catheter pack; Start 01/17/21 at 07:45; Stop 01/18/21 at 07:44; Status DC Sodium Chloride 1,000 ml @ 400 mls/hr Q2H30M PRN IV PATENCY; Start 01/17/21 at 07:45; Stop 01/17/21 at 19:44; Status DC Info (PHARMACY MONITORING -- do not chart) 1 each PRN DAILY PRN MC SEE C OMDAE; Start 01/17/21 at 07:45; Status UNV Info (PHARMACY MONITORING -- do not chart) 1 each PRN DAILY PRN MC SEE COMMENTS; Start 01/17/21 at 07:45 Iron Sucrose 500 mg/Sodium Chloride 275 ml @ 78.571 mls/ hr 1X ONCE IV ; Start 01/17/21 at 11:30; Stop 01/17/21 at 14:59; Status Cancel Darbepoetin Ortega (ARANESP for DIALYSIS PTS) 60 mcg Th SQ Last administered on 01/17/21at 20:44; Start 01/17/21 at 21:00 Iron Sucrose 500 mg/Sodium Chloride 275 ml @ 78.571 mls/ hr 1X ONCE IV Last administered on 01/17/21at 13:53; Start 01/17/21 at 14:00; Stop 01/17/21 at 17:29; Status DC Insulin Human Lispro (HumaLOG) 0-5 UNITS TIDWMEALS SQ ; Start 01/17/21 at 17:00 Dextrose (Dextrose 50%-Water Syringe) 12.5 gm PRN Q15MIN PRN IV SEE COMMENTS; Start 01/17/21 at 12:45; Status UNV Dextrose (Dextrose 50%-Water Syringe) 12.5 gm PRN Q15MIN PRN IV SEE COMMENTS; Start 01/17/21 at 12:45 Sodium Chloride 1,000 ml @ 1,000 mls/hr Q1H PRN IV hypotension; Start 01/18/21 at 11:45; Stop 01/18/21 at 17:44; Status DC Albumin Human 200 ml @ 200 mls/hr 1X PRN PRN IV Hypotension; Start 01/18/21 at 11:45; Stop 01/18/21 at 17:44; Status DC Diphenhydramine HCl (Benadryl) 25 mg 1X PRN PRN IV ITCHING; Start 01/18/21 at 11:45; Stop 01/19/21 at 11:44; Status DC Sodium Chloride 1,000 ml @ 400 mls/hr Q2H30M PRN IV PATENCY; Start 01/18/21 at 11:45; Stop 01/18/21 at 23:44; Status DC Info (PHARMACY MONITORING -- do not chart) 1 each PRN DAILY PRN MC SEE COMMENTS; Start 01/18/21 at 11:45; Status UNV Info (PHARMACY MONITORING -- do not chart) 1 each PRN DAILY PRN MC SEE COMMENTS; Start 01/18/21 at 11:45 Sodium Chloride 1,000 ml @ 1,000 mls/hr Q1H PRN IV hypotension; Start 01/19/21 at 10:00; Stop 01/19/21 at 15:59; Status DC Albumin Human 200 ml @ 200 mls/hr 1X PRN PRN IV Hypotension Last administered on 01/19/21at 15:32; Start 01/19/21 at 10:00; Stop 01/19/21 at 15:59; Status DC Sodium Chloride 1,000 ml @ 400 mls/hr Q2H30M PRN IV PATENCY; Start 01/19/21 at 10:00; Stop 01/19/21 at 21:59; Status DC Info (PHARMACY MONITORING -- do not chart) 1 each PRN DAILY PRN MC SEE COMMENTS; Start 01/19/21 at 10:00 Info (PHARMACY MONITORING -- do not chart) 1 each PRN DAILY PRN MC SEE COMMENTS; Start 01/19/21 at 10:00; Status UNV Active Scripts Active Amiodarone Hcl 200 Mg Tablet 200 Mg PO DAILY 30 Days Acetaminophen-Cod #3 Tablet (Acetaminophen/Codeine Phosphate) 1 Each Tablet 1 Tab PO PRN Q6HRS PRN 6 Days Reported Metoprolol Succinate ( Xl ) (Metoprolol Succinate) 25 Mg Tab.er.24h 25 Mg PO DAILY Warfarin Sodium 4 Mg Tablet 6 Mg PO DAILY Mirtazapine 7.5 Mg Tablet 1 Tab PO QHS 30 Days Norvasc (Amlodipine Besylate) 10 Mg Tablet 10 Mg PO DAILY last dose given: date 10/23/20 time 0857 next dose due: date 10/24/20 time 0900 Doxazosin Mesylate 4 Mg Tablet 1 Tab PO DAILY not given while patient was here next dose due: date 10/24/20 time 0900 Super B Complex (Vitamin B Complex & Vit C No.4) 150 Mg Tablet 150 Mg PO DAILY not given while patient was here next dose due: date 10/24/20 time 0900 Vitamin C (Ascorbic Acid) 1,000 Mg Tablet 1,000 Mg PO DAILY not given while here next dose due: date 10/24/20 time 0900 Vitals/I & O Vital Sign - Last 24 Hours 01/19/21 01/19/21 01/19/21 01/19/21 11:43 19:19 20:00 21:52 Temp 98.2 98.0 98.2 98.0 Pulse 63 69 69 Resp 22 18 B/P (MAP) 123/66 (85) 140/74 (96) 140/74 Pulse Ox 90 91 O2 Delivery Nasal Cannula Nasal Cannula Room Air O2 Flow Rate 3.0 3.0 01/19/21 01/20/21 01/20/21 01/20/21 22:55 03:19 07:00 08:00 Temp 98.2 98.2 98.4 98.2 98.2 98.4 Pulse 66 74 75 Resp 16 16 16 B/P (MAP) 129/73 (91) 128/79 (95) 138/74 (95) Pulse Ox 90 92 94 O2 Delivery Nasal Cannula Nasal Cannula Nasal Cannula Room Air O2 Flow Rate 3.0 3.0 3.0 01/20/21 01/20/21 01/20/21 01/20/21 08:52 08:52 08:53 08:53 Pulse 69 69 69 69 B/P (MAP) 138/74 138/74 138/74 138/74 Intake and Output 0 01/19/21 01/19/21 01/20/21 15:00 23:00 07:00 Intake Total 240 ml 200 ml 150 ml Output Total 250 ml 100 ml Balance 240 ml -50 ml 50 ml Justicifation of Admission Dx: Justifications for Admission: Justification of Admission Dx: Yes ALLISON DAVISON MD Jan 20, 2021 11:17
[2021-01-20 12:49] LABS: CALCIUM 9.4 mg/dL (8.5-10.1); GFR 20.3; POTASSIUM 4.2 mmol/L (3.5-5.1)
[2021-01-20 12:55] LABS: BASO # 0.1 x10^3/uL (0.0-0.2); BASO % 1 % (0-3); EOS # 0.1 x10^3/uL (0.0-0.7); EOS % 1 % (0-3); HEMATOCRIT 31.4 % (39.0-53.0); HEMOGLOBIN 10.5 g/dL (13.0-17.5); LYMPH # 1.5 x10^3/uL (1.0-4.8); LYMPH % 15 % (24-48); MEAN CORPUSCULAR HEMOGLOBIN 29 pg (25-35); MEAN CORPUSCULAR HGB CONC 34 g/dL (31-37); MEAN CORPUSCULAR VOLUME 87 fL (79-100); MONO # 1.1 x10^3/uL (0.0-1.1); MONO % 11 % (0-9); NEUT # 7.4 x10^3/uL (1.8-7.7); NEUT % 73 % (31-73); PLATELET COUNT 215 x10^3/uL (140-400); RED BLOOD COUNT 3.62 x10^6/uL (4.30-5.70); RED CELL DISTRIBUTION WIDTH 15.1 % (11.5-14.5); WHITE BLOOD COUNT 10.2 x10^3/uL (4.0-11.0)
[2021-01-20 13:07] LABS: PROTHROMBIN TIME PATIENT 17.9 SEC (11.7-14.0)
[2021-01-20 15:00] VITALS: BP 119/72
[2021-01-20 18:48] VITALS: BP 128/68
[2021-01-20 23:59] VITALS: BP 125/72
[2021-01-21] VITALS (16 sets, daily range): BP systolic 112–151; BP diastolic 63–87
[2021-01-21] MEDS: BUMETANIDE 2.5 MG/10 ML VIAL. IV SCH (05:32)
[2021-01-21 07:47] LABS: BASO # 0.1 x10^3/uL (0.0-0.2); BASO % 1 % (0-3); EOS # 0.2 x10^3/uL (0.0-0.7); EOS % 2 % (0-3); HEMATOCRIT 30.3 % (39.0-53.0); HEMOGLOBIN 10.1 g/dL (13.0-17.5); LYMPH # 1.9 x10^3/uL (1.0-4.8); LYMPH % 19 % (24-48); MEAN CORPUSCULAR HEMOGLOBIN 29 pg (25-35); MEAN CORPUSCULAR HGB CONC 33 g/dL (31-37); MEAN CORPUSCULAR VOLUME 87 fL (79-100); MONO # 1.1 x10^3/uL (0.0-1.1); MONO % 11 % (0-9); NEUT # 6.8 x10^3/uL (1.8-7.7); NEUT % 68 % (31-73); PLATELET COUNT 222 x10^3/uL (140-400); WHITE BLOOD COUNT 10.1 x10^3/uL (4.0-11.0)
[2021-01-21 07:51] LABS: CALCIUM 9.3 mg/dL (8.5-10.1); CREATININE 3.4 mg/dL (0.7-1.3); GFR 17.6; POTASSIUM 4.2 mmol/L (3.5-5.1)
[2021-01-21] MEDS: INSULIN LISPRO 300 UNITS/3 ML VIAL. SQ SCH ×3 (08:00→21:54)
--- NOTE | 2021-01-21 08:32 | PDOC ---
PULMONARY PROGRESS NOTES DATE: 01/21/21 TIME: 08:32 Subjective Patient not more short of air. Vitals Vital Signs Date Time Temp Pulse Resp B/P (MAP) Pulse Ox O2 Delivery O2 Flow Rate FiO2 01/21/21 07:55 97.9 68 18 139/79 (99) 95 Nasal Cannula 3.0 97.9 ROS: No Nausea, No Chest Pain, No Abdominal Pain, No Increase Cough General: Alert, Oriented X4, No acute distress Lungs: Crackles, Other (dull at bases ) Cardiovascular: S1, S2 Abdomen: Soft Neuro Exam: Alert, Oriented Extremities: Other Skin: Warm, Dry Labs Laboratory Tests Test 01/19/21 17:11 01/19/21 20:21 01/20/21 07:48 01/20/21 11:41 Glucose (Fingerstick) 132 mg/dL (70-99) 205 mg/dL (70-99) 150 mg/dL (70-99) 168 mg/dL (70-99) Test 01/20/21 12:20 01/20/21 16:49 01/20/21 20:34 01/21/21 05:00 White Blood Count 10.2 x10^3/uL (4.0-11.0) 10.1 x10^3/uL (4.0-11.0) Red Blood Count 3.62 x10^6/uL (4.30-5.70) 3.50 x10^6/uL (4.30-5.70) Hemoglobin 10.5 g/dL (13.0-17.5) 10.1 g/dL (13.0-17.5) Hematocrit 31.4 % (39.0-53.0) 30.3 % (39.0-53.0) Mean Corpuscular Volume 87 fL (79-100) 87 fL (79-100) Mean Corpuscular Hemoglobin 29 pg (25-35) 29 pg (25-35) Mean Corpuscular Hemoglobin Concent 34 g/dL (31-37) 33 g/dL (31-37) Red Cell Distribution Width 15.1 % (11.5-14.5) 15.0 % (11.5-14.5) Platelet Count 215 x10^3/uL (140-400) 222 x10^3/uL (140-400) Neutrophils (%) (Auto) 73 % (31-73) 68 % (31-73) Lymphocytes (%) (Auto) 15 % (24-48) 19 % (24-48) Monocytes (%) (Auto) 11 % (0-9) 11 % (0-9) Eosinophils (%) (Auto) 1 % (0-3) 2 % (0-3) Basophils (%) (Auto) 1 % (0-3) 1 % (0-3) Neutrophils # (Auto) 7.4 x10^3/uL (1.8-7.7) 6.8 x10^3/uL (1.8-7.7) Lymphocytes # (Auto) 1.5 x10^3/uL (1.0-4.8) 1.9 x10^3/uL (1.0-4.8) Monocytes # (Auto) 1.1 x10^3/uL (0.0-1.1) 1.1 x10^3/uL (0.0-1.1) Eosinophils # (Auto) 0.1 x10^3/uL (0.0-0.7) 0.2 x10^3/uL (0.0-0.7) Basophils # (Auto) 0.1 x10^3/uL (0.0-0.2) 0.1 x10^3/uL (0.0-0.2) Prothrombin Time 17.9 SEC (11.7-14.0) Prothromb Time International Ratio 1.5 (0.8-1.1) Sodium Level 138 mmol/L (136-145) 139 mmol/L (136-145) Potassium Level 4.2 mmol/L (3.5-5.1) 4.2 mmol/L (3.5-5.1) Chloride Level 100 mmol/L (98-107) 101 mmol/L (98-107) Carbon Dioxide Level 29 mmol/L (21-32) 27 mmol/L (21-32) Anion Gap 9 (6-14) 11 (6-14) Blood Urea Nitrogen 32 mg/dL (8-26) 41 mg/dL (8-26) Creatinine 3.0 mg/dL (0.7-1.3) 3.4 mg/dL (0.7-1.3) Estimated GFR (Cockcroft-Gault) 20.3 17.6 Glucose Level 156 mg/dL (70-99) 94 mg/dL (70-99) Calcium Level 9.4 mg/dL (8.5-10.1) 9.3 mg/dL (8.5-10.1) Glucose (Fingerstick) 182 mg/dL (70-99) 166 mg/dL (70-99) Test 01/21/21 08:22 Glucose (Fingerstick) 97 mg/dL (70-99) Laboratory Tests Test 01/20/21 11:41 01/20/21 12:20 01/20/21 16:49 01/20/21 20:34 Glucose (Fingerstick) 168 mg/dL (70-99) 182 mg/dL (70-99) 166 mg/dL (70-99) White Blood Count 10.2 x10^3/uL (4.0-11.0) Red Blood Count 3.62 x10^6/uL (4.30-5.70) Hemoglobin 10.5 g/dL (13.0-17.5) Hematocrit 31.4 % (39.0-53.0) Mean Corpuscular Volume 87 fL (79-100) Mean Corpuscular Hemoglobin 29 pg (25-35) Mean Corpuscular Hemoglobin Concent 34 g/dL (31-37) Red Cell Distribution Width 15.1 % (11.5-14.5) Platelet Count 215 x10^3/uL (140-400) Neutrophils (%) (Auto) 73 % (31-73) Lymphocytes (%) (Auto) 15 % (24-48) Monocytes (%) (Auto) 11 % (0-9) Eosinophils (%) (Auto) 1 % (0-3) Basophils (%) (Auto) 1 % (0-3) Neutrophils # (Auto) 7.4 x10^3/uL (1.8-7.7) Lymphocytes # (Auto) 1.5 x10^3/uL (1.0-4.8) Monocytes # (Auto) 1.1 x10^3/uL (0.0-1.1) Eosinophils # (Auto) 0.1 x10^3/uL (0.0-0.7) Basophils # (Auto) 0.1 x10^3/uL (0.0-0.2) Prothrombin Time 17.9 SEC (11.7-14.0) Prothromb Time International Ratio 1.5 (0.8-1.1) Sodium Level 138 mmol/L (136-145) Potassium Level 4.2 mmol/L (3.5-5.1) Chloride Level 100 mmol/L (98-107) Carbon Dioxide Level 29 mmol/L (21-32) Anion Gap 9 (6-14) Blood Urea Nitrogen 32 mg/dL (8-26) Creatinine 3.0 mg/dL (0.7-1.3) Estimated GFR (Cockcroft-Gault) 20.3 Glucose Level 156 mg/dL (70-99) Calcium Level 9.4 mg/dL (8.5-10.1) Test 01/21/21 05:00 01/21/21 08:22 White Blood Count 10.1 x10^3/uL (4.0-11.0) Red Blood Count 3.50 x10^6/uL (4.30-5.70) Hemoglobin 10.1 g/dL (13.0-17.5) Hematocrit 30.3 % (39.0-53.0) Mean Corpuscular Volume 87 fL (79-100) Mean Corpuscular Hemoglobin 29 pg (25-35) Mean Corpuscular Hemoglobin Concent 33 g/dL (31-37) Red Cell Distribution Width 15.0 % (11.5-14.5) Platelet Count 222 x10^3/uL (140-400) Neutrophils (%) (Auto) 68 % (31-73) Lymphocytes (%) (Auto) 19 % (24-48) Monocytes (%) (Auto) 11 % (0-9) Eosinophils (%) (Auto) 2 % (0-3) Basophils (%) (Auto) 1 % (0-3) Neutrophils # (Auto) 6.8 x10^3/uL (1.8-7.7) Lymphocytes # (Auto) 1.9 x10^3/uL (1.0-4.8) Monocytes # (Auto) 1.1 x10^3/uL (0.0-1.1) Eosinophils # (Auto) 0.2 x10^3/uL (0.0-0.7) Basophils # (Auto) 0.1 x10^3/uL (0.0-0.2) Sodium Level 139 mmol/L (136-145) Potassium Level 4.2 mmol/L (3.5-5.1) Chloride Level 101 mmol/L (98-107) Carbon Dioxide Level 27 mmol/L (21-32) Anion Gap 11 (6-14) Blood Urea Nitrogen 41 mg/dL (8-26) Creatinine 3.4 mg/dL (0.7-1.3) Estimated GFR (Cockcroft-Gault) 17.6 Glucose Level 94 mg/dL (70-99) Calcium Level 9.3 mg/dL (8.5-10.1) Glucose (Fingerstick) 97 mg/dL (70-99) Medications Active Scripts Medications Dose Route/Sig Max Daily Dose Days Date Category Dose Instructions Metoprolol Succinate ( Xl ) (Metoprolol Succinate) 25 Mg Tab.er.24h 25 Mg PO DAILY 01/16/21 Reported Amiodarone Hcl 200 Mg Tablet 200 Mg PO DAILY 30 12/17/20 Rx Warfarin Sodium 4 Mg Tablet 6 Mg PO DAILY 11/19/20 Reported Mirtazapine 7.5 Mg Tablet 1 Tab PO QHS 30 11/19/20 Reported Acetaminophen-Cod #3 Tablet (Acetaminophen/Codeine Phosphate) 1 Each Tablet 1 Tab PO PRN Q6HRS PRN 6 10/23/20 Rx Norvasc (Amlodipine Besylate) 10 Mg Tablet 10 Mg PO DAILY 05/09/16 Reported last dose given: date 10/23/20 time 0857 next dose due: 10/24/20 time 0900 Doxazosin Mesylate 4 Mg Tablet 1 Tab PO DAILY 05/08/16 Reported not given while patient was here next dose due: date 10/24/20 time 0900 Super B Complex (Vitamin B Complex & Vit C No.4) 150 Mg Tablet 150 Mg PO DAILY 05/08/16 Reported not given while patient was here next dose due: date 10/24/20 time 0900 Vitamin C (Ascorbic Acid) 1,000 Mg Tablet 1,000 Mg PO DAILY 05/08/16 Reported not given while here next dose due: date 10/24/20 time 0900 Impression . IMPRESSION: 1. Abnormal CT revealing bilateral effusions related to his underlying renal failure, suspect effusions are transudative in nature. 2. Progressive dyspnea, multifactorial secondary to [id number] systolic heart failure, increase in effusion. 3. Chronic kidney disease, currently on hemodialysis. 4. Cardiomyopathy, ejection fraction 45%. 5. Pleural fluid cytology analysis was negative for malignant cells dated 12/18/2020. 6. obesity ? [place] CT CHEST Impression: Bilateral pleural effusions large on the right and mild on the left with adjacent infiltrates. No change. Plan . Updated 01/21, Patient to undergo thoracentesis INR 1.4 Possible outpatient polysomnogram Continue hemodialysis per nephrology 6-minute walk prior to discharge Updated 01/19 02 titration to keep sat 90% thoracentesis on right side on thursday by IR Coumadin on hold for procedure inr coming down Follow Cardiology recs -- EF 45% 10/25 6 min walk prior to DC PT/OT DVT/GI PPX sleep study as out pt discussed w ADAM Whitley MD Jan 21, 2021 08:32
--- NOTE | 2021-01-21 09:32 | PDOC ---
DATE OF SERVICE DATE: 01/21/21 TIME: 09:32 SUBJECTIVE ROS stable, scheduled for Permacath placement OBJECTIVE Vital Signs Vital Signs Date Time Temp Pulse Resp B/P (MAP) Pulse Ox O2 Delivery O2 Flow Rate FiO2 01/21/21 07:55 97.9 68 18 139/79 (99) 95 Nasal Cannula 3.0 97.9 I & 0 Intake and Output 01/21/21 07:00 Intake Total 100 ml Output Total 575 ml Balance -475 ml Intake Oral 100 ml Output Urine Total 575 ml PHYSICAL EXAM Physical Exam GEN: Awake, Oriented x 1 at best , In no distress EYES: Vision Unchanged, Conjunctiva Normal EN: No EN Drainage, Mucous Membranes mosit NECK: no JVD, min JVP, Supple, no Thyromegaly CVS: S1S2, soft Murmur, No Gallop, No Rub,+2 Edema RESP: few basal Rales, no Rhonchi,no Acc. Muscle Use GI: BS + ve, NO Bruit, Non Tender, Non Distended : no CVA tenderness, no Suprapubic Tenderness DIAGNOSIS/ASSESSMENT Assessment & Plan New onset ESRD:Initiated on dialysis , dialysis today , discussed treatment plan with Kenny Access Conversion of Temp HDC to timothy cath today . I will follow him as OP - awaiting chair time Anemia stable, currently on KADI HTN antihypertensive Acute respiratory failure with hypoxia Acute CHF exacerbation Cardiomyopathy, fluid overload, pleural effusions Bilateral pleural effusions large on the right and mild on the left with adjacent infiltrates. Scheduled for thoracentesis today COMMENT/RELEVANT DATA Meds Current Medications Medications (Trade) Dose Ordered Sig/Shantanu Start Time Stop Time Status Last Admin Dose Admin Acetaminophen (Tylenol) 650 mg PRN Q6HRS PRN 01/16/21 09:45 01/17/21 00:00 650 MG Acetaminophen/ Codeine Phosphate (Tylenol #3) 1 tab PRN Q6HRS PRN 01/16/21 09:30 01/18/21 15:15 1 TAB Al Hydroxide/Mg Hydroxide (Mylanta Plus Xs) 30 ml PRN Q3HRS PRN 01/16/21 09:45 Albumin Human 200 ml @ 200 mls/hr 1X PRN PRN 01/19/21 10:00 01/19/21 15:59 DC 01/19/21 15:32 200 MLS/HR Amiodarone HCl (Cordarone) 200 mg DAILY 01/16/21 11:00 01/20/21 08:52 200 MG Amlodipine Besylate (Norvasc) 10 mg DAILY 01/16/21 11:00 01/20/21 08:52 10 MG Aspirin (Aspirin Chewable) 162 mg 1X ONCE 01/16/21 02:00 01/16/21 02:01 DC Bisacodyl (Dulcolax Supp) 10 mg PRN DAILY PRN 01/16/21 09:45 Bumetanide (Bumex) 2.5 mg DAILY05 01/17/21 05:00 01/21/21 05:32 2.5 MG Calcium Carbonate/ Glycine (Tums) 500 mg PRN Q3HRS PRN 01/16/21 09:45 Darbepoetin Ortega (ARANESP for DIALYSIS PTS) 60 mcg Th 01/17/21 21:00 01/17/21 20:44 60 MCG Dextrose (Dextrose 50%-Water Syringe) 12.5 gm PRN Q15MIN PRN 01/17/21 12:45 Diphenhydramine HCl (Benadryl) 25 mg 1X PRN PRN 01/18/21 11:45 01/19/21 11:44 DC Doxazosin Mesylate (Cardura) 4 mg DAILY 01/16/21 11:00 01/20/21 08:53 4 MG Fentanyl Citrate (Fentanyl 2ml Vial) 25 mcg PRN Q15MIN PRN 01/16/21 07:45 01/17/21 07:44 DC 01/16/21 08:15 25 MCG Furosemide (Lasix) 100 mg STK-MED ONCE 01/16/21 03:53 01/16/21 03:53 DC Glimepiride (Amaryl) 4 mg DAILY 01/16/21 11:00 01/19/21 15:20 DC 01/18/21 08:34 4 MG Info (PHARMACY MONITORING -- do not chart) 1 each PRN DAILY PRN 01/19/21 10:00 UNV Insulin Human Lispro (HumaLOG) 0-5 UNITS TIDWMEALS 01/17/21 17:00 Iron Sucrose 500 mg/Sodium Chloride 275 ml @ 78.571 mls/ hr 1X ONCE 01/17/21 14:00 01/17/21 17:29 DC 01/17/21 13:53 78.571 MLS/HR Lidocaine HCl (Buffered Lidocaine 1%) 4 ml 1X ONCE 01/16/21 14:15 01/16/21 14:16 DC 01/16/21 14:23 6 ML Magnesium Hydroxide (Milk Of Magnesia) 2,400 mg PRN Q12HR PRN 01/16/21 09:45 Metolazone (Zaroxolyn) 5 mg DAILY 01/16/21 11:00 01/20/21 08:52 5 MG Metoprolol Succinate (Toprol Xl) 25 mg BID 01/17/21 09:00 01/20/21 08:53 25 MG Metoprolol Tartrate (Lopressor) 50 mg BID 01/16/21 11:00 01/16/21 22:15 DC 01/16/21 20:51 50 MG Morphine Sulfate (Morphine Sulfate) 2 mg PRN Q1HR PRN 01/16/21 09:45 Multivitamins (Thera M Plus) 1 tab DAILY 01/16/21 11:00 01/20/21 08:52 1 TAB Nitroglycerin (Nitrostat) 0.4 mg PRN Q5MIN PRN 01/16/21 04:45 01/17/21 04:44 DC Ondansetron HCl (Zofran) 4 mg PRN Q6HRS PRN 01/16/21 09:45 01/17/21 01:46 4 MG Potassium Chloride (Klor-Con) 40 meq 1X ONCE 01/16/21 05:00 01/16/21 05:01 DC 01/16/21 05:00 40 MEQ Sodium Chloride 1,000 ml @ 400 mls/hr Q2H30M PRN 01/19/21 10:00 01/19/21 21:59 DC Sodium Chloride (Normal Saline Flush) 10 ml 1X PRN PRN 01/17/21 07:45 01/18/21 07:44 DC Vitamin B Complex/ Vitamin C (Charla-Jose R) 1 tab DAILY 01/17/21 09:00 01/20/21 08:54 1 TAB Warfarin Sodium (Coumadin Per Pharmacy) 1 each PRN DAILY PRN 01/16/21 09:30 01/18/21 10:37 DC 01/17/21 15:27 1 EACH Warfarin Sodium (Coumadin) 4 mg DAILY16 01/16/21 16:00 01/17/21 15:30 DC 01/16/21 20:51 4 MG Lab Laboratory Tests Test 01/20/21 11:41 01/20/21 12:20 01/20/21 16:49 01/20/21 20:34 Glucose (Fingerstick) 168 mg/dL (70-99) 182 mg/dL (70-99) 166 mg/dL (70-99) White Blood Count 10.2 x10^3/uL (4.0-11.0) Red Blood Count 3.62 x10^6/uL (4.30-5.70) Hemoglobin 10.5 g/dL (13.0-17.5) Hematocrit 31.4 % (39.0-53.0) Mean Corpuscular Volume 87 fL (79-100) Mean Corpuscular Hemoglobin 29 pg (25-35) Mean Corpuscular Hemoglobin Concent 34 g/dL (31-37) Red Cell Distribution Width 15.1 % (11.5-14.5) Platelet Count 215 x10^3/uL (140-400) Neutrophils (%) (Auto) 73 % (31-73) Lymphocytes (%) (Auto) 15 % (24-48) Monocytes (%) (Auto) 11 % (0-9) Eosinophils (%) (Auto) 1 % (0-3) Basophils (%) (Auto) 1 % (0-3) Neutrophils # (Auto) 7.4 x10^3/uL (1.8-7.7) Lymphocytes # (Auto) 1.5 x10^3/uL (1.0-4.8) Monocytes # (Auto) 1.1 x10^3/uL (0.0-1.1) Eosinophils # (Auto) 0.1 x10^3/uL (0.0-0.7) Basophils # (Auto) 0.1 x10^3/uL (0.0-0.2) Prothrombin Time 17.9 SEC (11.7-14.0) Prothromb Time International Ratio 1.5 (0.8-1.1) Sodium Level 138 mmol/L (136-145) Potassium Level 4.2 mmol/L (3.5-5.1) Chloride Level 100 mmol/L (98-107) Carbon Dioxide Level 29 mmol/L (21-32) Anion Gap 9 (6-14) Blood Urea Nitrogen 32 mg/dL (8-26) Creatinine 3.0 mg/dL (0.7-1.3) Estimated GFR (Cockcroft-Gault) 20.3 Glucose Level 156 mg/dL (70-99) Calcium Level 9.4 mg/dL (8.5-10.1) Test 01/21/21 05:00 01/21/21 08:22 White Blood Count 10.1 x10^3/uL (4.0-11.0) Red Blood Count 3.50 x10^6/uL (4.30-5.70) Hemoglobin 10.1 g/dL (13.0-17.5) Hematocrit 30.3 % (39.0-53.0) Mean Corpuscular Volume 87 fL (79-100) Mean Corpuscular Hemoglobin 29 pg (25-35) Mean Corpuscular Hemoglobin Concent 33 g/dL (31-37) Red Cell Distribution Width 15.0 % (11.5-14.5) Platelet Count 222 x10^3/uL (140-400) Neutrophils (%) (Auto) 68 % (31-73) Lymphocytes (%) (Auto) 19 % (24-48) Monocytes (%) (Auto) 11 % (0-9) Eosinophils (%) (Auto) 2 % (0-3) Basophils (%) (Auto) 1 % (0-3) Neutrophils # (Auto) 6.8 x10^3/uL (1.8-7.7) Lymphocytes # (Auto) 1.9 x10^3/uL (1.0-4.8) Monocytes # (Auto) 1.1 x10^3/uL (0.0-1.1) Eosinophils # (Auto) 0.2 x10^3/uL (0.0-0.7) Basophils # (Auto) 0.1 x10^3/uL (0.0-0.2) Prothrombin Time 17.0 SEC (11.7-14.0) Prothromb Time International Ratio 1.4 (0.8-1.1) Sodium Level 139 mmol/L (136-145) Potassium Level 4.2 mmol/L (3.5-5.1) Chloride Level 101 mmol/L (98-107) Carbon Dioxide Level 27 mmol/L (21-32) Anion Gap 11 (6-14) Blood Urea Nitrogen 41 mg/dL (8-26) Creatinine 3.4 mg/dL (0.7-1.3) Estimated GFR (Cockcroft-Gault) 17.6 Glucose Level 94 mg/dL (70-99) Calcium Level 9.3 mg/dL (8.5-10.1) Glucose (Fingerstick) 97 mg/dL (70-99) Results All relevant outside records, renal labs, imaging studies, telemetry/EKG's were reviewed. Justicifation of Admission Dx: Justifications for Admission: Justification of Admission Dx: Yes JEFF PARISI MD Jan 21, 2021 09:32
[2021-01-21] MEDS ORDERED: ceFAZolin 2GM PREMIX 2 GM/50 ML BAG IV ONE (10:00)
[2021-01-21] MEDS ORDERED: LIDOCAINE 1%/EPI 1:100,000 20 ML VIAL. ONE (10:53)
[2021-01-21] MEDS ORDERED: MIDAZOLAM HCL/PF 2 MG/2 ML VIAL. ONE (10:58)
[2021-01-21] MEDS ORDERED: fentaNYL PF VIAL 100 MCG/2 ML VIAL ONE (10:58)
[2021-01-21] MEDS ORDERED: LIDOCAINE 1%/EPI 1:100,000 20 ML VIAL. INJ ONE (11:45)
[2021-01-21] MEDS ORDERED: fentaNYL PF VIAL 100 MCG/2 ML VIAL IV ONE (11:45)
[2021-01-21] MEDS ORDERED: MIDAZOLAM HCL/PF 2 MG/2 ML VIAL. IV ONE (11:45)
--- NOTE | 2021-01-21 12:26 | PDOC ---
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 History of Present Illness Patient 80-year-old male with past medical history CHF, CKD, who presents to the ER with complaints of chest pain. Symptoms began approximately 3 hours prior to arrival to ED. Reports substernal chest pain, 04/13, with associated shortness of breath. Shortness of breath is aggravated by physical exertion and laying flat. Last admission showed BNP 3603, troponins elevated but stable 0.106, with repeat 0.093. CT chest on admission showed bilateral pleural effusions, right greater than left with adjacent infiltrates. Will admit patient for further medical management. Vitals/I&O Vitals/I&O: Vital Signs Date Time Temp Pulse Resp B/P (MAP) Pulse Ox O2 Delivery O2 Flow Rate FiO2 01/21/21 11:26 72 17 92 Nasal Cannula 3.0 01/21/21 10:44 116/65 (82) 01/21/21 07:55 97.9 97.9 I & O 01/20/21 01/20/21 01/21/21 15:00 23:00 07:00 Intake Total 100 ml Output Total 150 ml 425 ml Balance -150 ml -325 ml Physical Exam Physical Exam: Physical Exam Physical Exam General: Alert, Oriented X3, Cooperative, No acute distress HEENT: PERRLA, EOMI Lungs: Faint crackles, distant breath sounds. Normal air movement Heart: RRR, no murmurs Cardiovascular: S1, S2 Abdomen: Normal bowel sounds, Soft, No tenderness Extremities: 2+ pitting edema bilaterally. No clubbing, No cyanosis Skin: No rashes, No significant lesion Neuro: Normal speech, Normal tone, Sensation intact Psych/Mental Status: Mental status NL, Mood NL General: Alert, Oriented X3, Cooperative, No acute distress Heart: Regular rate, Other Lungs: Crackles Abdomen: Soft Extremities: No clubbing, No cyanosis Skin: No significant lesion Labs Labs: Laboratory Tests Test 01/20/21 16:49 01/20/21 20:34 01/21/21 05:00 01/21/21 08:22 Glucose (Fingerstick) 182 mg/dL (70-99) 166 mg/dL (70-99) 97 mg/dL (70-99) White Blood Count 10.1 x10^3/uL (4.0-11.0) Red Blood Count 3.50 x10^6/uL (4.30-5.70) Hemoglobin 10.1 g/dL (13.0-17.5) Hematocrit 30.3 % (39.0-53.0) Mean Corpuscular Volume 87 fL (79-100) Mean Corpuscular Hemoglobin 29 pg (25-35) Mean Corpuscular Hemoglobin Concent 33 g/dL (31-37) Red Cell Distribution Width 15.0 % (11.5-14.5) Platelet Count 222 x10^3/uL (140-400) Neutrophils (%) (Auto) 68 % (31-73) Lymphocytes (%) (Auto) 19 % (24-48) Monocytes (%) (Auto) 11 % (0-9) Eosinophils (%) (Auto) 2 % (0-3) Basophils (%) (Auto) 1 % (0-3) Neutrophils # (Auto) 6.8 x10^3/uL (1.8-7.7) Lymphocytes # (Auto) 1.9 x10^3/uL (1.0-4.8) Monocytes # (Auto) 1.1 x10^3/uL (0.0-1.1) Eosinophils # (Auto) 0.2 x10^3/uL (0.0-0.7) Basophils # (Auto) 0.1 x10^3/uL (0.0-0.2) Prothrombin Time 17.0 SEC (11.7-14.0) Prothromb Time International Ratio 1.4 (0.8-1.1) Sodium Level 139 mmol/L (136-145) Potassium Level 4.2 mmol/L (3.5-5.1) Chloride Level 101 mmol/L (98-107) Carbon Dioxide Level 27 mmol/L (21-32) Anion Gap 11 (6-14) Blood Urea Nitrogen 41 mg/dL (8-26) Creatinine 3.4 mg/dL (0.7-1.3) Estimated GFR (Cockcroft-Gault) 17.6 Glucose Level 94 mg/dL (70-99) Calcium Level 9.3 mg/dL (8.5-10.1) Assessment and Plan Assessmemt and Plan Problems Medical Problems: (1) Acute exacerbation of CHF (congestive heart failure) Status: Acute Acute respiratory failure with hypoxia Acute CHF exacerbation Cardiomyopathy, fluid overload, pleural effusions Elevated troponins Hypokalemia ELIZABETH due to cardiorenal syndrome Subtherapeutic INR Bilateral pleural effusions large on the right and mild on the left with adjacent infiltrates. No change. Suspect effusions are transudative in nature. Plan Thoracentesis on right lung today Permacath today Awaiting dialysis chair PT/OT Home meds; avoid nephrotoxins DVT prophylaxis - Coumadin on hold for procedure Full code Goals of Care: Advance Care Planning: Total time spent [id number] with patient greater than 16 minutes in discussion with goals of care, comfort care, end-of-life care, pain management, code status Comment Review of Relevant I have reviewed the following items cortes (where applicable) has been applied. Medications: Current Medications Medications (Trade) Dose Ordered Sig/Shantanu Route PRN Reason Start Time Stop Time Status Last Admin Dose Admin Midazolam HCl (Versed) 1 mg 1X ONCE IV 01/21/21 11:45 01/21/21 11:46 DC 01/21/21 11:13 Fentanyl Citrate (Fentanyl 2ml Vial) 50 mcg 1X ONCE IV 01/21/21 11:45 01/21/21 11:46 DC 01/21/21 11:13 Lidocaine/ Epinephrine (LIDOCAINE 1%-EPI 1:100,000 Multi-Dose) 20 ml 1X ONCE INJ 01/21/21 11:45 01/21/21 11:46 DC 01/21/21 11:37 Justifications for Admission Other Justification Acute respiratory failure with hypoxia, acute CHF exacerbation, acute on chronic kidney failure ZAIN JENSEN K III DO Jan 21, 2021 12:25
[2021-01-21] MEDS ORDERED: DIALYSIS PATIENT. MC PRN (13:15)
[2021-01-21] MEDS ORDERED: IV NORMAL SALINE 1000ML BAG 1,000 ML IV PRN ×2 (13:15)
--- NOTE | 2021-01-21 14:39 | RAD ---
Conversion of right internal jugular temporary dialysis catheter to a tunneled hemodialysis catheter Indication: Longer term dialysis access needed Procedure: The procedure was explained in its entirety to the patient or the patients designated lead generation representative by a member of the treatment team, including a discussion of the risks, benefits and commonly accepted alternatives to the procedure, as well as the expected consequences of no therapy whatsoever. Discussion of the risks included, but was not limited to, those that are most frequent and those that are rare but possibly severe or life-threatening, as well as the possibility of unforeseen complications. All elements of maximal sterile barrier technique including the use of a cap, mask, sterile gown, sterile gloves, large sterile sheet, appropriate hand hygiene, and 2% chlorhexidine for cutaneous antisepsis (or acceptable alternative antiseptic per current guidelines) were followed for this procedure. The pre-existing catheter was evaluated under fluoroscopy and found to be normal in position. A guidewire was advanced into the IVC. A 23 cm tip to cuff tunneled hemodialysis catheter was advanced from small dermatotomy, several centimeters inferior to the pre-existing catheter entry site, to the venotomy site. The pre-existing catheter was removed over the guidewire and a peel-away sheath placed. The new tunneled catheter was advanced through the peel-away sheath such that its tip was positioned in the proximal right atrium with the patient supine. The sheath was removed. The new catheter was found to flush and aspirate normally. Catheter was flushed, and secured in place. Sterile dressings were applied. No immediate complications were identified. Total fluoroscopy time: 0.4 min Dose area product: 2 Gycm2 The procedure was performed under conscious sedation including continuous cardiopulmonary monitoring via dedicated sedation nurse. [id number] sedation time: 20 minutes Impression: Conversion of a right internal jugular temporary dialysis catheter to a tunneled dialysis catheter
--- NOTE | 2021-01-21 14:39 | RAD ---
Ultrasound-guided right-sided thoracentesis 01/21/2021 12:35 PM Indication: right side thoracentesis Procedure: Informed consent was obtained. A timeout procedure was performed. Sonographic evaluation of the right chest was performed demonstrating moderate pleural effusion. The right posterior chest was prepped and draped in sterile fashion. 1% lidocaine without epinephrine was administered for local anesthesia. Real-time ultrasonographic guidance was used in passing a 5 [place] catheter into the right pleural space. 0.85 L of serosanguineous pleural fluid was removed. Samples of fluid were sent to the lab for further evaluation per ordering physician request. The catheter was removed and pressure held to achieve hemostasis. A sterile dressing was applied. No immediate complications were identified. The patient tolerated the procedure well. Impression: Right sided ultrasound-guided thoracentesis
[2021-01-21] MEDS: METOPROLOL SUCC 24HR ER 25 MG TAB.ER.24H. PO SCH (21:40)
[2021-01-21] MEDS: AMIODARONE HCL 200 MG TABLET. PO SCH (21:52)
[2021-01-21] MEDS: amLODIPine BESYLATE 10 MG TABLET PO SCH (21:53)
[2021-01-21] MEDS: DOXAZOSIN MESYLATE 4 MG TABLET. PO SCH (21:53)
[2021-01-21] MEDS: FOLIC/VIT B COMP W-C (RENAL) TABLET. PO SCH (21:54)
[2021-01-21] MEDS: metOLazone 2.5 MG TABLET PO SCH (21:54)
[2021-01-21] MEDS: MULTIVITAMIN with MINERAL TABLET. PO SCH (21:54)
[2021-01-22 03:25] VITALS: BP 144/80
[2021-01-22] MEDS: BUMETANIDE 2.5 MG/10 ML VIAL. IV SCH (05:42)
[2021-01-22 07:00] VITALS: BP 148/84
[2021-01-22] MEDS: INSULIN LISPRO 300 UNITS/3 ML VIAL. SQ SCH ×3 (08:00→18:17)
[2021-01-22 08:02] LABS: PROTHROMBIN TIME PATIENT 16.1 SEC (11.7-14.0)
--- NOTE | 2021-01-22 09:17 | PDOC ---
PULMONARY PROGRESS NOTES DATE: 01/22/21 TIME: 09:16 Subjective Pt. denies SOA or cough S/P right thoracentesis on 01/21 S/P HD cath placement on 01/21 Vitals Vital Signs Date Time Temp Pulse Resp B/P (MAP) Pulse Ox O2 Delivery O2 Flow Rate FiO2 01/22/21 07:00 98.0 87 18 148/84 (105) 94 Nasal Cannula 2.0 98.0 ROS: No Nausea, No Chest Pain, No Abdominal Pain, No Increase Cough General: Alert, Oriented X4, No acute distress Lungs: Crackles Cardiovascular: S1, S2 Abdomen: Soft Neuro Exam: Alert, Oriented Extremities: Other Skin: Warm, Dry Labs Laboratory Tests Test 01/20/21 11:41 01/20/21 12:20 01/20/21 16:49 01/20/21 20:34 Glucose (Fingerstick) 168 mg/dL (70-99) 182 mg/dL (70-99) 166 mg/dL (70-99) White Blood Count 10.2 x10^3/uL (4.0-11.0) Red Blood Count 3.62 x10^6/uL (4.30-5.70) Hemoglobin 10.5 g/dL (13.0-17.5) Hematocrit 31.4 % (39.0-53.0) Mean Corpuscular Volume 87 fL (79-100) Mean Corpuscular Hemoglobin 29 pg (25-35) Mean Corpuscular Hemoglobin Concent 34 g/dL (31-37) Red Cell Distribution Width 15.1 % (11.5-14.5) Platelet Count 215 x10^3/uL (140-400) Neutrophils (%) (Auto) 73 % (31-73) Lymphocytes (%) (Auto) 15 % (24-48) Monocytes (%) (Auto) 11 % (0-9) Eosinophils (%) (Auto) 1 % (0-3) Basophils (%) (Auto) 1 % (0-3) Neutrophils # (Auto) 7.4 x10^3/uL (1.8-7.7) Lymphocytes # (Auto) 1.5 x10^3/uL (1.0-4.8) Monocytes # (Auto) 1.1 x10^3/uL (0.0-1.1) Eosinophils # (Auto) 0.1 x10^3/uL (0.0-0.7) Basophils # (Auto) 0.1 x10^3/uL (0.0-0.2) Prothrombin Time 17.9 SEC (11.7-14.0) Prothromb Time International Ratio 1.5 (0.8-1.1) Sodium Level 138 mmol/L (136-145) Potassium Level 4.2 mmol/L (3.5-5.1) Chloride Level 100 mmol/L (98-107) Carbon Dioxide Level 29 mmol/L (21-32) Anion Gap 9 (6-14) Blood Urea Nitrogen 32 mg/dL (8-26) Creatinine 3.0 mg/dL (0.7-1.3) Estimated GFR (Cockcroft-Gault) 20.3 Glucose Level 156 mg/dL (70-99) Calcium Level 9.4 mg/dL (8.5-10.1) Test 01/21/21 05:00 01/21/21 08:22 01/21/21 12:17 01/21/21 12:32 White Blood Count 10.1 x10^3/uL (4.0-11.0) Red Blood Count 3.50 x10^6/uL (4.30-5.70) Hemoglobin 10.1 g/dL (13.0-17.5) Hematocrit 30.3 % (39.0-53.0) Mean Corpuscular Volume 87 fL (79-100) Mean Corpuscular Hemoglobin 29 pg (25-35) Mean Corpuscular Hemoglobin Concent 33 g/dL (31-37) Red Cell Distribution Width 15.0 % (11.5-14.5) Platelet Count 222 x10^3/uL (140-400) Neutrophils (%) (Auto) 68 % (31-73) Lymphocytes (%) (Auto) 19 % (24-48) Monocytes (%) (Auto) 11 % (0-9) Eosinophils (%) (Auto) 2 % (0-3) Basophils (%) (Auto) 1 % (0-3) Neutrophils # (Auto) 6.8 x10^3/uL (1.8-7.7) Lymphocytes # (Auto) 1.9 x10^3/uL (1.0-4.8) Monocytes # (Auto) 1.1 x10^3/uL (0.0-1.1) Eosinophils # (Auto) 0.2 x10^3/uL (0.0-0.7) Basophils # (Auto) 0.1 x10^3/uL (0.0-0.2) Prothrombin Time 17.0 SEC (11.7-14.0) Prothromb Time International Ratio 1.4 (0.8-1.1) Sodium Level 139 mmol/L (136-145) Potassium Level 4.2 mmol/L (3.5-5.1) Chloride Level 101 mmol/L (98-107) Carbon Dioxide Level 27 mmol/L (21-32) Anion Gap 11 (6-14) Blood Urea Nitrogen 41 mg/dL (8-26) Creatinine 3.4 mg/dL (0.7-1.3) Estimated GFR (Cockcroft-Gault) 17.6 Glucose Level 94 mg/dL (70-99) Calcium Level 9.3 mg/dL (8.5-10.1) Glucose (Fingerstick) 97 mg/dL (70-99) 162 mg/dL (70-99) 201 mg/dL (70-99) Test 01/21/21 20:56 01/22/21 06:35 01/22/21 07:29 Glucose (Fingerstick) 177 mg/dL (70-99) 123 mg/dL (70-99) Prothrombin Time 16.1 SEC (11.7-14.0) Prothromb Time International Ratio 1.3 (0.8-1.1) Laboratory Tests Test 01/21/21 12:17 01/21/21 12:32 01/21/21 20:56 01/22/21 06:35 Glucose (Fingerstick) 162 mg/dL (70-99) 201 mg/dL (70-99) 177 mg/dL (70-99) Prothrombin Time 16.1 SEC (11.7-14.0) Prothromb Time International Ratio 1.3 (0.8-1.1) Test 01/22/21 07:29 Glucose (Fingerstick) 123 mg/dL (70-99) Medications Active Scripts Medications Dose Route/Sig Max Daily Dose Days Date Category Dose Instructions Metoprolol Succinate ( Xl ) (Metoprolol Succinate) 25 Mg Tab.er.24h 25 Mg PO DAILY 01/16/21 Reported Amiodarone Hcl 200 Mg Tablet 200 Mg PO DAILY 30 12/17/20 Rx Warfarin Sodium 4 Mg Tablet 6 Mg PO DAILY 11/19/20 Reported Mirtazapine 7.5 Mg Tablet 1 Tab PO QHS 30 11/19/20 Reported Acetaminophen-Cod #3 Tablet (Acetaminophen/Codeine Phosphate) 1 Each Tablet 1 Tab PO PRN Q6HRS PRN 6 10/23/20 Rx Norvasc (Amlodipine Besylate) 10 Mg Tablet 10 Mg PO DAILY 05/09/16 Reported last dose given: date 10/23/20 time 0857 next dose due: date 10/24/20 time 0900 Doxazosin Mesylate 4 Mg Tablet 1 Tab PO DAILY 05/08/16 Reported not given while patient was here next dose due: date 10/24/20 time 0900 Super B Complex (Vitamin B Complex & Vit C No.4) 150 Mg Tablet 150 Mg PO DAILY 05/08/16 Reported not given while patient was here next dose due: date 10/24/20 time 0900 Vitamin C (Ascorbic Acid) 1,000 Mg Tablet 1,000 Mg PO DAILY 05/08/16 Reported not given while here next dose due: date 10/24/20 time 0900 Impression . IMPRESSION: 1. Abnormal CT revealing bilateral effusions related to his underlying renal failure, suspect effusions are transudative in nature. 2. Progressive dyspnea, multifactorial secondary to [id number] systolic heart failure, increase in effusion. 3. Chronic kidney disease, currently on hemodialysis. 4. Cardiomyopathy, ejection fraction 45%. 5. Pleural fluid cytology analysis was negative for malignant cells dated 12/18/2020. 6. obesity ? [place] CT CHEST Impression: Bilateral pleural effusions large on the right and mild on the left with adjacent infiltrates. No change. Plan . Updated 01/22, Continue supplemental oxygen will need 6 min walk prior to DC S/P thoracentesis on right with 0.85L on 01/21 Follow Nephrology rec-- Now S/P HD cath placement Possible outpatient polysomnogram PT/OT ok to DC to rehab DVT/GI PPX D/W RN Updated 01/21, Patient to undergo thoracentesis INR 1.4 Possible outpatient polysomnogram Continue hemodialysis per nephrology 6-minute walk prior to discharge Updated 01/19 02 titration to keep sat 90% thoracentesis on right side on thursday by IR Coumadin on hold for procedure inr coming down Follow Cardiology recs -- EF 45% 10/25 6 min walk prior to DC PT/OT DVT/GI PPX sleep study as out pt discussed w ADAM Whitley MD Jan 22, 2021 09:16
[2021-01-22] MEDS: FOLIC/VIT B COMP W-C (RENAL) TABLET. PO SCH (09:48)
[2021-01-22] MEDS: metOLazone 2.5 MG TABLET PO SCH (09:48)
[2021-01-22] MEDS: DOXAZOSIN MESYLATE 4 MG TABLET. PO SCH (09:49)
[2021-01-22] MEDS: AMIODARONE HCL 200 MG TABLET. PO SCH (09:49)
[2021-01-22] MEDS: MULTIVITAMIN with MINERAL TABLET. PO SCH (09:49)
[2021-01-22] MEDS: METOPROLOL SUCC 24HR ER 25 MG TAB.ER.24H. PO SCH ×2 (09:50→21:27)
[2021-01-22 10:36] VITALS: BP 134/84
--- NOTE | 2021-01-22 10:42 | PDOC ---
DATE OF SERVICE DATE: 01/22/21 TIME: 10:39 SUBJECTIVE ROS stable, no complaints OBJECTIVE Vital Signs Vital Signs Date Time Temp Pulse Resp B/P (MAP) Pulse Ox O2 Delivery O2 Flow Rate FiO2 01/22/21 10:36 98.1 85 18 134/84 (101) 96 Nasal Cannula 2.0 98.1 I & 0 Intake and Output 01/22/21 07:00 Intake Total 900 ml Output Total 750 ml Balance 150 ml Intake Oral 900 ml Output Urine Total 750 ml PHYSICAL EXAM Physical Exam GEN: Awake, Oriented x 1 at best , In no distress EYES: Vision Unchanged, Conjunctiva Normal EN: No EN Drainage, Mucous Membranes mosit NECK: no JVD, min JVP, Supple, no Thyromegaly CVS: S1S2, soft Murmur, No Gallop, No Rub,+2 Edema RESP: few basal Rales, no Rhonchi,no Acc. Muscle Use GI: BS + ve, NO Bruit, Non Tender, Non Distended : no CVA tenderness, no Suprapubic Tenderness DIAGNOSIS/ASSESSMENT Assessment & Plan New onset ESRD:Initiated on dialysis , dialyzed 01/21 , currently no indication today Access Conversion of Temp HDC to timothy cath today . Scheduled chair time MWF at [place], I will follow him as OP Anemia stable, currently on KADI HTN antihypertensive Acute respiratory failure with hypoxia Acute CHF exacerbation Cardiomyopathy, fluid overload, pleural effusions Bilateral pleural effusions large on the right and mild on the left with adjacent infiltrates. Scheduled for thoracentesis today COMMENT/RELEVANT DATA Meds Current Medications Medications (Trade) Dose Ordered Sig/Shantanu Start Time Stop Time Status Last Admin Dose Admin Acetaminophen (Tylenol) 650 mg PRN Q6HRS PRN 01/16/21 09:45 01/17/21 00:00 650 MG Acetaminophen/ Codeine Phosphate (Tylenol #3) 1 tab PRN Q6HRS PRN 01/16/21 09:30 01/18/21 15:15 1 TAB Al Hydroxide/Mg Hydroxide (Mylanta Plus Xs) 30 ml PRN Q3HRS PRN 01/16/21 09:45 Albumin Human 200 ml @ 200 mls/hr 1X PRN PRN 01/19/21 10:00 01/19/21 15:59 DC 01/19/21 15:32 200 MLS/HR Amiodarone HCl (Cordarone) 200 mg DAILY 01/16/21 11:00 01/22/21 09:49 200 MG Amlodipine Besylate (Norvasc) 10 mg DAILY 01/16/21 11:00 01/20/21 08:52 10 MG Aspirin (Aspirin Chewable) 162 mg 1X ONCE 01/16/21 02:00 01/16/21 02:01 DC Bisacodyl (Dulcolax Supp) 10 mg PRN DAILY PRN 01/16/21 09:45 Bumetanide (Bumex) 2.5 mg DAILY05 01/17/21 05:00 01/22/21 05:42 2.5 MG Calcium Carbonate/ Glycine (Tums) 500 mg PRN Q3HRS PRN 01/16/21 09:45 Cefazolin Sodium/ Dextrose 50 ml @ 100 mls/hr 1X PREOP PRN 01/21/21 06:00 01/22/21 05:59 DC Darbepoetin Ortega (ARANESP for DIALYSIS PTS) 60 mcg Th 01/17/21 21:00 01/17/21 20:44 60 MCG Dextrose (Dextrose 50%-Water Syringe) 12.5 gm PRN Q15MIN PRN 01/17/21 12:45 Diphenhydramine HCl (Benadryl) 25 mg 1X PRN PRN 01/18/21 11:45 01/19/21 11:44 DC Doxazosin Mesylate (Cardura) 4 mg DAILY 01/16/21 11:00 01/22/21 09:49 4 MG Fentanyl Citrate (Fentanyl 2ml Vial) 50 mcg 1X ONCE 01/21/21 11:45 01/21/21 11:46 DC 01/21/21 11:13 50 MCG Furosemide (Lasix) 100 mg STK-MED ONCE 01/16/21 03:53 01/16/21 03:53 DC Glimepiride (Amaryl) 4 mg DAILY 01/16/21 11:00 01/19/21 15:20 DC 01/18/21 08:34 4 MG Info (PHARMACY MONITORING -- do not chart) 1 each PRN DAILY PRN 01/21/21 13:15 Insulin Human Lispro (HumaLOG) 0-5 UNITS TIDWMEALS 01/17/21 17:00 01/21/21 13:36 2 UNITS Iron Sucrose 500 mg/Sodium Chloride 275 ml @ 78.571 mls/ hr 1X ONCE 01/17/21 14:00 01/17/21 17:29 DC 01/17/21 13:53 78.571 MLS/HR Lidocaine HCl (Buffered Lidocaine 1%) 4 ml 1X ONCE 01/16/21 14:15 01/16/21 14:16 DC 01/16/21 14:23 6 ML Lidocaine/ Epinephrine (LIDOCAINE 1%-EPI 1:100,000 Multi-Dose) 20 ml 1X ONCE 01/21/21 11:45 01/21/21 11:46 DC 01/21/21 11:37 20 ML Magnesium Hydroxide (Milk Of Magnesia) 2,400 mg PRN Q12HR PRN 01/16/21 09:45 Metolazone (Zaroxolyn) 5 mg DAILY 01/16/21 11:00 01/22/21 09:48 5 MG Metoprolol Succinate (Toprol Xl) 25 mg BID 01/17/21 09:00 01/22/21 09:50 25 MG Metoprolol Tartrate (Lopressor) 50 mg BID 01/16/21 11:00 01/16/21 22:15 DC 01/16/21 20:51 50 MG Midazolam HCl (Versed) 1 mg 1X ONCE 01/21/21 11:45 01/21/21 11:46 DC 01/21/21 11:13 1 MG Morphine Sulfate (Morphine Sulfate) 2 mg PRN Q1HR PRN 01/16/21 09:45 Multivitamins (Thera M Plus) 1 tab DAILY 01/16/21 11:00 01/22/21 09:49 1 TAB Nitroglycerin (Nitrostat) 0.4 mg PRN Q5MIN PRN 01/16/21 04:45 01/17/21 04:44 DC Ondansetron HCl (Zofran) 4 mg PRN Q6HRS PRN 01/16/21 09:45 01/17/21 01:46 4 MG Potassium Chloride (Klor-Con) 40 meq 1X ONCE 01/16/21 05:00 01/16/21 05:01 DC 01/16/21 05:00 40 MEQ Sodium Chloride 1,000 ml @ 400 mls/hr Q2H30M PRN 01/21/21 13:15 01/22/21 01:14 DC Sodium Chloride (Normal Saline Flush) 10 ml 1X PRN PRN 01/17/21 07:45 01/18/21 07:44 DC Vitamin B Complex/ Vitamin C (Charla-Jose R) 1 tab DAILY 01/17/21 09:00 01/22/21 09:48 1 TAB Warfarin Sodium (Coumadin Per Pharmacy) 1 each PRN DAILY PRN 01/16/21 09:30 01/18/21 10:37 DC 01/17/21 15:27 1 EACH Warfarin Sodium (Coumadin) 4 mg DAILY16 01/16/21 16:00 01/17/21 15:30 DC 01/16/21 20:51 4 MG Lab Laboratory Tests Test 01/21/21 12:17 01/21/21 12:32 01/21/21 20:56 01/22/21 06:35 Glucose (Fingerstick) 162 mg/dL (70-99) 201 mg/dL (70-99) 177 mg/dL (70-99) Prothrombin Time 16.1 SEC (11.7-14.0) Prothromb Time International Ratio 1.3 (0.8-1.1) Test 01/22/21 07:29 Glucose (Fingerstick) 123 mg/dL (70-99) Results All relevant outside records, renal labs, imaging studies, telemetry/EKG's were reviewed. Justicifation of Admission Dx: Justifications for Admission: Justification of Admission Dx: Yes JEFF PARISI MD Jan 22, 2021 10:42
--- NOTE | 2021-01-22 12:49 | PDOC ---
[facility] PROGRESS NOTE Date of Service DOS: DATE: 01/22/21 TIME: 12:39 Chief Complaint Chief Complaint Shortness of breath History of Present Illness History of Present Illness 01/23/20 Patient seen and examined Spoke with nursing and correctional case records supervisor Permacath placed yesterday and looks good Thoracentesis yielded 850cc yesterday Discussed discharge to SNU with patient in conjunction with correctional case records supervisor. He did not verbally respond with an answer and correctional case records supervisor said she would return later. 01/22/20 Patient seen and examined Spoke with nursing and correctional case records supervisor Spoke with patient and about thoracentesis and permacath today. History of Present Illness Patient 80-year-old male with past medical history CHF, CKD, who presents to the ER with complaints of chest pain. Symptoms began approximately 3 hours prior to arrival to ED. Reports substernal chest pain, 7/10, with associated shortness of breath. Shortness of breath is aggravated by physical exertion and laying flat. Last admission showed BNP 3603, troponins elevated but stable 0.106, with repeat 0.093. CT chest on admission showed bilateral pleural effusions, right greater than left with adjacent infiltrates. Will admit patient for further medical management. Vitals/I&O Vitals/I&O: Vital Signs Date Time Temp Pulse Resp B/P (MAP) Pulse Ox O2 Delivery O2 Flow Rate FiO2 01/22/21 10:36 98.1 85 18 134/84 (101) 96 Nasal Cannula 2.0 98.1 I & O 01/21/21 01/21/21 01/22/21 15:00 23:00 07:00 Intake Total 300 ml 400 ml 200 ml Output Total 150 ml 600 ml Balance 300 ml 250 ml -400 ml Physical Exam Physical Exam: Physical Exam Physical Exam General: Alert, Oriented X3, Cooperative, No acute distress HEENT: PERRLA, EOMI Lungs: Faint crackles, distant breath sounds. Normal air movement Heart: RRR, no murmurs Cardiovascular: S1, S2 Abdomen: Normal bowel sounds, Soft, No tenderness Extremities: 2+ pitting edema bilaterally. No clubbing, No cyanosis Skin: No rashes, No significant lesion Neuro: Normal speech, Normal tone, Sensation intact Psych/Mental Status: Mental status NL, Mood NL General: Alert, No acute distress Heart: Regular rate, Other Lungs: Crackles Abdomen: Soft Extremities: No clubbing, No cyanosis Skin: No significant lesion Labs Labs: Laboratory Tests Test 01/21/21 20:56 01/22/21 06:35 01/22/21 07:29 01/22/21 11:47 Glucose (Fingerstick) 177 mg/dL (70-99) 123 mg/dL (70-99) 207 mg/dL (70-99) Prothrombin Time 16.1 SEC (11.7-14.0) Prothromb Time International Ratio 1.3 (0.8-1.1) Assessment and Plan Assessmemt and Plan Problems Medical Problems: (1) Acute exacerbation of CHF (congestive heart failure) Status: Acute Assessment Acute respiratory failure with hypoxia Acute CHF exacerbation Cardiomyopathy Pleural effusion - Improved ELIZABETH due to cardiorenal syndrome Hyperglycemia - glucose at 207 with most recent lab Plan Patient to begin dialysis soon. PT/OT Home meds; avoid nephrotoxins DVT prophylaxis - consider if not discharged tomorrow. Plan on discharge tomorrow to assisted facility if patient agrees. Full code Comment Review of Relevant I have reviewed the following items cortes (where applicable) has been applied. Justifications for Admission Other Justification Acute respiratory failure with hypoxia, acute CHF exacerbation, acute on chronic kidney failure ZAIN JENSEN III DO Jan 22, 2021 12:49
[2021-01-22 14:43] VITALS: BP 129/68
[2021-01-22] MEDS: amLODIPine BESYLATE 10 MG TABLET PO SCH (15:12)
[2021-01-22 19:00] VITALS: BP 146/79
[2021-01-22 23:00] VITALS: BP 122/62
[2021-01-23 02:50] VITALS: BP 129/78
[2021-01-23 05:04] LABS: PROTHROMBIN TIME PATIENT 15.2 SEC (11.7-14.0)
[2021-01-23 05:24] LABS: CALCIUM 8.6 mg/dL (8.5-10.1); GFR 20.3; POTASSIUM 3.3 mmol/L (3.5-5.1)
[2021-01-23] MEDS: BUMETANIDE 2.5 MG/10 ML VIAL. IV SCH (05:54)
[2021-01-23 07:00] VITALS: BP 155/88
[2021-01-23] MEDS ORDERED: DIALYSIS PATIENT. MC PRN ×2 (08:00)
[2021-01-23] MEDS: INSULIN LISPRO 300 UNITS/3 ML VIAL. SQ SCH ×2 (08:00→12:00)
[2021-01-23] MEDS ORDERED: FOLI0.8T21 PO (09:01)
[2021-01-23] MEDS ORDERED: METO2.5T PO (09:01)
[2021-01-23] MEDS ORDERED: INSU100V35 SQ (09:01)
--- NOTE | 2021-01-23 09:02 | SNU/HH DC ---
DISCHARGE ORDERS DISCHARGE INFORMATION: FINAL DIAGNOSIS Problems Medical Problems: (1) Acute exacerbation of CHF (congestive heart failure) Status: Acute CONDITION ON DISCHARGE: Stable CODE STATUS: Code Status: Full RESIDENTIAL: SNF STAY <30 DAYS: Yes HOSPICE: HOSPICE: No HOSPICE EVAL & TREAT: No POST DISCHARGE ORDERS: ACTIVITY ORDERS: Activity as tolerated WEIGHT BEARING STATUS: As tolerated DIET AFTER DISCHARGE: Cardiac WOUND/INCISION CARE: Keep wound/cast CDI CHECKS AFTER DISCHARGE: CHECKS AFTER DISCHARGE: Check blood press - daily TREATMENT/EQUIPMENT ORDERS: ADAPTIVE EQUIPMENT NEEDED: None Physical Therapy For: Evalulation/Treatment Occupational Therapy For: Evaluation/Treatment DISCHARGE MEDICATIONS: Home Meds Active Scripts Folic Acid/Vitamin B Comp W-C (TOMMY-BEN TABLET) 0.8 Mg Tablet, 1 TAB PO DAILY for esrd for 30 Days, #30 TAB Prov:CASTLE,NIAL K III DO 01/23/21 Insulin Lispro (Admelog) 100 Unit/1 Ml Vial, 0 UNITS SQ TIDWMEALS for dm for 30 Days, #1 EACH Prov:CASTLE,NIAL K III DO 01/23/21 Metolazone (METOLAZONE) 2.5 Mg Tablet, 5 MG PO DAILY for edema for 30 Days, #60 TAB Prov:CASTLE,NIAL K III DO 01/23/21 Amiodarone Hcl (AMIODARONE HCL) 200 Mg Tablet, 200 MG PO DAILY for Afib for 30 Days, #30 TAB Prov:CASSIDY HANSON MD 12/17/20 Acetaminophen With Codeine (ACETAMINOPHEN-COD #3 TABLET) 1 Each Tablet, 1 TAB PO PRN Q6HRS PRN for PAIN for 6 Days, #14 TAB Prov:CASSIDY HANSON MD 10/23/20 Reported Medications Metoprolol Succinate (METOPROLOL SUCCINATE ( XL )) 25 Mg Tab.er.24h, 25 MG PO DAILY for FOR HYPERTENSION, #30 TAB 0 Refills 01/16/21 Warfarin Sodium (WARFARIN SODIUM) 4 Mg Tablet, 6 MG PO DAILY for afib, #30 TAB 11/19/20 Mirtazapine (MIRTAZAPINE) 7.5 Mg Tablet, 1 TAB PO QHS for depression for 30 Days, #30 TAB 0 Refills 11/19/20 Amlodipine Besylate (NORVASC) 10 Mg Tablet, 10 MG PO DAILY for htn, TAB last dose given: date 1/19/21 time 0857 next dose due: 10/24/20 time 89905/09/16 Doxazosin Mesylate (DOXAZOSIN MESYLATE) 4 Mg Tablet, 1 TAB PO DAILY for htn, #30 TAB 5 Refills not given while patient was here next dose due: 10/24/20 time 89905/08/16 Vitamin B Complex & Vit C No.4 (SUPER B COMPLEX) 150 Mg Tablet, 150 MG PO DAILY for supplement not given while patient was here next dose due: 10/24/20 time 89905/08/16 Ascorbic Acid (VITAMIN C) 1,000 Mg Tablet, 1000 MG PO DAILY for supplement not given while here next dose due: 10/24/20 time 89905/08/16 Discontinued Reported Medications Metoprolol Tartrate (METOPROLOL TARTRATE) 50 Mg Tablet, 1 TAB PO BID for hr, #60 TAB 5 Refills last dose given: 10/23/20 time 0856 next dose due: 10/24/20 timr 89905/08/16 ZAIN JENSEN III DO Jan 23, 2021 09:02
--- NOTE | 2021-01-23 09:18 | PDOC ---
PULMONARY PROGRESS NOTES DATE: 01/23/21 TIME: 09:18 Subjective Patient not more short of air Vitals Vital Signs Date Time Temp Pulse Resp B/P (MAP) Pulse Ox O2 Delivery O2 Flow Rate FiO2 01/23/21 07:00 98.1 81 20 155/88 (110) 96 Nasal Cannula 2.0 98.1 ROS: No Nausea, No Chest Pain, No Abdominal Pain, No Increase Cough General: Alert, Oriented X4, No acute distress Lungs: Crackles Cardiovascular: S1, S2 Abdomen: Soft Neuro Exam: Alert, Oriented Extremities: Other Skin: Warm, Dry Labs Laboratory Tests Test 01/21/21 12:17 01/21/21 12:32 01/21/21 20:56 01/22/21 06:35 Glucose (Fingerstick) 162 mg/dL (70-99) 201 mg/dL (70-99) 177 mg/dL (70-99) Prothrombin Time 16.1 SEC (11.7-14.0) Prothromb Time International Ratio 1.3 (0.8-1.1) Test 01/22/21 07:29 01/22/21 11:47 01/22/21 16:10 01/22/21 20:41 Glucose (Fingerstick) 123 mg/dL (70-99) 207 mg/dL (70-99) 175 mg/dL (70-99) 189 mg/dL (70-99) Test 01/23/21 03:57 01/23/21 07:16 Prothrombin Time 15.2 SEC (11.7-14.0) Prothromb Time International Ratio 1.2 (0.8-1.1) Sodium Level 137 mmol/L (136-145) Potassium Level 3.3 mmol/L (3.5-5.1) Chloride Level 100 mmol/L (98-107) Carbon Dioxide Level 29 mmol/L (21-32) Anion Gap 8 (6-14) Blood Urea Nitrogen 37 mg/dL (8-26) Creatinine 3.0 mg/dL (0.7-1.3) Estimated GFR (Cockcroft-Gault) 20.3 Glucose Level 113 mg/dL (70-99) Calcium Level 8.6 mg/dL (8.5-10.1) Glucose (Fingerstick) 131 mg/dL (70-99) Laboratory Tests Test 01/22/21 11:47 01/22/21 16:10 01/22/21 20:41 01/23/21 03:57 Glucose (Fingerstick) 207 mg/dL (70-99) 175 mg/dL (70-99) 189 mg/dL (70-99) Prothrombin Time 15.2 SEC (11.7-14.0) Prothromb Time International Ratio 1.2 (0.8-1.1) Sodium Level 137 mmol/L (136-145) Potassium Level 3.3 mmol/L (3.5-5.1) Chloride Level 100 mmol/L (98-107) Carbon Dioxide Level 29 mmol/L (21-32) Anion Gap 8 (6-14) Blood Urea Nitrogen 37 mg/dL (8-26) Creatinine 3.0 mg/dL (0.7-1.3) Estimated GFR (Cockcroft-Gault) 20.3 Glucose Level 113 mg/dL (70-99) Calcium Level 8.6 mg/dL (8.5-10.1) Test 01/23/21 07:16 Glucose (Fingerstick) 131 mg/dL (70-99) Medications Active Scripts Medications Dose Route/Sig Max Daily Dose Days Date Category Dose Instructions Metoprolol Succinate ( Xl ) (Metoprolol Succinate) 25 Mg Tab.er.24h 25 Mg PO DAILY 01/16/21 Reported Amiodarone Hcl 200 Mg Tablet 200 Mg PO DAILY 30 12/17/20 Rx Warfarin Sodium 4 Mg Tablet 6 Mg PO DAILY 11/19/20 Reported Mirtazapine 7.5 Mg Tablet 1 Tab PO QHS 30 11/19/20 Reported Acetaminophen-Cod #3 Tablet (Acetaminophen/Codeine Phosphate) 1 Each Tablet 1 Tab PO PRN Q6HRS PRN 6 10/23/20 Rx Norvasc (Amlodipine Besylate) 10 Mg Tablet 10 Mg PO DAILY 05/09/16 Reported last dose given: date 10/23/20 time 0857 next dose due: date 10/24/20 time 0900 Doxazosin Mesylate 4 Mg Tablet 1 Tab PO DAILY 05/08/16 Reported not given while patient was here next dose due: date 10/24/20 time 0900 Super B Complex (Vitamin B Complex & Vit C No.4) 150 Mg Tablet 150 Mg PO DAILY 05/08/16 Reported not given while patient was here next dose due: date 10/24/20 time 0900 Vitamin C (Ascorbic Acid) 1,000 Mg Tablet 1,000 Mg PO DAILY 05/08/16 Reported not given while here next dose due: date 10/24/20 time 0900 Impression . IMPRESSION: 1. Abnormal CT revealing bilateral effusions related to his underlying renal failure, suspect effusions are transudative in nature. 2. Progressive dyspnea, multifactorial secondary to [id number] systolic heart failure, increase in effusion. 3. Chronic kidney disease, currently on hemodialysis. 4. Cardiomyopathy, ejection fraction 45%. 5. Pleural fluid cytology analysis was negative for malignant cells dated 12/18/2020. 6. obesity ? [place] CT CHEST Impression: Bilateral pleural effusions large on the right and mild on the left with adjacent infiltrates. No change. Plan . Updated 01/23 Patient to transfer to nursing home facility Continue hemodialysis per nephrology Follow-up in my office after discharge from nursing home unit Possible outpatient polysomnogram updated 01/22, Continue supplemental oxygen will need 6 min walk prior to DC S/P thoracentesis on right with 0.85L on 01/21 Follow Nephrology rec-- Now S/P HD cath placement Possible outpatient polysomnogram PT/OT ok to DC to rehab DVT/GI PPX D/W RN Updated 01/21, Patient to undergo thoracentesis INR 1.4 Possible outpatient polysomnogram Continue hemodialysis per nephrology 6-minute walk prior to discharge Updated 01/19 02 titration to keep sat 90% thoracentesis on right side on thursday by IR Coumadin on hold for procedure inr coming down Follow Cardiology recs -- EF 45% 10/25 6 min walk prior to DC PT/OT DVT/GI PPX sleep study as out pt discussed w rn ADAM NINA MD Jan 23, 2021 09:18
--- NOTE | 2021-01-23 09:57 | PDOC ---
DATE OF SERVICE DATE: 01/23/21 TIME: 09:57 SUBJECTIVE ROS stable during dialysis OBJECTIVE Vital Signs Vital Signs Date Time Temp Pulse Resp B/P (MAP) Pulse Ox O2 Delivery O2 Flow Rate FiO2 01/23/21 07:00 98.1 81 20 155/88 (110) 96 Nasal Cannula 2.0 98.1 I & 0 Intake and Output 01/23/21 07:00 Intake Total 700 ml Output Total 1025 ml Balance -325 ml Intake Oral 700 ml Output Urine Total 1025 ml # Bowel Movements 1 PHYSICAL EXAM Physical Exam GEN: no distress HEEN: No EN Drainage, Mucous Membranes mosit NECK: supple CVS: S1S2, soft Murmur, No Gallop, No Rub,+2 Edema RESP: few basal Rales, no Rhonchi,no Acc. Muscle Use GI: BS + ve, NO Bruit, Non Tender, Non Distended : no CVA tenderness, no Suprapubic Tenderness DIAGNOSIS/ASSESSMENT Assessment & Plan New onset ESRD:Initiated on dialysis , on MWF schedule . Seen on dialysis, tolerating well. Continue as ordered, [facility] . Scheduled chair time MWF at [place], will follow him as OP HypoKalemia- Mild- Adjust K in Dialysate Anemia stable, currently on KADI HTN antihypertensive Acute respiratory failure with hypoxia Acute CHF exacerbation Cardiomyopathy, fluid overload, pleural effusions Bilateral pleural effusions large on the right and mild on the left with adjacent infiltrates. Scheduled for thoracentesis today COMMENT/RELEVANT DATA Meds Current Medications Medications (Trade) Dose Ordered Sig/Shantanu Start Time Stop Time Status Last Admin Dose Admin Acetaminophen (Tylenol) 650 mg PRN Q6HRS PRN 01/16/21 09:45 01/17/21 00:00 650 MG Acetaminophen/ Codeine Phosphate (Tylenol #3) 1 tab PRN Q6HRS PRN 01/16/21 09:30 01/18/21 15:15 1 TAB Al Hydroxide/Mg Hydroxide (Mylanta Plus Xs) 30 ml PRN Q3HRS PRN 01/16/21 09:45 Albumin Human 200 ml @ 200 mls/hr 1X PRN PRN 01/19/21 10:00 01/19/21 15:59 DC 01/19/21 15:32 200 MLS/HR Amiodarone HCl (Cordarone) 200 mg DAILY 01/16/21 11:00 01/22/21 09:49 200 MG Amlodipine Besylate (Norvasc) 10 mg DAILY 01/16/21 11:00 01/22/21 15:12 10 MG Aspirin (Aspirin Chewable) 162 mg 1X ONCE 01/16/21 02:00 01/16/21 02:01 DC Bisacodyl (Dulcolax Supp) 10 mg PRN DAILY PRN 01/16/21 09:45 Bumetanide (Bumex) 2.5 mg DAILY05 01/17/21 05:00 01/23/21 05:54 2.5 MG Calcium Carbonate/ Glycine (Tums) 500 mg PRN Q3HRS PRN 01/16/21 09:45 Cefazolin Sodium/ Dextrose 50 ml @ 100 mls/hr 1X PREOP PRN 01/21/21 06:00 01/22/21 05:59 DC Darbepoetin Ortega (ARANESP for DIALYSIS PTS) 60 mcg Th 01/17/21 21:00 01/17/21 20:44 60 MCG Dextrose (Dextrose 50%-Water Syringe) 12.5 gm PRN Q15MIN PRN 01/17/21 12:45 Diphenhydramine HCl (Benadryl) 25 mg 1X PRN PRN 01/18/21 11:45 01/19/21 11:44 DC Doxazosin Mesylate (Cardura) 4 mg DAILY 01/16/21 11:00 01/22/21 09:49 4 MG Fentanyl Citrate (Fentanyl 2ml Vial) 50 mcg 1X ONCE 01/21/21 11:45 01/21/21 11:46 DC 01/21/21 11:13 50 MCG Furosemide (Lasix) 100 mg STK-MED ONCE 01/16/21 03:53 01/16/21 03:53 DC Glimepiride (Amaryl) 4 mg DAILY 01/16/21 11:00 01/19/21 15:20 DC 01/18/21 08:34 4 MG Info (PHARMACY MONITORING -- do not chart) 1 each PRN DAILY PRN 01/23/21 08:00 Insulin Human Lispro (HumaLOG) 0-5 UNITS TIDWMEALS 01/17/21 17:00 01/22/21 18:17 2 UNITS Iron Sucrose 500 mg/Sodium Chloride 275 ml @ 78.571 mls/ hr 1X ONCE 01/17/21 14:00 01/17/21 17:29 DC 01/17/21 13:53 78.571 MLS/HR Lidocaine HCl (Buffered Lidocaine 1%) 4 ml 1X ONCE 01/16/21 14:15 01/16/21 14:16 DC 01/16/21 14:23 6 ML Lidocaine/ Epinephrine (LIDOCAINE 1%-EPI 1:100,000 Multi-Dose) 20 ml 1X ONCE 01/21/21 11:45 01/21/21 11:46 DC 01/21/21 11:37 20 ML Magnesium Hydroxide (Milk Of Magnesia) 2,400 mg PRN Q12HR PRN 01/16/21 09:45 Metolazone (Zaroxolyn) 5 mg DAILY 01/16/21 11:00 01/22/21 09:48 5 MG Metoprolol Succinate (Toprol Xl) 25 mg BID 01/17/21 09:00 01/22/21 21:27 25 MG Metoprolol Tartrate (Lopressor) 50 mg BID 01/16/21 11:00 01/16/21 22:15 DC 01/16/21 20:51 50 MG Midazolam HCl (Versed) 1 mg 1X ONCE 01/21/21 11:45 01/21/21 11:46 DC 01/21/21 11:13 1 MG Morphine Sulfate (Morphine Sulfate) 2 mg PRN Q1HR PRN 01/16/21 09:45 Multivitamins (Thera M Plus) 1 tab DAILY 01/16/21 11:00 01/22/21 09:49 1 TAB Nitroglycerin (Nitrostat) 0.4 mg PRN Q5MIN PRN 01/16/21 04:45 01/17/21 04:44 DC Ondansetron HCl (Zofran) 4 mg PRN Q6HRS PRN 01/16/21 09:45 01/17/21 01:46 4 MG Potassium Chloride (Klor-Con) 40 meq 1X ONCE 01/16/21 05:00 01/16/21 05:01 DC 01/16/21 05:00 40 MEQ Sodium Chloride 1,000 ml @ 400 mls/hr Q2H30M PRN 01/21/21 13:15 01/22/21 01:14 DC Sodium Chloride (Normal Saline Flush) 10 ml 1X PRN PRN 01/17/21 07:45 01/18/21 07:44 DC Vitamin B Complex/ Vitamin C (Charla-Jose R) 1 tab DAILY 01/17/21 09:00 01/22/21 09:48 1 TAB Warfarin Sodium (Coumadin Per Pharmacy) 1 each PRN DAILY PRN 01/16/21 09:30 01/18/21 10:37 DC 01/17/21 15:27 1 EACH Warfarin Sodium (Coumadin) 4 mg DAILY16 01/16/21 16:00 01/17/21 15:30 DC 01/16/21 20:51 4 MG Lab Laboratory Tests Test 01/22/21 11:47 01/22/21 16:10 01/22/21 20:41 01/23/21 03:57 Glucose (Fingerstick) 207 mg/dL (70-99) 175 mg/dL (70-99) 189 mg/dL (70-99) Prothrombin Time 15.2 SEC (11.7-14.0) Prothromb Time International Ratio 1.2 (0.8-1.1) Sodium Level 137 mmol/L (136-145) Potassium Level 3.3 mmol/L (3.5-5.1) Chloride Level 100 mmol/L (98-107) Carbon Dioxide Level 29 mmol/L (21-32) Anion Gap 8 (6-14) Blood Urea Nitrogen 37 mg/dL (8-26) Creatinine 3.0 mg/dL (0.7-1.3) Estimated GFR (Cockcroft-Gault) 20.3 Glucose Level 113 mg/dL (70-99) Calcium Level 8.6 mg/dL (8.5-10.1) Test 01/23/21 07:16 Glucose (Fingerstick) 131 mg/dL (70-99) Results All relevant outside records, renal labs, imaging studies, telemetry/EKG's were reviewed. Justicifation of Admission Dx: Justifications for Admission: Justification of Admission Dx: Yes JEFF PARISI MD Jan 23, 2021 09:57
--- NOTE | 2021-01-23 10:11 | PDOC ---
[employer] PROGRESS NOTE Date of Service DOS: DATE: 01/23/21 TIME: 10:08 Chief Complaint Chief Complaint Shortness of breath History of Present Illness History of Present Illness 01/23/21 Patient seen and examined Spoke with nursing and case management associate 01/22/21 Patient seen and examined Spoke with nursing and case management associate Permacath placed yesterday and looks good Thoracentesis yielded 850cc yesterday Discussed discharge to SNU with patient in conjunction with case management associate. He did not verbally respond with an answer and case management associate said she would return later. 01/21/21 Patient seen and examined Spoke with nursing and case management associate Spoke with patient and about thoracentesis and permacath today. History of Present Illness Patient 80-year-old male with past medical history CHF, CKD, who presents to the ER with complaints of chest pain. Symptoms began approximately 3 hours prior to arrival to ED. Reports substernal chest pain, /10, with associated shortness of breath. Shortness of breath is aggravated by physical exertion and laying flat. Last admission showed BNP 3603, troponins elevated but stable 0.106, with repeat 0.093. CT chest on admission showed bilateral pleural effusions, right greater than left with adjacent infiltrates. Will admit patient for further medical management. Vitals/I&O Vitals/I&O: Vital Signs Date Time Temp Pulse Resp B/P (MAP) Pulse Ox O2 Delivery O2 Flow Rate FiO2 01/23/21 08:00 Nasal Cannula 2.0 01/23/21 07:00 98.1 81 20 155/88 (110) 96 98.1 I & O 01/22/21 01/22/21 01/23/21 15:00 23:00 07:00 Intake Total 200 ml 500 ml Output Total 700 ml 325 ml Balance 200 ml -700 ml 175 ml Physical Exam Physical Exam: Physical Exam Physical Exam General: Alert, Oriented X3, Cooperative, No acute distress HEENT: PERRLA, EOMI Lungs: Faint crackles, distant breath sounds. Normal air movement Heart: RRR, no murmurs Cardiovascular: S1, S2 Abdomen: Normal bowel sounds, Soft, No tenderness Extremities: 2+ pitting edema bilaterally. No clubbing, No cyanosis Skin: No rashes, No significant lesion Neuro: Normal speech, Normal tone, Sensation intact Psych/Mental Status: Mental status NL, Mood NL General: Alert, No acute distress Heart: Regular rate, Other Lungs: Crackles Abdomen: Soft Extremities: No clubbing, No cyanosis Skin: No significant lesion Labs Labs: Laboratory Tests Test 01/22/21 11:47 01/22/21 16:10 01/22/21 20:41 01/23/21 03:57 Glucose (Fingerstick) 207 mg/dL (70-99) 175 mg/dL (70-99) 189 mg/dL (70-99) Prothrombin Time 15.2 SEC (11.7-14.0) Prothromb Time International Ratio 1.2 (0.8-1.1) Sodium Level 137 mmol/L (136-145) Potassium Level 3.3 mmol/L (3.5-5.1) Chloride Level 100 mmol/L (98-107) Carbon Dioxide Level 29 mmol/L (21-32) Anion Gap 8 (6-14) Blood Urea Nitrogen 37 mg/dL (8-26) Creatinine 3.0 mg/dL (0.7-1.3) Estimated GFR (Cockcroft-Gault) 20.3 Glucose Level 113 mg/dL (70-99) Calcium Level 8.6 mg/dL (8.5-10.1) Test 01/23/21 07:16 Glucose (Fingerstick) 131 mg/dL (70-99) Assessment and Plan Assessmemt and Plan Problems Medical Problems: (1) Acute exacerbation of CHF (congestive heart failure) Status: Acute Assessment Acute respiratory failure with hypoxia Acute CHF exacerbation Cardiomyopathy ELIZABETH due to cardiorenal syndrome Plan Discharge to SNU today. Patient on dialysis with Mon., wed., fri. chair times PT/OT Home meds; avoid nephrotoxins Full code Comment Review of Relevant I have reviewed the following items cortes (where applicable) has been applied. Justifications for Admission Other Justification Acute respiratory failure with hypoxia, acute CHF exacerbation, acute on chronic kidney failure ZAIN JENSEN III DO Jan 23, 2021 10:11
[2021-01-23] MEDS ORDERED: METO-239 PO (12:42)
[2021-01-23] MEDS ORDERED: FURO-68 PO (12:45)
[2021-01-23 13:30] VITALS: BP 120/76
[2021-01-23] MEDS: MULTIVITAMIN with MINERAL TABLET. PO SCH (13:34)
[2021-01-23] MEDS: metOLazone 2.5 MG TABLET PO SCH (13:35)
[2021-01-23] MEDS: FOLIC/VIT B COMP W-C (RENAL) TABLET. PO SCH (13:35)
[2021-01-23] MEDS: amLODIPine BESYLATE 10 MG TABLET PO SCH (13:35)
[2021-01-23] MEDS: DOXAZOSIN MESYLATE 4 MG TABLET. PO SCH (13:35)
[2021-01-23 13:36] VITALS: BP 120/76
[2021-01-23] MEDS: AMIODARONE HCL 200 MG TABLET. PO SCH (13:36)
[2021-01-23] MEDS: METOPROLOL SUCC 24HR ER 25 MG TAB.ER.24H. PO SCH (13:36)
--- NOTE | 2021-01-23 14:30 | NUR ---
Discharge Note: [facility] [address] [place] [address] Discharge instructions and discharge home medications reviewed with Other facility and a copy given. All questions have been answered and understanding verbalized. The following instructions and handouts were given: discharge instructions, med list, RX Discontinued lines and drains: Peripheral IV intact. [facility] at 1430.
== END 2021-01-23 14:30 | DRG 673 ==
LOC: ER 01:16 → ED HOLD 04:39 → 2 NORTH 09:27
PROVIDERS: ADMIT Internal Medicine; ATTEND Internal Medicine
PROC: 02H633Z Insertion of Infusion Device into Right Atrium, Percutaneous Approach (ICD-10-PCS; 2021-01-16)
PROC: B5181ZA Fluoroscopy of Superior Vena Cava using Low Osmolar Contrast, Guidance (ICD-10-PCS; 2021-01-16)
PROC: B548ZZA Ultrasonography of Superior Vena Cava, Guidance (ICD-10-PCS; 2021-01-16)
PROC: 5A1D70Z Performance of Urinary Filtration, Intermittent, Less than 6 Hours Per Day (ICD-10-PCS; 2021-01-16)
PROC: 5A1D70Z Performance of Urinary Filtration, Intermittent, Less than 6 Hours Per Day (ICD-10-PCS; 2021-01-17)
PROC: 5A1D70Z Performance of Urinary Filtration, Intermittent, Less than 6 Hours Per Day (ICD-10-PCS; 2021-01-18)
PROC: 5A1D70Z Performance of Urinary Filtration, Intermittent, Less than 6 Hours Per Day (ICD-10-PCS; 2021-01-19)
PROC: 0JH63XZ Insertion of Tunneled Vascular Access Device into Chest Subcutaneous Tissue and Fascia, Percutaneous Approach (ICD-10-PCS; principal; 2021-01-21)
PROC: 02PAX3Z Removal of Infusion Device from Heart, External Approach (ICD-10-PCS; 2021-01-21)
PROC: 02H633Z Insertion of Infusion Device into Right Atrium, Percutaneous Approach (ICD-10-PCS; 2021-01-21)
PROC: B5181ZA Fluoroscopy of Superior Vena Cava using Low Osmolar Contrast, Guidance (ICD-10-PCS; 2021-01-21)
PROC: 5A1D70Z Performance of Urinary Filtration, Intermittent, Less than 6 Hours Per Day (ICD-10-PCS; 2021-01-21)
PROC: 0W993ZZ Drainage of Right Pleural Cavity, Percutaneous Approach (ICD-10-PCS; 2021-01-21)
PROC: 5A1D70Z Performance of Urinary Filtration, Intermittent, Less than 6 Hours Per Day (ICD-10-PCS; 2021-01-23)
DX: N17.9 Acute kidney failure, unspecified (principal); I50.43 Acute on chronic combined systolic (congestive) and diastolic (congestive) heart failure; J96.01 Acute respiratory failure with hypoxia; I13.2 Hypertensive heart and chronic kidney disease with heart failure and with stage 5 chronic kidney disease, or end stage renal disease; E44.0 Moderate protein-calorie malnutrition; J98.11 Atelectasis; J91.8 Pleural effusion in other conditions classified elsewhere; I42.8 Other cardiomyopathies; N18.6 End stage renal disease; Z20.822 Contact with and (suspected) exposure to COVID-19; E78.5 Hyperlipidemia, unspecified; K80.20 Calculus of gallbladder without cholecystitis without obstruction; E11.22 Type 2 diabetes mellitus with diabetic chronic kidney disease; E11.65 Type 2 diabetes mellitus with hyperglycemia; E87.6 Hypokalemia; N40.0 Benign prostatic hyperplasia without lower urinary tract symptoms; N28.1 Cyst of kidney, acquired; I48.0 Paroxysmal atrial fibrillation; I44.7 Left bundle-branch block, unspecified; I44.0 Atrioventricular block, first degree; D64.9 Anemia, unspecified; R77.8 Other specified abnormalities of plasma proteins; E61.1 Iron deficiency; M19.90 Unspecified osteoarthritis, unspecified site; Z99.2 Dependence on renal dialysis; Z90.49 Acquired absence of other specified parts of digestive tract; Z87.01 Personal history of pneumonia (recurrent); Z82.49 Family history of ischemic heart disease and other diseases of the circulatory system; Z79.01 Long term (current) use of anticoagulants; Z79.899 Other long term (current) drug therapy; Z88.8 Allergy status to other drugs, medicaments and biological substances; Z68.33 Body mass index [BMI] 33.0-33.9, adult
CPT/HCPCS: 32555; 36415; 36556; 36581; 71045; 71250; 74150; 76937; 77001; 80048; 80053; 82553; 82962; 83540; 83550; 83605; 83690; 83735; 83880; 84100; 84145; 84484; 85025; 85379; 85610; 86140; 86317; 86704; 87340; 87426; 93005; 96374; 96375; 96376; 99152; 99285; C1750; C1892; J0690; J0882; J1756; J1815; J1940; J2250; J2405; J3010; J3490; J7050; P9046; U0003; U0005; 97110-GP; 97530-GO; 97530-GP; 97535-GO; 99291-25; G0378; J7030

== ENCOUNTER 2021-03-27 09:08 | Inpatient (IN) | payer MEDICARE, BC ==
[~2021-03-27] VITALS: Ht 172.7 cm; Wt 105.4 kg
[~2021-03-27 09:08] MED LIST changes: +FOLI0.8T21 PO; +FURO-68 PO; +INSU100V35 SQ; +METO-239 PO; +METO2.5T PO
[2021-03-27 10:03] LABS: BASO # 0.1 x10^3/uL (0.0-0.2); BASO % 1 % (0-3); EOS # 0.2 x10^3/uL (0.0-0.7); EOS % 3 % (0-3); HEMATOCRIT 30.2 % (39.0-53.0); HEMOGLOBIN 9.9 g/dL (13.0-17.5); LYMPH # 1.7 x10^3/uL (1.0-4.8); LYMPH % 21 % (24-48); MEAN CORPUSCULAR HEMOGLOBIN 27 pg (25-35); MEAN CORPUSCULAR HGB CONC 33 g/dL (31-37); MEAN CORPUSCULAR VOLUME 83 fL (79-100); MONO # 0.9 x10^3/uL (0.0-1.1); MONO % 11 % (0-9); NEUT # 5.4 x10^3/uL (1.8-7.7); NEUT % 65 % (31-73); PLATELET COUNT 243 x10^3/uL (140-400); RED BLOOD COUNT 3.64 x10^6/uL (4.30-5.70); WHITE BLOOD COUNT 8.4 x10^3/uL (4.0-11.0)
[2021-03-27 10:12] LABS: PROTHROMBIN TIME PATIENT 19.9 SEC (11.7-14.0)
[2021-03-27 10:14] LABS: CALCIUM 8.7 mg/dL (8.5-10.1); CREATININE 3.2 mg/dL (0.7-1.3); GFR 18.8; POTASSIUM 3.9 mmol/L (3.5-5.1)
[2021-03-27 10:20] LABS: ALBUMIN 2.9 g/dL (3.4-5.0); ALBUMIN/GLOBULIN RATIO 0.7 (1.0-1.7); TOTAL BILIRUBIN 0.3 mg/dL (0.2-1.0); TOTAL PROTEIN 6.9 g/dL (6.4-8.2)
[2021-03-27 10:49] LABS: FECAL OB PT POSITIVE (NEG)
--- NOTE | 2021-03-27 10:57 | PHYS DOC ---
Past Medical History Past Medical History: A-Fib, CHF, Diabetes-Type II, Hypertension, Pneumonia, Other Additional Past Medical Histor: TACHYCARDIA, ENLARGED HEART Past Surgical History: Cholecystectomy, Other Additional Past Surgical Histo: RIGHT EYE, BACK Smoking Status: Never Smoker Alcohol Use: None Drug Use: None General Adult EDM: Chief Complaint: RECTAL BLEED HPI: HPI: Patient is a 80 year old male presented to ER with for evaluation of rectal bleeding off and on since yesterday. Patient is on Coumadin. Patient denies any abdominal pain, no nausea vomiting, no rectal pain. Patient went to the toilet this morning and noted a lot of blood in his toilet. Review of Systems: Review of Systems: Constitutional: Denies fever or chills. [] Eyes: Denies change in visual acuity. [] HENT: Denies nasal congestion or sore throat. [] Respiratory: Denies cough or shortness of breath. [] Cardiovascular: Denies chest pain or edema. [] GI: Denies abdominal pain, nausea, vomiting, positive for rectal bleeding. : Denies dysuria. [] Musculoskeletal: Denies back pain or joint pain. [] Integument: Denies rash. [] Neurologic: Denies headache, focal weakness or sensory changes. [] Endocrine: Denies polyuria or polydipsia. [] Lymphatic: Denies swollen glands. [] Psychiatric: Denies depression or anxiety. [] Heart Score: C/O Chest Pain: N/A Risk Factors: Risk Factors: DM, Current or recent (<one month) smoker, HTN, HLP, family history of CAD, obesity. Risk Scores: Score 0 - 3: 2.5% MACE over next 6 weeks - Discharge Home Score 4 - 6: 20.3% MACE over next 6 weeks - Admit for Clinical Observation Score 7 - 10: 72.7% MACE over next 6 weeks - Early Invasive Strategies Allergies: Allergies: Allergies Coded Allergies Type Severity Reaction Last Updated Verified lisinopril Allergy Severe SWELLING OF TONGUE AND THROAT 05/08/16 Yes Physical Exam: PE: Constitutional: Well developed, well nourished, no acute distress, non-toxic appearance. [] HENT: Normocephalic, atraumatic, bilateral external ears normal, oropharynx moist, no oral exudates, nose normal. [] Eyes: PERRLA, EOMI, conjunctiva normal, no discharge. [] Neck: Normal range of motion, no tenderness, supple, no stridor. [] Cardiovascular:Heart rate regular rhythm, no murmur [] Lungs & Thorax: Bilateral breath sounds clear to auscultation [] Abdomen: Bowel sounds normal, soft, no tenderness, no masses, no pulsatile masses. RECTAL EXAM: GROSS BLOOD PRESENT, THERE IS ONE EXTERNAL HEMORRHOID, NONE- THROMBOSED. Skin: Warm, dry, no erythema, no rash. [] Back: No tenderness, no CVA tenderness. [] Extremities: No tenderness, no cyanosis, no clubbing, ROM intact, no edema. [] Neurologic: Alert and oriented X 3, normal motor function, normal sensory function, no focal deficits noted. [] Psychologic: Affect normal, judgement normal, mood normal. [] Current Patient Data: Labs: Laboratory Tests Test 03/27/21 09:27 03/27/21 09:47 Stool Occult Blood Positive (NEG) White Blood Count 8.4 x10^3/uL (4.0-11.0) Red Blood Count 3.64 x10^6/uL (4.30-5.70) L Hemoglobin 9.9 g/dL (13.0-17.5) L Hematocrit 30.2 % (39.0-53.0) L Mean Corpuscular Volume 83 fL (79-100) Mean Corpuscular Hemoglobin 27 pg (25-35) Mean Corpuscular Hemoglobin Concent 33 g/dL (31-37) Red Cell Distribution Width 19.0 % (11.5-14.5) H Platelet Count 243 x10^3/uL (140-400) Neutrophils (%) (Auto) 65 % (31-73) Lymphocytes (%) (Auto) 21 % (24-48) L Monocytes (%) (Auto) 11 % (0-9) H Eosinophils (%) (Auto) 3 % (0-3) Basophils (%) (Auto) 1 % (0-3) Neutrophils # (Auto) 5.4 x10^3/uL (1.8-7.7) Lymphocytes # (Auto) 1.7 x10^3/uL (1.0-4.8) Monocytes # (Auto) 0.9 x10^3/uL (0.0-1.1) Eosinophils # (Auto) 0.2 x10^3/uL (0.0-0.7) Basophils # (Auto) 0.1 x10^3/uL (0.0-0.2) Prothrombin Time 19.9 SEC (11.7-14.0) H Prothrombin Time INR 1.7 (0.8-1.1) H Activated Partial Thromboplast Time 32 SEC (24-38) Sodium Level 139 mmol/L (136-145) Potassium Level 3.9 mmol/L (3.5-5.1) Chloride Level 101 mmol/L (98-107) Carbon Dioxide Level 25 mmol/L (21-32) Anion Gap 13 (6-14) Blood Urea Nitrogen 48 mg/dL (8-26) H Creatinine 3.2 mg/dL (0.7-1.3) H Estimated GFR (Cockcroft-Gault) 18.8 BUN/Creatinine Ratio 15 (6-20) Glucose Level 155 mg/dL (70-99) H Calcium Level 8.7 mg/dL (8.5-10.1) Total Bilirubin 0.3 mg/dL (0.2-1.0) Aspartate Amino Transferase (AST) 14 U/L (15-37) L Alanine Aminotransferase (ALT) 16 U/L (16-63) Alkaline Phosphatase 94 U/L (46-116) Total Protein 6.9 g/dL (6.4-8.2) Albumin 2.9 g/dL (3.4-5.0) L Albumin/Globulin Ratio 0.7 (1.0-1.7) L Laboratory Tests 03/27/21 09:47 Laboratory Tests 03/27/21 09:47 Vital Signs: Vital Signs Date Time Temp Pulse Resp B/P (MAP) Pulse Ox O2 Delivery O2 Flow Rate FiO2 03/27/21 09:14 97.9 66 20 120/71 (87) 95 Room Air 97.9 EKG: EKG: EKG done at nontoxic, heart rate 65 bpm, no ST segment elevation. Radiology/Procedures: Radiology/Procedures: [] Course & Med Decision Making: Course & Med Decision Making Pertinent Labs and Imaging studies reviewed. (See chart for details) Patient is a 80-year-old male who present to ER due to rectal bleeding, he denies any pain in her belly or his rectum. Patient on Coumadin. His blood pressure normal so far, hit INR 1.7, hemoglobin at around 9.7. Patient be admit carmen to hospital for further evaluation and treatment, discussed with hospitalist service Dr. Tee LERMA who agreed to admit the patient. Sharon Disclaimer: Dragon Disclaimer: This electronic medical record was generated, in whole or in part, using a voice recognition dictation system. Departure Departure Impression: Primary Impression: Rectal bleeding Disposition: ADMITTED INPATIENT Admitting Physician: ERIKA (DR. TEE LERMA) Condition: STABLE Referrals: SOTO CLIFFORD MD (PCP) MEIR SESAY DO Mar 27, 2021 10:57
[2021-03-27] MEDS ORDERED: ONDANSETRON PF 4 MG/2 ML VIAL. IV PRN (11:30)
[2021-03-27 12:20] VITALS: BP 111/68
--- NOTE | 2021-03-27 13:18 | PDOC2 ---
GI CONSULT Date of Service: DATE: 03/27/21 TIME: 13:17 Reason For Consult: rectal bleeding HPI: HPI: Pleasant 80 y/o male admitted through ER. Flakita helps with history. Yesterday thought he needed to have a bowel movement but instead passed red blood/clots. Recurred again in the ER today. No reflux/heartburn, dysphagia, n/v, abd pain, constipation, melena, change in appetite, weight loss, or dizziness. No previous EGD. Reports normal colonoscopy (done "for a checkup") many years ago somewhere in [facility] "that was arranged by Dr. Vaughn." Denies h/o GI bleeding except for some hemorrhoids many many years ago. S/p cholecystectomy (had stones). No liver, pancreas, or PUD history. H/o A Fib on Coumadin - reports INR has been lowish and dosage increased recently. H/o ESRD on HD - says supposed to dialyze today. PMH: PMH: A Fib, CHF, HTN, HLD, pneumonia, DM, ESRD on HD, BPH thoracentesis, cholecystectomy, back surgery, eye surgery FH: Family History: No pertinent hx Social History: Smoke: No ALCOHOL: none Drugs: None ROS: GEN: Denies fevers, chills, sweats HEENT: Denies blurred vision, sore throat CV: Denies chest pain RESP: Denies shortness of air, cough GI: Per HPI : Denies hematuria, dysuria ENDO: Denies weight changes NEURO: Denies confusion, dizziness MSK: Denies weakness, joint pain/swelling SKIN: Denies jaundice, pruritus Vitals: Vitals: Vital Signs Date Time Temp Pulse Resp B/P (MAP) Pulse Ox O2 Delivery O2 Flow Rate FiO2 03/27/21 11:56 68 26 123/71 (88) 94 Room Air 03/27/21 09:14 97.9 97.9 Labs: Labs: Laboratory Tests Test 03/27/21 09:27 03/27/21 09:47 Stool Occult Blood Positive (NEG) White Blood Count 8.4 x10^3/uL (4.0-11.0) Red Blood Count 3.64 x10^6/uL (4.30-5.70) Hemoglobin 9.9 g/dL (13.0-17.5) Hematocrit 30.2 % (39.0-53.0) Mean Corpuscular Volume 83 fL (79-100) Mean Corpuscular Hemoglobin 27 pg (25-35) Mean Corpuscular Hemoglobin Concent 33 g/dL (31-37) Red Cell Distribution Width 19.0 % (11.5-14.5) Platelet Count 243 x10^3/uL (140-400) Neutrophils (%) (Auto) 65 % (31-73) Lymphocytes (%) (Auto) 21 % (24-48) Monocytes (%) (Auto) 11 % (0-9) Eosinophils (%) (Auto) 3 % (0-3) Basophils (%) (Auto) 1 % (0-3) Neutrophils # (Auto) 5.4 x10^3/uL (1.8-7.7) Lymphocytes # (Auto) 1.7 x10^3/uL (1.0-4.8) Monocytes # (Auto) 0.9 x10^3/uL (0.0-1.1) Eosinophils # (Auto) 0.2 x10^3/uL (0.0-0.7) Basophils # (Auto) 0.1 x10^3/uL (0.0-0.2) Prothrombin Time 19.9 SEC (11.7-14.0) Prothromb Time International Ratio 1.7 (0.8-1.1) Activated Partial Thromboplast Time 32 SEC (24-38) Sodium Level 139 mmol/L (136-145) Potassium Level 3.9 mmol/L (3.5-5.1) Chloride Level 101 mmol/L (98-107) Carbon Dioxide Level 25 mmol/L (21-32) Anion Gap 13 (6-14) Blood Urea Nitrogen 48 mg/dL (8-26) Creatinine 3.2 mg/dL (0.7-1.3) Estimated GFR (Cockcroft-Gault) 18.8 BUN/Creatinine Ratio 15 (6-20) Glucose Level 155 mg/dL (70-99) Calcium Level 8.7 mg/dL (8.5-10.1) Total Bilirubin 0.3 mg/dL (0.2-1.0) Aspartate Amino Transf (AST/SGOT) 14 U/L (15-37) Alanine Aminotransferase (ALT/SGPT) 16 U/L (16-63) Alkaline Phosphatase 94 U/L (46-116) Total Protein 6.9 g/dL (6.4-8.2) Albumin 2.9 g/dL (3.4-5.0) Albumin/Globulin Ratio 0.7 (1.0-1.7) Allergies: Coded Allergies: lisinopril (Verified Allergy, Severe, SWELLING OF TONGUE AND THROAT, 05/08/16) PE: GEN: NAD HEENT: Atraumatic, PERRL LUNGS: CTAB HEART: irregular ABD: NABS, S/ND/NT EXTREMITY: trace BLE edema SKIN: No rashes, no jaundice NEURO/PSYCH: A & O 3 - looks to to answer most questions A/P: A/P: Hematochezia Chronic anemia CRC screen - reports normal colonoscopy years ago S/p cholecystectomy A Fib on Coumadin - INR 1.7 ESRD on HD -- ?diverticular bleed? Discussed in detail w/ pt/. Not much abdominal imaging here in the past. Will check bleeding scan. NPO (ice chips/sips of water okay), monitor for recurrent bleeding, monitor Hgb, transfuse as necessary. Hold Coumadin. 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 ANTONINA RHOADES Mar 27, 2021 13:18
[2021-03-27] MEDS ORDERED: HEPARIN for NUC MED 500 UNIT/5 ML DISP.SYRIN. IV ONE ×2 (13:36→13:45)
--- NOTE | 2021-03-27 15:19 | PDOC1 ---
History and Physical Date of Admission Date of Admission DATE: 03/27/21 TIME: 15:08 Identification/Chief Complaint Chief Complaint Hematochezia Source Source: Caregiver, Chart review, Patient History of Present Illness History of Present Illness Patient is 80-year-old male past medical history ESRD on HD Thursday/Thursday/Thursday, atrial fibrillation on warfarin, and DM2, who presents to the ED with complaints of rectal bleeding since yesterday. He reports passing bright red blood per rectum with clots. He denies any associated abdominal pain. He does report a history of similar symptoms several years ago. Per patient's , he has had a colonoscopy in the past with normal results and no polyps. Labs on admission showed hemoglobin 9.9, hematocrit 30.2, INR 1.7, BUN 48, creatinine 3.2, CBG 155, albumin 2.9, and he was Hemoccult positive. During recent admission for CHF exacerbation on 01/18/2021 he was noted to have hemoglobin 9.6 and hematocrit 30.1. While in the ED he continues to have bright red blood per rectum with some clots. Will admit patient for further medical management. Past Medical History Cardiovascular: CHF, HTN, Hyperlipidemia Pulmonary: No pertinent hx, Bronchitis CENTRAL NERVOUS SYSTEM: Other GI: No pertinent hx Heme/Onc: No pertinent hx Hepatobiliary: Cholelithiasis Psych: No pertinent hx Rheumatologic: No pertinent hx Infectious disease: No pertinent hx Renal/: Chronic renal insuff Endocrine: Diabetes Past Surgical History Past Surgical History: Cholecystectomy, Other Family History Family History: Hypertension Social History Smoke: No ALCOHOL: none Drugs: None Current Problem List Problem List Problems Medical Problems: (1) Rectal bleeding Status: Acute Current Medications Current Medications Current Medications Ondansetron HCl (Zofran) 4 mg PRN Q8HRS PRN IV NAUSEA/VOMITING; Start 03/27/21 at 11:30; Stop 03/28/21 at 11:29 Sodium Chloride 1,000 ml @ 75 mls/hr [id number] IV ; Start 03/27/21 at 11:30; Stop 03/28/21 at 11:29 Pantoprazole Sodium (PROTONIX VIAL for IV PUSH) 40 mg DAILYAC IVP ; Start 03/27/21 at 14:00 Heparin Sodium (Porcine) (HEPARIN for NUC MED) 100 unit 1X ONCE IV ; Start 03/27/21 at 13:45; Stop 03/27/21 at 13:46; Status DC Active Scripts Active Lasix (Furosemide) 40 Mg Tablet 1 Tab PO DAILY 30 Days Metoprolol Succinate ( Xl ) (Metoprolol Succinate) 25 Mg Tab.er.24h 50 Mg PO DAILY Charla-Jose R Tablet (Folic Acid/Vitamin B Comp W-C) 0.8 Mg Tablet 1 Tab PO DAILY 30 Days Admelog (Insulin Lispro) 100 Unit/1 Ml Vial 0 Units SQ TIDWMEALS 30 Days Metolazone 2.5 Mg Tablet 5 Mg PO DAILY 30 Days Amiodarone Hcl 200 Mg Tablet 200 Mg PO DAILY 30 Days Acetaminophen-Cod #3 Tablet (Acetaminophen/Codeine Phosphate) 1 Each Tablet 1 Tab PO PRN Q6HRS PRN 6 Days Reported Warfarin Sodium 4 Mg Tablet 6 Mg PO DAILY Mirtazapine 7.5 Mg Tablet 1 Tab PO QHS 30 Days Norvasc (Amlodipine Besylate) 10 Mg Tablet 10 Mg PO DAILY last dose given: date 10/23/20 time 0857 next dose due: date 10/24/20 time 0900 Doxazosin Mesylate 4 Mg Tablet 1 Tab PO DAILY not given while patient was here next dose due: date 10/24/20 time 0900 Super B Complex (Vitamin B Complex & Vit C No.4) 150 Mg Tablet 150 Mg PO DAILY not given while patient was here next dose due: date 10/24/20 time 0900 Vitamin C (Ascorbic Acid) 1,000 Mg Tablet 1,000 Mg PO DAILY not given while here next dose due: date 10/24/20 time 0900 Allergies Allergies: Coded Allergies: lisinopril (Verified Allergy, Severe, SWELLING OF TONGUE AND THROAT, ) ROS Review of System GENERAL: No history of weight change, weakness or fevers. SKIN: No bruising, hair changes or rashes. EYES: No blurred, double or loss of vision. NOSE AND THROAT: No history of nosebleeds, hoarseness or sore throat. HEART: Denies chest pain, denies palpitations. LUNGS: Denies cough, hemoptysis, wheezing or shortness of breath. GASTROINTESTINAL: Hematochezia. Denies nausea, vomiting, abdominal pain. GENITOURINARY: Denies dysuria, frequency, urgency, hematuria. NEUROLOGIC: Denies history of numbness, tingling, tremor or weakness. PSYCHIATRIC: Denies anxiety, denies depression. ENDOCRINE: No history of heat or cold intolerance, polyuria or polydipsia. EXTREMITIES: Denies muscle weakness, joint pain, pain on walking or stiffness. Physical Exam Physical Exam General: Alert, Oriented X3, Cooperative, No acute distress. HEENT: PERRLA, EOMI Lungs: Decreased breath sounds, Normal air movement Heart: RRR, no murmurs Cardiovascular: S1, S2 Abdomen: Normal bowel sounds, Soft, No tenderness. Obese abdomen. Extremities: No clubbing, No cyanosis. +2 BLE. Skin: No rashes, No significant lesion Neuro: Normal speech, Normal tone, Sensation intact Psych/Mental Status: Mental status NL, Mood NL Vitals Vitals Vital Signs Date Time Temp Pulse Resp B/P (MAP) Pulse Ox O2 Delivery O2 Flow Rate FiO2 03/27/21 12:20 63 18 111/68 (82) 96 Room Air 03/27/21 09:14 97.9 97.9 Labs Labs Laboratory Tests Test 03/27/21 09:27 03/27/21 09:47 Stool Occult Blood Positive (NEG) White Blood Count 8.4 x10^3/uL (4.0-11.0) Red Blood Count 3.64 x10^6/uL (4.30-5.70) Hemoglobin 9.9 g/dL (13.0-17.5) Hematocrit 30.2 % (39.0-53.0) Mean Corpuscular Volume 83 fL (79-100) Mean Corpuscular Hemoglobin 27 pg (25-35) Mean Corpuscular Hemoglobin Concent 33 g/dL (31-37) Red Cell Distribution Width 19.0 % (11.5-14.5) Platelet Count 243 x10^3/uL (140-400) Neutrophils (%) (Auto) 65 % (31-73) Lymphocytes (%) (Auto) 21 % (24-48) Monocytes (%) (Auto) 11 % (0-9) Eosinophils (%) (Auto) 3 % (0-3) Basophils (%) (Auto) 1 % (0-3) Neutrophils # (Auto) 5.4 x10^3/uL (1.8-7.7) Lymphocytes # (Auto) 1.7 x10^3/uL (1.0-4.8) Monocytes # (Auto) 0.9 x10^3/uL (0.0-1.1) Eosinophils # (Auto) 0.2 x10^3/uL (0.0-0.7) Basophils # (Auto) 0.1 x10^3/uL (0.0-0.2) Prothrombin Time 19.9 SEC (11.7-14.0) Prothromb Time International Ratio 1.7 (0.8-1.1) Activated Partial Thromboplast Time 32 SEC (24-38) Sodium Level 139 mmol/L (136-145) Potassium Level 3.9 mmol/L (3.5-5.1) Chloride Level 101 mmol/L (98-107) Carbon Dioxide Level 25 mmol/L (21-32) Anion Gap 13 (6-14) Blood Urea Nitrogen 48 mg/dL (8-26) Creatinine 3.2 mg/dL (0.7-1.3) Estimated GFR (Cockcroft-Gault) 18.8 BUN/Creatinine Ratio 15 (6-20) Glucose Level 155 mg/dL (70-99) Calcium Level 8.7 mg/dL (8.5-10.1) Iron Level 51 ug/dL (65-175) Total Iron Binding Capacity 238 ug/dL (250-450) Iron Saturation 21 % (15-34) Total Bilirubin 0.3 mg/dL (0.2-1.0) Aspartate Amino Transf (AST/SGOT) 14 U/L (15-37) Alanine Aminotransferase (ALT/SGPT) 16 U/L (16-63) Alkaline Phosphatase 94 U/L (46-116) Total Protein 6.9 g/dL (6.4-8.2) Albumin 2.9 g/dL (3.4-5.0) Albumin/Globulin Ratio 0.7 (1.0-1.7) Vitamin B12 Level 283 pg/mL (247-911) Laboratory Tests Test 03/27/21 09:27 03/27/21 09:47 Stool Occult Blood Positive (NEG) White Blood Count 8.4 x10^3/uL (4.0-11.0) Red Blood Count 3.64 x10^6/uL (4.30-5.70) Hemoglobin 9.9 g/dL (13.0-17.5) Hematocrit 30.2 % (39.0-53.0) Mean Corpuscular Volume 83 fL (79-100) Mean Corpuscular Hemoglobin 27 pg (25-35) Mean Corpuscular Hemoglobin Concent 33 g/dL (31-37) Red Cell Distribution Width 19.0 % (11.5-14.5) Platelet Count 243 x10^3/uL (140-400) Neutrophils (%) (Auto) 65 % (31-73) Lymphocytes (%) (Auto) 21 % (24-48) Monocytes (%) (Auto) 11 % (0-9) Eosinophils (%) (Auto) 3 % (0-3) Basophils (%) (Auto) 1 % (0-3) Neutrophils # (Auto) 5.4 x10^3/uL (1.8-7.7) Lymphocytes # (Auto) 1.7 x10^3/uL (1.0-4.8) Monocytes # (Auto) 0.9 x10^3/uL (0.0-1.1) Eosinophils # (Auto) 0.2 x10^3/uL (0.0-0.7) Basophils # (Auto) 0.1 x10^3/uL (0.0-0.2) Prothrombin Time 19.9 SEC (11.7-14.0) Prothromb Time International Ratio 1.7 (0.8-1.1) Activated Partial Thromboplast Time 32 SEC (24-38) Sodium Level 139 mmol/L (136-145) Potassium Level 3.9 mmol/L (3.5-5.1) Chloride Level 101 mmol/L (98-107) Carbon Dioxide Level 25 mmol/L (21-32) Anion Gap 13 (6-14) Blood Urea Nitrogen 48 mg/dL (8-26) Creatinine 3.2 mg/dL (0.7-1.3) Estimated GFR (Cockcroft-Gault) 18.8 BUN/Creatinine Ratio 15 (6-20) Glucose Level 155 mg/dL (70-99) Calcium Level 8.7 mg/dL (8.5-10.1) Iron Level 51 ug/dL (65-175) Total Iron Binding Capacity 238 ug/dL (250-450) Iron Saturation 21 % (15-34) Total Bilirubin 0.3 mg/dL (0.2-1.0) Aspartate Amino Transf (AST/SGOT) 14 U/L (15-37) Alanine Aminotransferase (ALT/SGPT) 16 U/L (16-63) Alkaline Phosphatase 94 U/L (46-116) Total Protein 6.9 g/dL (6.4-8.2) Albumin 2.9 g/dL (3.4-5.0) Albumin/Globulin Ratio 0.7 (1.0-1.7) Vitamin B12 Level 283 pg/mL (247-911) VTE Prophylaxis Ordered VTE Prophylaxis Devices: Yes VTE Pharmacological Prophylaxi: No Assessment/Plan Assessment/Plan Acute lower GI bleed Subtherapeutic INR ESRD on HD Normocytic anemia DM2 Atrial fibrillation Moderate malnutrition Plan: Will place consult to GI; case discussed with Gastroenterology PA Will need to hold warfarin at this time due to ongoing bleeding, and I discussed this with patient and Will place consult to nephrology continue his regular hemodialysis Will keep patient NPO for any possible GI intervention Resume what medications we can at this time FEN - NPO PPX - SCDs DNR Dispo - inpatient for above Advance Care Planning: Total time spent [id number] with patient 17 minutes in discussion with goals of care, comfort care, end-of-life care, pain management, code status; patient names his (Flakita Palomares) as surrogate decision- maker. Justifications for Admission Other Justification Acute respiratory failure with hypoxia, acute CHF exacerbation, acute on chronic kidney failure LORI LERMA MD Mar 27, 2021 15:19
[2021-03-27] MEDS ORDERED: MORPHINE SULFATE 2 MG/ML VIAL. IV PRN (15:30)
[2021-03-27] MEDS ORDERED: ACETAMINOPHEN 325 MG TABLET. PO PRN (15:30)
[2021-03-27] MEDS ORDERED: MAGNESIUM HYDROXIDE 2,400 MG/30 ML ORAL.SUSP. PO PRN (15:30)
[2021-03-27] MEDS ORDERED: ONDANSETRON PF 4 MG/2 ML VIAL. IVP PRN (15:30)
[2021-03-27] MEDS ORDERED: BISACODYL 10 MG SUPP.RECT. PR PRN (15:30)
[2021-03-27] MEDS ORDERED: HYDROmorphone 2 MG/ML VIAL IV PRN (15:30)
--- NOTE | 2021-03-27 15:40 | RAD ---
NUCLEAR MEDICINE GI BLEEDING STUDY Clinical indications: Hematochezia. Anemia. Suspected diverticular bleed. TECHNIQUE: After labeling of autologous red blood cells with 30 mCi of technetium 99m UltraTag, anter ior planar images of the abdomen and pelvis were performed in sequential fashion up to 60 minutes. COMPARISON: No previous nuclear medicine study available. FINDINGS: There are 2 areas of radiotracer activity accumulation within the hepatic flexure of the co ekta just inferior to the right lobe of the liver. There is an additional accumulation of radiotracer activity involving the mid abdomen at the level of the aortic bifurcation. This could represent sigmo id colon. IMPRESSION: There are 2 areas of radiotracer activity within the hepatic flexure of the colon indicat casey of 2 bleeding sites or a bleeding site with dissemination. There is another additional area of ra diotracer activity within the mid abdomen at the level of the aortic bifurcation which could represen t a bleeding site within the sigmoid colon. Electronically signed by: Hipolito Steinberg MD (03/27/2021 3:38 PM) [id number]
[2021-03-27] MEDS ORDERED: IV DEXTROSE 5% 250 ML BAG. IV PRN (15:45)
[2021-03-27] MEDS ORDERED: DEXTROSE 50% 25 GM / 50ML DISP.SYRIN. IV PRN (15:45)
[2021-03-27] MEDS ORDERED: PHYTONADIONE 10 MG/ML AMPUL. SQ ONE (16:00)
[2021-03-27] MEDS: INSULIN LISPRO 300 UNITS/3 ML VIAL. SQ SCH (17:00)
[2021-03-27] MEDS ORDERED: IOHEXOL 350 MG/ML 100 ML VIAL. IV ONE (17:15)
[2021-03-27] MEDS: PANTOPRAZOLE IV PUSH 40 MG VIAL. IVP SCH (17:20)
[2021-03-27] MEDS: IV NORMAL SALINE 1000ML BAG 1,000 ML IV SCH (17:22)
[2021-03-27 19:16] VITALS: BP 130/70
--- NOTE | 2021-03-27 19:24 | RAD ---
CTA abdomen pelvis with and without contrast dated 03/27/2021. Comparison made to 01/16/2021 Clinical data indication: Hematochezia. TECHNIQUE: Contiguous axial imaging of the abdomen and pelvis with and without the intravenous administration of 90 cc Omnipaque 350. Postcontrast imaging performed in the arterial and venous phases using bleeding scan protocol. One or more of the following individualized dose reduction techniques were utilized for this examinat ion: 1. Automated exposure control 2. Adjustment of the mA and/or kV according to patient size 3. Use of iterative reconstruction technique FINDINGS: Images of lung bases show patchy consolidation of the lower lobes with bilateral pleural effusions, l eft greater than right. Heart size is moderately enlarged. Coronary artery calcifications. No pericar dial effusion. No apparent attenuation abnormality of the liver or spleen. Pancreas unremarkable. There is a fatty m ass of the left adrenal gland that measures 1.9 cm, similar to prior study. Low-density foci of the b ilateral kidneys are unchanged, likely cysts. No stone or hydronephrosis. There is focal arterial and venous contrast blush along the posterior wall of the hepatic flexure, be st seen on series 6 image 58 which correlates with area of bleeding on recent nuclear medicine scan. No definite mass or wall thickening associated with this area. No definite abnormal contrast accumulation identified at the level of the aortic bifurcation to corre late with additional area of suspected bleeding. There is a subtle area of linear contrast blush at the junction is best seen on coronal series 10 jaime ges 62 through 65 that could correlate with bleeding. Scattered diverticula throughout the colon. No paracolonic inflammatory changes. No ascites or lympha denopathy. Abdominal aorta normal in caliber. Images of pelvis show nondistended urinary bladder. Prostate gland is moderately enlarged. No free fl uid or pelvic lymphadenopathy. Bone windows show no acute findings. Multilevel spondylosis. IMPRESSION: 1. There is a area of active contrast blush at the hepatic flexure of the colon that correlates with abnormality seen on recent nuclear medicine scan. This is consistent with active GI hemorrhage. 2. There is an additional linear area of contrast blush at the anorectal junction that is subtle but could also correlate with an area of bleeding more distally. 3. The previously described abnormal activity at the level of the aortic bifurcation shows no definit e correlate on CT. 4. Diverticulosis. 5. Bibasilar airspace disease, likely atelectasis. There are small to moderate size bilateral pleural effusions. 6. Prostatomegaly. Electronically signed by: Timmy Amaro MD (03/27/2021 7:22 PM) NURA
--- NOTE | 2021-03-27 20:10 | NUR ---
Notified Dr Jackson who's nurse practitioner home assessments for Dr Harry of CT scan abdomen result via [employer].
[2021-03-27 20:33] LABS: HEMATOCRIT 29.2 % (39.0-53.0); HEMOGLOBIN 9.4 g/dL (13.0-17.5)
[2021-03-27 23:11] VITALS: BP 123/72
[2021-03-28] VITALS (8 sets, daily range): BP systolic 90–125; BP diastolic 53–71
--- NOTE | 2021-03-28 01:58 | NUR ---
Had bloody stool x 1, mod in amount.
[2021-03-28] MEDS: IV NORMAL SALINE 1000ML BAG 1,000 ML IV SCH (03:26)
[2021-03-28] MEDS ORDERED: INSU100I32 SQ (05:36)
[2021-03-28] MEDS ORDERED: GLIM4TAB8 PO (05:36)
[2021-03-28] MEDS ORDERED: METO5TAB4 PO (05:36)
[2021-03-28] MEDS ORDERED: GEMF600T20 PO (05:36)
[2021-03-28] MEDS ORDERED: MECL12.582 PO (05:36)
[2021-03-28] MEDS ORDERED: FLUT16SP NS (05:36)
[2021-03-28] MEDS ORDERED: TRIA1CAP3 PO (05:36)
[2021-03-28] MEDS ORDERED: ATOR40TA59 PO (05:36)
[2021-03-28] MEDS ORDERED: METO25TA4 PO (05:36)
[2021-03-28] MEDS ORDERED: AMIO200T7 PO (05:36)
[2021-03-28] MEDS ORDERED: BUME1TAB3 PO (05:36)
[2021-03-28] MEDS: PANTOPRAZOLE IV PUSH 40 MG VIAL. IVP SCH (06:20)
[2021-03-28 07:36] LABS: HEMATOCRIT 24.2 % (39.0-53.0); RED BLOOD COUNT 2.9 x10^6/uL (4.30-5.70); RED CELL DISTRIBUTION WIDTH 18.7 % (11.5-14.5); WHITE BLOOD COUNT 8.6 x10^3/uL (4.0-11.0)
[2021-03-28] MEDS: INSULIN LISPRO 300 UNITS/3 ML VIAL. SQ SCH ×3 (08:00→17:00)
[2021-03-28 08:03] LABS: CALCIUM 8.5 mg/dL (8.5-10.1); CREATININE 3.3 mg/dL (0.7-1.3); GFR 18.2; POTASSIUM 4.2 mmol/L (3.5-5.1)
[2021-03-28] MEDS ORDERED: PHYTONADIONE 10 MG/ML AMPUL. SQ ONE (08:45)
--- NOTE | 2021-03-28 08:46 | PDOC ---
Date of Service: DATE: 03/28/21 TIME: 08:40 Subjective: Subjective: "I guess" still bleeding. Does have a little lower abd discomfort. Objective: Objective: D/w nurse - two bloody stools overnight, one ("lots" per MAIL SORTER) this morning. BP stable - lowish once but okay on recheck. Vital Signs: Vital Signs Date Time Temp Pulse Resp B/P (MAP) Pulse Ox O2 Delivery O2 Flow Rate FiO2 03/28/21 07:00 97.9 84 20 107/61 (76) 95 97.9 03/28/21 03:10 Room Air Labs: Laboratory Tests Test 03/27/21 09:27 03/27/21 09:47 03/27/21 18:08 03/27/21 19:32 Stool Occult Blood Positive White Blood Count 8.4 x10^3/uL Red Blood Count 3.64 x10^6/uL Hemoglobin 9.9 g/dL Hematocrit 30.2 % Mean Corpuscular Volume 83 fL Mean Corpuscular Hemoglobin 27 pg Mean Corpuscular Hemoglobin Concent 33 g/dL Red Cell Distribution Width 19.0 % Platelet Count 243 x10^3/uL Neutrophils (%) (Auto) 65 % Lymphocytes (%) (Auto) 21 % Monocytes (%) (Auto) 11 % Eosinophils (%) (Auto) 3 % Basophils (%) (Auto) 1 % Neutrophils # (Auto) 5.4 x10^3/uL Lymphocytes # (Auto) 1.7 x10^3/uL Monocytes # (Auto) 0.9 x10^3/uL Eosinophils # (Auto) 0.2 x10^3/uL Basophils # (Auto) 0.1 x10^3/uL Prothrombin Time 19.9 SEC Prothromb Time International Ratio 1.7 Activated Partial Thromboplast Time 32 SEC Sodium Level 139 mmol/L Potassium Level 3.9 mmol/L Chloride Level 101 mmol/L Carbon Dioxide Level 25 mmol/L Anion Gap 13 Blood Urea Nitrogen 48 mg/dL Creatinine 3.2 mg/dL Estimated GFR (Cockcroft-Gault) 18.8 BUN/Creatinine Ratio 15 Glucose Level 155 mg/dL Calcium Level 8.7 mg/dL Iron Level 51 ug/dL Total Iron Binding Capacity 238 ug/dL Iron Saturation 21 % Total Bilirubin 0.3 mg/dL Aspartate Amino Transf (AST/SGOT) 14 U/L Alanine Aminotransferase (ALT/SGPT) 16 U/L Alkaline Phosphatase 94 U/L Total Protein 6.9 g/dL Albumin 2.9 g/dL Albumin/Globulin Ratio 0.7 Vitamin B12 Level 283 pg/mL Glucose (Fingerstick) 85 mg/dL 83 mg/dL Test 03/27/21 20:29 03/28/21 00:15 03/28/21 01:47 03/28/21 03:29 Hemoglobin 9.4 g/dL Hematocrit 29.2 % Mean Corpuscular Hemoglobin Concent 32 g/dL Glucose (Fingerstick) 74 mg/dL 72 mg/dL 83 mg/dL Test 03/28/21 06:05 03/28/21 06:45 Glucose (Fingerstick) 85 mg/dL White Blood Count 8.6 x10^3/uL Red Blood Count 2.90 x10^6/uL Hemoglobin 8.0 g/dL Hematocrit 24.2 % Mean Corpuscular Volume 83 fL Mean Corpuscular Hemoglobin 28 pg Mean Corpuscular Hemoglobin Concent 33 g/dL Red Cell Distribution Width 18.7 % Platelet Count 212 x10^3/uL Prothrombin Time 19.0 SEC Prothromb Time International Ratio 1.6 Sodium Level 142 mmol/L Potassium Level 4.2 mmol/L Chloride Level 105 mmol/L Carbon Dioxide Level 22 mmol/L Anion Gap 15 Blood Urea Nitrogen 55 mg/dL Creatinine 3.3 mg/dL Estimated GFR (Cockcroft-Gault) 18.2 Glucose Level 79 mg/dL Calcium Level 8.5 mg/dL Imaging: Bleed Scan 03/27 IMPRESSION: There are 2 areas of radiotracer activity within the hepatic flexure of the colon indicative of 2 bleeding sites or a bleeding site with di ssemination. There is another additional area of radiotracer activity within the mid abdomen at the level of the aortic bifurcation which could represent a bleeding site within the sigmoid colon. CTA A/P 03/27 Images of lung bases show patchy consolidation of the lower lobes with bilateral pleural effusions, left greater than right. Heart size is moderately enlarged. Coronary artery calcifications. No pericardial effusion. No apparent attenuation abnormality of the liver or spleen. Pancreas unremarkable. There is a fatty mass of the left adrenal gland that measures 1.9 cm, similar to prior study. Low-density foci of the bilateral kidneys are unchanged, likely cysts. No stone or hydronephrosis. There is focal arterial and venous contrast blush along the posterior wall of the hepatic flexure, best seen on series 6 image 58 which correlates with area of bleeding on recent nuclear medicine scan. No definite mass or wall thickening associated with this area. No definite abnormal contrast accumulation identified at the level of the aortic bifurcation to correlate with additional area of suspected bleeding. There is a subtle area of linear contrast blush at the junction is best seen on coronal series 10 images 62 through 65 that could correlate with bleeding. Scattered diverticula throughout the colon. No paracolonic inflammatory changes. No ascites or lymphadenopathy. Abdominal aorta normal in caliber. Images of pelvis show nondistended urinary bladder. Prostate gland is moderately enlarged. No free fluid or pelvic lymphadenopathy. Bone windows show no acute findings. Multilevel spondylosis. IMPRESSION: 1. There is a area of active contrast blush at the hepatic flexure of the colon that correlates with abnormality seen on recent nuclear medicine scan. This is consistent with active GI hemorrhage. 2. There is an additional linear area of contrast blush at the anorectal junction that is subtle but could also correlate with an area of bleeding more distally. 3. The previously described abnormal activity at the level of the aortic bifurcation shows no definite correlate on CT. 4. Diverticulosis. 5. Bibasilar airspace disease, likely atelectasis. There are small to moderate size bilateral pleural effusions. 6. Prostatomegaly. PE: GEN: NAD LUNGS: CTAB HEART: RRR ABD: LLQ discomfort toward RLQ discomfort - new today NEURO/PSYCH: A & O 3 A/P: Hematochezia - imaging positive for active bleeding as above Chronic anemia - Hgb to 8 A Fib on Coumadin - INR 1.6 from 1.7 s/p vit K x 1 ESRD on HD -- Reviewed imaging w/ Dr. Mario. Awaiting IR and surgery opinions. Give more vit K and FFP - d/w nurse. Monitor Hgb, transfuse pRBCs if needed. Keep NPO. Justicifation of Admission Dx: Justifications for Admission: Justification of Admission Dx: Yes ANTONINA RHOADES Mar 28, 2021 08:46
[2021-03-28] MEDS ORDERED: DIALYSIS PATIENT. MC PRN ×3 (09:00→14:45)
[2021-03-28] MEDS ORDERED: IV NORMAL SALINE 1000ML BAG 1,000 ML IV PRN ×4 (09:00→11:00)
--- NOTE | 2021-03-28 09:31 | PDOC2 ---
CONSULT Date of Consult Date of Consult DATE: 03/28/21 TIME: 09:26 Reason for Consult Reason for Consult: gi bleed Referring Physician Referring Physician: Dr Mario Identification/Chief Complaint Chief Complaint rectal bleeding Source Source: Chart review, Patient History of Present Illness Reason for Visit: acute rectal bleeding, passing clots--no hx of bleeding, occasional hemorrhoid issues in past He is on coumadin for Afib, recent dose increase Anjali n/v, minimal abdominal pain continued bleeding since admission Past Medical History Cardiovascular: CHF, HTN, Hyperlipidemia Pulmonary: No pertinent hx, Bronchitis CENTRAL NERVOUS SYSTEM: Other GI: No pertinent hx Heme/Onc: No pertinent hx Hepatobiliary: Cholelithiasis Psych: No pertinent hx Rheumatologic: No pertinent hx Infectious disease: No pertinent hx Renal/: Chronic renal insuff Endocrine: Diabetes Past Surgical History Past Surgical History: Cholecystectomy, Other Family History Family History: Hypertension Social History No ALCOHOL: none Drugs: None Lives: with Family Current Problem List Problem List Problems Medical Problems: (1) Rectal bleeding Status: Acute Current Medications Current Medications Current Medications Ondansetron HCl (Zofran) 4 mg PRN Q8HRS PRN IV NAUSEA/VOMITING; Start 03/27/21 at 11:30; Stop 03/28/21 at 11:29 Sodium Chloride 1,000 ml @ 75 mls/hr [id number] IV Last administered on 03/28/21at 03:26; Start 03/27/21 at 11:30; Stop 03/28/21 at 11:29 Pantoprazole Sodium (PROTONIX VIAL for IV PUSH) 40 mg DAILYAC IVP Last a dministered on 03/28/21at 06:20; Start 03/27/21 at 14:00 Heparin Sodium (Porcine) (HEPARIN for NUC MED) 100 unit 1X ONCE IV ; Start 03/27/21 at 13:45; Stop 03/27/21 at 13:46; Status DC Ondansetron HCl (Zofran) 4 mg PRN Q6HRS PRN IVP NAUSEA/VOMITING; Start 03/27/21 at 15:30 Morphine Sulfate (Morphine Sulfate) 2 mg PRN Q1HR PRN IV PAIN; Start 03/27/21 at 15:30 Hydromorphone HCl (Dilaudid) 0.4 mg PRN Q1HR PRN IV PAIN- 2ND CHOICE; Start 03/27/21 at 15:30 Acetaminophen (Tylenol) 650 mg PRN Q6HRS PRN PO Headaches, Temp > 101.5F; Start 03/27/21 at 15:30 Magnesium Hydroxide (Milk Of Magnesia) 2,400 mg PRN Q12HR PRN PO CONSTIPATION; Start 03/27/21 at 15:30 Bisacodyl (Dulcolax Supp) 10 mg PRN DAILY PRN NE CONSTIPATION; Start 03/27/21 at 15:30 Lorazepam (Ativan Inj) 1 mg PRN Q4HRS PRN IVP ANXIETY / AGITATION; Start 03/27/21 at 15:45 Insulin Human Lispro (HumaLOG) 0-9 UNITS TIDWMEALS SQ ; Start 03/27/21 at 17:00 Dextrose (Dextrose 50%-Water Syringe) 12.5 gm PRN Q15MIN PRN IV SEE COMMENTS; Start 03/27/21 at 15:45 Dextrose (Iv Dextrose 5%) 250 ml PRN Q15MIN PRN IV SEE COMMENTS; Start 03/27/21 at 15:45 Phytonadione (Vitamin K Ampule) 10 mg 1X ONCE SQ Last administered on 03/27/21at 17:20; Start 03/27/21 at 16:00; Stop 03/27/21 at 16:05; Status DC Iohexol (Omnipaque 350 Mg/ml) 90 ml 1X ONCE IV Last administered on 03/27/21at 17:15; Start 03/27/21 at 17:15; Stop 03/27/21 at 17:16; Status DC Phytonadione (Vitamin K Ampule) 10 mg 1X ONCE SQ ; Start 03/28/21 at 08:45; Stop 03/28/21 at 08:46; Status DC Sodium Chloride 1,000 ml @ 1,000 mls/hr Q1H PRN IV hypotension; Start 03/28/21 at 09:00; Stop 03/28/21 at 14:59 Sodium Chloride 1,000 ml @ 400 mls/hr Q2H30M PRN IV PATENCY; Start 03/28/21 at 09:00; Stop 03/28/21 at 20:59 Info (PHARMACY MONITORING -- do not chart) 1 each PRN DAILY PRN MC SEE COMMENTS; Start 03/28/21 at 09:00 Active Scripts Active Lasix (Furosemide) 40 Mg Tablet 1 Tab PO DAILY 30 Days Charla-Jose R Tablet (Folic Acid/Vitamin B Comp W-C) 0.8 Mg Tablet 1 Tab PO DAILY 30 Days Reported Triamterene-Hctz 37.5-25 Mg Cp (Triamterene/Hydrochlorothiazid) 1 Each Capsule 1 Cap PO DAILY Pacerone (Amiodarone Hcl) 200 Mg Tablet 200 Mg PO DAILY Metoprolol Tartrate 25 Mg Tablet 1 Tab PO BID Metolazone 5 Mg Tablet 5 Mg PO BID Meclizine Hcl 12.5 Mg Tablet 1 Tab PO TID Glimepiride 4 Mg Tablet 1 Tab PO DAILY Gemfibrozil 600 Mg Tablet 1 Tab PO BID Bumetanide 1 Mg Tablet 4 Tab PO BID Basaglar Kwikpen U-100 (Insulin Glargine,Hum.rec.anlog) 100 Unit/1 Ml Insuln.pen 15 Unit SQ HS Atorvastatin Calcium 40 Mg Tablet 1 Tab PO QHS Fluticasone Propionate Nasal Hilger (Fluticasone Propionate) 16 Gm Hilger.susp 2 Hilger NS DAILY Warfarin Sodium 4 Mg Tablet 4.5 Mg PO DAILY Mirtazapine 7.5 Mg Tablet 1 Tab PO QHS 30 Days Norvasc (Amlodipine Besylate) 10 Mg Tablet 10 Mg PO DAILY last dose given: date 10/23/20 time 0857 next dose due: date 10/24/20 time 0900 Doxazosin Mesylate 4 Mg Tablet 1 Tab PO DAILY not given while patient was here next dose due: date 10/24/20 time 0900 Super B Complex (Vitamin B Complex & Vit C No.4) 150 Mg Tablet 150 Mg PO DAILY not given while patient was here next dose due: date 10/24/20 time 0900 Vitamin C (Ascorbic Acid) 1,000 Mg Tablet 1,000 Mg PO DAILY not given while here next dose due: date 10/24/20 time 0900 Allergies Allergies: Coded Allergies: lisinopril (Verified Allergy, Severe, SWELLING OF TONGUE AND THROAT, 05/08/16) ROS General: YES: Fatigue; No: Chills PSYCHOLOGICAL ROS: No: Anxiety, Depression Eyes: No Blurry vision, No Double vision HEENT: No: Heacaches, Sore Throat Hematological and Lymphatic: YES: Bleeding Problems; No: Blood Clots Respiratory: YES: Shortness of breath; No: Cough Cardiovascular: No Chest Pain, No Palpitations Gastrointestinal: Yes Other (see hpi) Genitourinary: No Dysuria, No Hematuria Musculoskeletal: No Joint Pain, No Muscle Pain Neurological: No Impaired Coord/balance, No Numbness/Tingling Skin: No Pruritus, No Rash Physical Exam General: Alert, Oriented X3, Cooperative HEENT: Atraumatic, PERRLA Lungs: Clear to auscultation, Normal air movement Heart: Regular rate, Normal S1, Normal S2 Abdomen: Soft, No tenderness, No hepatosplenomegaly Extremities: No clubbing, No cyanosis Skin: No rashes, No breakdown Neuro: Normal speech, Sensation intact Psych/Mental Status: Mental status NL, Mood NL MUSCULOSKELETAL: No deformity, No swelling Vitals VITALS Vital Signs Date Time Temp Pulse Resp B/P (MAP) Pulse Ox O2 Delivery O2 Flow Rate FiO2 03/28/21 07:00 97.9 84 20 107/61 (76) 95 97.9 03/28/21 03:10 Room Air Labs Labs Laboratory Tests Test 03/27/21 09:27 03/27/21 09:47 03/27/21 18:08 03/27/21 19:32 Stool Occult Blood Positive (NEG) White Blood Count 8.4 x10^3/uL (4.0-11.0) Red Blood Count 3.64 x10^6/uL (4.30-5.70) Hemoglobin 9.9 g/dL (13.0-17.5) Hematocrit 30.2 % (39.0-53.0) Mean Corpuscular Volume 83 fL (79-100) Mean Corpuscular Hemoglobin 27 pg (25-35) Mean Corpuscular Hemoglobin Concent 33 g/dL (31-37) Red Cell Distribution Width 19.0 % (11.5-14.5) Platelet Count 243 x10^3/uL (140-400) Neutrophils (%) (Auto) 65 % (31-73) Lymphocytes (%) (Auto) 21 % (24-48) Monocytes (%) (Auto) 11 % (0-9) Eosinophils (%) (Auto) 3 % (0-3) Basophils (%) (Auto) 1 % (0-3) Neutrophils # (Auto) 5.4 x10^3/uL (1.8-7.7) Lymphocytes # (Auto) 1.7 x10^3/uL (1.0-4.8) Monocytes # (Auto) 0.9 x10^3/uL (0.0-1.1) Eosinophils # (Auto) 0.2 x10^3/uL (0.0-0.7) Basophils # (Auto) 0.1 x10^3/uL (0.0-0.2) Prothrombin Time 19.9 SEC (11.7-14.0) Prothromb Time International Ratio 1.7 (0.8-1.1) Activated Partial Thromboplast Time 32 SEC (24-38) Sodium Level 139 mmol/L (136-145) Potassium Level 3.9 mmol/L (3.5-5.1) Chloride Level 101 mmol/L (98-107) Carbon Dioxide Level 25 mmol/L (21-32) Anion Gap 13 (6-14) Blood Urea Nitrogen 48 mg/dL (8-26) Creatinine 3.2 mg/dL (0.7-1.3) Estimated GFR (Cockcroft-Gault) 18.8 BUN/Creatinine Ratio 15 (6-20) Glucose Level 155 mg/dL (70-99) Calcium Level 8.7 mg/dL (8.5-10.1) Iron Level 51 ug/dL (65-175) Total Iron Binding Capacity 238 ug/dL (250-450) Iron Saturation 21 % (15-34) Total Bilirubin 0.3 mg/dL (0.2-1.0) Aspartate Amino Transf (AST/SGOT) 14 U/L (15-37) Alanine Aminotransferase (ALT/SGPT) 16 U/L (16-63) Alkaline Phosphatase 94 U/L (46-116) Total Protein 6.9 g/dL (6.4-8.2) Albumin 2.9 g/dL (3.4-5.0) Albumin/Globulin Ratio 0.7 (1.0-1.7) Vitamin B12 Level 283 pg/mL (247-911) Glucose (Fingerstick) 85 mg/dL (70-99) 83 mg/dL (70-99) Test 03/27/21 20:29 03/28/21 00:15 03/28/21 01:47 03/28/21 03:29 Hemoglobin 9.4 g/dL (13.0-17.5) Hematocrit 29.2 % (39.0-53.0) Mean Corpuscular Hemoglobin Concent 32 g/dL (31-37) Glucose (Fingerstick) 74 mg/dL (70-99) 72 mg/dL (70-99) 83 mg/dL (70-99) Test 03/28/21 06:05 03/28/21 06:45 Glucose (Fingerstick) 85 mg/dL (70-99) White Blood Count 8.6 x10^3/uL (4.0-11.0) Red Blood Count 2.90 x10^6/uL (4.30-5.70) Hemoglobin 8.0 g/dL (13.0-17.5) Hematocrit 24.2 % (39.0-53.0) Mean Corpuscular Volume 83 fL (79-100) Mean Corpuscular Hemoglobin 28 pg (25-35) Mean Corpuscular Hemoglobin Concent 33 g/dL (31-37) Red Cell Distribution Width 18.7 % (11.5-14.5) Platelet Count 212 x10^3/uL (140-400) Prothrombin Time 19.0 SEC (11.7-14.0) Prothromb Time International Ratio 1.6 (0.8-1.1) Sodium Level 142 mmol/L (136-145) Potassium Level 4.2 mmol/L (3.5-5.1) Chloride Level 105 mmol/L (98-107) Carbon Dioxide Level 22 mmol/L (21-32) Anion Gap 15 (6-14) Blood Urea Nitrogen 55 mg/dL (8-26) Creatinine 3.3 mg/dL (0.7-1.3) Estimated GFR (Cockcroft-Gault) 18.2 Glucose Level 79 mg/dL (70-99) Calcium Level 8.5 mg/dL (8.5-10.1) Laboratory Tests Test 03/27/21 09:47 03/27/21 18:08 03/27/21 19:32 03/27/21 20:29 White Blood Count 8.4 x10^3/uL (4.0-11.0) Red Blood Count 3.64 x10^6/uL (4.30-5.70) Hemoglobin 9.9 g/dL (13.0-17.5) 9.4 g/dL (13.0-17.5) Hematocrit 30.2 % (39.0-53.0) 29.2 % (39.0-53.0) Mean Corpuscular Volume 83 fL (79-100) Mean Corpuscular Hemoglobin 27 pg (25-35) Mean Corpuscular Hemoglobin Concent 33 g/dL (31-37) 32 g/dL (31-37) Red Cell Distribution Width 19.0 % (11.5-14.5) Platelet Count 243 x10^3/uL (140-400) Neutrophils (%) (Auto) 65 % (31-73) Lymphocytes (%) (Auto) 21 % (24-48) Monocytes (%) (Auto) 11 % (0-9) Eosinophils (%) (Auto) 3 % (0-3) Basophils (%) (Auto) 1 % (0-3) Neutrophils # (Auto) 5.4 x10^3/uL (1.8-7.7) Lymphocytes # (Auto) 1.7 x10^3/uL (1.0-4.8) Monocytes # (Auto) 0.9 x10^3/uL (0.0-1.1) Eosinophils # (Auto) 0.2 x10^3/uL (0.0-0.7) Basophils # (Auto) 0.1 x10^3/uL (0.0-0.2) Prothrombin Time 19.9 SEC (11.7-14.0) Prothromb Time International Ratio 1.7 (0.8-1.1) Activated Partial Thromboplast Time 32 SEC (24-38) Sodium Level 139 mmol/L (136-145) Potassium Level 3.9 mmol/L (3.5-5.1) Chloride Level 101 mmol/L (98-107) Carbon Dioxide Level 25 mmol/L (21-32) Anion Gap 13 (6-14) Blood Urea Nitrogen 48 mg/dL (8-26) Creatinine 3.2 mg/dL (0.7-1.3) Estimated GFR (Cockcroft-Gault) 18.8 BUN/Creatinine Ratio 15 (6-20) Glucose Level 155 mg/dL (70-99) Calcium Level 8.7 mg/dL (8.5-10.1) Iron Level 51 ug/dL (65-175) Total Iron Binding Capacity 238 ug/dL (250-450) Iron Saturation 21 % (15-34) Total Bilirubin 0.3 mg/dL (0.2-1.0) Aspartate Amino Transf (AST/SGOT) 14 U/L (15-37) Alanine Aminotransferase (ALT/SGPT) 16 U/L (16-63) Alkaline Phosphatase 94 U/L (46-116) Total Protein 6.9 g/dL (6.4-8.2) Albumin 2.9 g/dL (3.4-5.0) Albumin/Globulin Ratio 0.7 (1.0-1.7) Vitamin B12 Level 283 pg/mL (247-911) Glucose (Fingerstick) 85 mg/dL (70-99) 83 mg/dL (70-99) Test 03/28/21 00:15 03/28/21 01:47 03/28/21 03:29 03/28/21 06:05 Glucose (Fingerstick) 74 mg/dL (70-99) 72 mg/dL (70-99) 83 mg/dL (70-99) 85 mg/dL (70-99) Test 03/28/21 06:45 White Blood Count 8.6 x10^3/uL (4.0-11.0) Red Blood Count 2.90 x10^6/uL (4.30-5.70) Hemoglobin 8.0 g/dL (13.0-17.5) Hematocrit 24.2 % (39.0-53.0) Mean Corpuscular Volume 83 fL (79-100) Mean Corpuscular Hemoglobin 28 pg (25-35) Mean Corpuscular Hemoglobin Concent 33 g/dL (31-37) Red Cell Distribution Width 18.7 % (11.5-14.5) Platelet Count 212 x10^3/uL (140-400) Prothrombin Time 19.0 SEC (11.7-14.0) Prothromb Time International Ratio 1.6 (0.8-1.1) Sodium Level 142 mmol/L (136-145) Potassium Level 4.2 mmol/L (3.5-5.1) Chloride Level 105 mmol/L (98-107) Carbon Dioxide Level 22 mmol/L (21-32) Anion Gap 15 (6-14) Blood Urea Nitrogen 55 mg/dL (8-26) Creatinine 3.3 mg/dL (0.7-1.3) Estimated GFR (Cockcroft-Gault) 18.2 Glucose Level 79 mg/dL (70-99) Calcium Level 8.5 mg/dL (8.5-10.1) Assessment/Plan Assessment/Plan gi bleed INR correction with Vit k, FFP plans for IR today will follow JT FIGUEROA APRN Mar 28, 2021 09:31
[2021-03-28] MEDS ORDERED: IOHEXOL 300 MG/ML 100ML VIAL. ONE ×2 (09:55→11:22)
[2021-03-28] MEDS ORDERED: LIDOCAINE WITH 8.4% SOD BICARB 3 ML DISP.SYRIN. ONE (09:55)
[2021-03-28] MEDS ORDERED: MIDAZOLAM HCL/PF 2 MG/2 ML VIAL. ONE (09:57)
[2021-03-28] MEDS ORDERED: fentaNYL PF VIAL 100 MCG/2 ML VIAL ONE (09:58)
[2021-03-28] MEDS ORDERED: MIDAZOLAM HCL/PF 2 MG/2 ML VIAL. IV ONE (10:00)
[2021-03-28] MEDS ORDERED: fentaNYL PF VIAL 100 MCG/2 ML VIAL IV ONE (10:00)
[2021-03-28] MEDS ORDERED: LIDOCAINE WITH 8.4% SOD BICARB 3 ML DISP.SYRIN. IJ ONE (10:00)
[2021-03-28] MEDS ORDERED: CONTRAST GIVEN. MC PRN (10:00)
[2021-03-28] MEDS ORDERED: IOHEXOL 300 MG/ML 100ML VIAL. IART ONE (10:00)
--- NOTE | 2021-03-28 10:35 | PDOC ---
[employer] PROGRESS NOTE Date of Service DOS: DATE: 03/28/21 TIME: 10:30 Chief Complaint Chief Complaint Acute lower GI bleed Subtherapeutic INR ESRD on HD Normocytic anemia DM2 Atrial fibrillation Moderate malnutrition Plan: Will place consult to GI; case discussed with Gastroenterology PA Will need to hold warfarin at this time due to ongoing bleeding, and I discussed this with patient and Will place consult to nephrology continue his regular hemodialysis Will keep patient NPO for any possible GI intervention Consultation to general surgery Resume what medications we can at this time FEN - NPO PPX - SCDs DNR Dispo - inpatient for above Advance Care Planning: Total time spent [id number] with patient 17 minutes in discussion with goals of care, comfort care, end-of-life care, pain management, code status; patient names his (Flakita Palomares) as surrogate decision- maker. History of Present Illness History of Present Illness Patient is 80-year-old male past medical history ESRD on HD Thursday/Thursday/Thursday, atrial fibrillation on warfarin, and DM2, who presents to the ED with complaints of rectal bleeding since yesterday. He reports pa ssing bright red blood per rectum with clots. He denies any associated abdominal pain. He does report a history of similar symptoms several years ago. Per patient's , he has had a colonoscopy in the past with normal results and no polyps. Labs on admission showed hemoglobin 9.9, hematocrit 30.2, INR 1.7, BUN 48, creatinine 3.2, CBG 155, albumin 2.9, and he was Hemoccult pos itive. During recent admission for CHF exacerbation on 01/18/2021 he was noted to have hemoglobin 9.6 and hematocrit 30.1. While in the ED he continues to have bright red blood per rectum with some clots. Will admit patient for further medical management. 03/28/2021: Afebrile. Still with complaints of rectal bleeding overnight, and passing multiple clots. General surgery has been consulted as well. INR 1.7 yesterday and 1.6 today. I believe GI is ordered vitamin K and FFP. Hemoglobin 9.9 yesterday and hemoglobin 8.0 today. Discussed with bleeding scan today. Discussed with patient and . Vitals/I&O Vitals/I&O: Vital Signs Date Time Temp Pulse Resp B/P (MAP) Pulse Ox O2 Delivery O2 Flow Rate FiO2 03/28/21 07:00 97.9 84 20 107/61 (76) 95 97.9 03/28/21 03:10 Room Air I & O 03/27/21 03/27/21 03/28/21 15:00 23:00 07:00 Intake Total 0 ml 0 ml Output Total 475 ml Balance -475 ml 0 ml Physical Exam General: Alert, Oriented X3, Cooperative Heart: Regular rate, Normal S1, Normal S2 Lungs: Crackles Abdomen: Soft, No tenderness Extremities: No clubbing, No cyanosis Skin: No rashes, No breakdown Labs Labs: Laboratory Tests Test 03/27/21 18:08 03/27/21 19:32 03/27/21 20:29 03/28/21 00:15 Glucose (Fingerstick) 85 mg/dL (70-99) 83 mg/dL (70-99) 74 mg/dL (70-99) Hemoglobin 9.4 g/dL (13.0-17.5) Hematocrit 29.2 % (39.0-53.0) Mean Corpuscular Hemoglobin Concent 32 g/dL (31-37) Test 03/28/21 01:47 03/28/21 03:29 03/28/21 06:05 03/28/21 06:45 Glucose (Fingerstick) 72 mg/dL (70-99) 83 mg/dL (70-99) 85 mg/dL (70-99) White Blood Count 8.6 x10^3/uL (4.0-11.0) Red Blood Count 2.90 x10^6/uL (4.30-5.70) Hemoglobin 8.0 g/dL (13.0-17.5) Hematocrit 24.2 % (39.0-53.0) Mean Corpuscular Volume 83 fL (79-100) Mean Corpuscular Hemoglobin 28 pg (25-35) Mean Corpuscular Hemoglobin Concent 33 g/dL (31-37) Red Cell Distribution Width 18.7 % (11.5-14.5) Platelet Count 212 x10^3/uL (140-400) Prothrombin Time 19.0 SEC (11.7-14.0) Prothromb Time International Ratio 1.6 (0.8-1.1) Sodium Level 142 mmol/L (136-145) Potassium Level 4.2 mmol/L (3.5-5.1) Chloride Level 105 mmol/L (98-107) Carbon Dioxide Level 22 mmol/L (21-32) Anion Gap 15 (6-14) Blood Urea Nitrogen 55 mg/dL (8-26) Creatinine 3.3 mg/dL (0.7-1.3) Estimated GFR (Cockcroft-Gault) 18.2 Glucose Level 79 mg/dL (70-99) Calcium Level 8.5 mg/dL (8.5-10.1) Assessment and Plan Assessmemt and Plan Problems Medical Problems: (1) Rectal bleeding Status: Acute Comment Review of Relevant I have reviewed the following items cortes (where applicable) has been applied. Medications: Current Medications Medications (Trade) Dose Ordered Sig/Shantanu Route PRN Reason Start Time Stop Time Status Last Admin Dose Admin Sodium Chloride 1,000 ml @ 75 mls/hr [id number] IV 03/27/21 11:30 03/28/21 11:29 03/28/21 03:26 Pantoprazole Sodium (PROTONIX VIAL for IV PUSH) 40 mg DAILYAC IVP 03/27/21 14:00 03/28/21 06:20 Phytonadione (Vitamin K Ampule) 10 mg 1X ONCE SQ 03/27/21 16:00 03/27/21 16:05 DC 03/27/21 17:20 Iohexol (Omnipaque 350 Mg/ml) 90 ml 1X ONCE IV 03/27/21 17:15 03/27/21 17:16 DC 03/27/21 17:15 Phytonadione (Vitamin K Ampule) 10 mg 1X ONCE SQ 03/28/21 08:45 03/28/21 08:46 DC 03/28/21 09:36 Heparin Sodium/ Sodium Chloride (HEPARIN for ARTERIAL LINE FLUSH) 1,000 unit 1X ONCE IART 03/28/21 10:00 03/28/21 10:01 DC 03/28/21 10:00 Heparin Sodium/ Sodium Chloride (HEPARIN for ARTERIAL LINE FLUSH) 1,000 unit 1X ONCE IART 03/28/21 10:00 03/28/21 10:01 DC 03/28/21 10:00 Justifications for Admission Other Justification Acute lower GI bleed, subtherapeutic INR LERMA,LORI A MD Mar 28, 2021 10:35
[2021-03-28] MEDS ORDERED: ALBUMIN HUMAN 25% 200 ML IV PRN (11:00)
--- NOTE | 2021-03-28 11:15 | NUR ---
SW following. Discussed with RN, pt from home with , room air, NPO. PT/OT ordered. Pt having an arteriogram today, as well as getting blood. SW will continue to follow.
[2021-03-28] MEDS ORDERED: NITROGLYCERIN 200 MCG/2 ML SYRINGE FOR CATH/VASC LAB. ONE (11:55)
[2021-03-28] MEDS ORDERED: NITROGLYCERIN 200 MCG/2 ML SYRINGE FOR CATH/VASC LAB. IART ONE (12:00)
--- NOTE | 2021-03-28 12:00 | PDOC2 ---
CONSULT Date of Consult Date of Consult DATE: 03/28/21 TIME: 11:55 Reason for Consult Reason for Consult: ESRD Referring Physician Referring Physician: MARIA GUADALUPE Identification/Chief Complaint Chief Complaint BLEEDING FROM RECTUM Source Source: Chart review, Patient History of Present Illness Reason for Visit: THIS IS A 80 YR OLD PT WITH ESRD AND ON HD. MWF. MISSED HIS TX YESTERDAY HE HAS BRBPR WITH CLOTS. CURRENTLY UNDERGOING EVALUATION FOR THIS. HAS ESRD DUE TO DM II AND HTN. LABS ARE C/W HIS ESRD. HGB IS 8.0 AND HE IS UNDERGOING EVALUATION BY GI. ? BLEEDING FROM THE HEPATIC FLEXURE OF THE COLON. HE DOES NOT HAVE ANY ASSOCIATED ABD PAIN Past Medical History Cardiovascular: CHF, HTN, Hyperlipidemia Pulmonary: No pertinent hx, Bronchitis CENTRAL NERVOUS SYSTEM: Other GI: No pertinent hx Heme/Onc: No pertinent hx Hepatobiliary: Cholelithiasis Psych: No pertinent hx Rheumatologic: No pertinent hx Infectious disease: No pertinent hx Renal/: Chronic renal failure Endocrine: Diabetes, Hyperparathyroidism Past Surgical History Past Surgical History: Cholecystectomy, Other Family History Family History: Hypertension Social History No ALCOHOL: none Drugs: None Lives: with Family Current Problem List Problem List Problems Medical Problems: (1) Rectal bleeding Status: Acute Current Medications Current Medications Current Medications Ondansetron HCl (Zofran) 4 mg PRN Q8HRS PRN IV NAUSEA/VOMITING; Start 03/27/21 at 11:30; Stop 03/28/21 at 11:29; Status DC Sodium Chloride 1,000 ml @ 75 mls/hr [id number] IV Last administered on 03/28/21at 03:26; Start 03/27/21 at 11:30; Stop 03/28/21 at 11:29; Status DC Pantoprazole Sodium (PROTONIX VIAL for IV PUSH) 40 mg DAILYAC IVP Last administered on 03/28/21at 06:20; Start 03/27/21 at 14:00 Heparin Sodium (Porcine) (HEPARIN for NUC MED) 100 unit 1X ONCE IV ; Start 03/27/21 at 13:45; Stop 03/27/21 at 13:46; Status DC Ondansetron HCl (Zofran) 4 mg PRN Q6HRS PRN IVP NAUSEA/VOMITING; Start 03/27/21 at 15:30 Morphine Sulfate (Morphine Sulfate) 2 mg PRN Q1HR PRN IV PAIN; Start 03/27/21 at 15:30 Hydromorphone HCl (Dilaudid) 0.4 mg PRN Q1HR PRN IV PAIN- 2ND CHOICE; Start 03/27/21 at 15:30 Acetaminophen (Tylenol) 650 mg PRN Q6HRS PRN PO Headaches, Temp > 101.5F; Start 03/27/21 at 15:30 Magnesium Hydroxide (Milk Of Magnesia) 2,400 mg PRN Q12HR PRN PO CONSTIPATION; Start 03/27/21 at 15:30 Bisacodyl (Dulcolax Supp) 10 mg PRN DAILY PRN [place] CONSTIPATION; Start 03/27/21 at 15:30 Lorazepam (Ativan Inj) 1 mg PRN Q4HRS PRN IVP ANXIETY / AGITATION; Start 03/27/21 at 15:45 Insulin Human Lispro (HumaLOG) 0-9 UNITS TIDWMEALS SQ ; Start 03/27/21 at 17:00 Dextrose (Dextrose 50%-Water Syringe) 12.5 gm PRN Q15MIN PRN IV SEE COMMENTS; Start 03/27/21 at 15:45 Dextrose (Iv Dextrose 5%) 250 ml PRN Q15MIN PRN IV SEE COMMENTS; Start 03/27/21 at 15:45 Phytonadione (Vitamin K Ampule) 10 mg 1X ONCE SQ Last administered on 03/27/21at 17:20; Start 03/27/21 at 16:00; Stop 03/27/21 at 16:05; Status DC Iohexol (Omnipaque 350 Mg/ml) 90 ml 1X ONCE IV Last administered on 03/27/21at 17:15; Start 03/27/21 at 17:15; Stop 03/27/21 at 17:16; Status DC Phytonadione (Vitamin K Ampule) 10 mg 1X ONCE SQ Last administered on 03/28/21at 09:36; Start 03/28/21 at 08:45; Stop 03/28/21 at 08:46; Status DC Sodium Chloride 1,000 ml @ 1,000 mls/hr Q1H PRN IV hypotension; Start 03/28/21 at 09:00; Stop 03/28/21 at 14:59 Sodium Chloride 1,000 ml @ 400 mls/hr Q2H30M PRN IV PATENCY; Start 03/28/21 at 09:00; Stop 03/28/21 at 20:59 Info (PHARMACY MONITORING -- do not chart) 1 each PRN DAILY PRN MC SEE COMMENTS; Start 03/28/21 at 09:00 Heparin Sodium/ Sodium Chloride (HEPARIN for ARTERIAL LINE FLUSH) 1,000 unit 1X ONCE IART Last administered on 03/28/21at 10:00; Start 03/28/21 at 10:00; Stop 03/28/21 at 10:01; Status DC Heparin Sodium/ Sodium Chloride (HEPARIN for ARTERIAL LINE FLUSH) 1,000 unit 1X ONCE IART Last administered on 03/28/21at 10:00; Start 03/28/21 at 10:00; Stop 03/28/21 at 10:01; Status DC Lidocaine HCl (Buffered Lidocaine 1%) 3 ml 1X ONCE IJ Last administered on 03/28/21at 10:38; Start 03/28/21 at 10:00; Stop 03/28/21 at 10:01; Status DC Midazolam HCl (Versed) 2 mg 1X ONCE IV ; Start 03/28/21 at 10:00; Stop 03/28/21 at 10:01; Status DC Fentanyl Citrate (Fentanyl 2ml Vial) 100 mcg 1X ONCE IV ; Start 03/28/21 at 10:00; Stop 03/28/21 at 10:01; Status DC Iohexol (Omnipaque 300 Mg/ml) 100 ml 1X ONCE IART ; Start 03/28/21 at 10:00; Stop 03/28/21 at 10:01; Status DC Info (CONTRAST GIVEN -- Rx MONITORING) 1 each PRN DAILY PRN MC SEE COMMENTS; Start 03/28/21 at 10:00; Stop 03/30/21 at 09:59 Active Scripts Active Lasix (Furosemide) 40 Mg Tablet 1 Tab PO DAILY 30 Days Charla-Jose R Tablet (Folic Acid/Vitamin B Comp W-C) 0.8 Mg Tablet 1 Tab PO DAILY 30 Days Reported Triamterene-Hctz 37.5-25 Mg Cp (Triamterene/Hydrochlorothiazid) 1 Each Capsule 1 Cap PO DAILY Pacerone (Amiodarone Hcl) 200 Mg Tablet 200 Mg PO DAILY Metoprolol Tartrate 25 Mg Tablet 1 Tab PO BID Metolazone 5 Mg Tablet 5 Mg PO BID Meclizine Hcl 12.5 Mg Tablet 1 Tab PO TID Glimepiride 4 Mg Tablet 1 Tab PO DAILY Gemfibrozil 600 Mg Tablet 1 Tab PO BID Bumetanide 1 Mg Tablet 4 Tab PO BID Basagljhoana [place] U-100 (Insulin Glargine,Hum.rec.anlog) 100 Unit/1 Ml Insuln.pen 15 Unit SQ HS Atorvastatin Calcium 40 Mg Tablet 1 Tab PO QHS Fluticasone Propionate Nasal [place] (Fluticasone Propionate) 16 Gm [place].susp 2 [place] NS DAILY Warfarin Sodium 4 Mg Tablet 4.5 Mg PO DAILY Mirtazapine 7.5 Mg Tablet 1 Tab PO QHS 30 Days Norvasc (Amlodipine Besylate) 10 Mg Tablet 10 Mg PO DAILY last dose given: date 10/23/20 time 0857 next dose due: date 10/24/20 time 0900 Doxazosin Mesylate 4 Mg Tablet 1 Tab PO DAILY not given while patient was here next dose due: date 10/24/20 time 0900 Super B Complex (Vitamin B Complex & Vit C No.4) 150 Mg Tablet 150 Mg PO DAILY not given while patient was here next dose due: date 10/24/20 time 0900 Vitamin C (Ascorbic Acid) 1,000 Mg Tablet 1,000 Mg PO DAILY not given while here next dose due: date 10/24/20 time 0900 Allergies Allergies: Coded Allergies: lisinopril (Verified Allergy, Severe, SWELLING OF TONGUE AND THROAT, 05/08/16) ROS General: YES: Fatigue, Malaise, Appetite PSYCHOLOGICAL ROS: YES: Anxiety Eyes: Yes Decreased vision ALLERGY AND IMMUNOLOGY: YES: Seasonal Allergies Respiratory: YES: Cough Gastrointestinal: Yes Hematochezia Genitourinary: YES Other (OLIGURIA) Musculoskeletal: Yes Joint Stiffness, Yes Muscular Weakness Neurological: Yes Weakness Skin: Yes Dry Skin Physical Exam General: Alert, Oriented X3, Cooperative, No acute distress HEENT: Atraumatic, PERRLA Lungs: Clear to auscultation Heart: Regular rate Abdomen: Normal bowel sounds, No tenderness Extremities: No clubbing Skin: No rashes Neuro: Normal speech Psych/Mental Status: Mental status NL, Mood NL MUSCULOSKELETAL: No joint tenderness, No deformity, No swelling Vitals VITALS Vital Signs Date Time Temp Pulse Resp B/P (MAP) Pulse Ox O2 Delivery O2 Flow Rate FiO2 03/28/21 11:13 98.0 74 12 94/55 98.0 03/28/21 07:00 95 03/28/21 03:10 Room Air Labs Labs Laboratory Tests Test 03/27/21 09:27 03/27/21 09:47 03/27/21 18:08 03/27/21 19:32 Stool Occult Blood Positive (NEG) White Blood Count 8.4 x10^3/uL (4.0-11.0) Red Blood Count 3.64 x10^6/uL (4.30-5.70) Hemoglobin 9.9 g/dL (13.0-17.5) Hematocrit 30.2 % (39.0-53.0) Mean Corpuscular Volume 83 fL (79-100) Mean Corpuscular Hemoglobin 27 pg (25-35) Mean Corpuscular Hemoglobin Concent 33 g/dL (31-37) Red Cell Distribution Width 19.0 % (11.5-14.5) Platelet Count 243 x10^3/uL (140-400) Neutrophils (%) (Auto) 65 % (31-73) Lymphocytes (%) (Auto) 21 % (24-48) Monocytes (%) (Auto) 11 % (0-9) Eosinophils (%) (Auto) 3 % (0-3) Basophils (%) (Auto) 1 % (0-3) Neutrophils # (Auto) 5.4 x10^3/uL (1.8-7.7) Lymphocytes # (Auto) 1.7 x10^3/uL (1.0-4.8) Monocytes # (Auto) 0.9 x10^3/uL (0.0-1.1) Eosinophils # (Auto) 0.2 x10^3/uL (0.0-0.7) Basophils # (Auto) 0.1 x10^3/uL (0.0-0.2) Prothrombin Time 19.9 SEC (11.7-14.0) Prothromb Time International Ratio 1.7 (0.8-1.1) Activated Partial Thromboplast Time 32 SEC (24-38) Sodium Level 139 mmol/L (136-145) Potassium Level 3.9 mmol/L (3.5-5.1) Chloride Level 101 mmol/L (98-107) Carbon Dioxide Level 25 mmol/L (21-32) Anion Gap 13 (6-14) Blood Urea Nitrogen 48 mg/dL (8-26) Creatinine 3.2 mg/dL (0.7-1.3) Estimated GFR (Cockcroft-Gault) 18.8 BUN/Creatinine Ratio 15 (6-20) Glucose Level 155 mg/dL (70-99) Calcium Level 8.7 mg/dL (8.5-10.1) Iron Level 51 ug/dL (65-175) Total Iron Binding Capacity 238 ug/dL (250-450) Iron Saturation 21 % (15-34) Total Bilirubin 0.3 mg/dL (0.2-1.0) Aspartate Amino Transf (AST/SGOT) 14 U/L (15-37) Alanine Aminotransferase (ALT/SGPT) 16 U/L (16-63) Alkaline Phosphatase 94 U/L (46-116) Total Protein 6.9 g/dL (6.4-8.2) Albumin 2.9 g/dL (3.4-5.0) Albumin/Globulin Ratio 0.7 (1.0-1.7) Vitamin B12 Level 283 pg/mL (247-911) Glucose (Fingerstick) 85 mg/dL (70-99) 83 mg/dL (70-99) Test 03/27/21 20:29 03/28/21 00:15 03/28/21 01:47 03/28/21 03:29 Hemoglobin 9.4 g/dL (13.0-17.5) Hematocrit 29.2 % (39.0-53.0) Mean Corpuscular Hemoglobin Concent 32 g/dL (31-37) Glucose (Fingerstick) 74 mg/dL (70-99) 72 mg/dL (70-99) 83 mg/dL (70-99) Test 03/28/21 06:05 03/28/21 06:45 Glucose (Fingerstick) 85 mg/dL (70-99) White Blood Count 8.6 x10^3/uL (4.0-11.0) Red Blood Count 2.90 x10^6/uL (4.30-5.70) Hemoglobin 8.0 g/dL (13.0-17.5) Hematocrit 24.2 % (39.0-53.0) Mean Corpuscular Volume 83 fL (79-100) Mean Corpuscular Hemoglobin 28 pg (25-35) Mean Corpuscular Hemoglobin Concent 33 g/dL (31-37) Red Cell Distribution Width 18.7 % (11.5-14.5) Platelet Count 212 x10^3/uL (140-400) Prothrombin Time 19.0 SEC (11.7-14.0) Prothromb Time International Ratio 1.6 (0.8-1.1) Sodium Level 142 mmol/L (136-145) Potassium Level 4.2 mmol/L (3.5-5.1) Chloride Level 105 mmol/L (98-107) Carbon Dioxide Level 22 mmol/L (21-32) Anion Gap 15 (6-14) Blood Urea Nitrogen 55 mg/dL (8-26) Creatinine 3.3 mg/dL (0.7-1.3) Estimated GFR (Cockcroft-Gault) 18.2 Glucose Level 79 mg/dL (70-99) Calcium Level 8.5 mg/dL (8.5-10.1) Hepatitis B Surface Antibody Nonreactive Laboratory Tests Test 03/27/21 18:08 03/27/21 19:32 03/27/21 20:29 03/28/21 00:15 Glucose (Fingerstick) 85 mg/dL (70-99) 83 mg/dL (70-99) 74 mg/dL (70-99) Hemoglobin 9.4 g/dL (13.0-17.5) Hematocrit 29.2 % (39.0-53.0) Mean Corpuscular Hemoglobin Concent 32 g/dL (31-37) Test 03/28/21 01:47 03/28/21 03:29 03/28/21 06:05 03/28/21 06:45 Glucose (Fingerstick) 72 mg/dL (70-99) 83 mg/dL (70-99) 85 mg/dL (70-99) White Blood Count 8.6 x10^3/uL (4.0-11.0) Red Blood Count 2.90 x10^6/uL (4.30-5.70) Hemoglobin 8.0 g/dL (13.0-17.5) Hematocrit 24.2 % (39.0-53.0) Mean Corpuscular Volume 83 fL (79-100) Mean Corpuscular Hemoglobin 28 pg (25-35) Mean Corpuscular Hemoglobin Concent 33 g/dL (31-37) Red Cell Distribution Width 18.7 % (11.5-14.5) Platelet Count 212 x10^3/uL (140-400) Prothrombin Time 19.0 SEC (11.7-14.0) Prothromb Time International Ratio 1.6 (0.8-1.1) Sodium Level 142 mmol/L (136-145) Potassium Level 4.2 mmol/L (3.5-5.1) Chloride Level 105 mmol/L (98-107) Carbon Dioxide Level 22 mmol/L (21-32) Anion Gap 15 (6-14) Blood Urea Nitrogen 55 mg/dL (8-26) Creatinine 3.3 mg/dL (0.7-1.3) Estimated GFR (Cockcroft-Gault) 18.2 Glucose Level 79 mg/dL (70-99) Calcium Level 8.5 mg/dL (8.5-10.1) Hepatitis B Surface Antibody Nonreactive Assessment/Plan Assessment/Plan IMP ACUTE GI BLEED ANEMIA ESRD-MWF MISSED TX YESTERDAY DM II HTN PLAN GI EVALUATION HD TODAY UF TO TW START KADI PRBC IF NEEDED MEGAN SCHMIDT MD Mar 28, 2021 12:00
[2021-03-28] MEDS ORDERED: ONDANSETRON PF 4 MG/2 ML VIAL. ONE (12:21)
--- NOTE | 2021-03-28 12:36 | PDOC ---
MODERATE SEDATION ASSESSMENT RISKS/ALTERNATIVES Risks/Alternatives Risks and alternatives of this type of sedation and procedure discussed with: RISK/ALTERNATIVES: Patient H & P ON CHART H & P H & P on chart and reviewed for co-morbid conditions and appropriate labs. H&P ON CHART: Yes STATUS PREG STATUS ASSESSED: Yes MEDS/ALLERGIES REVIEWED Meds/Allergies Reviewed Medications and Allergies including time and route of recently administered narcotics and sedatives. MEDS/ALLERGIES REVIEWED: Yes ASA RATING ASA RATING: III AIRWAY ASSESSMENT Airway Assessment Airway patency, oral function limitations, presence of caps, crowns, dentures, partials, and ability to extend neck assessed. AIRWAY ASSESSMENT: Yes MALLAMPATI SCORE MALLAMPATI SCORE: II PRE-SEDATION ASSESSMENT PRE-SEDATION ASSESSMENT: Yes ASHLIE JADE MD Mar 28, 2021 12:36
--- NOTE | 2021-03-28 12:38 | PDOC ---
BRIEF OPERATIVE NOTE Pre-Op Diagnosis GI bleeding Post-Op Diagnosis same Procedure Performed Mesenteric angiogram and embolization of middle colic 5th order branch Surgeon Kristen EBAlma Rosa minimal Anesthesia Type: Conscious Sedation Specimens Obtained none Findings Initially no active bleeding or vascular abnormality. Superselective angio of a 5th order middle colic artery branch corresponding to the abnormality seen at CTA did reveal active bleeding on a single injection. This artery was coil embolized. Complications No immediate ASHLIE JADE MD Mar 28, 2021 12:38
[2021-03-28] MEDS ORDERED: ONDANSETRON PF 4 MG/2 ML VIAL. IVP ONE (13:00)
[2021-03-28] MEDS ORDERED: ASPI-630 PO (15:33)
--- NOTE | 2021-03-28 16:27 | RAD ---
Procedure: Mesenteric angiogram with multiple superselective diagnostic catheterizations Clinical Indication: Adult male with recurrent lower GI bleeding, positive CTA demonstrating divertic ular bleeding at or near the hepatic flexure. Sedation: Conscious sedation using a combination of Versed and fentanyl was provided for 120 minutes, including continuous monitoring of the patients heart rate, rhythm, blood pressure, oxygen saturation and leve l of arousability by a trained independent observer. Antibiotics: None Fluoro Exposure: Kerma-Area Product: 1668 mGycm2 Contrast: 154 cc of Omnipaque 300 contrast media Sterility: All elements of maximal sterile barrier technique including the use of a cap, mask, steril e gown, sterile gloves, large sterile sheet, appropriate hand hygiene, and 2% chlorhexidine for cutan eous antisepsis (or acceptable alternative antiseptic per current guidelines) were followed for this procedure. Consent: The procedure was explained in its entirety to the patient or the patients designated repres entative by a member of the treatment team, including a discussion of the risks, benefits and commonl y accepted alternatives to the procedure, as well as the expected consequences of not performing the procedure. Discussion of the risks included, but was not limited to, those that are most frequent an d those that are rare but possibly severe or life-threatening, as well as the possibility of unforese en complications. Time Out: Immediately prior to initiation a procedural pause was conducted in the presence of the mem bers of the treatment team to verify correct patient identity, correct procedure, correct side if camilo licable, correct patient position, availability of specialized equipment, review of patients allergie s, and assessment of current level of consciousness and arousability. Technique and Findings: Following informed consent, the patient was prepped and draped in the usual s terile fashion. Ultrasound interrogation of the right groin revealed patency of the right common femo ral artery. A hardcopy ultrasound image was recorded as a 21-gauge micropuncture needle was used to g ain access to this vessel. The needle was exchanged over wire. A Sos Omni catheter was advanced into the abdominal aorta and used to select the superior mesenteric artery. There is poor flow through the catheter however, which was due to kinking in the tortuous iliac arteries. Consequently, the cathete r and sheath were exchanged for a long 6 [place] sheath which was advanced in the abdominal aorta. The Sos Omni catheter was advanced once again over wire into the abdominal aorta and used to select the superior mesenteric artery. Diagnostic angiography was performed to the specific area of bleeding, as the patients prior non-invasive imaging exams are inadequate for proper characterization of the regina ent's underlying anatomy and pathology necessary for treatment planning. No active arterial extravasa tion, aneurysm, pseudoaneurysm, or significant stenosis was identified however. A microcatheter was t hen advanced into the middle colic artery, constituting a second order division of the SMA, and selec tive diagnostic angiography was performed, also failing to reveal any focal abnormality. The microcat heter was then advanced into a third order division of the middle colic artery perfusing the transver se colon, and slightly injected through was performed demonstrating no vascular abnormality. The cath eter was then withdrawn from this third order division and advanced into a second third order divisio n of the middle colic artery perfusing the area of the hepatic flexure. Selective angiography failed to reveal any abnormality. The microcatheter was then advanced distally into a fourth order division of the middle colic artery, and selective angiography failed to demonstrate any significant abnormali ty. The catheter was then withdrawn from this fourth order branch and advanced into yet another fourt h order branch of the middle colic artery and selective angiography failed to demonstrate any signifi cant arterial abnormality. The microcatheter was then withdrawn into the SMA once again and advanced this time into the ileocolic artery, constituting another second order division of the superior mesen teric artery. Selective angiography was performed demonstrating a small focal area of hyperemia in th e antimesenteric aspect of the cecum, with no persistent blush or active extravasation. This may repr esent a very small area of angiodysplasia, but does not correlate with the CTA and consequently was n ot treated. The microcatheter was then once again withdrawn into the superior mesenteric artery and a dvanced into the distal ileal artery, constituting another second order division of the SMA. Selectiv e angiography was performed demonstrating no significant vascular abnormality. The microcatheter was then removed, and the guide catheter was withdrawn from the SMA and used to select multiple was thoug ht to be KATY. Contrast angiography was performed revealing an L2 spinal artery with communication to the iliolumbar artery however. No abnormalities here. The catheter was then removed from this vessel and used to select the KATY, and contrast angiography of the KATY was performed. No gross abnormalities of the KATY circulation was identified. The catheter was then removed from the KATY and used to select the celiac artery and contrast angiography was performed, once again demonstrating no evidence of ac tive arterial extravasation, aneurysm, pseudoaneurysm, or stenosis. The catheter was then once again advanced into the superior mesenteric artery, and a microcatheter was advanced once again into one of the fourth order divisions previously interrogated. Contrast angiography was performed, again failin g to demonstrate any significant abnormality. The microcatheter was then advanced into the fifth orde r division of this circulation, and selective angiography was performed demonstrating active arterial extravasation from the sixth order division of this distribution. The catheter was then withdrawn an d advanced into a different fifth order division of this circulation and selective angiography was pe rformed demonstrating no arterial abnormality. With the area of active extravasation localized, the m icrocatheter was advanced once again into the target fifth order division, and multiple attempts to a dvance the catheter into the target 6 order vessel were unsuccessful due to its diminutive size and t ortuosity its origin. Consequently, a decision was made to embolize across its origin. The catheter w as advanced into the adjacent sixth order middle colic branch, and selective angiography was performe d demonstrating no significant abnormality. A 2 mm x 3 mm vortex coil was then deployed in this vesse l. The microcatheter was withdrawn slightly into the fifth order branch, and a second coil was deploy ed, trapping the origin of the target 6 order vessel between used to coils. The second coil did not f ully coiled within the fifth order division however, and proximal half of coil was left with dangling within the adjacent fifth order vessel. Post embolization angiography was performed demonstrating oc clusion of the adjacent 6 order vessel, with persistent patency of the targeted embolized fifth order branch. Coil position was maintained however, and thrombosis of the target branch was felt to be imm inent. The microcatheter was then removed, as was the guide catheter, and contrast angiography of the right groin was performed to assess for suitability of a closure device. The sheath was then exchang ed for a star close device which was successfully utilized to obtain hemostasis. Complications: No immediate Impression: 1. Complex multivessel diagnostic mesenteric angiogram demonstrating a single extravasating sixth ord er branch of the middle colic artery which was embolized as described above. Electronically signed by: Billy Peterson MD (03/28/2021 4:25 PM) [id number]
[2021-03-28] MEDS: ASCORBIC ACID 1,000 MG TABLET PO SCH (17:31)
[2021-03-28] MEDS: DOXAZOSIN MESYLATE 4 MG TABLET. PO SCH (17:36)
[2021-03-28] MEDS: FOLIC/VIT B COMP W-C (RENAL) TABLET. PO SCH (17:36)
[2021-03-28] MEDS: AMIODARONE HCL 200 MG TABLET. PO SCH (17:36)
[2021-03-28] MEDS: VITAMIN B COMPLEX TABLET. PO SCH (17:37)
[2021-03-28] MEDS ORDERED: DARBEPOETIN ALFA 60 MCG/0.3 ML DISP.SYRIN. SQ SCH (21:00)
[2021-03-28] MEDS: INSULIN GLARGINE SYRINGE. SQ SCH (21:02)
[2021-03-29] VITALS (7 sets, daily range): BP systolic 110–139; BP diastolic 58–67
[2021-03-29 08:43] LABS: BASO % 1 % (0-3); EOS # 0.1 x10^3/uL (0.0-0.7); EOS % 1 % (0-3); LYMPH # 1.2 x10^3/uL (1.0-4.8); LYMPH % 16 % (24-48); MEAN CORPUSCULAR HEMOGLOBIN 28 pg (25-35); MEAN CORPUSCULAR HGB CONC 33 g/dL (31-37); MEAN CORPUSCULAR VOLUME 84 fL (79-100); MONO # 0.8 x10^3/uL (0.0-1.1); MONO % 10 % (0-9); NEUT # 5.7 x10^3/uL (1.8-7.7); NEUT % 73 % (31-73); PLATELET COUNT 192 x10^3/uL (140-400); RED BLOOD COUNT 2.51 x10^6/uL (4.30-5.70); RED CELL DISTRIBUTION WIDTH 19.1 % (11.5-14.5); WHITE BLOOD COUNT 7.9 x10^3/uL (4.0-11.0)
[2021-03-29 08:45] LABS: CALCIUM 8.2 mg/dL (8.5-10.1); CREATININE 2.7 mg/dL (0.7-1.3); GFR 22.9; POTASSIUM 4.3 mmol/L (3.5-5.1)
[2021-03-29] MEDS: AMIODARONE HCL 200 MG TABLET. PO SCH (09:10)
[2021-03-29] MEDS: DOXAZOSIN MESYLATE 4 MG TABLET. PO SCH (09:10)
[2021-03-29] MEDS: PANTOPRAZOLE IV PUSH 40 MG VIAL. IVP SCH (09:10)
[2021-03-29] MEDS: VITAMIN B COMPLEX TABLET. PO SCH (09:10)
[2021-03-29] MEDS: FOLIC/VIT B COMP W-C (RENAL) TABLET. PO SCH (09:10)
[2021-03-29] MEDS: ASCORBIC ACID 1,000 MG TABLET PO SCH (09:11)
[2021-03-29] MEDS: INSULIN LISPRO 300 UNITS/3 ML VIAL. SQ SCH ×3 (09:11→17:00)
--- NOTE | 2021-03-29 09:18 | PDOC ---
Date of Service: DATE: 03/29/21 TIME: 09:11 Subjective: Subjective: Not feeling good - can't elaborate. No pain, no bleeding. Had full liquids - "it's not the steak and potatoes I wanted." Objective: Objective: D/w nurse - no bleeding. Got full liquids, plans to ADAT. Vital Signs: Vital Signs Date Time Temp Pulse Resp B/P (MAP) Pulse Ox O2 Delivery O2 Flow Rate FiO2 03/29/21 07:00 98.9 94 18 123/67 (85) 92 98.9 03/28/21 12:39 Nasal Cannula 2.0 Labs: Laboratory Tests Test 03/28/21 17:18 03/28/21 21:21 03/29/21 07:45 03/29/21 08:15 Glucose (Fingerstick) 100 mg/dL 157 mg/dL 111 mg/dL White Blood Count 7.9 x10^3/uL Red Blood Count 2.51 x10^6/uL Hemoglobin 7.0 g/dL Hematocrit 21.0 % Mean Corpuscular Volume 84 fL Mean Corpuscular Hemoglobin 28 pg Mean Corpuscular Hemoglobin Concent 33 g/dL Red Cell Distribution Width 19.1 % Platelet Count 192 x10^3/uL Neutrophils (%) (Auto) 73 % Lymphocytes (%) (Auto) 16 % Monocytes (%) (Auto) 10 % Eosinophils (%) (Auto) 1 % Basophils (%) (Auto) 1 % Neutrophils # (Auto) 5.7 x10^3/uL Lymphocytes # (Auto) 1.2 x10^3/uL Monocytes # (Auto) 0.8 x10^3/uL Eosinophils # (Auto) 0.1 x10^3/uL Basophils # (Auto) 0.0 x10^3/uL Sodium Level 139 mmol/L Potassium Level 4.3 mmol/L Chloride Level 103 mmol/L Carbon Dioxide Level 29 mmol/L Anion Gap 7 Blood Urea Nitrogen 30 mg/dL Creatinine 2.7 mg/dL Estimated GFR (Cockcroft-Gault) 22.9 Glucose Level 129 mg/dL Calcium Level 8.2 mg/dL Imaging: Impression: 1. Complex multivessel diagnostic mesenteric angiogram demonstrating a single extravasating sixth order branch of the middle colic artery which was embolized as described above. PE: GEN: NAD LUNGS: CTAB HEART: RRR ABD: NABS, S/ND/NT NEURO/PSYCH: A & O 3, depressed A/P: GI bleeding/diverticular bleed s/p IR embolization 03/28 Chronic anemia - no reports of further bleeding; Hgb drift to 7 A Fib on Coumadin - s/p vit K x 2 and FFP; Coumadin held ESRD on HD -- Eating as above. Will order transfusion. Justicifation of Admission Dx: Justifications for Admission: Justification of Admission Dx: Yes ANTONINA RHOADES Mar 29, 2021 09:18
--- NOTE | 2021-03-29 09:32 | NUR ---
SW following. Discussed with RN, pt getting blood today. PT/OT can't work with pt until pt is stable. SW will continue to follow.
--- NOTE | 2021-03-29 09:36 | PDOC ---
[employer] PROGRESS NOTE Date of Service DOS: DATE: 03/29/21 TIME: 09:32 Chief Complaint Chief Complaint Acute lower GI bleed Subtherapeutic INR ESRD on HD Normocytic anemia DM2 Atrial fibrillation Moderate malnutrition Plan: Will place consult to GI; case discussed with Gastroenterology PA Will need to hold warfarin at this time due to ongoing bleeding, and I discussed this with patient and Will place consult to nephrology continue his regular hemodialysis Will keep patient NPO for any possible GI intervention Consultation to general surgery Resume what medications we can at this time FEN - NPO PPX - SCDs DNR Dispo - inpatient for above Advance Care Planning: Total time spent [id number] with patient 17 minutes in discussion with goals of care, comfort care, end-of-life care, pain management, code status; patient names his (Flakita Palomares) as surrogate decision- maker. History of Present Illness History of Present Illness Patient is 80-year-old male past medical history ESRD on HD Thursday/Thursday/Thursday, atrial fibrillation on warfarin, and DM2, who presents to the ED with complaints of rectal bleeding since yesterday. He reports pa ssing bright red blood per rectum with clots. He denies any associated abdominal pain. He does report a history of similar symptoms several years ago. Per patient's , he has had a colonoscopy in the past with normal results and no polyps. Labs on admission showed hemoglobin 9.9, hematocrit 30.2, INR 1.7, BUN 48, creatinine 3.2, CBG 155, albumin 2.9, and he was Hemoccult pos itive. During recent admission for CHF exacerbation on 01/18/2021 he was noted to have hemoglobin 9.6 and hematocrit 30.1. While in the ED he continues to have bright red blood per rectum with some clots. Will admit patient for further medical management. 03/28/2021: Afebrile. Still with complaints of rectal bleeding overnight, and passing multiple clots. General surgery has been consulted as well. INR 1.7 yesterday and 1.6 today. I believe GI is ordered vitamin K and FFP. Hemoglobin 9.9 yesterday and hemoglobin 8.0 today. Discussed with bleeding scan today. Discussed with patient and . 03/29/2021: Afebrile. Had mesenteric angiogram and embolization of middle colic 5th order branch. No further hematochezia. Hemoglobin 7.0 today; will transfus e 1 unit pRBCs; discussed with RN. Vitals/I&O Vitals/I&O: Vital Signs Date Time Temp Pulse Resp B/P (MAP) Pulse Ox O2 Delivery O2 Flow Rate FiO2 03/29/21 09:10 94 123/67 03/29/21 07:00 98.9 18 92 98.9 03/28/21 12:39 Nasal Cannula 2.0 I & O 03/28/21 03/28/21 03/29/21 15:00 23:00 07:00 Intake Total 10 ml 120 ml Balance 10 ml 120 ml Physical Exam General: Alert, Oriented X3, Cooperative, No acute distress Heart: Regular rate Lungs: Crackles Abdomen: Normal bowel sounds, No tenderness Extremities: No clubbing Skin: No rashes Labs Labs: Laboratory Tests Test 03/28/21 17:18 03/28/21 21:21 03/29/21 07:45 03/29/21 08:15 Glucose (Fingerstick) 100 mg/dL (70-99) 157 mg/dL (70-99) 111 mg/dL (70-99) White Blood Count 7.9 x10^3/uL (4.0-11.0) Red Blood Count 2.51 x10^6/uL (4.30-5.70) Hemoglobin 7.0 g/dL (13.0-17.5) Hematocrit 21.0 % (39.0-53.0) Mean Corpuscular Volume 84 fL (79-100) Mean Corpuscular Hemoglobin 28 pg (25-35) Mean Corpuscular Hemoglobin Concent 33 g/dL (31-37) Red Cell Distribution Width 19.1 % (11.5-14.5) Platelet Count 192 x10^3/uL (140-400) Neutrophils (%) (Auto) 73 % (31-73) Lymphocytes (%) (Auto) 16 % (24-48) Monocytes (%) (Auto) 10 % (0-9) Eosinophils (%) (Auto) 1 % (0-3) Basophils (%) (Auto) 1 % (0-3) Neutrophils # (Auto) 5.7 x10^3/uL (1.8-7.7) Lymphocytes # (Auto) 1.2 x10^3/uL (1.0-4.8) Monocytes # (Auto) 0.8 x10^3/uL (0.0-1.1) Eosinophils # (Auto) 0.1 x10^3/uL (0.0-0.7) Basophils # (Auto) 0.0 x10^3/uL (0.0-0.2) Sodium Level 139 mmol/L (136-145) Potassium Level 4.3 mmol/L (3.5-5.1) Chloride Level 103 mmol/L (98-107) Carbon Dioxide Level 29 mmol/L (21-32) Anion Gap 7 (6-14) Blood Urea Nitrogen 30 mg/dL (8-26) Creatinine 2.7 mg/dL (0.7-1.3) Estimated GFR (Cockcroft-Gault) 22.9 Glucose Level 129 mg/dL (70-99) Calcium Level 8.2 mg/dL (8.5-10.1) Assessment and Plan Assessmemt and Plan Problems Medical Problems: (1) Rectal bleeding Status: Acute Comment Review of Relevant I have reviewed the following items cortes (where applicable) has been applied. Medications: Current Medications Medications (Trade) Dose Ordered Sig/Shantanu Route PRN Reason Start Time Stop Time Status Last Admin Dose Admin Heparin Sodium/ Sodium Chloride (HEPARIN for ARTERIAL LINE FLUSH) 1,000 unit 1X ONCE IART 03/28/21 10:00 03/28/21 10:01 DC 03/28/21 10:00 Heparin Sodium/ Sodium Chloride (HEPARIN for ARTERIAL LINE FLUSH) 1,000 unit 1X ONCE IART 03/28/21 10:00 03/28/21 10:01 DC 03/28/21 10:00 Lidocaine HCl (Buffered Lidocaine 1%) 3 ml 1X ONCE IJ 03/28/21 10:00 03/28/21 10:01 DC 03/28/21 10:38 Midazolam HCl (Versed) 2 mg 1X ONCE IV 03/28/21 10:00 03/28/21 10:01 DC 03/28/21 10:31 Fentanyl Citrate (Fentanyl 2ml Vial) 100 mcg 1X ONCE IV 03/28/21 10:00 03/28/21 10:01 DC 03/28/21 10:31 Iohexol (Omnipaque 300 Mg/ml) 100 ml 1X ONCE IART 03/28/21 10:00 03/28/21 10:01 DC 03/28/21 12:33 Nitroglycerin (Nitroglycerin) 200 mcg 1X ONCE IART 03/28/21 12:00 03/28/21 12:01 DC 03/28/21 12:00 Darbepoetin Ortega (ARANESP for DIALYSIS PTS) 60 mcg WEEKLYHS SQ 03/28/21 21:00 03/28/21 20:59 Ondansetron HCl (Zofran) 8 mg 1X ONCE IVP 03/28/21 13:00 03/28/21 13:01 DC 03/28/21 12:25 Amiodarone HCl (Cordarone) 200 mg DAILY PO 03/28/21 17:00 03/29/21 09:10 Ascorbic Acid (Vitamin C) 1,000 mg DAILY PO 03/28/21 17:00 03/29/21 09:11 Doxazosin Mesylate (Cardura) 4 mg DAILY PO 03/28/21 17:00 03/29/21 09:10 Vitamin B Complex/ Vitamin C (Charla-Jose R) 1 tab DAILY PO 03/28/21 17:00 03/29/21 09:10 Insulin Glargine (Lantus Syringe) 15 unit QHS SQ 03/28/21 21:00 03/28/21 21:02 Vitamin B Complex (Saji B) 1 tab DAILY PO 03/28/21 17:00 03/29/21 09:10 Justifications for Admission Other Justification Acute lower GI bleed, subtherapeutic INR LORI LERMA MD Mar 29, 2021 09:36
--- NOTE | 2021-03-29 09:43 | PDOC ---
Renal-Progress Notes Subjective Notes Notes NO NEW COMPLAINTS History of Present Illness Hx of present illness STABLE Vitals Vitals Vital Signs Date Time Temp Pulse Resp B/P (MAP) Pulse Ox O2 Delivery O2 Flow Rate FiO2 03/29/21 09:10 94 123/67 03/29/21 07:00 98.9 18 92 98.9 03/28/21 12:39 Nasal Cannula 2.0 Weight Weight [ ] I.O. Intake and Output Intake and Output 03/29/21 07:00 Intake Total 130 ml Balance 130 ml Intake Oral 120 ml Blood Product IV Normal Saline Flush 10 ml # Bowel Movements 1 Labs Labs Laboratory Tests Test 03/28/21 17:18 03/28/21 21:21 03/29/21 07:45 03/29/21 08:15 Glucose (Fingerstick) 100 mg/dL (70-99) 157 mg/dL (70-99) 111 mg/dL (70-99) White Blood Count 7.9 x10^3/uL (4.0-11.0) Red Blood Count 2.51 x10^6/uL (4.30-5.70) Hemoglobin 7.0 g/dL (13.0-17.5) Hematocrit 21.0 % (39.0-53.0) Mean Corpuscular Volume 84 fL (79-100) Mean Corpuscular Hemoglobin 28 pg (25-35) Mean Corpuscular Hemoglobin Concent 33 g/dL (31-37) Red Cell Distribution Width 19.1 % (11.5-14.5) Platelet Count 192 x10^3/uL (140-400) Neutrophils (%) (Auto) 73 % (31-73) Lymphocytes (%) (Auto) 16 % (24-48) Monocytes (%) (Auto) 10 % (0-9) Eosinophils (%) (Auto) 1 % (0-3) Basophils (%) (Auto) 1 % (0-3) Neutrophils # (Auto) 5.7 x10^3/uL (1.8-7.7) Lymphocytes # (Auto) 1.2 x10^3/uL (1.0-4.8) Monocytes # (Auto) 0.8 x10^3/uL (0.0-1.1) Eosinophils # (Auto) 0.1 x10^3/uL (0.0-0.7) Basophils # (Auto) 0.0 x10^3/uL (0.0-0.2) Sodium Level 139 mmol/L (136-145) Potassium Level 4.3 mmol/L (3.5-5.1) Chloride Level 103 mmol/L (98-107) Carbon Dioxide Level 29 mmol/L (21-32) Anion Gap 7 (6-14) Blood Urea Nitrogen 30 mg/dL (8-26) Creatinine 2.7 mg/dL (0.7-1.3) Estimated GFR (Cockcroft-Gault) 22.9 Glucose Level 129 mg/dL (70-99) Calcium Level 8.2 mg/dL (8.5-10.1) Review of Systems Constitutional: yes: weakness, alert, oriented Ears/Nose/Throat: Yes: no symptom reported Eyes: Yes: no symptom reported Pulmonary: Yes no symptom reported Cardiovascular: Yes no symptom reported Gastrointestional: Yes: no symptom reported Genitourinary: Yes: no symptom reported Skin: Yes no symptom reported Psychiatric/Neurological: Yes: no symptom reported Endocrine: Yes: no symptom reported Physical Exam General Appearance: no apparent distress Skin: warm Respiratory: bilateral CTA Heart: S1S2 Abdomen: soft, bowel sounds present Genitourinary: bladder flat Extremities: pulses present Neurology: alert Assessment Assessment IMP ACUTE GI BLEED S/P EMBOLIZATION FOR DIVERTICULAR BLEED ANEMIA ESRD-MWF MISSED TX YESTERDAY DM II HTN PLAN GI EVALUATION HD TODAY UF TO TW START KADI PRBC IF NEEDED UPDATED MEGAN SCHMIDT MD Mar 29, 2021 09:43
[2021-03-29] MEDS ORDERED: DIALYSIS PATIENT. MC PRN ×2 (11:00)
[2021-03-29] MEDS ORDERED: IV NORMAL SALINE 1000ML BAG 1,000 ML IV PRN ×2 (11:00)
[2021-03-29] MEDS ORDERED: ALBUMIN HUMAN 25% 200 ML IV PRN (11:00)
--- NOTE | 2021-03-29 15:58 | PDOC ---
SURGICAL PROGRESS NOTE DATE: 03/29/21 TIME: 15:57 Subjective Reports feeling lousy but denies complaints Vital Signs Vital Signs Date Time Temp Pulse Resp B/P (MAP) Pulse Ox O2 Delivery O2 Flow Rate FiO2 03/29/21 15:04 98.0 93 16 113/62 98.0 03/29/21 11:00 92 03/29/21 08:00 Room Air 03/28/21 12:39 2.0 I&O Intake and Output 03/29/21 07:00 Intake Total 130 ml Balance 130 ml Intake Oral 120 ml Blood Product IV Normal Saline Flush 10 ml # Bowel Movements 1 General: Alert, No acute distress Abdomen: Soft, No tenderness Labs Laboratory Tests Test 03/27/21 18:08 03/27/21 19:32 03/27/21 20:29 03/28/21 00:15 Glucose (Fingerstick) 85 mg/dL (70-99) 83 mg/dL (70-99) 74 mg/dL (70-99) Hemoglobin 9.4 g/dL (13.0-17.5) Hematocrit 29.2 % (39.0-53.0) Mean Corpuscular Hemoglobin Concent 32 g/dL (31-37) Test 03/28/21 01:47 03/28/21 03:29 03/28/21 06:05 03/28/21 06:45 Glucose (Fingerstick) 72 mg/dL (70-99) 83 mg/dL (70-99) 85 mg/dL (70-99) White Blood Count 8.6 x10^3/uL (4.0-11.0) Red Blood Count 2.90 x10^6/uL (4.30-5.70) Hemoglobin 8.0 g/dL (13.0-17.5) Hematocrit 24.2 % (39.0-53.0) Mean Corpuscular Volume 83 fL (79-100) Mean Corpuscular Hemoglobin 28 pg (25-35) Mean Corpuscular Hemoglobin Concent 33 g/dL (31-37) Red Cell Distribution Width 18.7 % (11.5-14.5) Platelet Count 212 x10^3/uL (140-400) Prothrombin Time 19.0 SEC (11.7-14.0) Prothromb Time International Ratio 1.6 (0.8-1.1) Sodium Level 142 mmol/L (136-145) Potassium Level 4.2 mmol/L (3.5-5.1) Chloride Level 105 mmol/L (98-107) Carbon Dioxide Level 22 mmol/L (21-32) Anion Gap 15 (6-14) Blood Urea Nitrogen 55 mg/dL (8-26) Creatinine 3.3 mg/dL (0.7-1.3) Estimated GFR (Cockcroft-Gault) 18.2 Glucose Level 79 mg/dL (70-99) Calcium Level 8.5 mg/dL (8.5-10.1) Hepatitis B Surface Antibody Nonreactive Test 03/28/21 17:18 03/28/21 21:21 03/29/21 07:45 03/29/21 08:15 Glucose (Fingerstick) 100 mg/dL (70-99) 157 mg/dL (70-99) 111 mg/dL (70-99) White Blood Count 7.9 x10^3/uL (4.0-11.0) Red Blood Count 2.51 x10^6/uL (4.30-5.70) Hemoglobin 7.0 g/dL (13.0-17.5) Hematocrit 21.0 % (39.0-53.0) Mean Corpuscular Volume 84 fL (79-100) Mean Corpuscular Hemoglobin 28 pg (25-35) Mean Corpuscular Hemoglobin Concent 33 g/dL (31-37) Red Cell Distribution Width 19.1 % (11.5-14.5) Platelet Count 192 x10^3/uL (140-400) Neutrophils (%) (Auto) 73 % (31-73) Lymphocytes (%) (Auto) 16 % (24-48) Monocytes (%) (Auto) 10 % (0-9) Eosinophils (%) (Auto) 1 % (0-3) Basophils (%) (Auto) 1 % (0-3) Neutrophils # (Auto) 5.7 x10^3/uL (1.8-7.7) Lymphocytes # (Auto) 1.2 x10^3/uL (1.0-4.8) Monocytes # (Auto) 0.8 x10^3/uL (0.0-1.1) Eosinophils # (Auto) 0.1 x10^3/uL (0.0-0.7) Basophils # (Auto) 0.0 x10^3/uL (0.0-0.2) Sodium Level 139 mmol/L (136-145) Potassium Level 4.3 mmol/L (3.5-5.1) Chloride Level 103 mmol/L (98-107) Carbon Dioxide Level 29 mmol/L (21-32) Anion Gap 7 (6-14) Blood Urea Nitrogen 30 mg/dL (8-26) Creatinine 2.7 mg/dL (0.7-1.3) Estimated GFR (Cockcroft-Gault) 22.9 Glucose Level 129 mg/dL (70-99) Calcium Level 8.2 mg/dL (8.5-10.1) Test 03/29/21 11:25 Glucose (Fingerstick) 162 mg/dL (70-99) Laboratory Tests Test 03/28/21 17:18 03/28/21 21:21 03/29/21 07:45 03/29/21 08:15 Glucose (Fingerstick) 100 mg/dL (70-99) 157 mg/dL (70-99) 111 mg/dL (70-99) White Blood Count 7.9 x10^3/uL (4.0-11.0) Red Blood Count 2.51 x10^6/uL (4.30-5.70) Hemoglobin 7.0 g/dL (13.0-17.5) Hematocrit 21.0 % (39.0-53.0) Mean Corpuscular Volume 84 fL (79-100) Mean Corpuscular Hemoglobin 28 pg (25-35) Mean Corpuscular Hemoglobin Concent 33 g/dL (31-37) Red Cell Distribution Width 19.1 % (11.5-14.5) Platelet Count 192 x10^3/uL (140-400) Neutrophils (%) (Auto) 73 % (31-73) Lymphocytes (%) (Auto) 16 % (24-48) Monocytes (%) (Auto) 10 % (0-9) Eosinophils (%) (Auto) 1 % (0-3) Basophils (%) (Auto) 1 % (0-3) Neutrophils # (Auto) 5.7 x10^3/uL (1.8-7.7) Lymphocytes # (Auto) 1.2 x10^3/uL (1.0-4.8) Monocytes # (Auto) 0.8 x10^3/uL (0.0-1.1) Eosinophils # (Auto) 0.1 x10^3/uL (0.0-0.7) Basophils # (Auto) 0.0 x10^3/uL (0.0-0.2) Sodium Level 139 mmol/L (136-145) Potassium Level 4.3 mmol/L (3.5-5.1) Chloride Level 103 mmol/L (98-107) Carbon Dioxide Level 29 mmol/L (21-32) Anion Gap 7 (6-14) Blood Urea Nitrogen 30 mg/dL (8-26) Creatinine 2.7 mg/dL (0.7-1.3) Estimated GFR (Cockcroft-Gault) 22.9 Glucose Level 129 mg/dL (70-99) Calcium Level 8.2 mg/dL (8.5-10.1) Test 03/29/21 11:25 Glucose (Fingerstick) 162 mg/dL (70-99) Problem List Problems Medical Problems: (1) Rectal bleeding Status: Acute Assessment/Plan appreciate IR no current surgical plans agree with supportive care Justicifation of Admission Dx: Justifications for Admission: Justification of Admission Dx: Yes MARSHAL JARA MD Mar 29, 2021 15:58
--- NOTE | 2021-03-29 16:22 | NUR ---
Received report from Brandy NERI from dialysis 2L off, tolerated well. BP113/61 SR 93 T98.3 16R BS 112
[2021-03-29] MEDS: INSULIN GLARGINE SYRINGE. SQ SCH (23:19)
[2021-03-30 03:00] VITALS: BP 130/57
[2021-03-30 07:00] VITALS: BP 122/58
[2021-03-30] MEDS: INSULIN LISPRO 300 UNITS/3 ML VIAL. SQ SCH ×3 (07:51→16:51)
[2021-03-30] MEDS: ASCORBIC ACID 1,000 MG TABLET PO SCH (09:26)
[2021-03-30] MEDS: VITAMIN B COMPLEX TABLET. PO SCH (09:26)
[2021-03-30] MEDS: DOXAZOSIN MESYLATE 4 MG TABLET. PO SCH (09:26)
[2021-03-30] MEDS: PANTOPRAZOLE 40 MG TABLET.DR. PO SCH (09:27)
[2021-03-30] MEDS: FOLIC/VIT B COMP W-C (RENAL) TABLET. PO SCH (09:27)
[2021-03-30] MEDS: AMIODARONE HCL 200 MG TABLET. PO SCH (09:27)
[2021-03-30 10:17] LABS: BASO # 0.1 x10^3/uL (0.0-0.2); BASO % 1 % (0-3); EOS # 0.1 x10^3/uL (0.0-0.7); EOS % 2 % (0-3); HEMATOCRIT 23.6 % (39.0-53.0); HEMOGLOBIN 7.7 g/dL (13.0-17.5); LYMPH # 1.3 x10^3/uL (1.0-4.8); LYMPH % 18 % (24-48); MEAN CORPUSCULAR HEMOGLOBIN 28 pg (25-35); MEAN CORPUSCULAR HGB CONC 33 g/dL (31-37); MEAN CORPUSCULAR VOLUME 85 fL (79-100); MONO # 0.9 x10^3/uL (0.0-1.1); MONO % 12 % (0-9); NEUT # 5.1 x10^3/uL (1.8-7.7); NEUT % 68 % (31-73); PLATELET COUNT 178 x10^3/uL (140-400); RED BLOOD COUNT 2.77 x10^6/uL (4.30-5.70); RED CELL DISTRIBUTION WIDTH 18.7 % (11.5-14.5); WHITE BLOOD COUNT 7.6 x10^3/uL (4.0-11.0)
[2021-03-30 11:00] VITALS: BP 128/72
--- NOTE | 2021-03-30 11:15 | PDOC ---
SURGICAL PROGRESS NOTE DATE: 03/30/21 TIME: 11:14 Subjective Pt with multiple stools, no obvious bleeding, denies abd pain Vital Signs Vital Signs Date Time Temp Pulse Resp B/P (MAP) Pulse Ox O2 Delivery O2 Flow Rate FiO2 03/30/21 09:27 94 122/58 03/30/21 07:00 98.9 18 92 Room Air 98.9 03/30/21 03:00 2.0 I&O Intake and Output 03/30/21 06:59 Intake Total 50 ml Balance 50 ml Blood Product IV Normal Saline Flush 50 ml General: Alert, Cooperative, No acute distress Abdomen: Soft, No tenderness Labs Laboratory Tests Test 03/28/21 17:18 03/28/21 21:21 03/29/21 07:45 03/29/21 08:15 Glucose (Fingerstick) 100 mg/dL (70-99) 157 mg/dL (70-99) 111 mg/dL (70-99) White Blood Count 7.9 x10^3/uL (4.0-11.0) Red Blood Count 2.51 x10^6/uL (4.30-5.70) Hemoglobin 7.0 g/dL (13.0-17.5) Hematocrit 21.0 % (39.0-53.0) Mean Corpuscular Volume 84 fL (79-100) Mean Corpuscular Hemoglobin 28 pg (25-35) Mean Corpuscular Hemoglobin Concent 33 g/dL (31-37) Red Cell Distribution Width 19.1 % (11.5-14.5) Platelet Count 192 x10^3/uL (140-400) Neutrophils (%) (Auto) 73 % (31-73) Lymphocytes (%) (Auto) 16 % (24-48) Monocytes (%) (Auto) 10 % (0-9) Eosinophils (%) (Auto) 1 % (0-3) Basophils (%) (Auto) 1 % (0-3) Neutrophils # (Auto) 5.7 x10^3/uL (1.8-7.7) Lymphocytes # (Auto) 1.2 x10^3/uL (1.0-4.8) Monocytes # (Auto) 0.8 x10^3/uL (0.0-1.1) Eosinophils # (Auto) 0.1 x10^3/uL (0.0-0.7) Basophils # (Auto) 0.0 x10^3/uL (0.0-0.2) Sodium Level 139 mmol/L (136-145) Potassium Level 4.3 mmol/L (3.5-5.1) Chloride Level 103 mmol/L (98-107) Carbon Dioxide Level 29 mmol/L (21-32) Anion Gap 7 (6-14) Blood Urea Nitrogen 30 mg/dL (8-26) Creatinine 2.7 mg/dL (0.7-1.3) Estimated GFR (Cockcroft-Gault) 22.9 Glucose Level 129 mg/dL (70-99) Calcium Level 8.2 mg/dL (8.5-10.1) Test 03/29/21 11:25 03/29/21 16:01 03/29/21 16:49 03/30/21 07:46 Glucose (Fingerstick) 162 mg/dL (70-99) 112 mg/dL (70-99) 105 mg/dL (70-99) 92 mg/dL (70-99) Test 03/30/21 09:40 White Blood Count 7.6 x10^3/uL (4.0-11.0) Red Blood Count 2.77 x10^6/uL (4.30-5.70) Hemoglobin 7.7 g/dL (13.0-17.5) Hematocrit 23.6 % (39.0-53.0) Mean Corpuscular Volume 85 fL (79-100) Mean Corpuscular Hemoglobin 28 pg (25-35) Mean Corpuscular Hemoglobin Concent 33 g/dL (31-37) Red Cell Distribution Width 18.7 % (11.5-14.5) Platelet Count 178 x10^3/uL (140-400) Neutrophils (%) (Auto) 68 % (31-73) Lymphocytes (%) (Auto) 18 % (24-48) Monocytes (%) (Auto) 12 % (0-9) Eosinophils (%) (Auto) 2 % (0-3) Basophils (%) (Auto) 1 % (0-3) Neutrophils # (Auto) 5.1 x10^3/uL (1.8-7.7) Lymphocytes # (Auto) 1.3 x10^3/uL (1.0-4.8) Monocytes # (Auto) 0.9 x10^3/uL (0.0-1.1) Eosinophils # (Auto) 0.1 x10^3/uL (0.0-0.7) Basophils # (Auto) 0.1 x10^3/uL (0.0-0.2) Laboratory Tests Test 03/29/21 11:25 03/29/21 16:01 03/29/21 16:49 03/30/21 07:46 Glucose (Fingerstick) 162 mg/dL (70-99) 112 mg/dL (70-99) 105 mg/dL (70-99) 92 mg/dL (70-99) Test 03/30/21 09:40 White Blood Count 7.6 x10^3/uL (4.0-11.0) Red Blood Count 2.77 x10^6/uL (4.30-5.70) Hemoglobin 7.7 g/dL (13.0-17.5) Hematocrit 23.6 % (39.0-53.0) Mean Corpuscular Volume 85 fL (79-100) Mean Corpuscular Hemoglobin 28 pg (25-35) Mean Corpuscular Hemoglobin Concent 33 g/dL (31-37) Red Cell Distribution Width 18.7 % (11.5-14.5) Platelet Count 178 x10^3/uL (140-400) Neutrophils (%) (Auto) 68 % (31-73) Lymphocytes (%) (Auto) 18 % (24-48) Monocytes (%) (Auto) 12 % (0-9) Eosinophils (%) (Auto) 2 % (0-3) Basophils (%) (Auto) 1 % (0-3) Neutrophils # (Auto) 5.1 x10^3/uL (1.8-7.7) Lymphocytes # (Auto) 1.3 x10^3/uL (1.0-4.8) Monocytes # (Auto) 0.9 x10^3/uL (0.0-1.1) Eosinophils # (Auto) 0.1 x10^3/uL (0.0-0.7) Basophils # (Auto) 0.1 x10^3/uL (0.0-0.2) Problem List Problems Medical Problems: (1) Rectal bleeding Status: Acute Assessment/Plan appears stable cont supportive care and ADAT Justicifation of Admission Dx: Justifications for Admission: Justification of Admission Dx: Yes MARSHAL JARA MD Mar 30, 2021 11:15
--- NOTE | 2021-03-30 13:10 | PDOC ---
[facility] [facility] PROGRESS NOTE Date of Service DOS: DATE: 03/30/21 TIME: 13:08 Chief Complaint Chief Complaint Acute lower GI bleed Subtherapeutic INR ESRD on HD Normocytic anemia DM2 Atrial fibrillation Moderate malnutrition Plan: Will place consult to GI; case discussed with Gastroenterology PA Will need to hold warfarin at this time due to ongoing bleeding, and I discussed this with patient and Will place consult to nephrology continue his regular hemodialysis Will keep patient NPO for any possible GI intervention Consultation to general surgery Resume what medications we can at this time FEN - NPO PPX - SCDs DNR Dispo - inpatient for above Advance Care Planning: Total time spent [id number] with patient 17 minutes in discussion with goals of care, comfort care, end-of-life care, pain management, code status; patient names his (Flakita Palomares) as surrogate decision- maker. History of Present Illness History of Present Illness Patient is 80-year-old male past medical history ESRD on HD Thursday/Thursday/Thursday, atrial fibrillation on warfarin, and DM2, who presents to the ED with complaints of rectal bleeding since yesterday. He reports pa ssing bright red blood per rectum with clots. He denies any associated abdominal pain. He does report a history of similar symptoms several years ago. Per patient's , he has had a colonoscopy in the past with normal results and no polyps. Labs on admission showed hemoglobin 9.9, hematocrit 30.2, INR 1.7, BUN 48, creatinine 3.2, CBG 155, albumin 2.9, and he was Hemoccult pos itive. During recent admission for CHF exacerbation on 01/18/2021 he was noted to have hemoglobin 9.6 and hematocrit 30.1. While in the ED he continues to have bright red blood per rectum with some clots. Will admit patient for further medical management. 03/28/2021: Afebrile. Still with complaints of rectal bleeding overnight, and passing multiple clots. General surgery has been consulted as well. INR 1.7 yesterday and 1.6 today. I believe GI is ordered vitamin K and FFP. Hemoglobin 9.9 yesterday and hemoglobin 8.0 today. Discussed with bleeding scan today. Discussed with patient and . 03/29/2021: Afebrile. Had mesenteric angiogram and embolization of middle colic 5th order branch. No further hematochezia. Hemoglobin 7.0 today; will transfus e 1 unit pRBCs; discussed with RN. 03/30/2021: Afebrile. Denies any further hematochezia, but has not had bowel movement today. Hemoglobin 7.7; improved from 7.0 yesterday s/p 1 unit pRBC. Denies abdominal pain. We will continue to monitor. Vitals/I&O Vitals/I&O: Vital Signs Date Time Temp Pulse Resp B/P (MAP) Pulse Ox O2 Delivery O2 Flow Rate FiO2 03/30/21 09:27 94 122/58 03/30/21 08:00 Room Air 03/30/21 07:00 98.9 18 92 98.9 03/30/21 03:00 2.0 I & O 03/29/21 03/29/21 03/30/21 15:00 23:00 07:00 Intake Total 25 ml 25 ml Balance 25 ml 25 ml Physical Exam General: Alert, Cooperative, No acute distress Heart: Regular rate Lungs: Crackles Abdomen: Soft, No tenderness Extremities: No clubbing Skin: No rashes Labs Labs: Laboratory Tests Test 03/29/21 16:01 03/29/21 16:49 03/30/21 07:46 03/30/21 09:40 Glucose (Fingerstick) 112 mg/dL (70-99) 105 mg/dL (70-99) 92 mg/dL (70-99) White Blood Count 7.6 x10^3/uL (4.0-11.0) Red Blood Count 2.77 x10^6/uL (4.30-5.70) Hemoglobin 7.7 g/dL (13.0-17.5) Hematocrit 23.6 % (39.0-53.0) Mean Corpuscular Volume 85 fL (79-100) Mean Corpuscular Hemoglobin 28 pg (25-35) Mean Corpuscular Hemoglobin Concent 33 g/dL (31-37) Red Cell Distribution Width 18.7 % (11.5-14.5) Platelet Count 178 x10^3/uL (140-400) Neutrophils (%) (Auto) 68 % (31-73) Lymphocytes (%) (Auto) 18 % (24-48) Monocytes (%) (Auto) 12 % (0-9) Eosinophils (%) (Auto) 2 % (0-3) Basophils (%) (Auto) 1 % (0-3) Neutrophils # (Auto) 5.1 x10^3/uL (1.8-7.7) Lymphocytes # (Auto) 1.3 x10^3/uL (1.0-4.8) Monocytes # (Auto) 0.9 x10^3/uL (0.0-1.1) Eosinophils # (Auto) 0.1 x10^3/uL (0.0-0.7) Basophils # (Auto) 0.1 x10^3/uL (0.0-0.2) Test 03/30/21 12:26 Glucose (Fingerstick) 184 mg/dL (70-99) Assessment and Plan Assessmemt and Plan Problems Medical Problems: (1) Rectal bleeding Status: Acute Comment Review of Relevant I have reviewed the following items cortes (where applicable) has been applied. Medications: Current Medications Medications (Trade) Dose Ordered Sig/Shantanu Route PRN Reason Start Time Stop Time Status Last Admin Dose Admin Pantoprazole Sodium (Protonix) 40 mg DAILYAC PO 03/30/21 07:30 03/30/21 09:27 Justifications for Admission Other Justification Acute lower GI bleed, subtherapeutic INR LORI LERMA MD Mar 30, 2021 13:10
--- NOTE | 2021-03-30 14:07 | PDOC ---
Date of Service: DATE: 03/30/21 TIME: 14:05 Subjective: Subjective: received prbcs and hgb up to 7.7 Objective: Vital Signs: Vital Signs Date Time Temp Pulse Resp B/P (MAP) Pulse Ox O2 Delivery O2 Flow Rate FiO2 03/30/21 11:00 98.7 93 18 128/72 (90) 85 Room Air 98.7 03/30/21 03:00 2.0 Labs: Laboratory Tests Test 03/29/21 16:01 03/29/21 16:49 03/30/21 07:46 03/30/21 09:40 Glucose (Fingerstick) 112 mg/dL (70-99) 105 mg/dL (70-99) 92 mg/dL (70-99) White Blood Count 7.6 x10^3/uL (4.0-11.0) Red Blood Count 2.77 x10^6/uL (4.30-5.70) Hemoglobin 7.7 g/dL (13.0-17.5) Hematocrit 23.6 % (39.0-53.0) Mean Corpuscular Volume 85 fL (79-100) Mean Corpuscular Hemoglobin 28 pg (25-35) Mean Corpuscular Hemoglobin Concent 33 g/dL (31-37) Red Cell Distribution Width 18.7 % (11.5-14.5) Platelet Count 178 x10^3/uL (140-400) Neutrophils (%) (Auto) 68 % (31-73) Lymphocytes (%) (Auto) 18 % (24-48) Monocytes (%) (Auto) 12 % (0-9) Eosinophils (%) (Auto) 2 % (0-3) Basophils (%) (Auto) 1 % (0-3) Neutrophils # (Auto) 5.1 x10^3/uL (1.8-7.7) Lymphocytes # (Auto) 1.3 x10^3/uL (1.0-4.8) Monocytes # (Auto) 0.9 x10^3/uL (0.0-1.1) Eosinophils # (Auto) 0.1 x10^3/uL (0.0-0.7) Basophils # (Auto) 0.1 x10^3/uL (0.0-0.2) Test 6/26/21 12:26 Glucose (Fingerstick) 184 mg/dL (70-99) Physical Exam: Physical Exam: GEN: NAD LUNGS: CTAB HEART: RRR ABD: NABS, S/ND/NT NEURO/PSYCH: A & O 3, depressed Assessment & Plan: Assessment : A/P: GI bleeding/diverticular bleed s/p IR embolization 03/28 s/p [rbcs with hgb bow 7.7 Chronic anemia - no reports of further bleeding; Hgb drift to 7 A Fib on Coumadin - s/p vit K x 2 and FFP; Coumadin held ESRD on HD Plan: monitor hgb Justicifation of Admission Dx: Justifications for Admission: Justification of Admission Dx: Yes TURNER العلي MD Mar 30, 2021 14:07
[2021-03-30 15:00] VITALS: BP 124/67
[2021-03-30 19:00] VITALS: BP 133/72
[2021-03-30] MEDS: INSULIN GLARGINE SYRINGE. SQ SCH (21:05)
[2021-03-30 22:59] VITALS: BP 129/75
[2021-03-31] MEDS: INSULIN LISPRO 300 UNITS/3 ML VIAL. SQ SCH ×3 (07:18→17:40)
[2021-03-31] MEDS: PANTOPRAZOLE 40 MG TABLET.DR. PO SCH (07:41)
[2021-03-31 07:59] VITALS: BP 142/76
--- NOTE | 2021-03-31 08:05 | PDOC ---
[employer] PROGRESS NOTE Date of Service DOS: DATE: 03/31/21 TIME: 08:03 Chief Complaint Chief Complaint Acute lower GI bleed Subtherapeutic INR ESRD on HD Normocytic anemia DM2 Atrial fibrillation Moderate malnutrition Plan: Will place consult to GI; case discussed with Gastroenterology PA Will need to hold warfarin at this time due to ongoing bleeding, and I discussed this with patient and Will place consult to nephrology continue his regular hemodialysis Will keep patient NPO for any possible GI intervention Consultation to general surgery Resume what medications we can at this time FEN - NPO PPX - SCDs DNR Dispo - inpatient for above Advance Care Planning: Total time spent [id number] with patient 17 minutes in discussion with goals of care, comfort care, end-of-life care, pain management, code status; patient names his (Flakita Palomares) as surrogate decision- maker. History of Present Illness History of Present Illness Patient is 80-year-old male past medical history ESRD on HD Thursday/Thursday/Thursday, atrial fibrillation on warfarin, and DM2, who presents to the ED with complaints of rectal bleeding since yesterday. He reports pa ssing bright red blood per rectum with clots. He denies any associated abdominal pain. He does report a history of similar symptoms several years ago. Per patient's , he has had a colonoscopy in the past with normal results and no polyps. Labs on admission showed hemoglobin 9.9, hematocrit 30.2, INR 1.7, BUN 48, creatinine 3.2, CBG 155, albumin 2.9, and he was Hemoccult pos itive. During recent admission for CHF exacerbation on 01/18/2021 he was noted to have hemoglobin 9.6 and hematocrit 30.1. While in the ED he continues to have bright red blood per rectum with some clots. Will admit patient for further medical management. 03/28/2021: Afebrile. Still with complaints of rectal bleeding overnight, and passing multiple clots. General surgery has been consulted as well. INR 1.7 yesterday and 1.6 today. I believe GI is ordered vitamin K and FFP. Hemoglobin 9.9 yesterday and hemoglobin 8.0 today. Discussed with bleeding scan today. Discussed with patient and . 03/29/2021: Afebrile. Had mesenteric angiogram and embolization of middle colic 5th order branch. No further hematochezia. Hemoglobin 7.0 today; will transfus e 1 unit pRBCs; discussed with RN. 03/30/2021: Afebrile. Denies any further hematochezia, but has not had bowel movement today. Hemoglobin 7.7; improved from 7.0 yesterday s/p 1 unit pRBC. Denies abdominal pain. We will continue to monitor. 03/31/2021: Afebrile. No further hematochezia, but states he has not had a bowel movement since spoke with him yesterday. Morning labs show stable hemoglobin 7.7. S/P angiogram and embolization of middle colic 5th order branch. Given recent GI bleed requiring transfusion, will continue to monitor and likely discharge her to his nursing facility on Thursday. Vitals/I&O Vitals/I&O: Vital Signs Date Time Temp Pulse Resp B/P (MAP) Pulse Ox O2 Delivery O2 Flow Rate FiO2 03/31/21 07:50 Nasal Cannula 1.0 03/30/21 22:59 98.3 72 18 129/75 (93) 90 98.3 I & O 03/30/21 03/30/21 03/31/21 15:00 23:00 07:00 Intake Total 200 ml 0 ml Balance 200 ml 0 ml Physical Exam General: Alert, Cooperative, No acute distress Heart: Regular rate Lungs: Crackles Abdomen: Soft, No tenderness Extremities: No clubbing Skin: No rashes Labs Labs: Laboratory Tests Test 03/30/21 09:40 03/30/21 12:26 03/30/21 16:46 03/30/21 19:17 White Blood Count 7.6 x10^3/uL (4.0-11.0) Red Blood Count 2.77 x10^6/uL (4.30-5.70) Hemoglobin 7.7 g/dL (13.0-17.5) Hematocrit 23.6 % (39.0-53.0) Mean Corpuscular Volume 85 fL (79-100) Mean Corpuscular Hemoglobin 28 pg (25-35) Mean Corpuscular Hemoglobin Concent 33 g/dL (31-37) Red Cell Distribution Width 18.7 % (11.5-14.5) Platelet Count 178 x10^3/uL (140-400) Neutrophils (%) (Auto) 68 % (31-73) Lymphocytes (%) (Auto) 18 % (24-48) Monocytes (%) (Auto) 12 % (0-9) Eosinophils (%) (Auto) 2 % (0-3) Basophils (%) (Auto) 1 % (0-3) Neutrophils # (Auto) 5.1 x10^3/uL (1.8-7.7) Lymphocytes # (Auto) 1.3 x10^3/uL (1.0-4.8) Monocytes # (Auto) 0.9 x10^3/uL (0.0-1.1) Eosinophils # (Auto) 0.1 x10^3/uL (0.0-0.7) Basophils # (Auto) 0.1 x10^3/uL (0.0-0.2) Glucose (Fingerstick) 184 mg/dL (70-99) 114 mg/dL (70-99) 147 mg/dL (70-99) Test 03/31/21 07:10 Glucose (Fingerstick) 74 mg/dL (70-99) Assessment and Plan Assessmemt and Plan Problems Medical Problems: (1) Rectal bleeding Status: Acute Comment Review of Relevant I have reviewed the following items cortes (where applicable) has been applied. Justifications for Admission Other Justification Acute lower GI bleed, subtherapeutic INR LORI LERMA MD Mar 31, 2021 08:05
[2021-03-31] MEDS: VITAMIN B COMPLEX TABLET. PO SCH (08:51)
[2021-03-31] MEDS: DOXAZOSIN MESYLATE 4 MG TABLET. PO SCH (08:51)
[2021-03-31] MEDS: ASCORBIC ACID 1,000 MG TABLET PO SCH (08:51)
[2021-03-31] MEDS: FOLIC/VIT B COMP W-C (RENAL) TABLET. PO SCH (08:51)
[2021-03-31] MEDS: AMIODARONE HCL 200 MG TABLET. PO SCH (08:52)
[2021-03-31 08:53] LABS: HEMATOCRIT 23.2 % (39.0-53.0); HEMOGLOBIN 7.7 g/dL (13.0-17.5); RED BLOOD COUNT 2.73 x10^6/uL (4.30-5.70); RED CELL DISTRIBUTION WIDTH 19.3 % (11.5-14.5); WHITE BLOOD COUNT 7.8 x10^3/uL (4.0-11.0)
--- NOTE | 2021-03-31 10:20 | PDOC ---
JT FIGUEROA MEDICAL LAB SCIENTIST 03/31/21 1020: SURGICAL PROGRESS NOTE DATE: 03/31/21 TIME: 10:20 Subjective no abdominal pain no bleeding Vital Signs Vital Signs Date Time Temp Pulse Resp B/P (MAP) Pulse Ox O2 Delivery O2 Flow Rate FiO2 03/31/21 08:52 87 142/76 03/31/21 07:59 98.5 24 95 Nasal Cannula 2.0 98.5 I&O Intake and Output 03/31/21 07:00 Intake Total 200 ml Balance 200 ml Intake Oral 200 ml General: Alert, Oriented X3, Cooperative Abdomen: Soft, No tenderness Labs Laboratory Tests Test 03/29/21 11:25 03/29/21 16:01 03/29/21 16:49 03/30/21 07:46 Glucose (Fingerstick) 162 mg/dL (70-99) 112 mg/dL (70-99) 105 mg/dL (70-99) 92 mg/dL (70-99) Test 03/30/21 09:40 03/30/21 12:26 03/30/21 16:46 03/30/21 19:17 White Blood Count 7.6 x10^3/uL (4.0-11.0) Red Blood Count 2.77 x10^6/uL (4.30-5.70) Hemoglobin 7.7 g/dL (13.0-17.5) Hematocrit 23.6 % (39.0-53.0) Mean Corpuscular Volume 85 fL (79-100) Mean Corpuscular Hemoglobin 28 pg (25-35) Mean Corpuscular Hemoglobin Concent 33 g/dL (31-37) Red Cell Distribution Width 18.7 % (11.5-14.5) Platelet Count 178 x10^3/uL (140-400) Neutrophils (%) (Auto) 68 % (31-73) Lymphocytes (%) (Auto) 18 % (24-48) Monocytes (%) (Auto) 12 % (0-9) Eosinophils (%) (Auto) 2 % (0-3) Basophils (%) (Auto) 1 % (0-3) Neutrophils # (Auto) 5.1 x10^3/uL (1.8-7.7) Lymphocytes # (Auto) 1.3 x10^3/uL (1.0-4.8) Monocytes # (Auto) 0.9 x10^3/uL (0.0-1.1) Eosinophils # (Auto) 0.1 x10^3/uL (0.0-0.7) Basophils # (Auto) 0.1 x10^3/uL (0.0-0.2) Glucose (Fingerstick) 184 mg/dL (70-99) 114 mg/dL (70-99) 147 mg/dL (70-99) Test 03/31/21 07:10 03/31/21 08:15 Glucose (Fingerstick) 74 mg/dL (70-99) White Blood Count 7.8 x10^3/uL (4.0-11.0) Red Blood Count 2.73 x10^6/uL (4.30-5.70) Hemoglobin 7.7 g/dL (13.0-17.5) Hematocrit 23.2 % (39.0-53.0) Mean Corpuscular Volume 85 fL (79-100) Mean Corpuscular Hemoglobin 28 pg (25-35) Mean Corpuscular Hemoglobin Concent 33 g/dL (31-37) Red Cell Distribution Width 19.3 % (11.5-14.5) Platelet Count 182 x10^3/uL (140-400) Laboratory Tests Test 03/30/21 12:26 03/30/21 16:46 03/30/21 19:17 03/31/21 07:10 Glucose (Fingerstick) 184 mg/dL (70-99) 114 mg/dL (70-99) 147 mg/dL (70-99) 74 mg/dL (70-99) Test 03/31/21 08:15 White Blood Count 7.8 x10^3/uL (4.0-11.0) Red Blood Count 2.73 x10^6/uL (4.30-5.70) Hemoglobin 7.7 g/dL (13.0-17.5) Hematocrit 23.2 % (39.0-53.0) Mean Corpuscular Volume 85 fL (79-100) Mean Corpuscular Hemoglobin 28 pg (25-35) Mean Corpuscular Hemoglobin Concent 33 g/dL (31-37) Red Cell Distribution Width 19.3 % (11.5-14.5) Platelet Count 182 x10^3/uL (140-400) Problem List Problems Medical Problems: (1) Rectal bleeding Status: Acute Assessment/Plan hbg stable supportive care Justicifation of Admission Dx: Justifications for Admission: Justification of Admission Dx: Yes MARSHAL JARA MD 03/31/21 1903: SURGICAL PROGRESS NOTE Assessment/Plan Pt seen and examined. Agree with Ms. Figueroa's note Pt without c/o, melanie diet, no further bleeding abd soft, ND, NTTP cont supportive care, no surgical plans. JT FIGUEROA MEDICAL LAB SCIENTIST Mar 31, 2021 10:20 MARSHAL JARA MD Mar 31, 2021 19:03
[2021-03-31 11:59] VITALS: BP 123/63
--- NOTE | 2021-03-31 15:05 | PDOC ---
Date of Service: DATE: 03/31/21 TIME: 15:05 Subjective: Subjective: No further bleed. Hgb 7.7 Objective: Vital Signs: Vital Signs Date Time Temp Pulse Resp B/P (MAP) Pulse Ox O2 Delivery O2 Flow Rate FiO2 03/31/21 11:59 98.6 87 22 123/63 (83) 95 Nasal Cannula 2.0 98.6 Labs: Laboratory Tests Test 03/30/21 16:46 03/30/21 19:17 03/31/21 07:10 03/31/21 08:15 Glucose (Fingerstick) 114 mg/dL (70-99) 147 mg/dL (70-99) 74 mg/dL (70-99) White Blood Count 7.8 x10^3/uL (4.0-11.0) Red Blood Count 2.73 x10^6/uL (4.30-5.70) Hemoglobin 7.7 g/dL (13.0-17.5) Hematocrit 23.2 % (39.0-53.0) Mean Corpuscular Volume 85 fL (79-100) Mean Corpuscular Hemoglobin 28 pg (25-35) Mean Corpuscular Hemoglobin Concent 33 g/dL (31-37) Red Cell Distribution Width 19.3 % (11.5-14.5) Platelet Count 182 x10^3/uL (140-400) Test 03/31/21 11:26 Glucose (Fingerstick) 111 mg/dL (70-99) Physical Exam: Physical Exam: GEN: NAD HEENT: OP clear CV: S1S2 without murmurs, rubs, or gallops RESP: CTAB without wheezing, rhonchi, or crackles ABD: NABS, SNT/ND EXT: No edema NEURO: AAO x 3 Assessment & Plan: Assessment : A/P: GI bleeding/diverticular bleed s/p IR embolization 03/28 s/p [rbcs with hgb still 7.7 Chronic anemia - no reports of further bleeding; Hgb drift to 7 A Fib on Coumadin - s/p vit K x 2 and FFP; Coumadin held ESRD on HD Plan: monitor hgb Justicifation of Admission Dx: Justifications for Admission: Justification of Admission Dx: Yes TURNER العلي MD Mar 31, 2021 15:05
[2021-03-31 15:59] VITALS: BP 102/69
[2021-03-31 19:47] VITALS: BP 144/75
[2021-03-31] MEDS: INSULIN GLARGINE SYRINGE. SQ SCH (21:19)
[2021-03-31 23:10] VITALS: BP 136/75
[2021-04-01] VITALS (7 sets, daily range): BP systolic 128–148; BP diastolic 69–82
[2021-04-01] MEDS: INSULIN LISPRO 300 UNITS/3 ML VIAL. SQ SCH ×3 (07:27→16:40)
[2021-04-01] MEDS: PANTOPRAZOLE 40 MG TABLET.DR. PO SCH (07:31)
[2021-04-01] MEDS: VITAMIN B COMPLEX TABLET. PO SCH (08:34)
[2021-04-01] MEDS: ASCORBIC ACID 1,000 MG TABLET PO SCH (08:34)
[2021-04-01] MEDS: FOLIC/VIT B COMP W-C (RENAL) TABLET. PO SCH (08:34)
[2021-04-01] MEDS: DOXAZOSIN MESYLATE 4 MG TABLET. PO SCH (08:59)
[2021-04-01] MEDS: AMIODARONE HCL 200 MG TABLET. PO SCH (08:59)
--- NOTE | 2021-04-01 10:44 | PDOC ---
Date of Service: DATE: 04/01/21 TIME: 10:39 Subjective: Subjective: No bleeding. Eating "too good." Fingertips on both hands are tingly. Objective: Objective: D/w nurse - ?Dc tomorrow Vital Signs: Vital Signs Date Time Temp Pulse Resp B/P (MAP) Pulse Ox O2 Delivery O2 Flow Rate FiO2 04/01/21 08:59 89 140/82 04/01/21 07:43 Nasal Cannula 2.0 04/01/21 07:00 98.3 18 95 98.3 Labs: Laboratory Tests Test 03/31/21 11:26 03/31/21 17:20 03/31/21 20:40 04/01/21 07:15 Glucose (Fingerstick) 111 mg/dL 174 mg/dL 160 mg/dL 64 mg/dL Test 04/01/21 10:06 Glucose (Fingerstick) 154 mg/dL PE: GEN: NAD - present LUNGS: CTAB HEART: irregular ABD: NABS, S/ND/NT NEURO/PSYCH: A & O 3 A/P: GI bleeding/diverticular bleed s/p IR embolization 03/28 ACD, borderline low B12 - stable A Fib on Coumadin (held) and amiodarone ESRD on HD -- Discussed his complaints re: "tingling" with nurse. Hgb stable at 7.7 yesterday, no further bleeding, tolerating diet - stable from GI standpoint. DC per primary. Justicifation of Admission Dx: Justifications for Admission: Justification of Admission Dx: Yes ANTONINA RHOADES Apr 01, 2021 10:44
[2021-04-01 11:03] LABS: HEMATOCRIT 22.5 % (39.0-53.0); HEMOGLOBIN 7.5 g/dL (13.0-17.5); RED BLOOD COUNT 2.66 x10^6/uL (4.30-5.70); RED CELL DISTRIBUTION WIDTH 18.9 % (11.5-14.5); WHITE BLOOD COUNT 7.8 x10^3/uL (4.0-11.0)
--- NOTE | 2021-04-01 11:09 | PDOC ---
Renal-Progress Notes Subjective Notes Notes NO FURTHER BLEEDING History of Present Illness Hx of present illness STABLE Vitals Vitals Vital Signs Date Time Temp Pulse Resp B/P (MAP) Pulse Ox O2 Delivery O2 Flow Rate FiO2 04/01/21 10:57 98.3 88 16 132/69 (90) 99 Nasal Cannula 2.0 98.3 Weight Weight [ ] I.O. Intake and Output Intake and Output 04/01/21 07:00 Intake Total 590 ml Balance 590 ml Intake Oral 590 ml # Voids 3 Labs Labs Laboratory Tests Test 03/31/21 11:26 03/31/21 17:20 03/31/21 20:40 04/01/21 07:15 Glucose (Fingerstick) 111 mg/dL (70-99) 174 mg/dL (70-99) 160 mg/dL (70-99) 64 mg/dL (70-99) Test 04/01/21 10:06 Glucose (Fingerstick) 154 mg/dL (70-99) Review of Systems Constitutional: yes: weakness, alert, oriented Ears/Nose/Throat: Yes: no symptom reported Eyes: Yes: no symptom reported Pulmonary: Yes no symptom reported Cardiovascular: Yes no symptom reported Gastrointestional: Yes: no symptom reported Genitourinary: Yes: no symptom reported Skin: Yes no symptom reported Psychiatric/Neurological: Yes: no symptom reported Endocrine: Yes: no symptom reported Physical Exam General Appearance: no apparent distress Skin: warm Respiratory: bilateral CTA Heart: S1S2 Abdomen: soft, bowel sounds present Genitourinary: bladder flat Extremities: pulses present Neurology: alert Assessment Assessment IMP ACUTE GI BLEED S/P EMBOLIZATION FOR DIVERTICULAR BLEED ANEMIA ESRD-MWF MISSED TX YESTERDAY DM II HTN PLAN HD TODAY UF TO TW CONT MEGAN CASTANO MD Apr 01, 2021 11:09
[2021-04-01 11:20] LABS: ALBUMIN 2.7 g/dL (3.4-5.0); ALBUMIN/GLOBULIN RATIO 0.8 (1.0-1.7); CALCIUM 8.4 mg/dL (8.5-10.1); CREATININE 5.2 mg/dL (0.7-1.3); GFR 10.8; POTASSIUM 4.1 mmol/L (3.5-5.1); TOTAL BILIRUBIN 0.3 mg/dL (0.2-1.0); TOTAL PROTEIN 6.2 g/dL (6.4-8.2)
[2021-04-01] MEDS ORDERED: diphenhydrAMINE 50 MG/ML VIAL IV PRN ×2 (12:30)
[2021-04-01] MEDS ORDERED: ACETAMINOPHEN 500 MG TABLET PO PRN (12:30)
[2021-04-01] MEDS ORDERED: DIALYSIS PATIENT. MC PRN ×2 (12:30)
[2021-04-01] MEDS ORDERED: IV NORMAL SALINE 1000ML BAG 1,000 ML IV PRN ×2 (12:30)
[2021-04-01] MEDS ORDERED: ALBUMIN HUMAN 25% 200 ML IV PRN (12:30)
--- NOTE | 2021-04-01 12:52 | PDOC ---
JT FIGUEROA CLEAR COAT SPRAYER 04/01/21 1252: SURGICAL PROGRESS NOTE DATE: 04/01/21 TIME: 12:51 Subjective no abd pain no bleeding tolerating diet Vital Signs Vital Signs Date Time Temp Pulse Resp B/P (MAP) Pulse Ox O2 Delivery O2 Flow Rate FiO2 04/01/21 10:57 98.3 88 16 132/69 (90) 99 Nasal Cannula 2.0 98.3 I&O Intake and Output 04/01/21 07:00 Intake Total 590 ml Balance 590 ml Intake Oral 590 ml # Voids 3 General: Alert, Oriented X3, Cooperative Abdomen: Soft, No tenderness Labs Laboratory Tests Test 03/30/21 16:46 03/30/21 19:17 03/31/21 07:10 03/31/21 08:15 Glucose (Fingerstick) 114 mg/dL (70-99) 147 mg/dL (70-99) 74 mg/dL (70-99) White Blood Count 7.8 x10^3/uL (4.0-11.0) Red Blood Count 2.73 x10^6/uL (4.30-5.70) Hemoglobin 7.7 g/dL (13.0-17.5) Hematocrit 23.2 % (39.0-53.0) Mean Corpuscular Volume 85 fL (79-100) Mean Corpuscular Hemoglobin 28 pg (25-35) Mean Corpuscular Hemoglobin Concent 33 g/dL (31-37) Red Cell Distribution Width 19.3 % (11.5-14.5) Platelet Count 182 x10^3/uL (140-400) Test 03/31/21 11:26 03/31/21 17:20 03/31/21 20:40 04/01/21 07:15 Glucose (Fingerstick) 111 mg/dL (70-99) 174 mg/dL (70-99) 160 mg/dL (70-99) 64 mg/dL (70-99) Test 04/01/21 10:06 04/01/21 10:15 04/01/21 11:56 Glucose (Fingerstick) 154 mg/dL (70-99) 98 mg/dL (70-99) White Blood Count 7.8 x10^3/uL (4.0-11.0) Red Blood Count 2.66 x10^6/uL (4.30-5.70) Hemoglobin 7.5 g/dL (13.0-17.5) Hematocrit 22.5 % (39.0-53.0) Mean Corpuscular Volume 85 fL (79-100) Mean Corpuscular Hemoglobin 28 pg (25-35) Mean Corpuscular Hemoglobin Concent 34 g/dL (31-37) Red Cell Distribution Width 18.9 % (11.5-14.5) Platelet Count 199 x10^3/uL (140-400) Sodium Level 135 mmol/L (136-145) Potassium Level 4.1 mmol/L (3.5-5.1) Chloride Level 99 mmol/L (98-107) Carbon Dioxide Level 27 mmol/L (21-32) Anion Gap 9 (6-14) Blood Urea Nitrogen 37 mg/dL (8-26) Creatinine 5.2 mg/dL (0.7-1.3) Estimated GFR (Cockcroft-Gault) 10.8 BUN/Creatinine Ratio 7 (6-20) Glucose Level 136 mg/dL (70-99) Calcium Level 8.4 mg/dL (8.5-10.1) Total Bilirubin 0.3 mg/dL (0.2-1.0) Aspartate Amino Transf (AST/SGOT) 19 U/L (15-37) Alanine Aminotransferase (ALT/SGPT) 20 U/L (16-63) Alkaline Phosphatase 91 U/L (46-116) Total Protein 6.2 g/dL (6.4-8.2) Albumin 2.7 g/dL (3.4-5.0) Albumin/Globulin Ratio 0.8 (1.0-1.7) Laboratory Tests Test 03/31/21 17:20 03/31/21 20:40 04/01/21 07:15 04/01/21 10:06 Glucose (Fingerstick) 174 mg/dL (70-99) 160 mg/dL (70-99) 64 mg/dL (70-99) 154 mg/dL (70-99) Test 04/01/21 10:15 04/01/21 11:56 White Blood Count 7.8 x10^3/uL (4.0-11.0) Red Blood Count 2.66 x10^6/uL (4.30-5.70) Hemoglobin 7.5 g/dL (13.0-17.5) Hematocrit 22.5 % (39.0-53.0) Mean Corpuscular Volume 85 fL (79-100) Mean Corpuscular Hemoglobin 28 pg (25-35) Mean Corpuscular Hemoglobin Concent 34 g/dL (31-37) Red Cell Distribution Width 18.9 % (11.5-14.5) Platelet Count 199 x10^3/uL (140-400) Sodium Level 135 mmol/L (136-145) Potassium Level 4.1 mmol/L (3.5-5.1) Chloride Level 99 mmol/L (98-107) Carbon Dioxide Level 27 mmol/L (21-32) Anion Gap 9 (6-14) Blood Urea Nitrogen 37 mg/dL (8-26) Creatinine 5.2 mg/dL (0.7-1.3) Estimated GFR (Cockcroft-Gault) 10.8 BUN/Creatinine Ratio 7 (6-20) Glucose Level 136 mg/dL (70-99) Calcium Level 8.4 mg/dL (8.5-10.1) Total Bilirubin 0.3 mg/dL (0.2-1.0) Aspartate Amino Transf (AST/SGOT) 19 U/L (15-37) Alanine Aminotransferase (ALT/SGPT) 20 U/L (16-63) Alkaline Phosphatase 91 U/L (46-116) Total Protein 6.2 g/dL (6.4-8.2) Albumin 2.7 g/dL (3.4-5.0) Albumin/Globulin Ratio 0.8 (1.0-1.7) Glucose (Fingerstick) 98 mg/dL (70-99) Problem List Problems Medical Problems: (1) Rectal bleeding Status: Acute Assessment/Plan stable Hgb no surgery plans available as needed Justicifation of Admission Dx: Justifications for Admission: Justification of Admission Dx: Yes MARSHAL JARA MD 04/01/21 1536: SURGICAL PROGRESS NOTE Assessment/Plan Pt seen and examined. Agree with Ms. Figueroa's note Pt without c/o abd soft, NTTP cont supportive care. Will sign off, but please call for questions. JT FIGUEROA APRN Apr 01, 2021 12:52 MARSHAL JARA MD Apr 01, 2021 15:36
--- NOTE | 2021-04-01 12:57 | PDOC ---
[employer] PROGRESS NOTE Date of Service DOS: DATE: 04/01/21 TIME: 12:56 Chief Complaint Chief Complaint Acute lower GI bleed Subtherapeutic INR ESRD on HD Normocytic anemia DM2 Atrial fibrillation Moderate malnutrition Plan: Will place consult to GI; case discussed with Gastroenterology PA Will need to hold warfarin at this time due to ongoing bleeding, and I discussed this with patient and Will place consult to nephrology continue his regular hemodialysis Will keep patient NPO for any possible GI intervention Consultation to general surgery Resume what medications we can at this time FEN - NPO PPX - SCDs DNR Dispo - inpatient for above Advance Care Planning: Total time spent [id number] with patient 17 minutes in discussion with goals of care, comfort care, end-of-life care, pain management, code status; patient names his (Flakita Palomares) as surrogate decision- maker. History of Present Illness History of Present Illness Patient is 80-year-old male past medical history ESRD on HD Thursday/Thursday/Thursday, atrial fibrillation on warfarin, and DM2, who presents to the ED with complaints of rectal bleeding since yesterday. He reports pa ssing bright red blood per rectum with clots. He denies any associated abdominal pain. He does report a history of similar symptoms several years ago. Per patient's , he has had a colonoscopy in the past with normal results and no polyps. Labs on admission showed hemoglobin 9.9, hematocrit 30.2, INR 1.7, BUN 48, creatinine 3.2, CBG 155, albumin 2.9, and he was Hemoccult pos itive. During recent admission for CHF exacerbation on 01/18/2021 he was noted to have hemoglobin 9.6 and hematocrit 30.1. While in the ED he continues to have bright red blood per rectum with some clots. Will admit patient for further medical management. 03/28/2021: Afebrile. Still with complaints of rectal bleeding overnight, and passing multiple clots. General surgery has been consulted as well. INR 1.7 yesterday and 1.6 today. I believe GI is ordered vitamin K and FFP. Hemoglobin 9.9 yesterday and hemoglobin 8.0 today. Discussed with bleeding scan today. Discussed with patient and . 03/29/2021: Afebrile. Had mesenteric angiogram and embolization of middle colic 5th order branch. No further hematochezia. Hemoglobin 7.0 today; will transfus e 1 unit pRBCs; discussed with RN. 03/30/2021: Afebrile. Denies any further hematochezia, but has not had bowel movement today. Hemoglobin 7.7; improved from 7.0 yesterday s/p 1 unit pRBC. Denies abdominal pain. We will continue to monitor. 03/31/2021: Afebrile. No further hematochezia, but states he has not had a bowel movement since spoke with him yesterday. Morning labs show stable hemoglobin 7.7. S/P angiogram and embolization of middle colic 5th order branch. Given recent GI bleed requiring transfusion, will continue to monitor and likely discharge her to his nursing facility on Thursday. 04/01/2021 No acute events overnight. Patient seen and examined bedside. Hemoglobin is 7.5. Pending PT OT evaluation and possible [place] discharge. Patient's chart, labs, images were reviewed and discussed with RN Vitals/I&O Vitals/I&O: Vital Signs Date Time Temp Pulse Resp B/P (MAP) Pulse Ox O2 Delivery O2 Flow Rate FiO2 04/01/21 10:57 98.3 88 16 132/69 (90) 99 Nasal Cannula 2.0 98.3 I & O 03/31/21 03/31/21 04/01/21 15:00 23:00 07:00 Intake Total 240 ml 240 ml 110 ml Balance 240 ml 240 ml 110 ml Physical Exam General: Alert, Oriented X3, Cooperative Heart: Regular rate Lungs: Crackles Abdomen: Soft, No tenderness Extremities: No clubbing Skin: No rashes Labs Labs: Laboratory Tests Test 03/31/21 17:20 03/31/21 20:40 04/01/21 07:15 04/01/21 10:06 Glucose (Fingerstick) 174 mg/dL (70-99) 160 mg/dL (70-99) 64 mg/dL (70-99) 154 mg/dL (70-99) Test 04/01/21 10:15 04/01/21 11:56 White Blood Count 7.8 x10^3/uL (4.0-11.0) Red Blood Count 2.66 x10^6/uL (4.30-5.70) Hemoglobin 7.5 g/dL (13.0-17.5) Hematocrit 22.5 % (39.0-53.0) Mean Corpuscular Volume 85 fL (79-100) Mean Corpuscular Hemoglobin 28 pg (25-35) Mean Corpuscular Hemoglobin Concent 34 g/dL (31-37) Red Cell Distribution Width 18.9 % (11.5-14.5) Platelet Count 199 x10^3/uL (140-400) Sodium Level 135 mmol/L (136-145) Potassium Level 4.1 mmol/L (3.5-5.1) Chloride Level 99 mmol/L (98-107) Carbon Dioxide Level 27 mmol/L (21-32) Anion Gap 9 (6-14) Blood Urea Nitrogen 37 mg/dL (8-26) Creatinine 5.2 mg/dL (0.7-1.3) Estimated GFR (Cockcroft-Gault) 10.8 BUN/Creatinine Ratio 7 (6-20) Glucose Level 136 mg/dL (70-99) Calcium Level 8.4 mg/dL (8.5-10.1) Total Bilirubin 0.3 mg/dL (0.2-1.0) Aspartate Amino Transf (AST/SGOT) 19 U/L (15-37) Alanine Aminotransferase (ALT/SGPT) 20 U/L (16-63) Alkaline Phosphatase 91 U/L (46-116) Total Protein 6.2 g/dL (6.4-8.2) Albumin 2.7 g/dL (3.4-5.0) Albumin/Globulin Ratio 0.8 (1.0-1.7) Glucose (Fingerstick) 98 mg/dL (70-99) Assessment and Plan Assessmemt and Plan Problems Medical Problems: (1) Rectal bleeding Status: Acute Comment Review of Relevant I have reviewed the following items cortes (where applicable) has been applied. Justifications for Admission Other Justification Acute lower GI bleed, subtherapeutic INR PATI SAUNDERS MD Apr 01, 2021 12:57
[2021-04-01] MEDS: INSULIN GLARGINE SYRINGE. SQ SCH (21:59)
[2021-04-02 03:00] VITALS: BP 133/77
[2021-04-02 07:00] VITALS: BP 144/78
[2021-04-02] MEDS: INSULIN LISPRO 300 UNITS/3 ML VIAL. SQ SCH ×2 (07:22→12:51)
[2021-04-02] MEDS: PANTOPRAZOLE 40 MG TABLET.DR. PO SCH (08:01)
[2021-04-02] MEDS: FOLIC/VIT B COMP W-C (RENAL) TABLET. PO SCH (08:01)
[2021-04-02] MEDS: DOXAZOSIN MESYLATE 4 MG TABLET. PO SCH (08:01)
[2021-04-02] MEDS: AMIODARONE HCL 200 MG TABLET. PO SCH (08:01)
[2021-04-02] MEDS: VITAMIN B COMPLEX TABLET. PO SCH (08:01)
[2021-04-02] MEDS: ASCORBIC ACID 1,000 MG TABLET PO SCH (08:01)
[2021-04-02 08:30] LABS: HEMOGLOBIN 8.5 g/dL (13.0-17.5); RED BLOOD COUNT 2.95 x10^6/uL (4.30-5.70); WHITE BLOOD COUNT 7.7 x10^3/uL (4.0-11.0)
[2021-04-02] MEDS ORDERED: FURO40TA4 PO (10:34)
--- NOTE | 2021-04-02 10:35 | SNU/HH DC ---
DISCHARGE ORDERS DISCHARGE INFORMATION: DISCHARGE DATE: Apr 02, 2021 FINAL DIAGNOSIS Problems Medical Problems: (1) Rectal bleeding Status: Acute CONDITION ON DISCHARGE: Stable CODE STATUS: Code Status: DNR/DNI SHELTER: SNF STAY <30 DAYS: Yes POST DISCHARGE ORDERS: ACTIVITY ORDERS: Activity as tolerated WEIGHT BEARING STATUS: As tolerated DIET AFTER DISCHARGE: Cardiac WOUND/INCISION CARE: Keep wound/cast CDI CHECKS AFTER DISCHARGE: CHECKS AFTER DISCHARGE: Check blood press - daily, Check blood sugar, ac/hs, Check your Temp as needed, Weigh Yourself Daily FOLLOW-UP: PHYSICIAN FOLLOW-UP: PCP within 2 weeks of discharge ADDITIONAL FOLLOW-UP: Gastroenterology as needed LAB ORDERS FOR FOLLOW-UP: CBC, CMP within 2 weeks of discharge ANTICOAGULATION F/U NEEDED: Was on warfarin TREATMENT/EQUIPMENT ORDERS: ADAPTIVE EQUIPMENT NEEDED: None Physical Therapy For: Evalulation/Treatment Occupational Therapy For: Evaluation/Treatment DISCHARGE MEDICATIONS: Home Meds Active Scripts Folic Acid/Vitamin B Comp W-C (TOMMY-BEN TABLET) 0.8 Mg Tablet, 1 TAB PO DAILY for esrd for 30 Days, #30 TAB Prov:CASTLE,NIAL K III DO 01/23/21 Reported Medications Amiodarone Hcl (PACERONE) 200 Mg Tablet, 200 MG PO DAILY for afib, TAB 03/28/21 Metoprolol Tartrate (METOPROLOL TARTRATE) 25 Mg Tablet, 2 TAB PO BID for HTN, #180 TAB 1 Refill 03/28/21 Insulin Glargine,Hum.rec.anlog (Basaglar Kwikpen U-100) 100 Unit/1 Ml Insul n.pen, 15 UNIT SQ HS for DM, EACH 03/28/21 Doxazosin Mesylate (DOXAZOSIN MESYLATE) 4 Mg Tablet, 1 TAB PO DAILY for htn, #30 TAB 5 Refills not given while patient was here next dose due: date 10/24/20 time 89905/08/16 Vitamin B Complex & Vit C No.4 (SUPER B COMPLEX) 150 Mg Tablet, 150 MG PO DAILY for supplement not given while patient was here next dose due: date 10/24/20 time 89905/08/16 Ascorbic Acid (VITAMIN C) 1,000 Mg Tablet, 1000 MG PO DAILY for supplement not given while here next dose due: date 10/24/20 time 89905/08/16 Discontinued Reported Medications Aspirin (ASPIRIN) 81 Mg Tab.chew, 1 TAB PO DAILY for uknown, #30 TAB 3 Refills 03/28/21 Metolazone (METOLAZONE) 5 Mg Tablet, 5 MG PO BID for diuretic, #30 TAB 0 Refills 03/28/21 Warfarin Sodium (WARFARIN SODIUM) 4 Mg Tablet, 4.5 MG PO DAILY for afib, #30 TAB 11/19/20 Amlodipine Besylate (NORVASC) 10 Mg Tablet, 10 MG PO DAILY for htn, TAB last dose given: date 10/23/20 time 0857 next dose due: date 10/24/20 time 0900 05/09/16 Triamterene/Hydrochlorothiazid (TRIAMTERENE-HCTZ 37.5-25 MG CP) 1 Each Capsule, 1 CAP PO DAILY for HTN, #30 CAP 5 Refills 03/28/21 Meclizine Hcl (MECLIZINE HCL) 12.5 Mg Tablet, 1 TAB PO TID for dizziness, #90 TAB 3 Refills 03/28/21 Glimepiride (GLIMEPIRIDE) 4 Mg Tablet, 1 TAB PO DAILY for DM, #30 TAB 5 Refills 03/28/21 Gemfibrozil (GEMFIBROZIL) 600 Mg Tablet, 1 TAB PO BID for cholesterol, #60 TAB 5 Refills 03/28/21 Bumetanide (BUMETANIDE) 1 Mg Tablet, 4 TAB PO BID for diuretic, #90 TAB 1 Refill 03/28/21 Atorvastatin Calcium (ATORVASTATIN CALCIUM) 40 Mg Tablet, 1 TAB PO QHS for cholesterol, #90 TAB 3 Refills 03/28/21 Fluticasone Propionate (FLUTICASONE PROPIONATE NASAL SPRAY) 16 Gm [place].susp, 2 SPRAY NS DAILY for allergies, #1 INHALER 11 Refills 03/28/21 Mirtazapine (MIRTAZAPINE) 7.5 Mg Tablet, 1 TAB PO QHS for depression for 30 Days, #30 TAB 0 Refills 11/19/20 Discontinued Scripts Furosemide (LASIX) 40 Mg Tablet, 1 TAB PO DAILY for CHF for 30 Days, #30 TAB 2 Refills Prov:CAROLINE YBARRA APRN 01/23/21 PATI SAUNDERS MD Apr 02, 2021 10:35
--- NOTE | 2021-04-02 10:51 | PDOC ---
Date of Service: DATE: 04/02/21 TIME: 10:49 Subjective: Subjective: No complaints - no bleeding, tolerating diet, no pain. present - hoping he can go back to [facility]. Objective: Vital Signs: Vital Signs Date Time Temp Pulse Resp B/P (MAP) Pulse Ox O2 Delivery O2 Flow Rate FiO2 04/02/21 08:01 94 144/78 04/02/21 07:00 97.8 18 96 97.8 04/02/21 03:00 Room Air 04/01/21 20:00 2.0 Labs: Laboratory Tests Test 04/01/21 11:56 04/01/21 20:40 04/02/21 06:59 04/02/21 08:15 Glucose (Fingerstick) 98 mg/dL 146 mg/dL 85 mg/dL White Blood Count 7.7 x10^3/uL Red Blood Count 2.95 x10^6/uL Hemoglobin 8.5 g/dL Hematocrit 25.0 % Mean Corpuscular Volume 85 fL Mean Corpuscular Hemoglobin 29 pg Mean Corpuscular Hemoglobin Concent 34 g/dL Red Cell Distribution Width 19.0 % Platelet Count 216 x10^3/uL PE: GEN: NAD LUNGS: CTAB HEART: irregular ABD: S/ND/NT NEURO/PSYCH: A & O 3 A/P: GI bleeding/diverticular bleed s/p IR embolization 03/28 ACD, borderline low B12 - improving A Fib on Coumadin (held) and amiodarone ESRD on HD -- D/w Dr. Mortensen - will review timing to restart Coumadin from GI standpoint w/ Dr. Mario. Justicifation of Admission Dx: Justifications for Admission: Justification of Admission Dx: Yes ANTONINA RHOADES Apr 02, 2021 10:51
[2021-04-02 11:00] VITALS: BP 133/77
--- NOTE | 2021-04-02 11:55 | PDOC ---
Renal-Progress Notes Subjective Notes Notes FATIGUE History of Present Illness Hx of present illness NO MORE BLEEDING Vitals Vitals Vital Signs Date Time Temp Pulse Resp B/P (MAP) Pulse Ox O2 Delivery O2 Flow Rate FiO2 04/02/21 11:00 98.1 98 18 133/77 (95) 97 98.1 04/02/21 03:00 Room Air 04/01/21 20:00 2.0 Weight Weight [ ] I.O. Intake and Output Intake and Output 04/02/21 07:00 Intake Total 1340 ml Output Total 200 ml Balance 1140 ml Intake Oral 1340 ml Output Urine Total 200 ml # Voids 2 Labs Labs Laboratory Tests Test 04/01/21 11:56 04/01/21 20:40 04/02/21 06:59 04/02/21 08:15 Glucose (Fingerstick) 98 mg/dL (70-99) 146 mg/dL (70-99) 85 mg/dL (70-99) White Blood Count 7.7 x10^3/uL (4.0-11.0) Red Blood Count 2.95 x10^6/uL (4.30-5.70) Hemoglobin 8.5 g/dL (13.0-17.5) Hematocrit 25.0 % (39.0-53.0) Mean Corpuscular Volume 85 fL (79-100) Mean Corpuscular Hemoglobin 29 pg (25-35) Mean Corpuscular Hemoglobin Concent 34 g/dL (31-37) Red Cell Distribution Width 19.0 % (11.5-14.5) Platelet Count 216 x10^3/uL (140-400) Test 04/02/21 10:40 04/02/21 11:27 SARS-CoV-2 Antigen (Rapid) Negative (NEGATIVE) Glucose (Fingerstick) 192 mg/dL (70-99) Review of Systems Constitutional: yes: weakness, alert, oriented Ears/Nose/Throat: Yes: no symptom reported Eyes: Yes: no symptom reported Pulmonary: Yes no symptom reported Cardiovascular: Yes no symptom reported Gastrointestional: Yes: no symptom reported Genitourinary: Yes: no symptom reported Skin: Yes no symptom reported Psychiatric/Neurological: Yes: no symptom reported Endocrine: Yes: no symptom reported Physical Exam General Appearance: no apparent distress Skin: warm Respiratory: bilateral CTA Heart: S1S2 Abdomen: soft, bowel sounds present Genitourinary: bladder flat Extremities: pulses present Neurology: alert Assessment Assessment IMP ACUTE GI BLEED S/P EMBOLIZATION FOR DIVERTICULAR BLEED ANEMIA ESRD-MWF MISSED TX YESTERDAY DM II HTN PLAN HD MWF CONT KADI TO REHAB SOON UPDATED MEGAN SCHMIDT MD Apr 02, 2021 11:55
--- NOTE | 2021-04-02 16:04 | NUR ---
Pt was read discharge packet/instructions and had no comments/concerns. Pt's IV was taken out, and heart monitor was taken off. Pt was stable when leaving the unit.
== END 2021-04-02 15:15 | disposition home or self-care (01) | DRG 356 ==
LOC: ER 09:08 → 6 SOUTH 11:19
PROVIDERS: ADMIT Family Medicine; ATTEND Family Medicine
PROC: 5A1D70Z Performance of Urinary Filtration, Intermittent, Less than 6 Hours Per Day (ICD-10-PCS; principal; 2021-03-28)
PROC: 04L83DZ Occlusion of Middle Colic Artery with Intraluminal Device, Percutaneous Approach (ICD-10-PCS; 2021-03-28)
PROC: 5A1D70Z Performance of Urinary Filtration, Intermittent, Less than 6 Hours Per Day (ICD-10-PCS; 2021-03-29)
PROC: 30233K1 Transfusion of Nonautologous Frozen Plasma into Peripheral Vein, Percutaneous Approach (ICD-10-PCS; 2021-03-29)
PROC: 30233N1 Transfusion of Nonautologous Red Blood Cells into Peripheral Vein, Percutaneous Approach (ICD-10-PCS; 2021-03-29)
DX: K57.91 Diverticulosis of intestine, part unspecified, without perforation or abscess with bleeding (principal); N18.6 End stage renal disease; E44.0 Moderate protein-calorie malnutrition; I13.2 Hypertensive heart and chronic kidney disease with heart failure and with stage 5 chronic kidney disease, or end stage renal disease; Z88.8 Allergy status to other drugs, medicaments and biological substances; Z20.822 Contact with and (suspected) exposure to COVID-19; Z68.35 Body mass index [BMI] 35.0-35.9, adult; E11.22 Type 2 diabetes mellitus with diabetic chronic kidney disease; I48.91 Unspecified atrial fibrillation; I50.9 Heart failure, unspecified; Z90.49 Acquired absence of other specified parts of digestive tract; Z82.49 Family history of ischemic heart disease and other diseases of the circulatory system; Z79.01 Long term (current) use of anticoagulants; D64.9 Anemia, unspecified; Z66 Do not resuscitate; E78.5 Hyperlipidemia, unspecified; M47.9 Spondylosis, unspecified; Z99.2 Dependence on renal dialysis; N40.0 Benign prostatic hyperplasia without lower urinary tract symptoms; E21.3 Hyperparathyroidism, unspecified
CPT/HCPCS: 36245; 36415; 36430; 37242; 74174; 75726; 76937; 78278; 80048; 80053; 82274; 82607; 82962; 83540; 83550; 85014; 85018; 85025; 85027; 85610; 85730; 86706; 86850; 86900; 86901; 86920; 86927; 87426; 96374; 99152; 99153; A9560; C1713; C1769; C1887; C1892; C1894; C9113; G0269; J0882; J1644; J1815; J2250; J2405; J3010; J3430; J3490; J7030; P9016; P9017; Q9967; U0003; U0005; 97116-GP; 97530-GO; 97530-GP; 99285-25; G0378

== ENCOUNTER 2021-05-27 09:58 | Inpatient (IN) | payer MEDICARE, BC ==
[~2021-05-27] VITALS: Ht 180.3 cm; Wt 103.1 kg
[~2021-05-27 09:58] MED LIST changes: +AMIO200T7 PO; +ASPI-630 PO; +ATOR40TA59 PO; +BUME1TAB3 PO; +FLUT16SP NS; +INSU100I32 SQ; +MECL12.582 PO; +METO25TA4 PO; +METO5TAB4 PO
[2021-05-27] MEDS ORDERED: IV RINGERS,LACTATED 500ML 500 ML IV ONE (10:15)
--- NOTE | 2021-05-27 10:19 | PHYS DOC ---
Past Medical History Past Medical History: A-Fib, CHF, Diabetes-Type II, Hypertension, Pneumonia, Other Additional Past Medical Histor: TACHYCARDIA, ENLARGED HEART Past Medical History ESRD Past Surgical History: Cholecystectomy, Other Additional Past Surgical Histo: RIGHT EYE, BACK, right chest permacath Smoking Status: Never Smoker Alcohol Use: None Drug Use: None General Adult EDM: Chief Complaint: DIZZY/LIGHT HEADED HPI: HPI: 80-year-old male with a history of end-stage renal disease on dialysis Thursday last dialysis on Thursday presents the emergency department complaining of fatigue and weakness. He was too weak bed to go to dialysis today so he came to the ER. He also complains of diarrhea without abdominal pain. The patient denies nausea, vomiting, fever, chills, chest pain, shortness of breath, abdominal pain, urinary symptoms, cough, recent trauma, or any other complaints. He denies any recent travel, antibiotic use, recent admission. He reports the diarrhea several times a day, nonbloody. Review of Systems: Review of Systems: ROS is otherwise negative except what was mentioned in HPI Heart Score: C/O Chest Pain: No Allergies: Allergies: Allergies Coded Allergies Type Severity Reaction Last Updated Verified lisinopril Allergy Severe SWELLING OF TONGUE AND THROAT 05/08/16 Yes Physical Exam: PE: Constitutional: No acute distress, appears chronically ill. HENT: Atraumatic, bilateral external ears normal, nose normal. Eyes: PERRLA, EOMI, conjunctiva normal, no discharge. Neck: Normal range of motion, supple, no stridor. Cardiovascular: Heart rate regular rhythm. 2+ radial pulses Lungs & Thorax: No respiratory distress, symmetrical expansion. Abdomen: Soft, no tenderness, distended abdomen Skin: Warm, dry. Extremities: No tenderness, no cyanosis, ROM intact, no edema. Neurologic: Alert and oriented X 3, normal motor function, normal sensory function, no focal deficits noted. GCS 15. Psychologic: Affect normal, judgment normal, mood normal. Current Patient Data: Labs: Laboratory Tests Test 05/27/21 10:35 05/27/21 13:00 White Blood Count 15.3 x10^3/uL (4.0-11.0) Red Blood Count 3.15 x10^6/uL (4.30-5.70) Hemoglobin 8.7 g/dL (13.0-17.5) Hematocrit 26.7 % (39.0-53.0) Mean Corpuscular Volume 85 fL (79-100) Mean Corpuscular Hemoglobin 28 pg (25-35) Mean Corpuscular Hemoglobin Concent 33 g/dL (31-37) Red Cell Distribution Width 18.7 % (11.5-14.5) Platelet Count 232 x10^3/uL (140-400) Neutrophils (%) (Auto) 83 % (31-73) Lymphocytes (%) (Auto) 6 % (24-48) Monocytes (%) (Auto) 9 % (0-9) Eosinophils (%) (Auto) 1 % (0-3) Basophils (%) (Auto) 0 % (0-3) Neutrophils # (Auto) 12.7 x10^3/uL (1.8-7.7) Lymphocytes # (Auto) 1.0 x10^3/uL (1.0-4.8) Monocytes # (Auto) 1.4 x10^3/uL (0.0-1.1) Eosinophils # (Auto) 0.1 x10^3/uL (0.0-0.7) Basophils # (Auto) 0.0 x10^3/uL (0.0-0.2) Sodium Level 133 mmol/L (136-145) Potassium Level 3.1 mmol/L (3.5-5.1) Chloride Level 96 mmol/L (98-107) Carbon Dioxide Level 27 mmol/L (21-32) Anion Gap 10 (6-14) Blood Urea Nitrogen 58 mg/dL (8-26) Creatinine 5.1 mg/dL (0.7-1.3) Estimated GFR (Cockcroft-Gault) 11.0 BUN/Creatinine Ratio 11 (6-20) Glucose Level 174 mg/dL (70-99) Lactic Acid Level 0.9 mmol/L (0.4-2.0) Calcium Level 9.0 mg/dL (8.5-10.1) Total Bilirubin 0.4 mg/dL (0.2-1.0) Aspartate Amino Transf (AST/SGOT) 24 U/L (15-37) Alanine Aminotransferase (ALT/SGPT) 30 U/L (16-63) Alkaline Phosphatase 172 U/L (46-116) Troponin I Quantitative 0.074 ng/mL (0.000-0.055) KL-Ywc-K-Type Natriuretic Peptide 17958 pg/mL (0-449) Total Protein 6.8 g/dL (6.4-8.2) Albumin 2.0 g/dL (3.4-5.0) Albumin/Globulin Ratio 0.4 (1.0-1.7) Lipase 55 U/L (73-393) Urine Collection Type Void Urine Color Keely Urine Clarity Turbid Urine pH 5.0 (<5.0-8.0) Urine Specific [place] 1.015 (1.000-1.030) Urine Protein 100 mg/dL (NEG-TRACE) Urine Glucose (UA) Negative mg/dL (NEG) Urine Ketones (Stick) Trace mg/dL (NEG) Urine Blood Large (NEG) Urine Nitrite Negative (NEG) Urine Bilirubin Negative (NEG) Urine Urobilinogen Dipstick 1.0 mg/dL (0.2 mg/dL) Urine Leukocyte Esterase Large (NEG) Urine RBC Field obscured /HPF (0-2) Urine WBC Tntc /HPF (0-4) Urine Squamous Epithelial Cells Few /LPF Urine Bacteria Many /HPF (0-FEW) Vital Signs: Vital Signs Date Time Temp Pulse Resp B/P (MAP) Pulse Ox O2 Delivery O2 Flow Rate FiO2 05/27/21 12:52 64 22 126/63 (84) 96 Room Air 05/27/21 12:22 60 19 118/56 (76) 93 Room Air 05/27/21 11:52 56 19 121/58 (79) 90 Room Air 05/27/21 11:22 60 18 118/59 (78) 92 Room Air 05/27/21 11:03 58 18 118/56 (76) 92 Room Air 05/27/21 10:33 62 20 118/58 (78) 95 Room Air 05/27/21 10:00 98.2 56 18 127/80 (82) 96 Room Air 98.2 EKG: EKG: Normal sinus rhythm rate of 62, no ST-T wave changes, no ectopic beats, normal axis, QRS 128. Impression: Normal EKG. interpreted by me, Valerio Jeffrey D.O. Radiology/Procedures: Radiology/Procedures: CT ABDOMEN+PELVIS WO History: Abdominal distention, diarrhea. Comparison: CT chest 01/16/2021. CTA abdomen and pelvis 03/27/2021. Technique: Noncontrast CT of the abdomen and pelvis. Findings: The visualized heart is enlarged. Trace pericardial fluid. Calcifications of the coronary arteries. Moderate right greater than left pleural effusions with adjacent atelectatic consolidations. The liver is unremarkable. Cholecystectomy clips are present. Mild fatty atrophy of the pancreas. The spleen is unremarkable. 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 Multiple bilateral renal cystic lesions. At the posterior interpolar right kidney there is a 7.4 cm lesion with indeterminate density of approximately 36 Hounsfield units and suggestion of thickened wall. This is not significantly enlarged from recent prior abdomen CT when measuring 5.5 cm diameter and fluid density. Stomach is unremarkable. There is an approximately 3.8 x 3.2 cm duodenal diverticulum. Small bowel is unremarkable. Normal appendix. No colonic wall thickening. Mild sigmoid diverticulosis. The bladder is unremarkable. There is a enlarged prostate measuring 7.3 x 6.2 cm. Aorta iliac calcification without aneurysm. Mild intra-abdominal inflammatory changes with trace fluid in the paracolic gutters and mesenteric leaves. No abdominopelvic adenopathy.. Mild anasarca. Decreased osseous mineralization. Healed lateral left rib fractures. Flowing thoracic osteophytes. Moderate disc space loss at L5-S1 and L4-L5. Multilevel facet hypertrophic degenerative change most severe at L4-L5 where the spinal canal is severely narrowed Impression: 1. Interval enlargement and increased density of a now 7.4 cm right renal cystic lesion with thickened appearing wall. These interval changes may represent interval internal hemorrhage versus infection. 2. Enlarging moderate right greater than left pleural effusions with adjacent compressive atelectatic change/consolidation. Superimposed infection cannot be excluded. In setting of cardiomegaly, mild increased abdominal pelvic fluid and increasing anasarca this may represent CHF exacerbation. 3. Enlarged prostate, correlate with exam. ------ Exposure: One or more of the following individualized dose reduction techniques were utilized for this examination: 1. Automated exposure control 2. Adjustment of the mA and/or kV according to patient size 3. Use of iterative reconstruction technique. Electronically signed by: Kayden Piña MD (05/27/2021 12:17 PM) Course & Med Decision Making: Course & Med Decision Making Patient with CT finding as above, likely infectious etiology given his white count, symptoms. Will admit to the hospital for complicated pyelonephritis likely from abscess. Vancomycin and Zosyn were given in the emergency department. I discussed the case with Dr. Botello from nephrology who will dialyze the patient. Patient will be admitted to the hospitalist Dr. Grier. BNP, troponin likely from chronic renal failure. No indication for emergent dialysis today My Orders - VALERIO JEFFREY DO Procedure Category Date Status Time Cbc W Autodiff LAB 05/27/21 Complete 10:14 Comprehensive LAB 05/27/21 Complete Metabolic Panel 10:14 Lipase LAB 05/27/21 Complete 10:14 Troponini LAB 05/27/21 Complete 10:14 Nt-Pro Bnp LAB 05/27/21 Complete 10:14 Iv Ringers,Lactated PHA 05/27/21 Complete 500ml (Iv Lactated R 10:15 Ct Abdomen Pelvis Wo CT 05/27/21 Resulted Contrast 10:14 Lactic Acid With LAB 05/27/21 Complete Reflex 12:40 Blood Culture CORY 05/27/21 In Process 12:40 Vancomycin Per PHA 05/27/21 Logged Pharmacy (Vanco Per 12:45 Pip/Tazo Per Pharmacy PHA 05/27/21 Logged (Zosyn Per Pharmac 12:45 Ua, Cult If Indicated LAB 05/27/21 Complete 12:42 Consult Physician By CONS 05/27/21 Transmitted Name 12:43 Vancomycin PHA 05/27/21 Complete (Vancomycin) 13:00 Piperacillin/Tazobactam PHA 05/27/21 Complete (Zosyn) 13:00 Urine Culture CORY 05/27/21 In Process 13:26 Er Bridge Order ADT 05/27/21 Transmitted 13:52 Code Status CODE 05/27/21 Transmitted 13:52 Vital Signs, Per Unit KORIN 05/27/21 In Process Protocol 13:52 RENAL DIET 05/27/21 Transmitted Dinner Bedrest KORIN 05/27/21 In Process 13:52 Cbc W Autodiff LAB 05/28/21 Verified 06:00 Basic Metabolic Panel LAB 05/28/21 Verified 06:00 Ondansetron Pf PHA 05/27/21 In Process (Zofran) 14:00 Departure Departure Impression: Primary Impression: Abscess of right kidney Additional Impression: ESRD on hemodialysis Disposition: ADMITTED INPATIENT Admitting Physician: ERIKA Ren) Referrals: PULS,SOTO L MD (PCP) VALERIO JEFFREY DO May 27, 2021 10:19
[2021-05-27 11:00] LABS: CREATININE 5.1 mg/dL (0.7-1.3); POTASSIUM 3.1 mmol/L (3.5-5.1)
[2021-05-27 11:05] LABS: ALBUMIN/GLOBULIN RATIO 0.4 (1.0-1.7); TOTAL BILIRUBIN 0.4 mg/dL (0.2-1.0); TOTAL PROTEIN 6.8 g/dL (6.4-8.2)
[2021-05-27 11:09] LABS: BASO % 0 % (0-3); EOS # 0.1 x10^3/uL (0.0-0.7); EOS % 1 % (0-3); HEMATOCRIT 26.7 % (39.0-53.0); HEMOGLOBIN 8.7 g/dL (13.0-17.5); LYMPH % 6 % (24-48); MEAN CORPUSCULAR HEMOGLOBIN 28 pg (25-35); MEAN CORPUSCULAR HGB CONC 33 g/dL (31-37); MEAN CORPUSCULAR VOLUME 85 fL (79-100); MONO # 1.4 x10^3/uL (0.0-1.1); MONO % 9 % (0-9); NEUT # 12.7 x10^3/uL (1.8-7.7); NEUT % 83 % (31-73); PLATELET COUNT 232 x10^3/uL (140-400); RED BLOOD COUNT 3.15 x10^6/uL (4.30-5.70); RED CELL DISTRIBUTION WIDTH 18.7 % (11.5-14.5); WHITE BLOOD COUNT 15.3 x10^3/uL (4.0-11.0)
--- NOTE | 2021-05-27 12:20 | RAD ---
CT ABDOMEN+PELVIS WO History: Abdominal distention, diarrhea. Comparison: CT chest 01/16/2021. CTA abdomen and pelvis 03/27/2021. Technique: Noncontrast CT of the abdomen and pelvis. Findings: The visualized heart is enlarged. Trace pericardial fluid. Calcifications of the coronary arteries. M oderate right greater than left pleural effusions with adjacent atelectatic consolidations. The liver is unremarkable. Cholecystectomy clips are present. Mild fatty atrophy of the pancreas. The spleen is unremarkable. Macroscopic Fat-containing lesion of the left adrenal measuring 2.0 cm consi stent with myelolipoma. Multiple bilateral renal cystic lesions. At the posterior interpolar right ki dney there is a 7.4 cm lesion with indeterminate density of approximately 36 Hounsfield units and sug gestion of thickened wall. This is not significantly enlarged from recent prior abdomen CT when measu ring 5.5 cm diameter and fluid density. Stomach is unremarkable. There is an approximately 3.8 x 3.2 cm duodenal diverticulum. Small bowel is unremarkable. Normal appendix. No colonic wall thickening. Mild sigmoid diverticulosis. The bladder is unremarkable. There is a enlarged prostate measuring 7.3 x 6.2 cm. Aorta iliac calcifi cation without aneurysm. Mild intra-abdominal inflammatory changes with trace fluid in the paracolic gutters and mesenteric leaves. No abdominopelvic adenopathy.. Mild anasarca. Decreased osseous minera lization. Healed lateral left rib fractures. Flowing thoracic osteophytes. Moderate disc space loss a t L5-S1 and L4-L5. Multilevel facet hypertrophic degenerative change most severe at L4-L5 where the s kehinde canal is severely narrowed Impression: 1. Interval enlargement and increased density of a now 7.4 cm right renal cystic lesion with thicken ed appearing wall. These interval changes may represent interval internal hemorrhage versus infection . 2. Enlarging moderate right greater than left pleural effusions with adjacent compressive atelectati c change/consolidation. Superimposed infection cannot be excluded. In setting of cardiomegaly, mild i ncreased abdominal pelvic fluid and increasing anasarca this may represent CHF exacerbation. 3. Enlarged prostate, correlate with exam. ------ Exposure: One or more of the following individualized dose reduction techniques were utilized for thi s examination: 1. Automated exposure control 2. Adjustment of the mA and/or kV according to patient size 3. Use of iterative reconstruction technique. Electronically signed by: Kayden Piña MD (05/27/2021 12:17 PM) [id number]
[2021-05-27] MEDS ORDERED: PIP/TAZO PER PHARMACY MC PRN (12:45)
[2021-05-27] MEDS ORDERED: PIPERACILLIN/TAZOBACTAM 2.25 GM in IV NORMAL SALINE 50ML 50 ML IV ONE (13:00)
[2021-05-27] MEDS ORDERED: VANCOMYCIN 2 GM in IV NORMAL SALINE 500ML BAG 500 ML IV ONE (13:00)
[2021-05-27 13:17] LABS: BILIRUBIN,URINE NEGATIVE (NEG); CLARITY,URINE TURBID; COLOR,URINE AMBER; NITRITE,URINE NEGATIVE (NEG); PROTEIN,URINE 100 mg/dL (NEG-TRACE)
[2021-05-27 13:26] LABS: BACTERIA,URINE MANY /HPF (0-FEW); RBC,URINE FIELD OBSCURED /HPF (0-2); WBC,URINE TNTC /HPF (0-4)
[2021-05-27] MEDS ORDERED: DIALYSIS PATIENT. MC PRN (13:30)
[2021-05-27] MEDS ORDERED: IV NORMAL SALINE 1000ML BAG 1,000 ML IV PRN ×2 (13:30)
[2021-05-27] MEDS ORDERED: ONDANSETRON PF 4 MG/2 ML VIAL. IVP PRN (14:00)
[2021-05-27] MEDS ORDERED: LIDOCAINE 1% PF 2 ML VIAL. ID STA (16:01)
--- NOTE | 2021-05-27 17:08 | EKG ---
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
[2021-05-27 19:45] VITALS: BP 124/59
--- NOTE | 2021-05-27 19:55 | HP ---
ADMIT DATE: 05/27/2021 CHIEF COMPLAINT: Weakness, shortness of breath, volume overload. HISTORY OF PRESENT ILLNESS: The patient is a pleasant middle-aged male, well known to my service. He states he has been too weak to go to dialysis. He missed dialysis and now has volume overload. His BNP level was 30,000. He also has a possible abscess on imaging on his kidney. I discussed the case with the ER physician. We are going to admit the patient, is getting dialyzed and give him IV antibiotics. PAST MEDICAL HISTORY: Noncompliance, hypertension, end-stage renal disease, AFib, CHF, pneumonia, tachycardia, CHF, cholecystectomy, right eye surgery, back surgery, right chest Perm-A-Cath. ALLERGIES: LISINOPRIL. FAMILY HISTORY: Hypertension. SOCIAL HISTORY: Does not drink, smoke or take drugs. MEDICATIONS: Reviewed, please refer to the MRAD. REVIEW OF SYSTEMS: GENERAL: No history of weight change, weakness or fevers. SKIN: No bruising, hair changes or rashes. EYES: No blurred, double or loss of vision. NOSE AND THROAT: No history of nosebleeds, hoarseness or sore throat. HEART: No history of palpitations, chest pain or shortness of breath on exertion. LUNGS: He complains of shortness of breath. GASTROINTESTINAL: Denies changes in appetite, nausea, vomiting, diarrhea or constipation. GENITOURINARY: No history of frequency, urgency, hesitancy or nocturia. NEUROLOGIC: He complains of weakness. PSYCHIATRIC: No history of panic, anxiety or depression. ENDOCRINE: No history of heat or cold intolerance, polyuria or polydipsia. EXTREMITIES: Denies muscle weakness, joint pain, pain on walking or stiffness. PHYSICAL EXAMINATION: VITALS: Within normal limits and are stable. GENERAL: No apparent distress. Alert and oriented. HEENT: Normal cephalic atraumatic, external auditory canals are patent EYES: Extraocular muscles are intact, pupils are equally round and reactive to light and accommodation MUSCULOSKELETAL: Well developed, well nourished, good range of motion ENDOCRINE: No thyromegaly was palpated LYMPHATICS: No cervical chain or axillary nodes were noted HEMATOPOIETIC: No bruising NECK: Supple, no JVD, no thyromegaly was noted. LUNGS: Clear to auscultation in all lung jeff without rhonchi or wheezing. HEART: RRR, S1, S2 present. Peripheral pulses intact, no obvious murmurs were noted. ABDOMEN: Soft, nontender. Positive bowel sounds no organomegaly, normal bowel sounds. EXTREMITIES: Without any cyanosis, clubbing, or edema. Pedal pulses intact, Homans sign is negative. NEUROLOGIC: Normal speech, normal tone. A and O x 3, moves all extremities, no obvious focal deficits. PSYCHIATRIC: Normal affect, normal mood. Stable. SKIN: No ulcerations or rashes, good skin turgor, no jaundice. VASCULAR: Good capillary refill, neurovascular bundle appears to be intact. LABORATORY DATA: White count is 15, hemoglobin is 8. Sodium is 133, potassium 3.1, chloride 96, BUN 58, creatinine 5.1. Urinalysis shows large amount of leukocyte esterase with too numerous to count white cells. DIAGNOSTIC DATA: CT of the abdomen shows 7.4 cm right renal cystic lesion that has worsened since the previous image. We are concerned that this could be hemorrhage versus infection. ASSESSMENT AND PLAN: Volume overload, noncompliance, pyelonephritis, possible renal abscess. The patient will be admitted. We will start IV antibiotics. Consult Dr. Botello for dialysis. Home medications. Deep venous thrombosis prophylaxis. Full code. RUBEN/MARIO DR: RUBEN/shahla TID: [id number]
[2021-05-27] MEDS: PIPERACILLIN/TAZOBACTAM 2.25 GM in IV NORMAL SALINE 50ML 50 ML IV SCH (21:42)
[2021-05-27 23:00] VITALS: BP 132/69
[2021-05-28] MEDS ORDERED: METO5TAB4 PO (02:33)
[2021-05-28] MEDS ORDERED: APIX2.5T PO (02:33)
[2021-05-28] MEDS ORDERED: AMLO-187 PO (02:33)
[2021-05-28 03:00] VITALS: BP 131/76
[2021-05-28 04:34] LABS: BASO % 0 % (0-3); EOS # 0.1 x10^3/uL (0.0-0.7); EOS % 1 % (0-3); HEMATOCRIT 26.8 % (39.0-53.0); LYMPH # 0.7 x10^3/uL (1.0-4.8); LYMPH % 5 % (24-48); MEAN CORPUSCULAR HEMOGLOBIN 28 pg (25-35); MEAN CORPUSCULAR HGB CONC 34 g/dL (31-37); MEAN CORPUSCULAR VOLUME 85 fL (79-100); MONO # 1.2 x10^3/uL (0.0-1.1); MONO % 9 % (0-9); NEUT # 11.8 x10^3/uL (1.8-7.7); NEUT % 85 % (31-73); PLATELET COUNT 230 x10^3/uL (140-400); RED BLOOD COUNT 3.16 x10^6/uL (4.30-5.70); RED CELL DISTRIBUTION WIDTH 18.9 % (11.5-14.5); WHITE BLOOD COUNT 13.8 x10^3/uL (4.0-11.0)
[2021-05-28 04:53] LABS: CALCIUM 8.8 mg/dL (8.5-10.1); CREATININE 3.1 mg/dL (0.7-1.3); GFR 19.5; POTASSIUM 3.4 mmol/L (3.5-5.1)
[2021-05-28 05:28] LABS: % LYMPHS 4 % (24-48); % MONOS 3 % (0-10); % SEGS 93 % (35-66); ANISOCYTOSIS SLIGHT; HYPOCHROMIA SLIGHT; PLT ESTIMATE ADEQUATE (ADEQUATE); POLYCHROMASIA SLIGHT
[2021-05-28] MEDS: PIPERACILLIN/TAZOBACTAM 2.25 GM in IV NORMAL SALINE 50ML 50 ML IV SCH ×3 (05:55→21:20)
[2021-05-28 07:00] VITALS: BP 115/50
--- NOTE | 2021-05-28 09:35 | PDOC ---
SURGICAL PROGRESS NOTE DATE: 05/28/21 TIME: 09:34 Subjective consult noted I reviewed CT, renal mass possible internal hemorrhage vs abscess--d/w IPC, Dr Mata--not in our scope--would recommend tx to facility with urology capabilities to be evaluated by a urologist Vital Signs Vital Signs Date Time Temp Pulse Resp B/P (MAP) Pulse Ox O2 Delivery O2 Flow Rate FiO2 05/28/21 07:00 98.9 78 20 115/50 (71) 91 Room Air 98.9 I&O Intake and Output 05/28/21 07:00 Intake Total 1450 ml Balance 1450 ml Intake Oral 300 ml IV Total 1150 ml # Bowel Movements 3 Labs Laboratory Tests Test 05/27/21 10:35 05/27/21 13:00 05/28/21 03:25 05/28/21 07:26 White Blood Count 15.3 x10^3/uL (4.0-11.0) 13.8 x10^3/uL (4.0-11.0) Red Blood Count 3.15 x10^6/uL (4.30-5.70) 3.16 x10^6/uL (4.30-5.70) Hemoglobin 8.7 g/dL (13.0-17.5) 9.0 g/dL (13.0-17.5) Hematocrit 26.7 % (39.0-53.0) 26.8 % (39.0-53.0) Mean Corpuscular Volume 85 fL (79-100) 85 fL (79-100) Mean Corpuscular Hemoglobin 28 pg (25-35) 28 pg (25-35) Mean Corpuscular Hemoglobin Concent 33 g/dL (31-37) 34 g/dL (31-37) Red Cell Distribution Width 18.7 % (11.5-14.5) 18.9 % (11.5-14.5) Platelet Count 232 x10^3/uL (140-400) 230 x10^3/uL (140-400) Neutrophils (%) (Auto) 83 % (31-73) 85 % (31-73) Lymphocytes (%) (Auto) 6 % (24-48) 5 % (24-48) Monocytes (%) (Auto) 9 % (0-9) 9 % (0-9) Eosinophils (%) (Auto) 1 % (0-3) 1 % (0-3) Basophils (%) (Auto) 0 % (0-3) 0 % (0-3) Neutrophils # (Auto) 12.7 x10^3/uL (1.8-7.7) 11.8 x10^3/uL (1.8-7.7) Lymphocytes # (Auto) 1.0 x10^3/uL (1.0-4.8) 0.7 x10^3/uL (1.0-4.8) Monocytes # (Auto) 1.4 x10^3/uL (0.0-1.1) 1.2 x10^3/uL (0.0-1.1) Eosinophils # (Auto) 0.1 x10^3/uL (0.0-0.7) 0.1 x10^3/uL (0.0-0.7) Basophils # (Auto) 0.0 x10^3/uL (0.0-0.2) 0.0 x10^3/uL (0.0-0.2) Sodium Level 133 mmol/L (136-145) 139 mmol/L (136-145) Potassium Level 3.1 mmol/L (3.5-5.1) 3.4 mmol/L (3.5-5.1) Chloride Level 96 mmol/L (98-107) 101 mmol/L (98-107) Carbon Dioxide Level 27 mmol/L (21-32) 29 mmol/L (21-32) Anion Gap 10 (6-14) 9 (6-14) Blood Urea Nitrogen 58 mg/dL (8-26) 31 mg/dL (8-26) Creatinine 5.1 mg/dL (0.7-1.3) 3.1 mg/dL (0.7-1.3) Estimated GFR (Cockcroft-Gault) 11.0 19.5 BUN/Creatinine Ratio 11 (6-20) Glucose Level 174 mg/dL (70-99) 150 mg/dL (70-99) Lactic Acid Level 0.9 mmol/L (0.4-2.0) Calcium Level 9.0 mg/dL (8.5-10.1) 8.8 mg/dL (8.5-10.1) Total Bilirubin 0.4 mg/dL (0.2-1.0) Aspartate Amino Transf (AST/SGOT) 24 U/L (15-37) Alanine Aminotransferase (ALT/SGPT) 30 U/L (16-63) Alkaline Phosphatase 172 U/L (46-116) Troponin I Quantitative 0.074 ng/mL (0.000-0.055) YQ-Tza-H-Type Natriuretic Peptide 88144 pg/mL (0-449) Total Protein 6.8 g/dL (6.4-8.2) Albumin 2.0 g/dL (3.4-5.0) Albumin/Globulin Ratio 0.4 (1.0-1.7) Lipase 55 U/L (73-393) Urine Collection Type Void Urine Color Keely Urine Clarity Turbid Urine pH 5.0 (<5.0-8.0) Urine Specific [place] 1.015 (1.000-1.030) Urine Protein 100 mg/dL (NEG-TRACE) Urine Glucose (UA) Negative mg/dL (NEG) Urine Ketones (Stick) Trace mg/dL (NEG) Urine Blood Large (NEG) Urine Nitrite Negative (NEG) Urine Bilirubin Negative (NEG) Urine Urobilinogen Dipstick 1.0 mg/dL (0.2 mg/dL) Urine Leukocyte Esterase Large (NEG) Urine RBC Field obscured /HPF (0-2) Urine WBC Tntc /HPF (0-4) Urine Squamous Epithelial Cells Few /LPF Urine Bacteria Many /HPF (0-FEW) Segmented Neutrophils % 93 % (35-66) Lymphocytes % 4 % (24-48) Monocytes % 3 % (0-10) Platelet Estimate Adequate (ADEQUATE) Polychromasia Slight Hypochromasia Slight Basophilic Stippling Present Anisocytosis Slight Glucose (Fingerstick) 129 mg/dL (70-99) Laboratory Tests Test 05/27/21 10:35 05/27/21 13:00 05/28/21 03:25 05/28/21 07:26 White Blood Count 15.3 x10^3/uL (4.0-11.0) 13.8 x10^3/uL (4.0-11.0) Red Blood Count 3.15 x10^6/uL (4.30-5.70) 3.16 x10^6/uL (4.30-5.70) Hemoglobin 8.7 g/dL (13.0-17.5) 9.0 g/dL (13.0-17.5) Hematocrit 26.7 % (39.0-53.0) 26.8 % (39.0-53.0) Mean Corpuscular Volume 85 fL (79-100) 85 fL (79-100) Mean Corpuscular Hemoglobin 28 pg (25-35) 28 pg (25-35) Mean Corpuscular Hemoglobin Concent 33 g/dL (31-37) 34 g/dL (31-37) Red Cell Distribution Width 18.7 % (11.5-14.5) 18.9 % (11.5-14.5) Platelet Count 232 x10^3/uL (140-400) 230 x10^3/uL (140-400) Neutrophils (%) (Auto) 83 % (31-73) 85 % (31-73) Lymphocytes (%) (Auto) 6 % (24-48) 5 % (24-48) Monocytes (%) (Auto) 9 % (0-9) 9 % (0-9) Eosinophils (%) (Auto) 1 % (0-3) 1 % (0-3) Basophils (%) (Auto) 0 % (0-3) 0 % (0-3) Neutrophils # (Auto) 12.7 x10^3/uL (1.8-7.7) 11.8 x10^3/uL (1.8-7.7) Lymphocytes # (Auto) 1.0 x10^3/uL (1.0-4.8) 0.7 x10^3/uL (1.0-4.8) Monocytes # (Auto) 1.4 x10^3/uL (0.0-1.1) 1.2 x10^3/uL (0.0-1.1) Eosinophils # (Auto) 0.1 x10^3/uL (0.0-0.7) 0.1 x10^3/uL (0.0-0.7) Basophils # (Auto) 0.0 x10^3/uL (0.0-0.2) 0.0 x10^3/uL (0.0-0.2) Sodium Level 133 mmol/L (136-145) 139 mmol/L (136-145) Potassium Level 3.1 mmol/L (3.5-5.1) 3.4 mmol/L (3.5-5.1) Chloride Level 96 mmol/L (98-107) 101 mmol/L (98-107) Carbon Dioxide Level 27 mmol/L (21-32) 29 mmol/L (21-32) Anion Gap 10 (6-14) 9 (6-14) Blood Urea Nitrogen 58 mg/dL (8-26) 31 mg/dL (8-26) Creatinine 5.1 mg/dL (0.7-1.3) 3.1 mg/dL (0.7-1.3) Estimated GFR (Cockcroft-Gault) 11.0 19.5 BUN/Creatinine Ratio 11 (6-20) Glucose Level 174 mg/dL (70-99) 150 mg/dL (70-99) Lactic Acid Level 0.9 mmol/L (0.4-2.0) Calcium Level 9.0 mg/dL (8.5-10.1) 8.8 mg/dL (8.5-10.1) Total Bilirubin 0.4 mg/dL (0.2-1.0) Aspartate Amino Transf (AST/SGOT) 24 U/L (15-37) Alanine Aminotransferase (ALT/SGPT) 30 U/L (16-63) Alkaline Phosphatase 172 U/L (46-116) Troponin I Quantitative 0.074 ng/mL (0.000-0.055) TK-Fer-G-Type Natriuretic Peptide 91153 pg/mL (0-449) Total Protein 6.8 g/dL (6.4-8.2) Albumin 2.0 g/dL (3.4-5.0) Albumin/Globulin Ratio 0.4 (1.0-1.7) Lipase 55 U/L (73-393) Urine Collection Type Void Urine Color Keely Urine Clarity Turbid Urine pH 5.0 (<5.0-8.0) Urine Specific [place] 1.015 (1.000-1.030) Urine Protein 100 mg/dL (NEG-TRACE) Urine Glucose (UA) Negative mg/dL (NEG) Urine Ketones (Stick) Trace mg/dL (NEG) Urine Blood Large (NEG) Urine Nitrite Negative (NEG) Urine Bilirubin Negative (NEG) Urine Urobilinogen Dipstick 1.0 mg/dL (0.2 mg/dL) Urine Leukocyte Esterase Large (NEG) Urine RBC Field obscured /HPF (0-2) Urine WBC Tntc /HPF (0-4) Urine Squamous Epithelial Cells Few /LPF Urine Bacteria Many /HPF (0-FEW) Segmented Neutrophils % 93 % (35-66) Lymphocytes % 4 % (24-48) Monocytes % 3 % (0-10) Platelet Estimate Adequate (ADEQUATE) Polychromasia Slight Hypochromasia Slight Basophilic Stippling Present Anisocytosis Slight Glucose (Fingerstick) 129 mg/dL (70-99) Problem List Problems Medical Problems: (1) Abscess of right kidney Status: Acute Justicifation of Admission Dx: Justifications for Admission: Justification of Admission Dx: Yes JT FIGUEROA APRN May 28, 2021 09:35
[2021-05-28 11:17] VITALS: BP 121/66
--- NOTE | 2021-05-28 11:55 | PDOC2 ---
CONSULT Date of Consult Date of Consult DATE: 05/28/21 TIME: 11:47 Reason for Consult Reason for Consult: ESRD Referring Physician Referring Physician: CAMILA Identification/Chief Complaint Chief Complaint ABD PAIN WITH DIARRHEA Source Source: Chart review History of Present Illness Reason for Visit: THIS IS A 80 YR OLD WITH ESRD ON MWF. HAS NOT BEEN TO HD DUE TO WEAKNESS. LABS C/W ESRD. URINE APPEARS INFECTED. IMAGING OF THE ABD NOTABLE FOR AN ENLARGING RIGHT RENAL CYSTIC LESION WHICH IS CHRONIC BUT APPEARS TO HAVE ENLARGED IN SIZE. MILD LEUCYTOSIS NOTED WELL. HE IS ALSO SOB AND APPEARS TO BE VOLUME OVERLOADED ON EXAM. LOW GRADE TEMP NOTED AND HE IS HEMODYNAMICALLY STABLE Past Medical History Cardiovascular: CHF, HTN, Hyperlipidemia Pulmonary: No pertinent hx, Bronchitis CENTRAL NERVOUS SYSTEM: Dementia, Other GI: No pertinent hx Heme/Onc: No pertinent hx Hepatobiliary: Cholelithiasis Psych: No pertinent hx Rheumatologic: No pertinent hx Infectious disease: No pertinent hx Renal/: Chronic renal failure Endocrine: Diabetes, Hyperparathyroidism Past Surgical History Past Surgical History: Cholecystectomy, Other Family History Family History: Hypertension Social History ALCOHOL: none Drugs: None Lives: with Family Current Problem List Problem List Problems Medical Problems: (1) Abscess of right kidney Status: Acute Current Medications Current Medications Current Medications Ringer's Solution 500 ml @ 500 mls/hr 1X ONCE IV Last administered on 05/27/21at 11:27; Start 05/27/21 at 10:15; Stop 05/27/21 at 11:14; Status DC Vancomycin HCl (Vanco Per Pharmacy) 1 each PRN DAILY PRN MC SEE COMMENTS; Start 05/27/21 at 12:45 Piperacillin Sod/ Tazobactam Sod (Zosyn Per Pharmacy) 1 each PRN DAILY PRN MC SEE COMMENTS; Start 05/27/21 at 12:45 Vancomycin HCl 2 gm/Sodium Chloride 500 ml @ 250 mls/hr 1X ONCE IV Last administered on 05/27/21at 13:49; Start 05/27/21 at 13:00; Stop 05/27/21 at 14 :59; Status DC Piperacillin Sod/ Tazobactam Sod 2.25 gm/Sodium Chloride 50 ml @ 100 mls/hr 1X ONCE IV Last administered on 05/27/21at 13:11; Start 05/27/21 at 13:00; Stop 05/27/21 at 13:29; Status DC Sodium Chloride 1,000 ml @ 1,000 mls/hr Q1H PRN IV hypotension; Start 05/27/21 at 13:30; Stop 05/27/21 at 19:29; Status DC Sodium Chloride 1,000 ml @ 400 mls/hr Q2H30M PRN IV PATENCY; Start 05/27/21 at 13:30; Stop 05/28/21 at 01:29; Status DC Info (PHARMACY MONITORING -- do not chart) 1 each PRN DAILY PRN MC SEE COMMENTS; Start 05/27/21 at 13:30 Ondansetron HCl (Zofran) 4 mg PRN Q8HRS PRN IVP NAUSEA/VOMITING; Start 05/27/21 at 14:00; Stop 05/28/21 at 13:59 Piperacillin Sod/ Tazobactam Sod 2.25 gm/Sodium Chloride 50 ml @ 100 mls/hr Q8HRS IV Last administered on 05/28/21at 05:55; Start 05/27/21 at 22:00 Lidocaine HCl (Xylocaine-Mpf 1% 2ml Vial) 0.25 ml 1X STAT ID ; Start 05/27/21 at 16:01; Stop 05/27/21 at 16:02; Status Cancel Active Scripts Active Furosemide 40 Mg Tablet 1 Tab PO DAILY Charla-Jose R Tablet (Folic Acid/Vitamin B Comp W-C) 0.8 Mg Tablet 1 Tab PO DAILY 30 Days Reported Eliquis (Apixaban) 2.5 Mg Tablet 2.5 Mg PO BID Amlodipine Besylate 10 Mg Tablet 10 Mg PO DAILY Metolazone 5 Mg Tablet 5 Mg PO DAILY 30 mins prior to budesonide Pacerone (Amiodarone Hcl) 200 Mg Tablet 200 Mg PO DAILY Metoprolol Tartrate 25 Mg Tablet 2 Tab PO BID Doxazosin Mesylate 4 Mg Tablet 1 Tab PO DAILY not given while patient was here next dose due: date 10/24/20 time 0900 Super B Complex (Vitamin B Complex & Vit C No.4) 150 Mg Tablet 150 Mg PO DAILY not given while patient was here next dose due: date 10/24/20 time 0900 Allergies Allergies: Coded Allergies: lisinopril (Verified Allergy, Severe, SWELLING OF TONGUE AND THROAT, 05/08/16) ROS General: YES: Fatigue, Malaise, Appetite PSYCHOLOGICAL ROS: YES: Anxiety, Depression Eyes: Yes Decreased vision HEENT: YES: Heacaches Respiratory: YES: Cough, Orthopnea, Shortness of breath Cardiovascular: yes Orthopnea, yes Edema Gastrointestinal: Yes Abdominal Pain, Yes Diarrhea Genitourinary: YES Dysuria Musculoskeletal: Yes Muscular Weakness Neurological: Yes Weakness Skin: Yes Dry Skin Physical Exam General: Alert, Cooperative, No acute distress HEENT: Atraumatic, PERRLA Lungs: Clear to auscultation Heart: Regular rate, Normal S1, Normal S2 Abdomen: Normal bowel sounds, Soft, No tenderness, No masses Extremities: No clubbing, No cyanosis Skin: No rashes, No breakdown Neuro: Normal speech Psych/Mental Status: Mental status NL, Other (FLAT AFFECT) MUSCULOSKELETAL: No joint tenderness, No deformity, Other (2+ EDEMA) Vitals VITALS Vital Signs Date Time Temp Pulse Resp B/P (MAP) Pulse Ox O2 Delivery O2 Flow Rate FiO2 05/28/21 11:17 98.6 75 20 121/66 (84) 91 Room Air 98.6 Labs Labs Laboratory Tests Test 05/27/21 10:35 05/27/21 13:00 05/28/21 03:25 05/28/21 07:26 White Blood Count 15.3 x10^3/uL (4.0-11.0) 13.8 x10^3/uL (4.0-11.0) Red Blood Count 3.15 x10^6/uL (4.30-5.70) 3.16 x10^6/uL (4.30-5.70) Hemoglobin 8.7 g/dL (13.0-17.5) 9.0 g/dL (13.0-17.5) Hematocrit 26.7 % (39.0-53.0) 26.8 % (39.0-53.0) Mean Corpuscular Volume 85 fL (79-100) 85 fL (79-100) Mean Corpuscular Hemoglobin 28 pg (25-35) 28 pg (25-35) Mean Corpuscular Hemoglobin Concent 33 g/dL (31-37) 34 g/dL (31-37) Red Cell Distribution Width 18.7 % (11.5-14.5) 18.9 % (11.5-14.5) Platelet Count 232 x10^3/uL (140-400) 230 x10^3/uL (140-400) Neutrophils (%) (Auto) 83 % (31-73) 85 % (31-73) Lymphocytes (%) (Auto) 6 % (24-48) 5 % (24-48) Monocytes (%) (Auto) 9 % (0-9) 9 % (0-9) Eosinophils (%) (Auto) 1 % (0-3) 1 % (0-3) Basophils (%) (Auto) 0 % (0-3) 0 % (0-3) Neutrophils # (Auto) 12.7 x10^3/uL (1.8-7.7) 11.8 x10^3/uL (1.8-7.7) Lymphocytes # (Auto) 1.0 x10^3/uL (1.0-4.8) 0.7 x10^3/uL (1.0-4.8) Monocytes # (Auto) 1.4 x10^3/uL (0.0-1.1) 1.2 x10^3/uL (0.0-1.1) Eosinophils # (Auto) 0.1 x10^3/uL (0.0-0.7) 0.1 x10^3/uL (0.0-0.7) Basophils # (Auto) 0.0 x10^3/uL (0.0-0.2) 0.0 x10^3/uL (0.0-0.2) Sodium Level 133 mmol/L (136-145) 139 mmol/L (136-145) Potassium Level 3.1 mmol/L (3.5-5.1) 3.4 mmol/L (3.5-5.1) Chloride Level 96 mmol/L (98-107) 101 mmol/L (98-107) Carbon Dioxide Level 27 mmol/L (21-32) 29 mmol/L (21-32) Anion Gap 10 (6-14) 9 (6-14) Blood Urea Nitrogen 58 mg/dL (8-26) 31 mg/dL (8-26) Creatinine 5.1 mg/dL (0.7-1.3) 3.1 mg/dL (0.7-1.3) Estimated GFR (Cockcroft-Gault) 11.0 19.5 BUN/Creatinine Ratio 11 (6-20) Glucose Level 174 mg/dL (70-99) 150 mg/dL (70-99) Lactic Acid Level 0.9 mmol/L (0.4-2.0) Calcium Level 9.0 mg/dL (8.5-10.1) 8.8 mg/dL (8.5-10.1) Total Bilirubin 0.4 mg/dL (0.2-1.0) Aspartate Amino Transf (AST/SGOT) 24 U/L (15-37) Alanine Aminotransferase (ALT/SGPT) 30 U/L (16-63) Alkaline Phosphatase 172 U/L (46-116) Troponin I Quantitative 0.074 ng/mL (0.000-0.055) [place]-Fsu-L-Type Natriuretic Peptide 21196 pg/mL (0-449) Total Protein 6.8 g/dL (6.4-8.2) Albumin 2.0 g/dL (3.4-5.0) Albumin/Globulin Ratio 0.4 (1.0-1.7) Lipase 55 U/L (73-393) Urine Collection Type Void Urine Color Keely Urine Clarity Turbid Urine pH 5.0 (<5.0-8.0) Urine Specific [place] 1.015 (1.000-1.030) Urine Protein 100 mg/dL (NEG-TRACE) Urine Glucose (UA) Negative mg/dL (NEG) Urine Ketones (Stick) Trace mg/dL (NEG) Urine Blood Large (NEG) Urine Nitrite Negative (NEG) Urine Bilirubin Negative (NEG) Urine Urobilinogen Dipstick 1.0 mg/dL (0.2 mg/dL) Urine Leukocyte Esterase Large (NEG) Urine RBC Field obscured /HPF (0-2) Urine WBC Tntc /HPF (0-4) Urine Squamous Epithelial Cells Few /LPF Urine Bacteria Many /HPF (0-FEW) Segmented Neutrophils % 93 % (35-66) Lymphocytes % 4 % (24-48) Monocytes % 3 % (0-10) Platelet Estimate Adequate (ADEQUATE) Polychromasia Slight Hypochromasia Slight Basophilic Stippling Present Anisocytosis Slight Glucose (Fingerstick) 129 mg/dL (70-99) Laboratory Tests Test 05/27/21 13:00 05/28/21 03:25 05/28/21 07:26 Urine Collection Type Void Urine Color Keely Urine Clarity Turbid Urine pH 5.0 (<5.0-8.0) Urine Specific [place] 1.015 (1.000-1.030) Urine Protein 100 mg/dL (NEG-TRACE) Urine Glucose (UA) Negative mg/dL (NEG) Urine Ketones (Stick) Trace mg/dL (NEG) Urine Blood Large (NEG) Urine Nitrite Negative (NEG) Urine Bilirubin Negative (NEG) Urine Urobilinogen Dipstick 1.0 mg/dL (0.2 mg/dL) Urine Leukocyte Esterase Large (NEG) Urine RBC Field obscured /HPF (0-2) Urine WBC Tntc /HPF (0-4) Urine Squamous Epithelial Cells Few /LPF Urine Bacteria Many /HPF (0-FEW) White Blood Count 13.8 x10^3/uL (4.0-11.0) Red Blood Count 3.16 x10^6/uL (4.30-5.70) Hemoglobin 9.0 g/dL (13.0-17.5) Hematocrit 26.8 % (39.0-53.0) Mean Corpuscular Volume 85 fL (79-100) Mean Corpuscular Hemoglobin 28 pg (25-35) Mean Corpuscular Hemoglobin Concent 34 g/dL (31-37) Red Cell Distribution Width 18.9 % (11.5-14.5) Platelet Count 230 x10^3/uL (140-400) Neutrophils (%) (Auto) 85 % (31-73) Lymphocytes (%) (Auto) 5 % (24-48) Monocytes (%) (Auto) 9 % (0-9) Eosinophils (%) (Auto) 1 % (0-3) Basophils (%) (Auto) 0 % (0-3) Neutrophils # (Auto) 11.8 x10^3/uL (1.8-7.7) Lymphocytes # (Auto) 0.7 x10^3/uL (1.0-4.8) Monocytes # (Auto) 1.2 x10^3/uL (0.0-1.1) Eosinophils # (Auto) 0.1 x10^3/uL (0.0-0.7) Basophils # (Auto) 0.0 x10^3/uL (0.0-0.2) Segmented Neutrophils % 93 % (35-66) Lymphocytes % 4 % (24-48) Monocytes % 3 % (0-10) Platelet Estimate Adequate (ADEQUATE) Polychromasia Slight Hypochromasia Slight Basophilic Stippling Present Anisocytosis Slight Sodium Level 139 mmol/L (136-145) Potassium Level 3.4 mmol/L (3.5-5.1) Chloride Level 101 mmol/L (98-107) Carbon Dioxide Level 29 mmol/L (21-32) Anion Gap 9 (6-14) Blood Urea Nitrogen 31 mg/dL (8-26) Creatinine 3.1 mg/dL (0.7-1.3) Estimated GFR (Cockcroft-Gault) 19.5 Glucose Level 150 mg/dL (70-99) Calcium Level 8.8 mg/dL (8.5-10.1) Glucose (Fingerstick) 129 mg/dL (70-99) Images Images CT ABDOMEN+PELVIS WO History: Abdominal distention, diarrhea. Comparison: CT chest 01/16/2021. CTA abdomen and pelvis 03/27/2021. Technique: Noncontrast CT of the abdomen and pelvis. Findings: The visualized heart is enlarged. Trace pericardial fluid. Calcifications of the coronary arteries. Moderate right greater than left pleural effusions with adjacent atelectatic consolidations. The liver is unremarkable. Cholecystectomy clips are present. Mild fatty atrophy of the pancreas. The spleen is unremarkable. 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 Multiple bilateral renal cystic lesions. At the posterior interpolar right kidney there is a 7.4 cm lesion with indeterminate density of approximately 36 Hounsfield units and suggestion of thickened wall. This is not significantly enlarged from recent prior abdomen CT when measuring 5.5 cm diameter and fluid density. Stomach is unremarkable. There is an approximately 3.8 x 3.2 cm duodenal diverticulum. Small bowel is unremarkable. Normal appendix. No colonic wall thickening. Mild sigmoid diverticulosis. The bladder is unremarkable. There is a enlarged prostate measuring 7.3 x 6.2 cm. Aorta iliac calcification without aneurysm. Mild intra-abdominal inflammatory changes with trace fluid in the paracolic gutters and mesenteric leaves. No abdominopelvic adenopathy.. Mild anasarca. Decreased osseous mineralization. Healed lateral left rib fractures. Flowing thoracic osteophytes. Moderate disc space loss at L5-S1 and L4-L5. Multilevel facet hypertrophic degenerative change most severe at L4-L5 where the spinal canal is severely narrowed Impression: 1. Interval enlargement and increased density of a now 7.4 cm right renal cystic lesion with thickened appearing wall. These interval changes may represent interval internal hemorrhage versus infection. 2. Enlarging moderate right greater than left pleural effusions with adjacent compressive atelectatic change/consolidation. Superimposed infection cannot be excluded. In setting of cardiomegaly, mild increased abdominal pelvic fluid and increasing anasarca this may represent CHF exacerbation. 3. Enlarged prostate, correlate with exam. ------ Exposure: One or more of the following individualized dose reduction techniques were utilized for this examination: 1. Automated exposure control 2. Adjustment of the mA and/or kV according to patient size 3. Use of iterative reconstruction technique. Electronically signed by: Kayden Piña MD (05/27/2021 12:17 PM) [id number] Assessment/Plan Assessment/Plan IMP HYPOKALEMIA DIARRHEA ABD PAIN ESRD ANEMIA LEUCOCYTOSIS URINARY TRACT INFECTION PROB RIGHT RENAL CYST PLAN HD MWF UF TO TW START KADI ANTIBIOTICS RENAL SONOGRAM ENC COMPLIANCE WILL FOLLOW D/W ATTENDING MEGAN SCHMIDT MD May 28, 2021 11:55
--- NOTE | 2021-05-28 12:51 | PDOC ---
[facility] PROGRESS NOTE Date of Service DOS: DATE: 05/28/21 TIME: 12:46 Chief Complaint Chief Complaint Weakness History of Present Illness History of Present Illness The patient is a pleasant middle-aged male, well known to my service. He states he has been too weak to go to dialysis. He missed dialysis and now has volume overload. His BNP level was 30,000. He also has a possible abscess on imaging on his kidney. I discussed the case with the ER physician. We are going to admit the patient, is getting dialyzed and give him IV antibiotics. 05/28/21 Patient seen and examined at bedside. I evaluated reports very weak and fatigued. When asked about possible abscess on kidney he says that it is new and does not know anything about it. Renal following for dialysis. Regarding kidney mass discussed with surgery who recommended urology evaluation however given current state of things nowhere in town to transfer the patient that can accept him thus will recommend he follows up urology outpatient. Vitals/I&O Vitals/I&O: Vital Signs Date Time Temp Pulse Resp B/P (MAP) Pulse Ox O2 Delivery O2 Flow Rate FiO2 05/28/21 11:17 98.6 75 20 121/66 (84) 91 Room Air 98.6 I & O 05/27/21 05/27/21 05/28/21 15:00 23:00 07:00 Intake Total 500 ml 900 ml 50 ml Balance 500 ml 900 ml 50 ml Physical Exam General: Alert, Cooperative, No acute distress Heart: Regular rate, Normal S1, Normal S2 Lungs: Crackles Abdomen: Normal bowel sounds, Soft, No tenderness, No masses Extremities: No clubbing, No cyanosis Skin: No rashes, No breakdown Labs Labs: Laboratory Tests Test 05/27/21 13:00 05/28/21 03:25 05/28/21 07:26 05/28/21 11:47 Urine Collection Type Void Urine Color Keely Urine Clarity Turbid Urine pH 5.0 (<5.0-8.0) Urine Specific [place] 1.015 (1.000-1.030) Urine Protein 100 mg/dL (NEG-TRACE) Urine Glucose (UA) Negative mg/dL (NEG) Urine Ketones (Stick) Trace mg/dL (NEG) Urine Blood Large (NEG) Urine Nitrite Negative (NEG) Urine Bilirubin Negative (NEG) Urine Urobilinogen Dipstick 1.0 mg/dL (0.2 mg/dL) Urine Leukocyte Esterase Large (NEG) Urine RBC Field obscured /HPF (0-2) Urine WBC Tntc /HPF (0-4) Urine Squamous Epithelial Cells Few /LPF Urine Bacteria Many /HPF (0-FEW) White Blood Count 13.8 x10^3/uL (4.0-11.0) Red Blood Count 3.16 x10^6/uL (4.30-5.70) Hemoglobin 9.0 g/dL (13.0-17.5) Hematocrit 26.8 % (39.0-53.0) Mean Corpuscular Volume 85 fL (79-100) Mean Corpuscular Hemoglobin 28 pg (25-35) Mean Corpuscular Hemoglobin Concent 34 g/dL (31-37) Red Cell Distribution Width 18.9 % (11.5-14.5) Platelet Count 230 x10^3/uL (140-400) Neutrophils (%) (Auto) 85 % (31-73) Lymphocytes (%) (Auto) 5 % (24-48) Monocytes (%) (Auto) 9 % (0-9) Eosinophils (%) (Auto) 1 % (0-3) Basophils (%) (Auto) 0 % (0-3) Neutrophils # (Auto) 11.8 x10^3/uL (1.8-7.7) Lymphocytes # (Auto) 0.7 x10^3/uL (1.0-4.8) Monocytes # (Auto) 1.2 x10^3/uL (0.0-1.1) Eosinophils # (Auto) 0.1 x10^3/uL (0.0-0.7) Basophils # (Auto) 0.0 x10^3/uL (0.0-0.2) Segmented Neutrophils % 93 % (35-66) Lymphocytes % 4 % (24-48) Monocytes % 3 % (0-10) Platelet Estimate Adequate (ADEQUATE) Polychromasia Slight Hypochromasia Slight Basophilic Stippling Present Anisocytosis Slight Sodium Level 139 mmol/L (136-145) Potassium Level 3.4 mmol/L (3.5-5.1) Chloride Level 101 mmol/L (98-107) Carbon Dioxide Level 29 mmol/L (21-32) Anion Gap 9 (6-14) Blood Urea Nitrogen 31 mg/dL (8-26) Creatinine 3.1 mg/dL (0.7-1.3) Estimated GFR (Cockcroft-Gault) 19.5 Glucose Level 150 mg/dL (70-99) Calcium Level 8.8 mg/dL (8.5-10.1) Glucose (Fingerstick) 129 mg/dL (70-99) 164 mg/dL (70-99) Assessment and Plan Assessmemt and Plan Problems Medical Problems: (1) Abscess of right kidney Status: Acute ASSESSMENT AND PLAN: Volume overload, noncompliance, pyelonephritis, possible renal abscess. The patient will be admitted. We will start IV antibiotics. Consult Dr. Botello for dialysis. Home medications. Deep venous thrombosis prophylaxis. Full code. Resume home medications as indicated. Comment Review of Relevant I have reviewed the following items cortes (where applicable) has been applied. Medications: Current Medications Medications (Trade) Dose Ordered Sig/Shantanu Route PRN Reason Start Time Stop Time Status Last Admin Dose Admin Vancomycin HCl 2 gm/Sodium Chloride 500 ml @ 250 mls/hr 1X ONCE IV 05/27/21 13:00 05/27/21 14:59 DC 05/27/21 13:49 Piperacillin Sod/ Tazobactam Sod 2.25 gm/Sodium Chloride 50 ml @ 100 mls/hr 1X ONCE IV 05/27/21 13:00 05/27/21 13:29 DC 05/27/21 13:11 Piperacillin Sod/ Tazobactam Sod 2.25 gm/Sodium Chloride 50 ml @ 100 mls/hr Q8HRS IV 05/27/21 22:00 05/28/21 05:55 Justifications for Admission Other Justification Acute lower GI bleed, subtherapeutic INR CASSIDY CLAYTON MD May 28, 2021 12:51
[2021-05-28] MEDS: FUROSEMIDE 40 MG TABLET. PO SCH (13:08)
[2021-05-28] MEDS: metOLazone 2.5 MG TABLET PO SCH (13:08)
[2021-05-28] MEDS: METOPROLOL TART IMMED RELEASE 25 MG TABLET. PO SCH ×2 (13:08→21:00)
[2021-05-28] MEDS: AMIODARONE HCL 200 MG TABLET. PO SCH (13:08)
--- NOTE | 2021-05-28 13:35 | RAD ---
EXAM: Renal sonogram. HISTORY: Renal cyst or mass on CT. TECHNIQUE: Sonographic imaging of the kidneys and bladder was performed. COMPARISON: CT dated 05/27/2021. FINDINGS: The right kidney measures 13.1 cm [id number] and the left kidney measures 13.5 cm pole-to -pole. There are multiple bilateral renal cysts. The largest cyst on the right is seen within the low er pole measuring 8.4 cm. This demonstrates an irregular thickened wall and suspected internal debris . The remainder the cysts are simple in appearance. The largest cyst on the left measures 3.5 cm. The re is echogenic renal parenchyma. There is no hydronephrosis. The urinary bladder is unremarkable. Th e ureteral jets are both seen. IMPRESSION: 1. 8.4 cm complicated right renal cyst with thickened irregular wall and suspected internal debris. S hort-term sonographic follow-up or follow-up with a renal protocol CT or MRI in 3 months is recommend ed. 2. Multiple simple renal cysts. 3. Echogenic renal . This can be seen with medical renal disease. Electronically signed by: Emeli Denton MD (05/28/2021 1:33 PM) [id number]
--- NOTE | 2021-05-28 13:37 | PDOC2 ---
CAROLINE YBARRA RF TEST ENGINEER 05/28/21 1337: CARDIAC CONSULT DATE OF CONSULT Date of Consult DATE: 05/28/21 TIME: 13:30 REASON FOR CONSULT Reason for Consult: CHF Exacerbation REFERRING PHYSICIAN Referring Physician: Dr. Harris SOURCE Source: Chart review, Patient HISTORY OF PRESENT ILLNESS HISTORY OF PRESENT ILLNESS This is a 80 yo male who presented secondary to weakness, fatigue, abdominal pain, and diarrhea. He has a history of ESRD on HD. Was to weak to go to dialysis so he came to the ED for further evaluation and treatment. He denies any chest pain, dizziness, diaphoresis. Does reports some mild shortness of breath. Has difficulty elaborating on what brought him to the hospital. Just reports he doesn't feel well. PAST MEDICAL HISTORY Past Medical History Cardiovascular: CHF, HTN, Hyperlipidemia, PAFIB, presumed NICM Pulmonary: pneumonia CENTRAL NERVOUS SYSTEM: No pertinent history GI: No pertinent hx Heme/Onc: No pertinent hx Hepatobiliary: Cholelithiasis Psych: No pertinent hx Musculoskeletal: Osteoarthritis Rheumatologic: No pertinent hx Infectious disease: No pertinent hx Renal/: No pertinent hx Endocrine: Diabetes PAST SURGICAL HISTORY Past Surgical History Cholecystectomy, Other (thoracentesis) FAMILY HISTORY Family History: Hypertension SOCIAL HISTORY Smoke: No ALCOHOL: none Drugs: None Lives: with Family CURRENT MEDICATIONS CURRENT MEDICATIONS Current Medications Medications (Trade) Dose Ordered Sig/Shantanu Route PRN Reason Start Time Stop Time Status Last Admin Dose Admin Piperacillin Sod/ Tazobactam Sod 2.25 gm/Sodium Chloride 50 ml @ 100 mls/hr Q8HRS IV 05/27/21 22:00 05/28/21 13:08 Amiodarone HCl (Cordarone) 200 mg DAILY PO 05/28/21 13:00 05/28/21 13:08 Metoprolol Tartrate (Lopressor) 50 mg BID PO 05/28/21 13:00 05/28/21 13:08 Metolazone (Zaroxolyn) 5 mg DAILY PO 05/28/21 13:00 05/28/21 13:08 Furosemide (Lasix) 40 mg DAILY PO 05/28/21 13:00 05/28/21 13:08 ALLERGIES ALLERGIES: Coded Allergies: lisinopril (Verified Allergy, Severe, SWELLING OF TONGUE AND THROAT, 05/08/16) ROS Review of System 14 point ROS conducted with pertinent positives noted above in HPI PHYSICAL EXAM PHYSICAL EXAM General: Alert, Oriented to person and place, Cooperative, No acute distress HEENT: Atraumatic, Mucous membr. moist/pink Lungs: Other (diminished) Heart: Regular rate (AFIB/flutter), Normal S1, Normal S2, Other (distant heart sounds) Abdomen: Soft, No tenderness Extremities: No cyanosis, Other (1+ bilateral LE pitting edema) Skin: No breakdown, No significant lesion Neuro: Normal speech, Sensation intact Psych/Mental Status: Mood NL MUSCULOSKELETAL: Osteoarthritic changes both hands VITALS/I&O VITALS/I&O: Vital Signs Date Time Temp Pulse Resp B/P (MAP) Pulse Ox O2 Delivery O2 Flow Rate FiO2 05/28/21 13:08 75 121/66 05/28/21 11:17 98.6 20 91 Room Air 98.6 I & O 05/27/21 05/27/21 05/28/21 15:00 23:00 07:00 Intake Total 500 ml 900 ml 50 ml Balance 500 ml 900 ml 50 ml LABS Lab: Laboratory Tests Test 05/28/21 03:25 05/28/21 07:26 05/28/21 11:47 White Blood Count 13.8 x10^3/uL (4.0-11.0) H Red Blood Count 3.16 x10^6/uL (4.30-5.70) L Hemoglobin 9.0 g/dL (13.0-17.5) L Hematocrit 26.8 % (39.0-53.0) L Mean Corpuscular Volume 85 fL (79-100) Mean Corpuscular Hemoglobin 28 pg (25-35) Mean Corpuscular Hemoglobin Concent 34 g/dL (31-37) Red Cell Distribution Width 18.9 % (11.5-14.5) H Platelet Count 230 x10^3/uL (140-400) Neutrophils (%) (Auto) 85 % (31-73) H Lymphocytes (%) (Auto) 5 % (24-48) L Monocytes (%) (Auto) 9 % (0-9) Eosinophils (%) (Auto) 1 % (0-3) Basophils (%) (Auto) 0 % (0-3) Neutrophils # (Auto) 11.8 x10^3/uL (1.8-7.7) H Lymphocytes # (Auto) 0.7 x10^3/uL (1.0-4.8) L Monocytes # (Auto) 1.2 x10^3/uL (0.0-1.1) H Eosinophils # (Auto) 0.1 x10^3/uL (0.0-0.7) Basophils # (Auto) 0.0 x10^3/uL (0.0-0.2) Segmented Neutrophils % 93 % (35-66) H Lymphocytes % 4 % (24-48) L Monocytes % 3 % (0-10) Platelet Estimate Adequate (ADEQUATE) Polychromasia Slight Hypochromasia Slight Basophilic Stippling Present Anisocytosis Slight Sodium Level 139 mmol/L (136-145) Potassium Level 3.4 mmol/L (3.5-5.1) L Chloride Level 101 mmol/L (98-107) Carbon Dioxide Level 29 mmol/L (21-32) Anion Gap 9 (6-14) Blood Urea Nitrogen 31 mg/dL (8-26) #H Creatinine 3.1 mg/dL (0.7-1.3) H Estimated GFR (Cockcroft-Gault) 19.5 Glucose Level 150 mg/dL (70-99) H Calcium Level 8.8 mg/dL (8.5-10.1) Glucose (Fingerstick) 129 mg/dL (70-99) H 164 mg/dL (70-99) H Laboratory Tests 05/28/21 03:25 Laboratory Tests 05/28/21 03:25 ECHOCARDIOGRAM ECHOCARDIOGRAM <Conclusion> The left ventricular systolic function is mildly impaired. The Ejection Fraction is 45%. Trace to mild mitral regurgitation. Trace tricuspid regurgitation with an estimated PAP of 47 mmHg. There is no evidence of significant pericardial effusion. DATE: 10/22/20 [id number] HEART CATH HEART CATH RHC Conclusion 1. Normal biventricular filling pressures 2. No evidence of pulmonary pretension 3. Normal cardiac output Recommendations 1. Fluid challenge to determine if renal function will improve. Supportive care otherwise. No further diuresis. DATE: 12/14/20 [id number] ASSESSMENT/PLAN ASSESSMENT/PLAN 1. Weakness, fatigue, diarrhea 2. Abdominal pain; Imaging notable for renal lesion/mass/cyst 3. Leukocytosis, fever 4. 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 Cardiomyopathy: recent EF at 45% 6. Mild troponin elevation; initial 0.07. Most probably type II, demand isch emia. CP free 7. PAFIB; presently AFIB/flutter. Rate controlled Event monitor 01/23 without any AFIB. On Amiodarone for rhythm maintenance. Eliquis for stroke prophylaxis. 8. Hypertension; controlled 9. Hyperlipidemia 10. Diabetes, II 11. ESRD on HD 12. Hypokalemia; replaced 13. Chronic LBBB Recommendations Trend troponin Replace K Fluid offloading via HD Continue metoprolol, Amiodarone for rhythm/rate control Eliquis for stroke prophylaxis Follow cultures Consider outpatient CV if patient remains in AFIB and ischemic evaluation Supportive care CHELO NICHOLSON MD 05/28/21 1708: CARDIAC CONSULT ASSESSMENT/PLAN ASSESSMENT/PLAN Patient seen and examined. Agree with OCCUPATIONAL THERAPIST PER DIEM's assessment and plan. Continue fluid removal with hemodialysis for acute on chronic combined systolic and diastolic heart failure Recent 2D echo showed LVEF 45% PAF, presently back in AF, rate controlled. Continue amiodarone and Eliquis and consider outpatient cardioversion versus referral for ablation therapy Thank you for your consultation CAROLINE YBARRA APRN May 28, 2021 13:37 CHELO NICHOLSON MD May 28, 2021 17:08
--- NOTE | 2021-05-28 13:47 | NUR ---
SS following for discharge planning. SS reviewed pt chart and discussed with pt RN. Pt is from home and is currently on room air. Pt has outpatient hemodialysis at [facility], ; fax [phone], Thursday, Thursday, and Thursday. Pt has had [facility], ; fax [phone], in the past. Pt on IV Zosyn. Nephrology and Cardiology consulted. SS will continue to follow for discharge planning.
[2021-05-28 15:32] VITALS: BP 135/63
[2021-05-28] MEDS ORDERED: POTASSIUM CHLORIDE 20 MEQ TABLET.ER. PO ONE (15:45)
[2021-05-28 19:00] VITALS: BP 125/61
[2021-05-28] MEDS ORDERED: DARBEPOETIN ALFA 25 MCG/0.42 ML DISP.SYRIN. SQ SCH (21:00)
[2021-05-28] MEDS: APIXABAN 2.5 MG TABLET. PO SCH (21:23)
[2021-05-28] MEDS: ZOLPIDEM 5 MG TABLET. PO PRN (22:43)
[2021-05-28 23:00] VITALS: BP 138/70
[2021-05-29 03:00] VITALS: BP 131/79
[2021-05-29] MEDS: PIPERACILLIN/TAZOBACTAM 2.25 GM in IV NORMAL SALINE 50ML 50 ML IV SCH ×3 (05:49→20:54)
[2021-05-29] MEDS ORDERED: VANCOMYCIN RANDOM LEVEL. MC ONE (06:00)
[2021-05-29 07:20] VITALS: BP 142/74
[2021-05-29 07:50] LABS: HEMATOCRIT 29.1 % (39.0-53.0); HEMOGLOBIN 9.5 g/dL (13.0-17.5); RED BLOOD COUNT 3.44 x10^6/uL (4.30-5.70); RED CELL DISTRIBUTION WIDTH 18.8 % (11.5-14.5); WHITE BLOOD COUNT 15.5 x10^3/uL (4.0-11.0)
[2021-05-29 08:00] LABS: CALCIUM 8.8 mg/dL (8.5-10.1); CREATININE 3.9 mg/dL (0.7-1.3); POTASSIUM 3.7 mmol/L (3.5-5.1)
[2021-05-29] MEDS ORDERED: DIALYSIS PATIENT. MC PRN ×2 (08:30)
[2021-05-29] MEDS ORDERED: 0.9 % SODIUM CHLORIDE 10 ML DISP.SYRIN. IV PRN ×2 (08:30)
[2021-05-29] MEDS ORDERED: IV NORMAL SALINE 1000ML BAG 1,000 ML IV PRN (08:30)
--- NOTE | 2021-05-29 10:50 | PDOC ---
[employer] PROGRESS NOTE Date of Service DOS: DATE: 05/29/21 TIME: 10:48 Chief Complaint Chief Complaint Weakness History of Present Illness History of Present Illness The patient is a pleasant middle-aged male, well known to my service. He states he has been too weak to go to dialysis. He missed dialysis and now has volume overload. His BNP level was 30,000. He also has a possible abscess on imaging on his kidney. I discussed the case with the ER physician. We are going to admit the patient, is getting dialyzed and give him IV antibiotics. 05/28/21 Patient seen and examined at bedside. I evaluated reports very weak and fatigued. When asked about possible abscess on kidney he says that it is new and does not know anything about it. Renal following for dialysis. Regarding kidney mass discussed with surgery who recommended urology evaluation however given current state of things nowhere in town to transfer the patient that can accept him thus will recommend he follows up urology outpatient. 05/29/21 Patient seen and examined at bedside. He was undergoing dialysis when evaluated no major clinical changes. Will still need outpatient work-up for kidney abscess. Continue antibiotics. Plan discussed with bedside RN. Vitals/I&O Vitals/I&O: Vital Signs Date Time Temp Pulse Resp B/P (MAP) Pulse Ox O2 Delivery O2 Flow Rate FiO2 05/29/21 08:00 Room Air 05/29/21 07:20 97.7 77 20 142/74 (96) 89 97.7 I & O 05/28/21 05/28/21 05/29/21 15:00 23:00 07:00 Intake Total 240 ml 50 ml Balance 240 ml 50 ml Physical Exam General: Alert, Cooperative, No acute distress Heart: Regular rate, Normal S1, Normal S2 Lungs: Crackles Abdomen: Normal bowel sounds, Soft, No tenderness, No masses Extremities: No clubbing, No cyanosis Skin: No rashes, No breakdown Labs Labs: Laboratory Tests Test 05/28/21 11:47 05/28/21 16:44 05/28/21 17:00 05/28/21 19:11 Glucose (Fingerstick) 164 mg/dL (70-99) 140 mg/dL (70-99) 158 mg/dL (70-99) Magnesium Level 2.1 mg/dL (1.8-2.4) Troponin I Quantitative 0.078 ng/mL (0.000-0.055) Test 05/29/21 07:23 05/29/21 07:25 Glucose (Fingerstick) 122 mg/dL (70-99) White Blood Count 15.5 x10^3/uL (4.0-11.0) Red Blood Count 3.44 x10^6/uL (4.30-5.70) Hemoglobin 9.5 g/dL (13.0-17.5) Hematocrit 29.1 % (39.0-53.0) Mean Corpuscular Volume 85 fL (79-100) Mean Corpuscular Hemoglobin 28 pg (25-35) Mean Corpuscular Hemoglobin Concent 33 g/dL (31-37) Red Cell Distribution Width 18.8 % (11.5-14.5) Platelet Count 265 x10^3/uL (140-400) Sodium Level 136 mmol/L (136-145) Potassium Level 3.7 mmol/L (3.5-5.1) Chloride Level 99 mmol/L (98-107) Carbon Dioxide Level 26 mmol/L (21-32) Anion Gap 11 (6-14) Blood Urea Nitrogen 43 mg/dL (8-26) Creatinine 3.9 mg/dL (0.7-1.3) Estimated GFR (Cockcroft-Gault) 15.0 Glucose Level 124 mg/dL (70-99) Calcium Level 8.8 mg/dL (8.5-10.1) Random Vancomycin Level 10.2 mcg/mL Assessment and Plan Assessmemt and Plan Problems Medical Problems: (1) Abscess of right kidney Status: Acute Comment Review of Relevant I have reviewed the following items cortes (where applicable) has been applied. Medications: Current Medications Medications (Trade) Dose Ordered Sig/Shantanu Route PRN Reason Start Time Stop Time Status Last Admin Dose Admin Darbepoetin Ortega (ARANESP for DIALYSIS PTS) 60 mcg WEEKLYHS SQ 05/28/21 21:00 05/28/21 21:19 Amiodarone HCl (Cordarone) 200 mg DAILY PO 05/28/21 13:00 05/28/21 13:08 Apixaban (Eliquis) 2.5 mg BID PO 05/28/21 21:00 05/28/21 21:23 Metoprolol Tartrate (Lopressor) 50 mg BID PO 05/28/21 13:00 05/28/21 13:08 Metolazone (Zaroxolyn) 5 mg DAILY PO 05/28/21 13:00 05/28/21 13:08 Furosemide (Lasix) 40 mg DAILY PO 05/28/21 13:00 05/28/21 13:08 Vancomycin HCl (Vancomycin Random Level) 1 each 1X ONCE MC 05/29/21 06:00 05/29/21 06:01 DC 05/29/21 06:00 Potassium Chloride (Klor-Con) 40 meq 1X ONCE PO 05/28/21 15:45 05/28/21 15:46 DC 05/28/21 16:06 Zolpidem Tartrate (Ambien) 5 mg PRN QHS PRN PO INSOMNIA 05/28/21 21:30 05/28/21 22:43 Justifications for Admission Other Justification Acute lower GI bleed, subtherapeutic INR CASSIDY CLAYTON MD May 29, 2021 10:50
--- NOTE | 2021-05-29 11:12 | PDOC ---
Renal-Progress Notes Subjective Notes Notes NO NEW COMPLAINTS History of Present Illness Hx of present illness CONFUSED Vitals Vitals Vital Signs Date Time Temp Pulse Resp B/P (MAP) Pulse Ox O2 Delivery O2 Flow Rate FiO2 05/29/21 08:00 Room Air 05/29/21 07:20 97.7 77 20 142/74 (96) 89 97.7 Weight Weight [ ] I.O. Intake and Output Intake and Output 05/29/21 07:00 Intake Total 290 ml Balance 290 ml Intake Oral 240 ml IV Total 50 ml # Bowel Movements 5 Labs Labs Laboratory Tests Test 05/28/21 11:47 05/28/21 16:44 05/28/21 17:00 05/28/21 19:11 Glucose (Fingerstick) 164 mg/dL (70-99) 140 mg/dL (70-99) 158 mg/dL (70-99) Magnesium Level 2.1 mg/dL (1.8-2.4) Troponin I Quantitative 0.078 ng/mL (0.000-0.055) Test 05/29/21 07:23 05/29/21 07:25 Glucose (Fingerstick) 122 mg/dL (70-99) White Blood Count 15.5 x10^3/uL (4.0-11.0) Red Blood Count 3.44 x10^6/uL (4.30-5.70) Hemoglobin 9.5 g/dL (13.0-17.5) Hematocrit 29.1 % (39.0-53.0) Mean Corpuscular Volume 85 fL (79-100) Mean Corpuscular Hemoglobin 28 pg (25-35) Mean Corpuscular Hemoglobin Concent 33 g/dL (31-37) Red Cell Distribution Width 18.8 % (11.5-14.5) Platelet Count 265 x10^3/uL (140-400) Sodium Level 136 mmol/L (136-145) Potassium Level 3.7 mmol/L (3.5-5.1) Chloride Level 99 mmol/L (98-107) Carbon Dioxide Level 26 mmol/L (21-32) Anion Gap 11 (6-14) Blood Urea Nitrogen 43 mg/dL (8-26) Creatinine 3.9 mg/dL (0.7-1.3) Estimated GFR (Cockcroft-Gault) 15.0 Glucose Level 124 mg/dL (70-99) Calcium Level 8.8 mg/dL (8.5-10.1) Random Vancomycin Level 10.2 mcg/mL Micro Micro Microbiology 05/27/21 Urine Culture - Final, Complete 05/27/21 Blood Culture - Preliminary, Resulted NO GROWTH AFTER 1 DAY Review of Systems Constitutional: yes: other (UNABLE TO OBTAIN) Physical Exam General Appearance: no apparent distress Skin: warm Respiratory: bilateral CTA Heart: S1S2 Abdomen: soft, bowel sounds present Extremities: pulses present Neurology: alert, confused Assessment Assessment IMP HYPOKALEMIA-CORRECTED DIARRHEA ABD PAIN ESRD ANEMIA LEUCOCYTOSIS URINARY TRACT INFECTION COMPLICATED RIGHT RENAL CYST PLAN HD TODAY UF TO TW START KADI ANTIBIOTICS F/U RENAL SONOGRAM 3 MONTHS ENC COMPLIANCE WILL FOLLOW MEGAN SCHMIDT MD May 29, 2021 11:12
--- NOTE | 2021-05-29 11:39 | PDOC ---
CAROLINE YBARRA SEWAGE DISPOSAL ENGINEER 05/29/21 1139: CARDIO Progress Notes Date and Time Date of Service 05/29/21 Time of Evaluation 1120 Subjective Subjective: No Chest Pain, No shortness of breath, No Palpitations, Other (feels fatigued ) Vitals Vitals Vital Signs Date Time Temp Pulse Resp B/P (MAP) Pulse Ox O2 Delivery O2 Flow Rate FiO2 05/29/21 08:00 Room Air 05/29/21 07:20 97.7 77 20 142/74 (96) 89 97.7 Weight Weight [ ] Input and Output Intake and Output Intake and Output 05/29/21 07:00 Intake Total 290 ml Balance 290 ml Intake Oral 240 ml IV Total 50 ml # Bowel Movements 5 Laboratory Labs Laboratory Tests Test 05/28/21 11:47 05/28/21 16:44 05/28/21 17:00 05/28/21 19:11 Glucose (Fingerstick) 164 mg/dL (70-99) 140 mg/dL (70-99) 158 mg/dL (70-99) Magnesium Level 2.1 mg/dL (1.8-2.4) Troponin I Quantitative 0.078 ng/mL (0.000-0.055) Test 05/29/21 07:23 05/29/21 07:25 Glucose (Fingerstick) 122 mg/dL (70-99) White Blood Count 15.5 x10^3/uL (4.0-11.0) Red Blood Count 3.44 x10^6/uL (4.30-5.70) Hemoglobin 9.5 g/dL (13.0-17.5) Hematocrit 29.1 % (39.0-53.0) Mean Corpuscular Volume 85 fL (79-100) Mean Corpuscular Hemoglobin 28 pg (25-35) Mean Corpuscular Hemoglobin Concent 33 g/dL (31-37) Red Cell Distribution Width 18.8 % (11.5-14.5) Platelet Count 265 x10^3/uL (140-400) Sodium Level 136 mmol/L (136-145) Potassium Level 3.7 mmol/L (3.5-5.1) Chloride Level 99 mmol/L (98-107) Carbon Dioxide Level 26 mmol/L (21-32) Anion Gap 11 (6-14) Blood Urea Nitrogen 43 mg/dL (8-26) Creatinine 3.9 mg/dL (0.7-1.3) Estimated GFR (Cockcroft-Gault) 15.0 Glucose Level 124 mg/dL (70-99) Calcium Level 8.8 mg/dL (8.5-10.1) Random Vancomycin Level 10.2 mcg/mL Microbiology Micro Microbiology 05/27/21 Urine Culture - Final, Complete 05/27/21 Blood Culture - Preliminary, Resulted NO GROWTH AFTER 1 DAY Review of Systems Constitutional: yes: other (UNABLE TO OBTAIN) Physical Exam Neurology: alert, confused Assessment Assessment 1. Weakness, fatigue 2. Abdominal pain; Imaging notable for renal lesion/mass/cyst 3. Leukocytosis, fever, UTI; as per IM 4. 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 Cardiomyopathy: recent echo with LVEF 45% 6. Mild troponin elevation; initial 0.078. Most probably type II, demand ischemia. CP free 7. PAFIB; EKG with a-flutter. Rate controlled per VS. Event monitor 01/23 without any AFIB. On Amiodarone for rhythm maintenance. Eliquis for stroke prophylaxis. 8. Hypertension; controlled 9. Hyperlipidemia 10. Diabetes, II 11. ESRD on HD 12. Hypokalemia; replaced 13. Chronic LBBB Recommendations Fluid offloading via HD Continue metoprolol, Amiodarone for rhythm/rate control Eliquis for stroke prophylaxis Consider outpatient CV versus referral for ablation Outpatient ischemic evaluation Supportive care Justicifation of Admission Dx: Justifications for Admission: Justification of Admission Dx: Yes CHELO NICHOLSON MD 05/29/21 1722: CARDIO Progress Notes Assessment Assessment Patient seen and examined. Agree with ALUMINUM BOAT INSPECTOR's assessment and plan. Continue fluid removal with hemodialysis for acute on chronic combined systolic and diastolic heart failure Recent 2D echo showed LVEF 45% PAF, presently back in AF, rate controlled. Continue amiodarone and Eliquis and consider outpatient cardioversion versus referral for ablation therapy CAROLINE YBARRA APRN May 29, 2021 11:39 CHELO NICHOLSON MD May 29, 2021 17:22
[2021-05-29] MEDS: VANCOMYCIN PER PHARMACY MC PRN (12:28)
[2021-05-29 12:53] VITALS: BP 130/69
[2021-05-29] MEDS: AMIODARONE HCL 200 MG TABLET. PO SCH (13:01)
[2021-05-29] MEDS: APIXABAN 2.5 MG TABLET. PO SCH ×2 (13:02→20:54)
[2021-05-29] MEDS: METOPROLOL TART IMMED RELEASE 25 MG TABLET. PO SCH ×2 (13:03→21:00)
[2021-05-29] MEDS: FUROSEMIDE 40 MG TABLET. PO SCH (13:03)
[2021-05-29] MEDS: metOLazone 2.5 MG TABLET PO SCH (13:03)
[2021-05-29 15:00] VITALS: BP 111/54
[2021-05-29] MEDS ORDERED: VANCOMYCIN 1 GM in IV NORMAL SALINE 250ML 250 ML IV ONE (16:00)
[2021-05-29 19:00] VITALS: BP 133/65
[2021-05-29] MEDS: ZOLPIDEM 5 MG TABLET. PO PRN (20:53)
[2021-05-29] MEDS: ATORVASTATIN CALCIUM 10 MG TABLET. PO SCH (20:54)
[2021-05-29 23:00] VITALS: BP 165/65
[2021-05-30 03:00] VITALS: BP 146/75
[2021-05-30] MEDS: PIPERACILLIN/TAZOBACTAM 2.25 GM in IV NORMAL SALINE 50ML 50 ML IV SCH ×3 (06:05→22:18)
[2021-05-30 07:23] VITALS: BP 150/78
[2021-05-30] MEDS: APIXABAN 2.5 MG TABLET. PO SCH ×2 (08:54→22:27)
[2021-05-30] MEDS: AMIODARONE HCL 200 MG TABLET. PO SCH (08:54)
[2021-05-30] MEDS: FUROSEMIDE 40 MG TABLET. PO SCH (08:55)
[2021-05-30] MEDS: METOPROLOL TART IMMED RELEASE 25 MG TABLET. PO SCH ×2 (08:55→22:27)
[2021-05-30] MEDS: metOLazone 2.5 MG TABLET PO SCH (08:55)
[2021-05-30 10:57] VITALS: BP 86/47
--- NOTE | 2021-05-30 11:14 | PDOC ---
Renal-Progress Notes Subjective Notes Notes STILL HAS CONFUSION History of Present Illness Hx of present illness STABLE Vitals Vitals Vital Signs Date Time Temp Pulse Resp B/P (MAP) Pulse Ox O2 Delivery O2 Flow Rate FiO2 05/30/21 08:55 77 150/78 05/30/21 07:45 Room Air 05/30/21 07:23 97.5 16 94 97.5 Weight Weight [ ] I.O. Intake and Output Intake and Output 05/30/21 06:59 Intake Total 590 ml Balance 590 ml Intake Oral 240 ml IV Total 350 ml # Voids 1 # Bowel Movements 1 Labs Labs Laboratory Tests Test 05/29/21 17:03 05/29/21 19:50 05/30/21 07:26 Glucose (Fingerstick) 145 mg/dL (70-99) 151 mg/dL (70-99) 122 mg/dL (70-99) Micro Micro Microbiology 05/27/21 Urine Culture - Final, Complete 05/27/21 Blood Culture - Preliminary, Resulted NO GROWTH AFTER 2 DAYS Review of Systems Constitutional: yes: other (UNABLE TO OBTAIN) Physical Exam General Appearance: no apparent distress Skin: warm Respiratory: bilateral CTA Heart: S1S2 Abdomen: soft, bowel sounds present Extremities: pulses present Neurology: alert, confused Assessment Assessment IMP HYPOKALEMIA-CORRECTED DIARRHEA ABD PAIN ESRD ANEMIA LEUCOCYTOSIS URINARY TRACT INFECTION COMPLICATED RIGHT RENAL CYST PLAN HD TOMORROW CONT KADI ANTIBIOTICS F/U RENAL SONOGRAM 3 MONTHS ENC COMPLIANCE WILL FOLLOW LONG D/W SHE IS CONSIDERING HOSPICE ALSO MAY CONSIDER NH SHE CANNOT CARE FOR HIM OR TRANSPORT TO HD UNIT SHE IS PLANNING OF D/W FAMILY D/W ATTENDING AND MEGAN ISSA MD May 30, 2021 11:14
--- NOTE | 2021-05-30 12:24 | PDOC ---
CAROLINE YBARRA GUEST SERVICE REPRESENTATIVE 05/30/21 1224: CARDIO Progress Notes Date and Time Date of Service 05/30/21 Time of Evaluation 1220 Subjective Subjective: No Chest Pain, No shortness of breath, No Palpitations, Other (feels fatigued ) Vitals Vitals Vital Signs Date Time Temp Pulse Resp B/P (MAP) Pulse Ox O2 Delivery O2 Flow Rate FiO2 05/30/21 10:57 97.3 75 22 86/47 (60) 94 Room Air 97.3 Weight Weight [ ] Input and Output Intake and Output Intake and Output 05/30/21 07:00 Intake Total 590 ml Balance 590 ml Intake Oral 240 ml IV Total 350 ml # Voids 1 # Bowel Movements 1 Laboratory Labs Laboratory Tests Test 05/29/21 17:03 05/29/21 19:50 05/30/21 07:26 05/30/21 11:55 Glucose (Fingerstick) 145 mg/dL (70-99) 151 mg/dL (70-99) 122 mg/dL (70-99) 187 mg/dL (70-99) Microbiology Micro Microbiology 05/27/21 Urine Culture - Final, Complete 05/27/21 Blood Culture - Preliminary, Resulted NO GROWTH AFTER 2 DAYS Review of Systems Constitutional: yes: other (UNABLE TO OBTAIN) Physical Exam HEENT: Neck Supple W Full Motion Chest: Symmetric LUNGS: Clear to Auscultation Heart: irregularly irregular (heart tones. Not on tele) Abdomen: Soft N/T Extremities: Other (1+ bilateral LE edema ) Neurology: alert, follow commands, confused Assessment Assessment 1. Weakness, fatigue 2. Abdominal pain; Imaging notable for renal lesion/mass/cyst 3. Leukocytosis, fever, UTI; as per IM 4. 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 Cardiomyopathy: recent echo with LVEF 45% 6. Mild troponin elevation; initial 0.078. Most probably type II, demand ischemia. CP free 7. PAFIB; EKG with a-flutter. Rate controlled per VS. Event monitor 01/23 without any AFIB. On Amiodarone for rhythm maintenance. Eliquis for stroke prophylaxis. 8. Hypertension; controlled 9. Hyperlipidemia 10. Diabetes, II 11. ESRD on HD 12. Hypokalemia; replaced 13. Chronic LBBB Recommendations Fluid offloading via HD Continue metoprolol, Amiodarone for rhythm/rate control Eliquis for stroke prophylaxis Supportive care Family considering Hospice Justicifation of Admission Dx: Justifications for Admission: Justification of Admission Dx: Yes CHELO NICHOLSON MD 05/31/21 0547: CARDIO Progress Notes Assessment Assessment Patient seen and examined. Agree with FREEZER MACHINE OPERATOR's assessment and plan. Continue fluid removal with hemodialysis for acute on chronic combined systolic and diastolic heart failure Recent 2D echo showed LVEF 45% AF, rate controlled. Family considering hospice. DC amiodarone CAROLINE YBARRA APRN May 30, 2021 12:24 CHELO NICHOLSON MD May 31, 2021 05:47
[2021-05-30] MEDS: VANCOMYCIN PER PHARMACY MC PRN (12:28)
--- NOTE | 2021-05-30 14:51 | PDOC ---
[facility] PROGRESS NOTE Date of Service DOS: DATE: 05/30/21 TIME: 14:48 Chief Complaint Chief Complaint Weakness History of Present Illness History of Present Illness The patient is a pleasant middle-aged male, well known to my service. He states he has been too weak to go to dialysis. He missed dialysis and now has volume overload. His BNP level was 30,000. He also has a possible abscess on imaging on his kidney. I discussed the case with the ER physician. We are going to admit the patient, is getting dialyzed and give him IV antibiotics. 05/28/21 Patient seen and examined at bedside. I evaluated reports very weak and fatigued. When asked about possible abscess on kidney he says that it is new and does not know anything about it. Renal following for dialysis. Regarding kidney mass discussed with surgery who recommended urology evaluation however given current state of things nowhere in town to transfer the patient that can accept him thus will recommend he follows up urology outpatient. 05/29/21 Patient seen and examined at bedside. He was undergoing dialysis when evaluated no major clinical changes. Will still need outpatient work-up for kidney abscess. Continue antibiotics. Plan discussed with bedside RN. 05/30 Patient seen and evaluated at bedside. He was resting without any complaint. Long discussion held with patient's regarding ongoing care. The is visibly struggling with the patient's condition and is having difficulty considering the thought of hospice. After discussing with her for approximate the 20 minutes today she seems much more open to the idea of hospice given patient's poor prognosis. She seemed most concerned about her ability to care for him at home even in a hospice setting and seemed open to the idea inpatient hospice. Before making a final decision she would like to discuss with the rest of her family. She did endorse that he was a DNR however. Vitals/I&O Vitals/I&O: Vital Signs Date Time Temp Pulse Resp B/P (MAP) Pulse Ox O2 Delivery O2 Flow Rate FiO2 05/30/21 10:57 97.3 75 22 86/47 (60) 94 Room Air 97.3 I & O 05/29/21 05/29/21 05/30/21 15:00 23:00 07:00 Intake Total 240 ml 350 ml 0 ml Balance 240 ml 350 ml 0 ml Physical Exam General: Alert, Cooperative, No acute distress Heart: Regular rate, Normal S1, Normal S2 Lungs: Crackles Abdomen: Normal bowel sounds, Soft, No tenderness, No masses Extremities: No clubbing, No cyanosis Skin: No rashes, No breakdown Labs Labs: Laboratory Tests Test 05/29/21 17:03 05/29/21 19:50 05/30/21 07:26 05/30/21 11:55 Glucose (Fingerstick) 145 mg/dL (70-99) 151 mg/dL (70-99) 122 mg/dL (70-99) 187 mg/dL (70-99) Assessment and Plan Assessmemt and Plan Problems Medical Problems: (1) Abscess of right kidney Status: Acute Continue current plan. Dialysis for ESRD. We will follow up with the daily regarding goals of care. Comment Review of Relevant I have reviewed the following items cortes (where applicable) has been applied. Medications: Current Medications Medications (Trade) Dose Ordered Sig/Shantanu Route PRN Reason Start Time Stop Time Status Last Admin Dose Admin Vancomycin HCl 1 gm/Sodium Chloride 250 ml @ 250 mls/hr 1X ONCE IV 05/29/21 16:00 05/29/21 16:59 DC 05/29/21 15:25 Atorvastatin Calcium (Lipitor) 10 mg QHS PO 05/29/21 21:00 05/29/21 20:54 Justifications for Admission Other Justification Acute lower GI bleed, subtherapeutic INR CASSIDY CLAYTON MD May 30, 2021 14:51
[2021-05-30 15:10] VITALS: BP 113/63
[2021-05-30 19:00] VITALS: BP 133/69
[2021-05-30] MEDS: LACTOBACILLUS RHAMNOSUS GG 1 CAPSULE. PO SCH (21:00)
[2021-05-30] MEDS: ZOLPIDEM 5 MG TABLET. PO PRN (22:26)
[2021-05-30] MEDS: ATORVASTATIN CALCIUM 10 MG TABLET. PO SCH (22:27)
[2021-05-30 23:00] VITALS: BP 145/64
[2021-05-31 03:00] VITALS: BP 139/61
[2021-05-31] MEDS ORDERED: VANCOMYCIN RANDOM LEVEL. MC ONE (06:00)
[2021-05-31] MEDS: PIPERACILLIN/TAZOBACTAM 2.25 GM in IV NORMAL SALINE 50ML 50 ML IV SCH ×3 (06:19→21:29)
[2021-05-31 07:12] VITALS: BP 129/70
[2021-05-31 07:40] LABS: CALCIUM 8.8 mg/dL (8.5-10.1); CREATININE 3.8 mg/dL (0.7-1.3); GFR 15.4; POTASSIUM 3.6 mmol/L (3.5-5.1)
[2021-05-31 07:46] LABS: VANC TR 14.3 mcg/mL (10.0-20.0)
[2021-05-31 07:47] LABS: HEMOGLOBIN 9.7 g/dL (13.0-17.5); RED BLOOD COUNT 3.53 x10^6/uL (4.30-5.70); RED CELL DISTRIBUTION WIDTH 19.3 % (11.5-14.5); WHITE BLOOD COUNT 13.9 x10^3/uL (4.0-11.0)
[2021-05-31] MEDS ORDERED: DIALYSIS PATIENT. MC PRN (08:00)
[2021-05-31] MEDS ORDERED: IV NORMAL SALINE 1000ML BAG 1,000 ML IV PRN ×2 (08:00)
[2021-05-31 11:30] VITALS: BP 134/72
--- NOTE | 2021-05-31 11:41 | PDOC ---
Renal-Progress Notes Subjective Notes Notes ALERT BUT CONFUSED History of Present Illness Hx of present illness NO ACUTE CHANGES Vitals Vitals Vital Signs Date Time Temp Pulse Resp B/P (MAP) Pulse Ox O2 Delivery O2 Flow Rate FiO2 05/31/21 08:10 Room Air 05/31/21 07:12 97.6 58 20 129/70 (89) 90 97.6 Weight Weight [ ] I.O. Intake and Output Intake and Output 05/31/21 07:00 Intake Total 480 ml Balance 480 ml Intake Oral 480 ml # Bowel Movements 1 Labs Labs Laboratory Tests Test 05/30/21 11:55 05/30/21 16:14 05/30/21 19:14 05/31/21 06:50 Glucose (Fingerstick) 187 mg/dL (70-99) 199 mg/dL (70-99) 180 mg/dL (70-99) White Blood Count 13.9 x10^3/uL (4.0-11.0) Red Blood Count 3.53 x10^6/uL (4.30-5.70) Hemoglobin 9.7 g/dL (13.0-17.5) Hematocrit 30.0 % (39.0-53.0) Mean Corpuscular Volume 85 fL (79-100) Mean Corpuscular Hemoglobin 28 pg (25-35) Mean Corpuscular Hemoglobin Concent 32 g/dL (31-37) Red Cell Distribution Width 19.3 % (11.5-14.5) Platelet Count 274 x10^3/uL (140-400) Sodium Level 134 mmol/L (136-145) Potassium Level 3.6 mmol/L (3.5-5.1) Chloride Level 96 mmol/L (98-107) Carbon Dioxide Level 28 mmol/L (21-32) Anion Gap 10 (6-14) Blood Urea Nitrogen 46 mg/dL (8-26) Creatinine 3.8 mg/dL (0.7-1.3) Estimated GFR (Cockcroft-Gault) 15.4 Glucose Level 128 mg/dL (70-99) Calcium Level 8.8 mg/dL (8.5-10.1) Vancomycin Level Trough 14.3 mcg/mL (10.0-20.0) Vancomycin Last Dose Date 05/29/21 Vancomycin Last Dose Time 2100 Test 05/31/21 07:15 Glucose (Fingerstick) 136 mg/dL (70-99) Micro Micro Microbiology 05/27/21 Urine Culture - Final, Complete 05/27/21 Blood Culture - Preliminary, Resulted NO GROWTH AFTER 3 DAYS Review of Systems Constitutional: yes: other (UNABLE TO OBTAIN) Physical Exam General Appearance: no apparent distress Skin: warm Respiratory: bilateral CTA Heart: S1S2 Abdomen: soft, bowel sounds present Extremities: pulses present Neurology: alert, follow commands, confused Assessment Assessment IMP HYPOKALEMIA-CORRECTED DIARRHEA ABD PAIN ESRD ANEMIA LEUCOCYTOSIS URINARY TRACT INFECTION COMPLICATED RIGHT RENAL CYST PLAN HD TODAY UF TO TW CONT KADI ANTIBIOTICS F/U RENAL SONOGRAM 3 MONTHS ENC COMPLIANCE UPDATED WILL FOLLOW FAMILY DISCUSSION ONGOING REGARDING CARE PLANS MEGAN SCHMIDT MD May 31, 2021 11:41
[2021-05-31] MEDS: FUROSEMIDE 40 MG TABLET. PO SCH (12:22)
[2021-05-31] MEDS: LACTOBACILLUS RHAMNOSUS GG 1 CAPSULE. PO SCH ×2 (12:22→21:27)
[2021-05-31] MEDS: metOLazone 2.5 MG TABLET PO SCH (12:22)
[2021-05-31] MEDS: METOPROLOL TART IMMED RELEASE 25 MG TABLET. PO SCH ×2 (12:23→21:27)
[2021-05-31] MEDS: APIXABAN 2.5 MG TABLET. PO SCH ×2 (12:23→21:27)
--- NOTE | 2021-05-31 13:46 | PDOC ---
[facility] [facility] PROGRESS NOTE Date of Service DOS: DATE: 05/31/21 TIME: 13:45 Chief Complaint Chief Complaint Weakness History of Present Illness History of Present Illness The patient is a pleasant middle-aged male, well known to my service. He states he has been too weak to go to dialysis. He missed dialysis and now has volume overload. His BNP level was 30,000. He also has a possible abscess on imaging on his kidney. I discussed the case with the ER physician. We are going to admit the patient, is getting dialyzed and give him IV antibiotics. 05/28/21 Patient seen and examined at bedside. I evaluated reports very weak and fatigued. When asked about possible abscess on kidney he says that it is new and does not know anything about it. Renal following for dialysis. Regarding kidney mass discussed with surgery who recommended urology evaluation however given current state of things nowhere in town to transfer the patient that can accept him thus will recommend he follows up urology outpatient. 05/29/21 Patient seen and examined at bedside. He was undergoing dialysis when evaluated no major clinical changes. Will still need outpatient work-up for kidney abscess. Continue antibiotics. Plan discussed with bedside RN. 05/30 Patient seen and evaluated at bedside. He was resting without any complaint. Long discussion held with patient's regarding ongoing care. The is visibly struggling with the patient's condition and is having difficulty considering the thought of hospice. After discussing with her for approximate the 20 minutes today she seems much more open to the idea of hospice given patient's poor prognosis. She seemed most concerned about her ability to care for him at home even in a hospice setting and seemed open to the idea inpatient hospice. Before making a final decision she would like to discuss with the rest of her family. She did endorse that he was a DNR however. 05/31 Patient evaluated at bedside. No major clinical changes from that point of view. After discussion yesterday today would like referral to inpatient hospice. We will start this process. Otherwise continue current plan. Vitals/I&O Vitals/I&O: Vital Signs Date Time Temp Pulse Resp B/P (MAP) Pulse Ox O2 Delivery O2 Flow Rate FiO2 05/31/21 12:23 59 134/72 05/31/21 11:30 97.6 16 91 Room Air 97.6 I & O 05/30/21 05/30/21 05/31/21 15:00 23:00 07:00 Intake Total 480 ml 0 ml Balance 480 ml 0 ml Physical Exam General: Alert, Cooperative, No acute distress Heart: Regular rate, Normal S1, Normal S2 Lungs: Crackles Abdomen: Normal bowel sounds, Soft, No tenderness, No masses Extremities: No clubbing, No cyanosis Skin: No rashes, No breakdown Labs Labs: Laboratory Tests Test 05/30/21 16:14 05/30/21 19:14 05/31/21 06:50 05/31/21 07:15 Glucose (Fingerstick) 199 mg/dL (70-99) 180 mg/dL (70-99) 136 mg/dL (70-99) White Blood Count 13.9 x10^3/uL (4.0-11.0) Red Blood Count 3.53 x10^6/uL (4.30-5.70) Hemoglobin 9.7 g/dL (13.0-17.5) Hematocrit 30.0 % (39.0-53.0) Mean Corpuscular Volume 85 fL (79-100) Mean Corpuscular Hemoglobin 28 pg (25-35) Mean Corpuscular Hemoglobin Concent 32 g/dL (31-37) Red Cell Distribution Width 19.3 % (11.5-14.5) Platelet Count 274 x10^3/uL (140-400) Sodium Level 134 mmol/L (136-145) Potassium Level 3.6 mmol/L (3.5-5.1) Chloride Level 96 mmol/L (98-107) Carbon Dioxide Level 28 mmol/L (21-32) Anion Gap 10 (6-14) Blood Urea Nitrogen 46 mg/dL (8-26) Creatinine 3.8 mg/dL (0.7-1.3) Estimated GFR (Cockcroft-Gault) 15.4 Glucose Level 128 mg/dL (70-99) Calcium Level 8.8 mg/dL (8.5-10.1) Vancomycin Level Trough 14.3 mcg/mL (10.0-20.0) Vancomycin Last Dose Date 05/29/21 Vancomycin Last Dose Time 2100 Test 05/31/21 11:42 Glucose (Fingerstick) 113 mg/dL (70-99) Assessment and Plan Assessmemt and Plan Problems Medical Problems: (1) Abscess of right kidney Status: Acute Inpatient hospice referral Comment Review of Relevant I have reviewed the following items cortes (where applicable) has been applied. Medications: Current Medications Medications (Trade) Dose Ordered Sig/Shantanu Route PRN Reason Start Time Stop Time Status Last Admin Dose Admin Vancomycin HCl (Vancomycin Random Level) 1 each 1X ONCE MC 05/31/21 06:00 05/31/21 06:01 DC 05/31/21 06:00 Lactobacillus Rhamnosus (Culturelle) 1 cap BID PO 05/30/21 21:00 05/31/21 12:22 Justifications for Admission Other Justification Acute lower GI bleed, subtherapeutic INR CASSIDY CLAYTON MD May 31, 2021 13:46
[2021-05-31] MEDS: VANCOMYCIN PER PHARMACY MC PRN (14:05)
[2021-05-31 15:15] VITALS: BP 135/72
[2021-05-31] MEDS ORDERED: VANCOMYCIN 1 GM in IV NORMAL SALINE 250ML 250 ML IV ONE (16:00)
[2021-05-31 19:00] VITALS: BP 115/55
[2021-05-31] MEDS: ATORVASTATIN CALCIUM 10 MG TABLET. PO SCH (21:27)
[2021-05-31 23:00] VITALS: BP 132/71
[2021-06-01 03:00] VITALS: BP 136/82
[2021-06-01] MEDS: PIPERACILLIN/TAZOBACTAM 2.25 GM in IV NORMAL SALINE 50ML 50 ML IV SCH ×3 (05:49→21:07)
[2021-06-01 06:58] VITALS: BP 124/58
--- NOTE | 2021-06-01 08:24 | PDOC ---
Renal-Progress Notes Subjective Notes Notes CONFUSION, SOMNOLENT History of Present Illness Hx of present illness STABLE Vitals Vitals Vital Signs Date Time Temp Pulse Resp B/P (MAP) Pulse Ox O2 Delivery O2 Flow Rate FiO2 06/01/21 06:58 98.9 56 17 124/58 (80) 90 Room Air 98.9 Weight Weight [ ] I.O. Intake and Output Intake and Output 06/01/21 07:00 Intake Total 550 ml Balance 550 ml Intake Oral 450 ml IV Total 100 ml # Bowel Movements 1 Labs Labs Laboratory Tests Test 05/31/21 11:42 05/31/21 17:45 05/31/21 20:28 06/01/21 07:49 Glucose (Fingerstick) 113 mg/dL (70-99) 211 mg/dL (70-99) 245 mg/dL (70-99) 134 mg/dL (70-99) Micro Micro Microbiology 05/27/21 Urine Culture - Final, Complete 05/27/21 Blood Culture - Preliminary, Resulted NO GROWTH AFTER 4 DAYS Review of Systems Constitutional: yes: other (UNABLE TO OBTAIN) Physical Exam General Appearance: no apparent distress Skin: warm Respiratory: bilateral CTA Heart: S1S2 Abdomen: soft, bowel sounds present Extremities: pulses present Neurology: alert, follow commands, confused Assessment Assessment IMP HYPOKALEMIA-CORRECTED DIARRHEA ABD PAIN ESRD ANEMIA LEUCOCYTOSIS URINARY TRACT INFECTION COMPLICATED RIGHT RENAL CYST PLAN HD MWF CONT KADI ANTIBIOTICS F/U RENAL SONOGRAM 3 MONTHS ENC COMPLIANCE WILL FOLLOW NEEDED FAMILY DISCUSSION ONGOING REGARDING HOSPICE MEGAN SCHMIDT MD Jun 01, 2021 08:24
[2021-06-01] MEDS: metOLazone 2.5 MG TABLET PO SCH (10:19)
[2021-06-01] MEDS: APIXABAN 2.5 MG TABLET. PO SCH ×2 (10:20→21:06)
[2021-06-01] MEDS: FUROSEMIDE 40 MG TABLET. PO SCH (10:20)
[2021-06-01] MEDS: METOPROLOL TART IMMED RELEASE 25 MG TABLET. PO SCH ×2 (10:20→21:06)
[2021-06-01] MEDS: LACTOBACILLUS RHAMNOSUS GG 1 CAPSULE. PO SCH ×2 (10:20→21:05)
[2021-06-01 11:00] VITALS: BP 130/68
[2021-06-01 15:00] VITALS: BP 125/64
[2021-06-01] MEDS ORDERED: ANTI-COAG MONITOR BY PHARMACY. MC PRN (17:45)
[2021-06-01 19:00] VITALS: BP 121/54
--- NOTE | 2021-06-01 20:04 | PDOC ---
GENERAL General: Patient examined chart reviewed today is hospital day 6 for this patient with e nd-stage renal disease hemodialysis dependent for the last couple of months. He is unaccompanied at bedside tonight. Per nursing no decisions were made in the family meeting with [facility] today. Patient is not 100% certain that he will stop dialysis but expresses how unhappy he is with that. He tells me that he is very bored sitting there for 4 hours 3 days a week. I asked him if he could get a computer to watch some TV and he was not sure that he would be able to. Apparently there is no televisions in the hemodialysis suite. He does not believe that clinical depression is factoring into his decision-making but admits to being under more stress. We may need to augment his mood regimen and have social work speak with a dialysis unit on whether they can provide him with something to do while he is being dialyzed. I agree that at this point unless he decides to stop hemodialysis he is not a hospice candidate. Appreciate nephrology support. We will continue the antibiotic until discharge for ques tion of pyelonephritis. His complex renal cyst will need to be reimaged in 3 months. Time spent today is 30 minutes with greater than 50% in counseling and coordination of care most of which in discussion with patient. Problems: (1) ESRD on hemodialysis VITAL SIGNS Vital Signs/I&O: Vital Signs Date Time Temp Pulse Resp B/P (MAP) Pulse Ox O2 Delivery O2 Flow Rate FiO2 06/01/21 15:00 96.9 54 18 125/64 (84) 94 Room Air 96.9 I & O 05/31/21 05/31/21 06/01/21 15:00 23:00 07:00 Intake Total 240 ml 50 ml 260 ml Balance 240 ml 50 ml 260 ml Patient is sitting up resting comfortably this evening in no acute distress. Appears to be at baseline orientation. HEENT exam is unremarkable Chest is clear to auscultation Heart S1-S2 normal regular rate and rhythm no murmurs or gallops are noted Abdomen soft nontender nondistended no masses organomegaly noted Extremity exam is unremarkable for acute abnormality ALLERGIES Allergies: Allergies Coded Allergies Type Severity Reaction Last Updated Verified lisinopril Allergy Severe SWELLING OF TONGUE AND THROAT 05/08/16 Yes MEDS Medications: Current Medications Medications (Trade) Dose Ordered Sig/Shantanu Start Time Stop Time Status Last Admin Dose Admin Amiodarone HCl (Cordarone) 200 mg DAILY 05/28/21 13:00 05/31/21 05:49 DC 05/30/21 08:54 Amlodipine Besylate (Norvasc) 10 mg DAILY 05/29/21 09:00 06/01/21 10:19 Apixaban (Eliquis) 2.5 mg BID 05/28/21 21:00 06/01/21 10:20 Atorvastatin Calcium (Lipitor) 10 mg QHS 05/29/21 21:00 05/31/21 21:27 Darbepoetin Ortega (ARANESP for DIALYSIS PTS) 60 mcg WEEKLYHS 05/28/21 21:00 05/28/21 21:19 Furosemide (Lasix) 40 mg DAILY 05/28/21 13:00 06/01/21 10:20 Info (Anti-Coagulation Monitoring By Pharmacy) 1 each PRN DAILY PRN 06/01/21 17:45 06/01/21 17:42 Info (PHARMACY MONITORING -- do not chart) 1 each PRN DAILY PRN 05/31/21 08:00 UNV Lactobacillus Rhamnosus (Culturelle) 1 cap BID 05/30/21 21:00 06/01/21 10:20 Lidocaine HCl (Xylocaine-Mpf 1% 2ml Vial) 0.25 ml 1X STAT 05/27/21 16:01 05/27/21 16:02 Cancel Metolazone (Zaroxolyn) 5 mg DAILY 05/28/21 13:00 06/01/21 10:19 Metoprolol Tartrate (Lopressor) 50 mg BID 05/28/21 13:00 06/01/21 10:20 Ondansetron HCl (Zofran) 4 mg PRN Q8HRS PRN 05/27/21 14:00 05/28/21 13:59 DC Piperacillin Sod/ Tazobactam Sod (Zosyn Per Pharmacy) 1 each PRN DAILY PRN 05/27/21 12:45 Piperacillin Sod/ Tazobactam Sod 2.25 gm/Sodium Chloride 50 ml @ 100 mls/hr Q8HRS 05/27/21 22:00 06/01/21 14:23 Potassium Chloride (Klor-Con) 40 meq 1X ONCE 05/28/21 15:45 05/28/21 15:46 DC 05/28/21 16:06 Ringer's Solution 500 ml @ 500 mls/hr 1X ONCE 05/27/21 10:15 05/27/21 11:14 DC 05/27/21 11:27 Sodium Chloride 1,000 ml @ 400 mls/hr Q2H30M PRN 05/31/21 08:00 05/31/21 19:59 DC Sodium Chloride (Normal Saline Flush) 10 ml 1X PRN PRN 05/29/21 08:30 05/30/21 08:29 DC Vancomycin HCl (Vanco Per Pharmacy) 1 each PRN DAILY PRN 05/27/21 12:45 05/31/21 14:05 Vancomycin HCl (Vancomycin Random Level) 1 each 1X ONCE 06/03/21 06:00 06/03/21 06:01 Vancomycin HCl 1 gm/Sodium Chloride 250 ml @ 250 mls/hr 1X ONCE 05/31/21 16:00 05/31/21 16:59 DC 05/31/21 16:21 Vancomycin HCl 2 gm/Sodium Chloride 500 ml @ 250 mls/hr 1X ONCE 05/27/21 13:00 05/27/21 14:59 DC 05/27/21 13:49 Zolpidem Tartrate (Ambien) 5 mg PRN QHS PRN 05/28/21 21:30 05/30/21 22:26 Current Medications Medications (Trade) Dose Ordered Sig/Shantanu Route PRN Reason Start Time Stop Time Status Last Admin Dose Admin Info (Anti-Coagulation Monitoring By Pharmacy) 1 each PRN DAILY PRN MC PER PROTOCOL 06/01/21 17:45 06/01/21 17:42 LAB Lab: Laboratory Tests Test 05/31/21 20:28 06/01/21 07:49 06/01/21 11:42 06/01/21 16:32 Glucose (Fingerstick) 245 mg/dL (70-99) H 134 mg/dL (70-99) H 220 mg/dL (70-99) H 217 mg/dL (70-99) H ASSESSMENT & PLAN A&P Plan as noted above This note was created using [employer] and may have omissions and/or errors due to the nature of real-time voice dietary worker. Justifications for Admission Other Justification Acute lower GI bleed, subtherapeutic INR ERIC COLLINS MD Jun 01, 2021 20:04
[2021-06-01] MEDS: ATORVASTATIN CALCIUM 10 MG TABLET. PO SCH (21:06)
[2021-06-01 23:00] VITALS: BP 124/66
[2021-06-02 03:00] VITALS: BP 133/69
[2021-06-02] MEDS: PIPERACILLIN/TAZOBACTAM 2.25 GM in IV NORMAL SALINE 50ML 50 ML IV SCH ×3 (06:19→21:03)
[2021-06-02 07:00] VITALS: BP 135/71
[2021-06-02] MEDS: FUROSEMIDE 40 MG TABLET. PO SCH (08:02)
[2021-06-02] MEDS: LACTOBACILLUS RHAMNOSUS GG 1 CAPSULE. PO SCH ×2 (08:02→21:02)
[2021-06-02] MEDS: metOLazone 2.5 MG TABLET PO SCH (08:02)
[2021-06-02] MEDS: APIXABAN 2.5 MG TABLET. PO SCH ×2 (08:02→21:02)
[2021-06-02] MEDS: METOPROLOL TART IMMED RELEASE 25 MG TABLET. PO SCH ×2 (08:03→21:02)
[2021-06-02 08:27] LABS: BASO # 0.1 x10^3/uL (0.0-0.2); BASO % 0 % (0-3); EOS # 0.2 x10^3/uL (0.0-0.7); EOS % 2 % (0-3); HEMOGLOBIN 9.5 g/dL (13.0-17.5); LYMPH # 1.3 x10^3/uL (1.0-4.8); LYMPH % 10 % (24-48); MEAN CORPUSCULAR HEMOGLOBIN 27 pg (25-35); MEAN CORPUSCULAR HGB CONC 33 g/dL (31-37); MEAN CORPUSCULAR VOLUME 84 fL (79-100); MONO # 1.3 x10^3/uL (0.0-1.1); MONO % 10 % (0-9); NEUT # 10.5 x10^3/uL (1.8-7.7); NEUT % 79 % (31-73); PLATELET COUNT 274 x10^3/uL (140-400); RED BLOOD COUNT 3.45 x10^6/uL (4.30-5.70); RED CELL DISTRIBUTION WIDTH 19.2 % (11.5-14.5); WHITE BLOOD COUNT 13.4 x10^3/uL (4.0-11.0)
[2021-06-02 08:34] LABS: ALBUMIN 1.8 g/dL (3.4-5.0); ALBUMIN/GLOBULIN RATIO 0.4 (1.0-1.7); CALCIUM 9.2 mg/dL (8.5-10.1); CREATININE 3.6 mg/dL (0.7-1.3); GFR 16.4; POTASSIUM 3.4 mmol/L (3.5-5.1); TOTAL BILIRUBIN 0.4 mg/dL (0.2-1.0); TOTAL PROTEIN 6.7 g/dL (6.4-8.2)
[2021-06-02 11:00] VITALS: BP 125/64
--- NOTE | 2021-06-02 11:20 | PDOC ---
Renal-Progress Notes Subjective Notes Notes NO COMPLAINTS History of Present Illness Hx of present illness REMAINS SOMNOLENT Vitals Vitals Vital Signs Date Time Temp Pulse Resp B/P (MAP) Pulse Ox O2 Delivery O2 Flow Rate FiO2 06/02/21 08:06 Room Air 06/02/21 08:03 54 135/71 06/02/21 07:00 97.3 16 92 97.3 Weight Weight [ ] I.O. Intake and Output Intake and Output 06/02/21 07:00 Intake Total 720 ml Balance 720 ml Intake Oral 620 ml IV Total 100 ml # Voids 2 # Bowel Movements 3 Labs Labs Laboratory Tests Test 06/01/21 11:42 06/01/21 16:32 06/01/21 20:22 06/02/21 07:05 Glucose (Fingerstick) 220 mg/dL (70-99) 217 mg/dL (70-99) 225 mg/dL (70-99) White Blood Count 13.4 x10^3/uL (4.0-11.0) Red Blood Count 3.45 x10^6/uL (4.30-5.70) Hemoglobin 9.5 g/dL (13.0-17.5) Hematocrit 29.0 % (39.0-53.0) Mean Corpuscular Volume 84 fL (79-100) Mean Corpuscular Hemoglobin 27 pg (25-35) Mean Corpuscular Hemoglobin Concent 33 g/dL (31-37) Red Cell Distribution Width 19.2 % (11.5-14.5) Platelet Count 274 x10^3/uL (140-400) Neutrophils (%) (Auto) 79 % (31-73) Lymphocytes (%) (Auto) 10 % (24-48) Monocytes (%) (Auto) 10 % (0-9) Eosinophils (%) (Auto) 2 % (0-3) Basophils (%) (Auto) 0 % (0-3) Neutrophils # (Auto) 10.5 x10^3/uL (1.8-7.7) Lymphocytes # (Auto) 1.3 x10^3/uL (1.0-4.8) Monocytes # (Auto) 1.3 x10^3/uL (0.0-1.1) Eosinophils # (Auto) 0.2 x10^3/uL (0.0-0.7) Basophils # (Auto) 0.1 x10^3/uL (0.0-0.2) Sodium Level 135 mmol/L (136-145) Potassium Level 3.4 mmol/L (3.5-5.1) Chloride Level 98 mmol/L (98-107) Carbon Dioxide Level 26 mmol/L (21-32) Anion Gap 11 (6-14) Blood Urea Nitrogen 45 mg/dL (8-26) Creatinine 3.6 mg/dL (0.7-1.3) Estimated GFR (Cockcroft-Gault) 16.4 BUN/Creatinine Ratio 13 (6-20) Glucose Level 120 mg/dL (70-99) Calcium Level 9.2 mg/dL (8.5-10.1) Total Bilirubin 0.4 mg/dL (0.2-1.0) Aspartate Amino Transf (AST/SGOT) 25 U/L (15-37) Alanine Aminotransferase (ALT/SGPT) 29 U/L (16-63) Alkaline Phosphatase 199 U/L (46-116) Total Protein 6.7 g/dL (6.4-8.2) Albumin 1.8 g/dL (3.4-5.0) Albumin/Globulin Ratio 0.4 (1.0-1.7) Test 06/02/21 07:08 Glucose (Fingerstick) 142 mg/dL (70-99) Micro Micro Microbiology 05/27/21 Urine Culture - Final, Complete 05/27/21 Blood Culture - Final, Complete NO GROWTH AFTER 5 DAYS Review of Systems Constitutional: yes: other (UNABLE TO OBTAIN) Physical Exam General Appearance: no apparent distress Skin: warm Respiratory: bilateral CTA Heart: S1S2 Abdomen: soft, bowel sounds present Extremities: pulses present Neurology: alert, follow commands, confused Assessment Assessment IMP HYPOKALEMIA-CORRECTED DIARRHEA ABD PAIN ESRD ANEMIA LEUCOCYTOSIS URINARY TRACT INFECTION COMPLICATED RIGHT RENAL CYST PLAN HD SCHEDULED FOR TOMORROW CONT KADI ANTIBIOTICS F/U RENAL SONOGRAM 3 MONTHS ENC COMPLIANCE FAMILY DISCUSSION ONGOING REGARDING [facility] REPAIRER PLANS WILL FOLLOW MEGAN SCHMIDT MD Jun 02, 2021 11:20
[2021-06-02 15:00] VITALS: BP 130/70
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
[2021-06-02] MEDS: CITALOPRAM 10 MG TABLET. PO SCH (17:19)
[2021-06-02 19:15] VITALS: BP 130/75
[2021-06-02] MEDS: ATORVASTATIN CALCIUM 10 MG TABLET. PO SCH (21:02)
[2021-06-02 23:41] VITALS: BP 116/68
[2021-06-03 03:00] VITALS: BP 120/67
[2021-06-03 05:12] LABS: HEMOGLOBIN A1C 6.7 % (4.8-5.6)
[2021-06-03] MEDS: PIPERACILLIN/TAZOBACTAM 2.25 GM in IV NORMAL SALINE 50ML 50 ML IV SCH (05:38)
[2021-06-03] MEDS ORDERED: VANCOMYCIN RANDOM LEVEL. MC ONE (06:00)
[2021-06-03 07:00] VITALS: BP 124/79
[2021-06-03] MEDS ORDERED: DIALYSIS PATIENT. MC PRN ×2 (08:45)
[2021-06-03] MEDS ORDERED: IV NORMAL SALINE 1000ML BAG 1,000 ML IV PRN ×2 (08:45)
[2021-06-03] MEDS ORDERED: ALBUMIN HUMAN 25% 100 ML IV PRN (08:45)
[2021-06-03] MEDS: metOLazone 2.5 MG TABLET PO SCH (09:00)
[2021-06-03] MEDS: APIXABAN 2.5 MG TABLET. PO SCH ×2 (09:00→20:48)
[2021-06-03] MEDS: METOPROLOL TART IMMED RELEASE 25 MG TABLET. PO SCH ×2 (09:00→20:48)
[2021-06-03] MEDS: LACTOBACILLUS RHAMNOSUS GG 1 CAPSULE. PO SCH ×2 (09:00→20:47)
[2021-06-03] MEDS: FUROSEMIDE 40 MG TABLET. PO SCH (09:00)
[2021-06-03] MEDS: CITALOPRAM 10 MG TABLET. PO SCH (09:00)
[2021-06-03 09:31] LABS: CREATININE 4.1 mg/dL (0.7-1.3); GFR 14.1; POTASSIUM 3.8 mmol/L (3.5-5.1)
--- NOTE | 2021-06-03 10:45 | PDOC ---
DATE OF SERVICE DATE: 06/03/21 TIME: 10:45 SUBJECTIVE ROS Seen during dialysis No acute concerns voiced by patient OBJECTIVE Vital Signs Vital Signs Date Time Temp Pulse Resp B/P (MAP) Pulse Ox O2 Delivery O2 Flow Rate FiO2 06/03/21 07:00 97.4 53 20 124/79 (94) 92 Room Air 97.4 I & 0 Intake and Output 06/03/21 07:00 Intake Total 220 ml Output Total 1350 ml Balance -1130 ml Intake Oral 120 ml IV Total 100 ml Output Urine Total 1350 ml # Voids 3 # Bowel Movements 1 PHYSICAL EXAM Physical Exam General Appearance: no apparent distress HEEN OM moist ] Neck supple Respiratory: bilateral CTA, non labored Heart: S1S2 Abdomen: soft, bowel sounds present, obese Extremities: mild LE edema + Neurology: follow commands DIAGNOSIS/ASSESSMENT Assessment & Plan ESRD - On HD MWF , seen during dialysis , tolerating well, continue as ordered. Black Cox HypoKalemia POA- resolved UTI - Abx per primary Complicated Rt Renal Cyst - FU Renal Sonogram in 3 Months Anemia- Continue KADI Family Discussion ongoing regarding half-way plans /Hospice COMMENT/RELEVANT DATA Meds Current Medications Medications (Trade) Dose Ordered Sig/Shantanu Start Time Stop Time Status Last Admin Dose Admin Albumin Human 100 ml @ 100 mls/hr 1X PRN PRN 06/03/21 08:45 06/03/21 14:44 Amiodarone HCl (Cordarone) 200 mg DAILY 05/28/21 13:00 05/31/21 05:49 DC 05/30/21 08:54 200 MG Amlodipine Besylate (Norvasc) 10 mg DAILY 05/29/21 09:00 06/02/21 08:02 10 MG Apixaban (Eliquis) 2.5 mg BID 05/28/21 21:00 06/02/21 21:02 2.5 MG Atorvastatin Calcium (Lipitor) 10 mg QHS 05/29/21 21:00 06/02/21 21:02 10 MG Citalopram Hydrobromide (CeleXA) 10 mg DAILY 06/02/21 17:00 06/02/21 17:19 10 MG Darbepoetin Ortega (ARANESP for DIALYSIS PTS) 60 mcg WEEKLYHS 05/28/21 21:00 05/28/21 21:19 60 MCG Furosemide (Lasix) 40 mg DAILY 05/28/21 13:00 06/02/21 08:02 40 MG Info (Anti-Coagulation Monitoring By Pharmacy) 1 each PRN DAILY PRN 06/01/21 17:45 06/01/21 17:42 1 EACH Info (PHARMACY MONITORING -- do not chart) 1 each PRN DAILY PRN 06/03/21 08:45 Lactobacillus Rhamnosus (Culturelle) 1 cap BID 05/30/21 21:00 06/02/21 21:02 1 CAP Lidocaine HCl (Xylocaine-Mpf 1% 2ml Vial) 0.25 ml 1X STAT 05/27/21 16:01 05/27/21 16:02 Cancel Metolazone (Zaroxolyn) 5 mg DAILY 05/28/21 13:00 06/02/21 08:02 5 MG Metoprolol Tartrate (Lopressor) 50 mg BID 05/28/21 13:00 06/02/21 21:02 50 MG Ondansetron HCl (Zofran) 4 mg PRN Q8HRS PRN 05/27/21 14:00 05/28/21 13:59 DC Piperacillin Sod/ Tazobactam Sod (Zosyn Per Pharmacy) 1 each PRN DAILY PRN 05/27/21 12:45 Piperacillin Sod/ Tazobactam Sod 2.25 gm/Sodium Chloride 50 ml @ 100 mls/hr Q8HRS 05/27/21 22:00 06/03/21 05:38 100 MLS/HR Potassium Chloride (Klor-Con) 40 meq 1X ONCE 05/28/21 15:45 05/28/21 15:46 DC 05/28/21 16:06 40 MEQ Ringer's Solution 500 ml @ 500 mls/hr 1X ONCE 05/27/21 10:15 05/27/21 11:14 DC 05/27/21 11:27 500 MLS/HR Sodium Chloride 1,000 ml @ 400 mls/hr Q2H30M PRN 06/03/21 08:45 06/03/21 20:44 Sodium Chloride (Normal Saline Flush) 10 ml 1X PRN PRN 05/29/21 08:30 05/30/21 08:29 DC Vancomycin HCl (Vanco Per Pharmacy) 1 each PRN DAILY PRN 05/27/21 12:45 05/31/21 14:05 1 EACH Vancomycin HCl (Vancomycin Random Level) 1 each 1X ONCE 06/03/21 06:00 06/03/21 06:01 DC Vancomycin HCl 1 gm/Sodium Chloride 250 ml @ 250 mls/hr 1X ONCE 05/31/21 16:00 05/31/21 16:59 DC 05/31/21 16:21 250 MLS/HR Vancomycin HCl 2 gm/Sodium Chloride 500 ml @ 250 mls/hr 1X ONCE 05/27/21 13:00 05/27/21 14:59 DC 05/27/21 13:49 250 MLS/HR Zolpidem Tartrate (Ambien) 5 mg PRN QHS PRN 05/28/21 21:30 05/30/21 22:26 5 MG Lab Laboratory Tests Test 06/02/21 11:40 06/02/21 20:56 06/03/21 07:30 06/03/21 08:00 Glucose (Fingerstick) 309 mg/dL (70-99) 200 mg/dL (70-99) 128 mg/dL (70-99) Sodium Level 137 mmol/L (136-145) Potassium Level 3.8 mmol/L (3.5-5.1) Chloride Level 99 mmol/L (98-107) Carbon Dioxide Level 28 mmol/L (21-32) Anion Gap 10 (6-14) Blood Urea Nitrogen 52 mg/dL (8-26) Creatinine 4.1 mg/dL (0.7-1.3) Estimated GFR (Cockcroft-Gault) 14.1 Glucose Level 114 mg/dL (70-99) Calcium Level 9.0 mg/dL (8.5-10.1) Random Vancomycin Level 15.7 mcg/mL Results All relevant outside records, renal labs, imaging studies, telemetry/EKG's were reviewed. Justicifation of Admission Dx: Justifications for Admission: Justification of Admission Dx: Yes JEFF PARISI MD Jun 03, 2021 10:45
[2021-06-03] MEDS: VANCOMYCIN PER PHARMACY MC PRN (11:26)
--- NOTE | 2021-06-03 12:59 | PDOC ---
[employer] PROGRESS NOTE Date of Service DOS: DATE: 06/03/21 TIME: 12:53 Chief Complaint Chief Complaint Weakness Right renal cyst UTI with possible right-sided pyelonephritis ESRD on HD History of Present Illness History of Present Illness The patient is a pleasant middle-aged male, well known to my service. He states he has been too weak to go to dialysis. He missed dialysis and now has volume overload. His BNP level was 30,000. He also has a possible abscess on imaging on his kidney. I discussed the case with the ER physician. We are going to admit the patient, is getting dialyzed and give him IV antibiotics. 05/28/21 Patient seen and examined at bedside. I evaluated reports very weak and fatigued. When asked about possible abscess on kidney he says that it is new and does not know anything about it. Renal following for dialysis. Regarding kidney mass discussed with surgery who recommended urology evaluation however given current state of things nowhere in town to transfer the patient that can accept him thus will recommend he follows up urology outpatient. 05/29/21 Patient seen and examined at bedside. He was undergoing dialysis when evaluated no major clinical changes. Will still need outpatient work-up for kidney abscess. Continue antibiotics. Plan discussed with bedside RN. 05/30 Patient seen and evaluated at bedside. He was resting without any complaint. Long discussion held with patient's regarding ongoing care. The is visibly struggling with the patient's condition and is having difficulty considering the thought of hospice. After discussing with her for approximate the 20 minutes today she seems much more open to the idea of hospice given patient's poor prognosis. She seemed most concerned about her ability to care for him at home even in a hospice setting and seemed open to the idea inpatient hospice. Before making a final decision she would like to discuss with the rest of her family. She did endorse that he was a DNR however. 05/31 Patient evaluated at bedside. No major clinical changes from that point of view. After discussion yesterday today would like referral to inpatient hospice. We will start this process. Otherwise continue current plan. 06/03: Patient seen in HD. Had discussion with his and confirmed that both patient and family are wanting to discharge home with home hospice. I will switch his antibiotics to oral Augmentin and oral Zyvox. Greater than 30 minutes spent managing the discharge of this patient. Vitals/I&O Vitals/I&O: Vital Signs Date Time Temp Pulse Resp B/P (MAP) Pulse Ox O2 Delivery O2 Flow Rate FiO2 06/03/21 09:00 53 124/79 06/03/21 08:00 Room Air 06/03/21 07:00 97.4 20 92 97.4 I & O 06/02/21 06/02/21 06/03/21 15:00 23:00 07:00 Intake Total 170 ml 50 ml Output Total 1350 ml Balance 170 ml -1300 ml Physical Exam General: Alert, Cooperative, No acute distress Heart: Regular rate, Normal S1, Normal S2 Lungs: Crackles Abdomen: Normal bowel sounds, Soft, No tenderness, No masses Extremities: No clubbing, No cyanosis Skin: No rashes, No breakdown Labs Labs: Laboratory Tests Test 06/02/21 20:56 06/03/21 07:30 06/03/21 08:00 Glucose (Fingerstick) 200 mg/dL (70-99) 128 mg/dL (70-99) Sodium Level 137 mmol/L (136-145) Potassium Level 3.8 mmol/L (3.5-5.1) Chloride Level 99 mmol/L (98-107) Carbon Dioxide Level 28 mmol/L (21-32) Anion Gap 10 (6-14) Blood Urea Nitrogen 52 mg/dL (8-26) Creatinine 4.1 mg/dL (0.7-1.3) Estimated GFR (Cockcroft-Gault) 14.1 Glucose Level 114 mg/dL (70-99) Calcium Level 9.0 mg/dL (8.5-10.1) Random Vancomycin Level 15.7 mcg/mL Assessment and Plan Assessmemt and Plan Problems Medical Problems: (1) Abscess of right kidney Status: Acute Comment Review of Relevant I have reviewed the following items cortes (where applicable) has been applied. Medications: Current Medications Medications (Trade) Dose Ordered Sig/Shantanu Route PRN Reason Start Time Stop Time Status Last Admin Dose Admin Vancomycin HCl (Vancomycin Random Level) 1 each 1X ONCE MC 06/03/21 06:00 06/03/21 06:01 DC 06/03/21 06:00 Citalopram Hydrobromide (CeleXA) 10 mg DAILY PO 06/02/21 17:00 06/02/21 17:19 Justifications for Admission Other Justification Acute lower GI bleed, subtherapeutic INR LORI LERMA MD Jun 03, 2021 12:59
--- NOTE | 2021-06-03 13:02 | PDOC3 ---
Discharge Summary Visit Information Date of Admission: May 27, 2021 Date of Discharge: Jun 04, 2021 Final Diagnosis Problems Medical Problems: (1) Abscess of right kidney Status: Acute Brief Hospital Course Allergies Allergies Coded Allergies Type Severity Reaction Last Updated Verified lisinopril Allergy Severe SWELLING OF TONGUE AND THROAT 05/08/16 Yes Vital Signs Vital Signs Date Time Temp Pulse Resp B/P (MAP) Pulse Ox O2 Delivery O2 Flow Rate FiO2 06/03/21 09:00 53 124/79 06/03/21 08:00 Room Air 06/03/21 07:00 97.4 20 92 97.4 Lab Results Laboratory Tests Test 06/01/21 16:32 06/01/21 20:22 06/02/21 07:05 06/02/21 07:08 Glucose (Fingerstick) 217 mg/dL (70-99) 225 mg/dL (70-99) 142 mg/dL (70-99) White Blood Count 13.4 x10^3/uL (4.0-11.0) Red Blood Count 3.45 x10^6/uL (4.30-5.70) Hemoglobin 9.5 g/dL (13.0-17.5) Hematocrit 29.0 % (39.0-53.0) Mean Corpuscular Volume 84 fL (79-100) Mean Corpuscular Hemoglobin 27 pg (25-35) Mean Corpuscular Hemoglobin Concent 33 g/dL (31-37) Red Cell Distribution Width 19.2 % (11.5-14.5) Platelet Count 274 x10^3/uL (140-400) Neutrophils (%) (Auto) 79 % (31-73) Lymphocytes (%) (Auto) 10 % (24-48) Monocytes (%) (Auto) 10 % (0-9) Eosinophils (%) (Auto) 2 % (0-3) Basophils (%) (Auto) 0 % (0-3) Neutrophils # (Auto) 10.5 x10^3/uL (1.8-7.7) Lymphocytes # (Auto) 1.3 x10^3/uL (1.0-4.8) Monocytes # (Auto) 1.3 x10^3/uL (0.0-1.1) Eosinophils # (Auto) 0.2 x10^3/uL (0.0-0.7) Basophils # (Auto) 0.1 x10^3/uL (0.0-0.2) Sodium Level 135 mmol/L (136-145) Potassium Level 3.4 mmol/L (3.5-5.1) Chloride Level 98 mmol/L (98-107) Carbon Dioxide Level 26 mmol/L (21-32) Anion Gap 11 (6-14) Blood Urea Nitrogen 45 mg/dL (8-26) Creatinine 3.6 mg/dL (0.7-1.3) Estimated GFR (Cockcroft-Gault) 16.4 BUN/Creatinine Ratio 13 (6-20) Glucose Level 120 mg/dL (70-99) Hemoglobin A1c 6.7 % (4.8-5.6) Calcium Level 9.2 mg/dL (8.5-10.1) Total Bilirubin 0.4 mg/dL (0.2-1.0) Aspartate Amino Transf (AST/SGOT) 25 U/L (15-37) Alanine Aminotransferase (ALT/SGPT) 29 U/L (16-63) Alkaline Phosphatase 199 U/L (46-116) Total Protein 6.7 g/dL (6.4-8.2) Albumin 1.8 g/dL (3.4-5.0) Albumin/Globulin Ratio 0.4 (1.0-1.7) Test 06/02/21 11:40 06/02/21 20:56 06/03/21 07:30 06/03/21 08:00 Glucose (Fingerstick) 309 mg/dL (70-99) 200 mg/dL (70-99) 128 mg/dL (70-99) Sodium Level 137 mmol/L (136-145) Potassium Level 3.8 mmol/L (3.5-5.1) Chloride Level 99 mmol/L (98-107) Carbon Dioxide Level 28 mmol/L (21-32) Anion Gap 10 (6-14) Blood Urea Nitrogen 52 mg/dL (8-26) Creatinine 4.1 mg/dL (0.7-1.3) Estimated GFR (Cockcroft-Gault) 14.1 Glucose Level 114 mg/dL (70-99) Calcium Level 9.0 mg/dL (8.5-10.1) Random Vancomycin Level 15.7 mcg/mL Laboratory Tests Test 06/02/21 20:56 06/03/21 07:30 06/03/21 08:00 Glucose (Fingerstick) 200 mg/dL (70-99) 128 mg/dL (70-99) Sodium Level 137 mmol/L (136-145) Potassium Level 3.8 mmol/L (3.5-5.1) Chloride Level 99 mmol/L (98-107) Carbon Dioxide Level 28 mmol/L (21-32) Anion Gap 10 (6-14) Blood Urea Nitrogen 52 mg/dL (8-26) Creatinine 4.1 mg/dL (0.7-1.3) Estimated GFR (Cockcroft-Gault) 14.1 Glucose Level 114 mg/dL (70-99) Calcium Level 9.0 mg/dL (8.5-10.1) Random Vancomycin Level 15.7 mcg/mL Brief Hospital Course Mr. Palomares is a 80 old male who presented with UTI, right renal cyst, possible pyelonephritis. Consultation was placed to nephrology. Patient was treated with IV Zosyn and IV vancomycin. After discussion with patient's , his CODE STATUS was confirmed DNR and patient/ agreeable to discharge home with home hospice. They understand this involves no further hemodialysis. He was stable to discharge home with Augmentin and Zyvox to complete antibiotic course. Discharge Information Condition at Discharge: Stable Disposition/Orders: D/C to Home w/ Hospice Scheduled Amiodarone Hcl (Pacerone) 200 Mg Tablet, 200 MG PO DAILY for afib, (Reported) Entered as Reported by: SHAREE ORO on 03/28/21 0536 Last Action: Continued on 05/28/211252 by CASSIDY CLAYTON MD Amlodipine Besylate (Amlodipine Besylate) 10 Mg Tablet, 10 MG PO DAILY for htn, (Reported) Entered as Reported by: JAIDEN RAMIREZ on 05/28/21 0233 Last Action: Continued on 05/28/211252 by CASSIDY CLAYTON MD Amoxicillin/Potassium Clav (Amox Tr-K Clv 875-125 Mg Tab) 1 Each Tablet, 1 TAB PO BID for UTI for 10 Days, #20 Prescribed by: LROI LERMA MD on 06/03/21 1306 Apixaban (Eliquis) 2.5 Mg Tablet, 2.5 MG PO BID for afib, (Reported) Entered as Reported by: JAIDEN RAMIREZ on 05/28/213 Last Action: Continued on 05/28/211252 by CASSIDY CLAYTON MD Doxazosin Mesylate (Doxazosin Mesylate) 4 Mg Tablet, 1 TAB PO DAILY for htn, #30 Ref 5 (Reported) not given while patient was here next dose due: date 10/24/20 time 0900 Entered as Reported by: COURTNEY HOSKINS on 05/08/16 1231 Last Action: HELD on 05/28/211252 by CASSIDY CLAYTON MD Folic Acid/Vitamin B Comp W-C (Charla-Jose R Tablet) 0.8 Mg Tablet, 1 TAB PO DAILY for esrd for 30 Days, #30 Prescribed by: ZAIN JENSEN on 01/23/21 0901 Last Action: HELD on 05/28/211252 by CASSIDY CLAYTON MD Furosemide (Furosemide) 40 Mg Tablet, 1 TAB PO DAILY for chf, #30 Ref 5 Prescribed by: PATI SAUNDERS MD on 04/02/21 1034 Last Action: Continued on 05/28/211252 by CASSIDY CLAYTON MD Linezolid (Zyvox) 600 Mg Tablet, 600 MG PO BID for UTI for 10 Days, #20 Prescribed by: LORI LERMA MD on 06/03/21 1306 Metolazone (Metolazone) 5 Mg Tablet, 5 MG PO DAILY for chf, (Reported) 30 mins prior to budesonide Entered as Reported by: JAIDEN RAMIREZ on 05/28/21232 Last Action: Converted on 05/28/211252 by CASSIDY CLAYTON MD Metoprolol Tartrate (Metoprolol Tartrate) 25 Mg Tablet, 2 TAB PO BID for HTN, #180 Ref 1 (Reported) Entered as Reported by: SHAREE ORO on 03/28/21 0536 Last Action: Continued on 05/28/211252 by CASSIDY CLAYTON MD Vitamin B Complex & Vit C No.4 (Super B Complex) 150 Mg Tablet, 150 MG PO DAILY for supplement, (Reported) not given while patient was here next dose due: date 10/24/20 time 0900 Entered as Reported by: COURTNEY HOSKINS on 05/08/16 1231 Last Action: HELD on 05/28/21 1253 by CASSIDY CLAYTON MD Justicifation of Admission Dx: Justifications for Admission: Justification of Admission Dx: Yes LORI LERMA MD Jun 03, 2021 13:02
--- NOTE | 2021-06-03 13:04 | SNU/HH DC ---
DISCHARGE WITH HOME HEALTH DISCHARGE INFORMATION: Final Diagnosis: Problems Medical Problems: (1) Abscess of right kidney Status: Acute Condition on Discharge: Stable CODE STATUS: Code Status: DNR/DNI HOME HEALTH: Face to Face: I certify this patient is under my care and that I, or a nurse practitioner or [facility] critical care physician assistant working with me, had a face to face encounter that meets the physician face to face encounter requirements with this patient on 06/03/2021. RN For Eval/Treatment: Yes Home Health Aide For: Self-care Pt Meets Homebound Status: Extreme weakness w/ amb., Psychological condition POST DISCHARGE ORDERS: Activity Instructions for Disc: Activity as tolerated Weight Bearing Status after Di: As tolerated DIET AFTER DISCHARGE: Renal Wound/Incision Care: Keep wound/cast CDI CHECKS AFTER DISCHARGE: Checks after discharge: Check blood press - daily, Check blood sugar, ac/hs, Check your Temp as needed FOLLOW-UP: DC TO SNF LABS: CBC, CMP 2 days after discharge TREATMENT/EQUIPMENT ORDERS: Adaptive Equipment Issued: None CERTIFICATION STATEMENT: Certification Statement: Certification Statement: Based on the above finding, I certify that this patient is confined to the home and needs intermittent usp care, physical therapy and/or speech therapy, or continues to need occupational therapy.~ This patient is under my care, and I have initiated the establishment of the plan of care.~ This patient will be followed by myself or a community physician who will periodically review the plan of care. Home Meds Active Scripts Furosemide (FUROSEMIDE) 40 Mg Tablet, 1 TAB PO DAILY for chf, #30 TAB 5 Refills Prov:PATI SAUNDERS MD 04/02/21 Folic Acid/Vitamin B Comp W-C (TOMMY-BEN TABLET) 0.8 Mg Tablet, 1 TAB PO DAILY for esrd for 30 Days, #30 TAB Prov:CASTLE,NIAL K III DO 01/23/21 Reported Medications Apixaban (ELIQUIS) 2.5 Mg Tablet, 2.5 MG PO BID for afib 05/28/21 Amlodipine Besylate (AMLODIPINE BESYLATE) 10 Mg Tablet, 10 MG PO DAILY for htn 05/28/21 Metolazone (METOLAZONE) 5 Mg Tablet, 5 MG PO DAILY for chf 30 mins prior to budesonide 05/28/21 Amiodarone Hcl (PACERONE) 200 Mg Tablet, 200 MG PO DAILY for afib, TAB 03/28/21 Metoprolol Tartrate (METOPROLOL TARTRATE) 25 Mg Tablet, 2 TAB PO BID for HTN, #180 TAB 1 Refill 03/28/21 Doxazosin Mesylate (DOXAZOSIN MESYLATE) 4 Mg Tablet, 1 TAB PO DAILY for htn, #30 TAB 5 Refills not given while patient was here next dose due: date 10/24/20 time 89905/08/16 Vitamin B Complex & Vit C No.4 (SUPER B COMPLEX) 150 Mg Tablet, 150 MG PO DAILY for supplement not given while patient was here next dose due: date 10/24/20 time 89905/08/16 LORI LERMA MD Jun 03, 2021 13:04
[2021-06-03] MEDS ORDERED: LINE600T12 PO (13:06)
[2021-06-03] MEDS ORDERED: AMOX1TAB11 PO (13:06)
--- NOTE | 2021-06-03 13:50 | SNU/HH DC ---
DISCHARGE ORDERS DISCHARGE INFORMATION: DISCHARGE DATE: Jun 03, 2021 FINAL DIAGNOSIS Problems Medical Problems: (1) Abscess of right kidney Status: Acute CONDITION ON DISCHARGE: Stable CODE STATUS: Code Status: DNR/DNI HOSPICE: HOSPICE: Yes HOSPICE EVAL & TREAT: Yes POST DISCHARGE ORDERS: ACTIVITY ORDERS: Activity as tolerated WEIGHT BEARING STATUS: As tolerated DIET AFTER DISCHARGE: Renal WOUND/INCISION CARE: Keep wound/cast CDI CHECKS AFTER DISCHARGE: CHECKS AFTER DISCHARGE: Check blood press - daily, Check blood sugar, ac/hs, Check your Temp as needed FOLLOW-UP: LAB ORDERS FOR FOLLOW-UP: CBC, CMP 2 days after discharge TREATMENT/EQUIPMENT ORDERS: ADAPTIVE EQUIPMENT NEEDED: None Physical Therapy For: Evalulation/Treatment Occupational Therapy For: Evaluation/Treatment DISCHARGE MEDICATIONS: Home Meds Active Scripts Linezolid (ZYVOX) 600 Mg Tablet, 600 MG PO BID for UTI for 10 Days, #20 TAB Prov:LORI LERMA MD 06/03/21 Amoxicillin/Potassium Clav (AMOX TR-K CLV 875-125 MG TAB) 1 Each Tablet, 1 TAB PO BID for UTI for 10 Days, #20 TAB Prov:LORI LERMA MD 06/03/21 Furosemide (FUROSEMIDE) 40 Mg Tablet, 1 TAB PO DAILY for chf, #30 TAB 5 Refills Prov:PATI SAUNDERS MD 04/02/21 Folic Acid/Vitamin B Comp W-C (TOMMY-BEN TABLET) 0.8 Mg Tablet, 1 TAB PO DAILY for esrd for 30 Days, #30 TAB Prov:CASTLE,NIAL K III DO 01/23/21 Reported Medications Apixaban (ELIQUIS) 2.5 Mg Tablet, 2.5 MG PO BID for afib 05/28/21 Amlodipine Besylate (AMLODIPINE BESYLATE) 10 Mg Tablet, 10 MG PO DAILY for htn 05/28/21 Metolazone (METOLAZONE) 5 Mg Tablet, 5 MG PO DAILY for chf 30 mins prior to budesonide 05/28/21 Amiodarone Hcl (PACERONE) 200 Mg Tablet, 200 MG PO DAILY for afib, TAB 03/28/21 Metoprolol Tartrate (METOPROLOL TARTRATE) 25 Mg Tablet, 2 TAB PO BID for HTN, #180 TAB 1 Refill 03/28/21 Doxazosin Mesylate (DOXAZOSIN MESYLATE) 4 Mg Tablet, 1 TAB PO DAILY for htn, #30 TAB 5 Refills not given while patient was here next dose due: date 10/24/20 time 89905/08/16 Vitamin B Complex & Vit C No.4 (SUPER B COMPLEX) 150 Mg Tablet, 150 MG PO DAILY for supplement not given while patient was here next dose due: date 10/24/20 time 89905/08/16 LORI LERMA MD Jun 03, 2021 13:50
[2021-06-03 15:31] VITALS: BP 108/72
[2021-06-03] MEDS: AMOXICILLIN/K CLAV 500/125MG TABLET. PO SCH ×2 (15:52→20:47)
[2021-06-03] MEDS ORDERED: VANCOMYCIN 1 GM in IV NORMAL SALINE 250ML 250 ML IV SCH (16:00)
[2021-06-03 19:00] VITALS: BP 156/70
[2021-06-03] MEDS: LINEZOLID 600 MG TABLET PO SCH (20:48)
[2021-06-03] MEDS: ATORVASTATIN CALCIUM 10 MG TABLET. PO SCH (20:48)
[2021-06-03 23:00] VITALS: BP 143/70
[2021-06-04 03:00] VITALS: BP 129/59
[2021-06-04 07:00] VITALS: BP 132/72
--- NOTE | 2021-06-04 10:57 | PDOC ---
DATE OF SERVICE DATE: 06/04/21 TIME: 10:56 SUBJECTIVE ROS stable, No concerns overnight OBJECTIVE Vital Signs Vital Signs Date Time Temp Pulse Resp B/P (MAP) Pulse Ox O2 Delivery O2 Flow Rate FiO2 06/04/21 07:00 97.4 54 20 132/72 (92) 94 Room Air 97.4 I & 0 Intake and Output 06/04/21 07:00 Intake Total 520 ml Balance 520 ml Intake Oral 520 ml # Voids 1 # Bowel Movements 1 PHYSICAL EXAM Physical Exam General Appearance: no apparent distress HEEN OM moist ] Neck supple Respiratory: bilateral CTA, non labored Heart: S1S2 Abdomen: soft, bowel sounds present, obese Extremities: mild LE edema + Neurology: follow commands DIAGNOSIS/ASSESSMENT Assessment & Plan ESRD - On HD MWF , currently no indication for HD today HypoKalemia POA- resolved UTI - Abx per primary Complicated Rt Renal Cyst - FU Renal Sonogram in 3 Months Anemia- Continue KADI Family 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 COMMENT/RELEVANT DATA Meds Current Medications Medications (Trade) Dose Ordered Sig/Shantanu Start Time Stop Time Status Last Admin Dose Admin Albumin Human 100 ml @ 100 mls/hr 1X PRN PRN 06/03/21 08:45 06/03/21 14:44 DC Amiodarone HCl (Cordarone) 200 mg DAILY 05/28/21 13:00 05/31/21 05:49 DC 05/30/21 08:54 200 MG Amlodipine Besylate (Norvasc) 10 mg DAILY 05/29/21 09:00 06/02/21 08:02 10 MG Amoxicillin/ Clavulanate Potassium (Augmentin 500/ 125mg) 1 tab BID 06/03/21 14:00 06/03/21 20:47 1 TAB Apixaban (Eliquis) 2.5 mg BID 05/28/21 21:00 06/03/21 20:48 2.5 MG Atorvastatin Calcium (Lipitor) 10 mg QHS 05/29/21 21:00 06/03/21 20:48 10 MG Citalopram Hydrobromide (CeleXA) 10 mg DAILY 06/02/21 17:00 06/02/21 17:19 10 MG Darbepoetin Ortega (ARANESP for DIALYSIS PTS) 60 mcg WEEKLYHS 05/28/21 21:00 06/04/21 07:59 DC 05/28/21 21:19 60 MCG Epoetin Ortega-epbx (RETACRIT for ESRD PTS) 10,000 unit MoWeFr 06/05/21 21:00 Furosemide (Lasix) 40 mg DAILY 05/28/21 13:00 06/02/21 08:02 40 MG Info (Anti-Coagulation Monitoring By Pharmacy) 1 each PRN DAILY PRN 06/01/21 17:45 06/01/21 17:42 1 EACH Info (PHARMACY MONITORING -- do not chart) 1 each PRN DAILY PRN 06/03/21 08:45 Lactobacillus Rhamnosus (Culturelle) 1 cap BID 05/30/21 21:00 06/03/21 20:47 1 CAP Lidocaine HCl (Xylocaine-Mpf 1% 2ml Vial) 0.25 ml 1X STAT 05/27/21 16:01 05/27/21 16:02 Cancel Linezolid (Zyvox) 600 mg BID 06/03/21 21:00 06/03/21 20:48 600 MG Metolazone (Zaroxolyn) 5 mg DAILY 05/28/21 13:00 06/02/21 08:02 5 MG Metoprolol Tartrate (Lopressor) 50 mg BID 05/28/21 13:00 06/03/21 20:48 50 MG Ondansetron HCl (Zofran) 4 mg PRN Q8HRS PRN 05/27/21 14:00 05/28/21 13:59 DC Piperacillin Sod/ Tazobactam Sod (Zosyn Per Pharmacy) 1 each PRN DAILY PRN 05/27/21 12:45 06/03/21 12:58 DC Piperacillin Sod/ Tazobactam Sod 2.25 gm/Sodium Chloride 50 ml @ 100 mls/hr Q8HRS 05/27/21 22:00 06/03/21 12:58 DC 06/03/21 05:38 100 MLS/HR Potassium Chloride (Klor-Con) 40 meq 1X ONCE 05/28/21 15:45 05/28/21 15:46 DC 05/28/21 16:06 40 MEQ Ringer's Solution 500 ml @ 500 mls/hr 1X ONCE 05/27/21 10:15 05/27/21 11:14 DC 05/27/21 11:27 500 MLS/HR Sodium Chloride 1,000 ml @ 400 mls/hr Q2H30M PRN 06/03/21 08:45 06/03/21 20:44 DC Sodium Chloride (Normal Saline Flush) 10 ml 1X PRN PRN 05/29/21 08:30 05/30/21 08:29 DC Vancomycin HCl (Vanco Per Pharmacy) 1 each PRN DAILY PRN 05/27/21 12:45 06/03/21 12:58 DC 06/03/21 11:26 1 EACH Vancomycin HCl (Vancomycin Random Level) 1 each 1X ONCE 06/03/21 06:00 06/03/21 12:58 DC 06/03/21 06:00 1 EACH Vancomycin HCl 1 gm/Sodium Chloride 250 ml @ 250 mls/hr QMWF 06/03/21 16:00 06/03/21 12:58 DC Vancomycin HCl 2 gm/Sodium Chloride 500 ml @ 250 mls/hr 1X ONCE 05/27/21 13:00 05/27/21 14:59 DC 05/27/21 13:49 250 MLS/HR Zolpidem Tartrate (Ambien) 5 mg PRN QHS PRN 05/28/21 21:30 05/30/21 22:26 5 MG Lab Laboratory Tests Test 06/03/21 13:39 06/03/21 16:33 06/03/21 19:55 06/04/21 07:20 Glucose (Fingerstick) 103 mg/dL (70-99) 169 mg/dL (70-99) 165 mg/dL (70-99) 122 mg/dL (70-99) Results All relevant outside records, renal labs, imaging studies, telemetry/EKG's were reviewed. Justicifation of Admission Dx: Justifications for Admission: Justification of Admission Dx: Yes JEFF PARISI MD Jun 04, 2021 10:57
[2021-06-04] MEDS: LACTOBACILLUS RHAMNOSUS GG 1 CAPSULE. PO SCH (10:59)
[2021-06-04] MEDS: metOLazone 2.5 MG TABLET PO SCH (10:59)
[2021-06-04 11:00] VITALS: BP 144/71
[2021-06-04] MEDS: METOPROLOL TART IMMED RELEASE 25 MG TABLET. PO SCH (11:00)
[2021-06-04] MEDS: APIXABAN 2.5 MG TABLET. PO SCH (11:00)
[2021-06-04] MEDS: AMOXICILLIN/K CLAV 500/125MG TABLET. PO SCH (11:00)
[2021-06-04] MEDS: FUROSEMIDE 40 MG TABLET. PO SCH (11:00)
[2021-06-04] MEDS: LINEZOLID 600 MG TABLET PO SCH (11:00)
[2021-06-04] MEDS: CITALOPRAM 10 MG TABLET. PO SCH (11:01)
--- NOTE | 2021-06-04 13:27 | NUR ---
DISCHARGE NOTE 20 gauge left AC IV removed, tip intact. patient tolerated well. Patient discharged Home with Hospice via EMS personnel.
[2021-06-05] MEDS ORDERED: EPOETIN ALFA-EPBX for ESRD 20,000 UNIT/ML VIAL. SQ SCH (21:00)
== END 2021-06-04 11:45 | disposition hospice, home (50) | DRG 291 ==
LOC: ER 09:58 → ED HOLD 12:38 → 5 SOUTH 14:48
PROVIDERS: ADMIT Student in an Organized Health Care Education/Training Program; ATTEND Student in an Organized Health Care Education/Training Program
PROC: 5A1D70Z Performance of Urinary Filtration, Intermittent, Less than 6 Hours Per Day (ICD-10-PCS; principal; 2021-05-27)
PROC: 5A1D70Z Performance of Urinary Filtration, Intermittent, Less than 6 Hours Per Day (ICD-10-PCS; 2021-06-03)
DX: I13.2 Hypertensive heart and chronic kidney disease with heart failure and with stage 5 chronic kidney disease, or end stage renal disease (principal); I50.43 Acute on chronic combined systolic (congestive) and diastolic (congestive) heart failure; N15.1 Renal and perinephric abscess; N18.6 End stage renal disease; N12 Tubulo-interstitial nephritis, not specified as acute or chronic; I48.92 Unspecified atrial flutter; I42.8 Other cardiomyopathies; D64.9 Anemia, unspecified; E11.22 Type 2 diabetes mellitus with diabetic chronic kidney disease; E78.5 Hyperlipidemia, unspecified; F03.90 Unspecified dementia, unspecified severity, without behavioral disturbance, psychotic disturbance, mood disturbance, and anxiety; F32.9 Major depressive disorder, single episode, unspecified; I44.7 Left bundle-branch block, unspecified; I48.0 Paroxysmal atrial fibrillation; N28.1 Cyst of kidney, acquired; N40.0 Benign prostatic hyperplasia without lower urinary tract symptoms; E21.3 Hyperparathyroidism, unspecified; M19.90 Unspecified osteoarthritis, unspecified site; E87.6 Hypokalemia; Z66 Do not resuscitate; Z79.01 Long term (current) use of anticoagulants; Z79.899 Other long term (current) drug therapy; Z82.49 Family history of ischemic heart disease and other diseases of the circulatory system; Z91.19 Patient's noncompliance with other medical treatment and regimen; Z99.2 Dependence on renal dialysis; Z88.8 Allergy status to other drugs, medicaments and biological substances; Z87.01 Personal history of pneumonia (recurrent)
CPT/HCPCS: 36415; 74176; 76770; 80048; 80053; 80202; 81001; 82962; 83036; 83605; 83690; 83735; 83880; 84484; 85007; 85025; 85027; 87040; 87086; 93005; 96361; 96365; 96366; 96368; J0882; J2543; J3370; J7040; J7050; J7120; 99285-25; G0378; J7030